=== PATIENT | female | born 1960 | race Caucasian/White ===

== ENCOUNTER 2016-11-11 10:32 | Emergency (ER) | payer OTHER ==
[2016-11-11] MEDS ORDERED: ASPIRIN 81 MG CHEW PO STA (11:01)
[2016-11-11] MEDS ORDERED: KETOROLAC 30 MG/ML 1 ML VIAL IVP STA (11:01)
[2016-11-11] MEDS ORDERED: SODIUM CHLORIDE 0.9% 500 ML IV STA (11:02)
--- NOTE | 2016-11-11 11:07 | ED ---
Chest Pain HPI - General Chief Complaint: Chest Pain Stated Complaint: Chest pain Time Seen by Provider: 11/11/16 10:45 Source: patient, RN notes reviewed Mode of arrival: ambulatory Limitations: no limitations - History of Present Illness Initial Comments: This is a 55-year-old female with a history of smoking but no known history of heart disease she has of a history of hypertension but only sporadically takes her medications who states she had the onset 4 days ago of left-sided chest pain sharp and achy nature mild to moderate in severity. It increases with deep breathing and movement she also complains of dyspnea on exertion. A cough but no phlegm no fevers chills or sweats. She does say she had a recent pneumonia. MD Complaint: chest pain, other - Related Data Home Medications Medication Instructions Recorded Confirmed Amlodipine/Valsartan/Hcthiazid 0.5 tab PO DAILY 04/28/16 11/11/16 [Krddu-Afdiq-Zwst 10-320-25 mg] DULoxetine HCL [Cymbalta] 60 mg PO DAILY 04/28/16 11/11/16 Esomeprazole Magnesium [NexIUM] 20 mg PO TID 04/28/16 11/11/16 Folic Acid 1 mg PO DAILY 04/28/16 11/11/16 Hydrocodone/Acetaminophen [[place] 1 tab PO TID PRN 04/28/16 11/11/16 10-325] Previous Rx's Medication Instructions Recorded Hydrocodone/Acetaminophen [[place] 1 each PO Q6HR PRN #20 tab 11/11/16 5-325] Allergies Allergy/AdvReac Type Severity Reaction Status Date / Time Sulfa (Sulfonamide Allergy Unknown Anaphylaxis Verified 11/11/16 11:29 Antibiotics) Review of Systems ROS Statement: Those systems with pertinent positive or pertinent negative responses have been documented in the HPI. ROS Other: All systems not noted in ROS Statement are negative. EKG Findings - EKG Results: EKG: interpreted by JC, sinus rhythm (Sinus rhythm rate of 109 ND interval 1: 30 QRS duration 58 QT/QTC of 322/433 right atrial large with some artifact is present he elevation or depressions.) Past Medical History Past Medical History: GERD/Reflux History of Any Multi-Drug Resistant Organisms: ESBL Date of last positivie culture/infection: 05/30/15 E. coli ESBL MDRO Source:: Urine Past Surgical History: Hernia Repair, Joint Replacement Past Psychological History: Depression Smoking Status: Current every day smoker Past Alcohol Use History: Daily Past Drug Use History: None Reported General Exam - General Exam Comments Initial Comments: This is a well-developed well-nourished awake alert oriented 3 female Limitations: no limitations General appearance: alert, in no apparent distress Head exam: Present: atraumatic, normocephalic, normal inspection Eye exam: Present: normal appearance, PERRL, EOMI. Absent: scleral icterus, conjunctival injection, periorbital swelling ENT exam: Present: normal exam, mucous membranes moist Neck exam: Present: normal inspection. Absent: tenderness, meningismus, lymphadenopathy Respiratory exam: Present: normal lung sounds bilaterally, chest wall tenderness (Reproducible tenderness palpation over left costochondral margin and costal sternal margin no step-off or crepitation). Absent: respiratory distress, wheezes, rales, rhonchi, stridor Cardiovascular Exam: Present: normal rhythm, tachycardia, normal heart sounds. Absent: systolic murmur, diastolic murmur, rubs, gallop, clicks GI/Abdominal exam: Present: soft, normal bowel sounds. Absent: distended, tenderness, guarding, rebound, rigid Extremities exam: Present: normal inspection, full ROM, normal capillary refill. Absent: tenderness, pedal edema, joint swelling, calf tenderness Back exam: Present: normal inspection Neurological exam: Present: alert, oriented X3, CN II-XII intact Psychiatric exam: Present: normal affect, normal mood Skin exam: Present: warm, dry, intact, normal color. Absent: rash Course Vital Signs 11/11/16 11/11/16 11/11/16 10:35 10:43 10:50 Temperature 97.7 F Pulse Rate 119 H 113 H 107 H Respiratory 20 Rate Blood Pressure 191/97 217/119 200/110 O2 Sat by Pulse 97 Oximetry 11/11/16 11/11/16 11/11/16 11:20 11:35 11:50 Temperature Pulse Rate 104 H 99 97 Respiratory 18 18 18 Rate Blood Pressure 180/115 175/108 180/104 O2 Sat by Pulse 100 100 100 Oximetry 11/11/16 12:17 Temperature Pulse Rate 104 H Respiratory 18 Rate Blood Pressure 187/106 O2 Sat by Pulse 100 Oximetry Chest Pain MDM - MDM Review the imaging and reports no evidence of pulmonary and wasn't there is evidence of a lingular infiltrate however. Patient states she has been having a cough. The presentation at this time consistent with costochondritis and the above-mentioned pneumonic process. Patient already has a prescription for Zithromax as well as prednisone waiting for her at a pharmacy that her doctor prescribed. Discharged with follow-up. Disposition Clinical Impression: Costalchondritis, Chest wall syndrome Disposition: HOME SELF-CARE Condition: Good Instructions: Costochondritis (ED), Chest Pain (ED) Prescriptions: Hydrocodone/Acetaminophen [[place] 5-325] 1 each PO Q6HR PRN #20 tab PRN Reason: Pain
[2016-11-11 11:15] LABS: Basophils # (A) 0.1 k/uL (0-0.2); Basophils % (A) 1 %; CHCM 31.7; Eosinophils # (A) 0.5 k/uL (0-0.7); Eosinophils % (A) 5 %; HCT 38.7 % (34.0-46.0); HDW 2.49; HGB 11.8 gm/dL (11.4-16.0); Luc # (Auto) 0.31; Luc % (Auto) 4; Lymphocytes # (A) 1.3 k/uL (1.0-4.8); Lymphocytes % (A) 15 %; MCH 30.9 pg (25.0-35.0); MCHC 30.4 g/dL (31.0-37.0); MCV 101.4 fL (80.0-100.0); Macrocytosis Slight; Mean Platelet Volume 6.7; Monocytes # (A) 0.4 k/uL (0-1.0); Monocytes % (A) 5 %; Neutrophils # (A) 5.9 k/uL (1.3-7.7); Neutrophils % (A) 70 %; RBC 3.82 m/uL (3.80-5.40); RDW 13.9 % (11.5-15.5); WBC 8.5 k/uL (3.8-10.6); WBC (Perox) 8.93
[2016-11-11 11:30] LABS: ALT 30 U/L (9-52); AST 47 U/L (14-36); Alkaline Phosphatase 92 U/L (38-126); Anion Gap 11 mmol/L; Blood Urea Nitrogen 13 mg/dL (7-17); Calcium 9.5 mg/dL (8.4-10.2); Carbon Dioxide 27 mmol/L (22-30); Chloride 101 mmol/L (98-107); Glucose 103 mg/dL (74-99); Magnesium 1.8 mg/dL (1.6-2.3); Non-African American GFR(MDRD) 52 (>60 ml/min/1.73 sqM); Sodium 139 mmol/L (137-145); Total Bilirubin 0.6 mg/dL (0.2-1.3); Total Protein 7.8 g/dL (6.3-8.2)
[2016-11-11 11:33] LABS: Potassium 4.6 mmol/L (3.5-5.1)
[2016-11-11 11:49] LABS: Creatine Kinase 57 U/L (30-135)
[2016-11-11 12:02] LABS: Creatine Kinase MB 1.2 ng/mL (0.0-2.4); Troponin I <0.012 ng/mL (0.000-0.034)
[2016-11-11 12:18] VITALS: RESP 18
--- NOTE | 2016-11-11 12:24 | XR ---
EXAMINATION TYPE: XR chest 2V DATE OF EXAM: 11/11/2016 11:56 AM COMPARISON: 06/04/2016 HISTORY: 55-year-old female with chest pain, cough, difficulty in breathing TECHNIQUE: PA and lateral views FINDINGS: Heart is normal size. Aorta and pulmonary vasculature within normal limits. Mild hyperinflation and i nterstitial densities, possible underlying COPD. A 1.6 cm nodular density at the peripheral right mid lung may relate to callus from a healing fracture deformity of the right anterior third rib. No conso lidation or pleural effusion. IMPRESSION: COPD. A new nodular density at the peripheral right midlung could represent callus relating to healed fracture deformity of the right anterior third rib. Any underlying pulmonary nodule is also possible but considered less likely. Recommend 4-6 week follow-up to reassess.
[2016-11-11 12:29] LABS: INR 0.9 (<1.1); Partial Thromboplastin Time 22.9 sec (22.0-30.0); Prothrombin Time 9.6 sec (9.0-12.0)
[2016-11-11] MEDS ORDERED: RX INFO: IV CONTRAST WAS GIVEN 1 EACH MISC MISCELLANE PRN (13:01)
--- NOTE | 2016-11-11 13:48 | CT ---
EXAMINATION TYPE: CT angio chest DATE OF EXAM: 11/11/2016 1:33 PM COMPARISON: 06/04/2016 HISTORY: 55-year-old female with chest pain TECHNIQUE: Contiguous axial scanning of the chest performed with IV Contrast, patient injected with 5 6 mL of Visipaque 320. Coronal and sagittal MIP reconstructions performed. CT DLP: 131.4 mGycm Automated exposure control for dose reduction was used. FINDINGS: Heart is normal size with a small anterior basilar pericardial effusion. Aorta is normal caliber with conventional arch vessel branching anatomy. No thoracic lymphadenopathy. Satisfactory opacification of the pulmonary arterial system without evidence for pulmonary embolus. There is mild emphysematous change and a couple patchy subpleural and peribronchovascular areas of op acity such as in the anterior medial lingula and superior lingula. Posterior right basilar density tobin s a more nodular appearance measuring 6 mm. Otherwise, no consolidation or pleural effusion. Dependent atelectasis is present. There is a fat con taining right Bochdalek hernia. Postsurgical changes at the GE junction. Visualized upper abdomen shows no gross abnormal quality. Bones: Scattered old healed fracture deformities of the ribs. No osseous destructive process. IMPRESSION: 1. NO EVIDENCE FOR PULMONARY EMBOLUS. 2. MILD COPD. 3. SOME PATCHY INFILTRATES IN THE LINGULA. CORRELATE FOR ANY SYMPTOMS OF PNEUMONIA. INTERSTITIAL PNEU MONITIS SUCH SILICA SPRAY MIXER IS ALSO A POSSIBILITY. 4. A 6 MM POSTERIOR RIGHT BASILAR PULMONARY NODULE APPEARS NEW. RECOMMEND 6 MONTH FOLLOW-UP EXAM TO Fabio SHAW.
[2016-11-11 14:54] VITALS: BP 176/87; PULSE 96; TEMP 98.7
== END 2016-11-11 15:02 | disposition home or self-care (01) ==
LOC: EC 10:32
DX: M94.0 Chondrocostal junction syndrome [Tietze] (principal); R07.1 Chest pain on breathing; Z88.2 Allergy status to sulfonamides; R06.09 Other forms of dyspnea; Z79.899 Other long term (current) drug therapy; K21.9 Gastro-esophageal reflux disease without esophagitis; F32.9 Major depressive disorder, single episode, unspecified; R05 Cough; Z87.891 Personal history of nicotine dependence
CPT/HCPCS: 36415; 93005; 85379; 83880; 80053; 82550; 82553; 83735; 84484; 85025; 85610; 85730; 71020; 71275; 99285; 96374; 96361; Q9967; J1885

== ENCOUNTER → 2017-03-27 | Outpatient (CLI) | payer OTHER ==
--- NOTE | 2017-03-28 11:11 | MR ---
MRI brain with and without contrast HISTORY: Dizziness, stroke Multiplanar multisequence and postcontrast images obtained through the brain following 10 cc MultiHan ce IV Correlation to prior MRI brain with and without contrast 12/07/2015 There is no restricted diffusion. There is no hemorrhage or hydrocephalus. Extensive scattered and co nfluent areas of white matter hyperintensity are present on inversion recovery T2-weighted sequences as on previous exam. The orbits show symmetric appearance. Cerebellopontine angles, callosum, pituita ry, cervical medullary junction are full. No abnormal enhancement following contrast administration. IMPRESSION: Stable white matter demyelination.
== END | disposition home or self-care (01) ==
LOC: RADMRIMAIN 15:55
PROVIDERS: ATTEND Psychiatry & Neurology Neurology
DX: G37.9 Demyelinating disease of central nervous system, unspecified (principal)
CPT/HCPCS: 82565; 84520; 70553; A9577

== ENCOUNTER → 2018-02-01 | Outpatient (CLI) | payer OTHER ==
--- NOTE | 2018-02-01 19:26 | US ---
EXAMINATION TYPE: US abdomen complete DATE OF EXAM: 02/01/2018 COMPARISON: NONE CLINICAL HISTORY: RUQ Abdominal Pain R10.11. EXAM MEASUREMENTS: Liver Length: 16.2 cm Gallbladder Wall: 0.1 cm CBD: 0.5 cm Spleen: 7.3 cm Right Kidney: 8.5 x 3.6 x 4.8 cm Left Kidney: 9.1 x 4.4 x 4.2 cm Pancreas: Obscured by bowel gas Liver: wnl Gallbladder: No stones seen Evidence for sonographic Obrien's sign: no CBD: wnl Spleen: wnl Right Kidney: No hydronephrosis or masses seen Left Kidney: No hydronephrosis or masses seen Upper IVC: wnl Abd Aorta: wnl The liver is homogenous. The intrahepatic portion of the IVC and proximal abdominal aorta are within normal limits. There is no evidence of cholelithiasis. Common bile duct is unremarkable. The visu alized portions of the pancreas are homogenous. The spleen is unremarkable. Kidneys are symmetric a nd free of hydronephrosis. No renal lesions are seen. IMPRESSION: NO ACUTE PROCESS OR FOCAL FINDINGS.
== END | disposition home or self-care (01) ==
LOC: RADUSMAIN 17:04
PROVIDERS: ATTEND Family Medicine
DX: R10.11 Right upper quadrant pain (principal)
CPT/HCPCS: 76700

== ENCOUNTER → 2018-02-11 | Outpatient (CLI) | payer OTHER ==
--- NOTE | 2018-02-11 10:12 | NM ---
EXAMINATION TYPE: NM hepatobiliary w EF DATE OF EXAM: 02/11/2018 COMPARISON: Previous exam 04/30/2015 HISTORY: Right upper quadrant pain TECHNIQUE: After the intravenous administration of 5.02 mCi Tc 99m Mebrofenin hepatobiliary scintigra phy is performed. Immediate images post injection. FINDINGS: There is satisfactory initial accumulation of tracer by the liver. The gallbladder is visualized wit hin 12 minutes. The small bowel activity is noted within 8 minutes. At one hour 8 ounces of oral en sure plus is given to mimic CCK and gallbladder ejection fraction is calculated at 65 %, in the frieda l range. Therefore there is no scintigraphic evidence of cystic or common bile duct obstruction to s uggest acute cholecystitis or gallbladder dyskinesia. IMPRESSION: Exam is within normal limits.
== END | disposition home or self-care (01) ==
LOC: RADNMMAIN 06:59
PROVIDERS: ATTEND Family Medicine
DX: R10.11 Right upper quadrant pain (principal)
CPT/HCPCS: 78226; A9537

== ENCOUNTER → 2019-01-12 | Outpatient (CLI) | payer OTHER ==
--- NOTE | 2019-01-12 14:11 | CT ---
EXAMINATION TYPE: CT brain wo con DATE OF EXAM: 01/12/2019 COMPARISON: Headaches HISTORY: Headaches CT DLP: 1224.32 mGycm Automated exposure control for dose reduction was used. FINDINGS: Ventricular system is midline. There is mild generalized degenerative change of the lobe greater comp onent. No evidence of mass effect or midline shift. There is nonspecific white matter changes. Calvar ium is intact. Craniocervical junction is maintained. IMPRESSION: NONSPECIFIC WHITE MATTER CHANGES. MAY BEEN THE BASIS OF REMOTE MICROVASCULAR ISCHEMIA. MRI SUGGESTED
--- NOTE | 2019-01-12 14:14 | CT ---
EXAMINATION TYPE: CT ChestAbdPelvis wo con DATE OF EXAM: 01/12/2019 COMPARISON: CT chest dated 11/11/2016 HISTORY: COPD, Pulmonary nodule CT DLP: 492.58 mGycm. Automated Exposure Control for Dose Reduction was Utilized. TECHNIQUE: CT scan of the thorax, abdomen and pelvis is performed without IV contrast. FINDINGS: LUNGS: There is a right apical pulmonary nodule contiguous with pleural parenchymal scarring on serie s 12 image 13 measuring 3 mm representing nodular portion of biapical pleural parenchymal scarring. S ubtle subsolid 3 mm pulmonary nodule is seen within the anterior right upper lobe on image 27. This c ould be a pseudonodule of atelectasis. Subsolid pulmonary nodule measuring 3 mm is also seen medially within the right lower lobe on image 47. The previously seen 6 mm pulmonary nodule at the right lung base has resolved in the interim and could've been inflammatory or also related to pseudonodule. No new suspicious pulmonary masses are seen. Minimal atelectasis is present in the lung bases on coronal image 66 and 62. Bochdalek hernia is unchanged. Mild underlying COPD is again noted. MEDIASTINUM: There are no greater than 1 cm hilar or mediastinal lymph nodes. No pericardial effusi on is seen. LIVER/GB: The liver is elongated extending into the left upper quadrant. No cholelithiasis. No focal hepatic mass is seen given the limitation of lack of intravenous contrast PANCREAS: No significant abnormality is seen. SPLEEN: There is a small splenule adjacent to the [place] spleen. ADRENALS: No significant abnormality is seen. KIDNEYS: No hydronephrosis or nephrolithiasis. BOWEL: Surgical clips are seen at the gastroesophageal junction. There is evidence of prior Ignacio fu ndoplication. No recurrent hernia is seen. No dilated large or small bowel. LYMPH NODES: No greater than 1cm abdominal or pelvic lymph nodes are appreciated. OSSEOUS STRUCTURES: There are bilateral femoral arthroplasties creates spray artifact and partially o bscure visualization of the pelvis limiting evaluation. No new suspicious osseous lesion. Healed bila teral rib fracture deformities are again noted. IMPRESSION: 1. Complete resolution of the previously seen 6 mm right lower lobe pulmonary nodule that may have be en inflammatory or infectious given the surrounding airspace disease. 2. Few scattered 3 mm groundglass pulmonary nodules may be considered nodules of atelectasis. Given t he very small size criteria recommends follow-up CT in 12 months to ensure stability.
== END ==
LOC: RADCTMAIN 11:23
PROVIDERS: ATTEND Family Medicine
DX: R91.1 Solitary pulmonary nodule (principal); J44.9 Chronic obstructive pulmonary disease, unspecified; R90.89 Other abnormal findings on diagnostic imaging of central nervous system
CPT/HCPCS: 70450; 71250; 74176

== ENCOUNTER 2019-09-06 07:31 | Day surgery (SDC) | payer OTHER ==
[2019-09-05 10:15] VITALS: BMI 16.2
[~2019-09-06 07:31] MED LIST: LACTATED RINGERS 1,000 ML IV SCH; TOBRA-DEXAMET 0.3-0.1% OPHTH OINT 3.5 GM TUBE OPHTHALMIC ONE
[2019-09-06 07:53] VITALS: RESP 18; TEMP 97.8
[2019-09-06] MEDS ORDERED: LACTATED RINGERS 1,000 ML IV ONE (07:53)
[2019-09-06] MEDS: CYCLOPENTOLATE 1% OPHTH SOLN 2 ML BTL OP ONE ×3 (07:55→08:14)
[2019-09-06] MEDS ORDERED: LIDOCAINE 1% 20 ML VIAL (10MG/ML) FOR IV START INTRADERMA ONE (07:56)
[2019-09-06] MEDS: PHENYLEPHRINE 10% OPHTH DROPS 5 ML BTL OP ONE ×3 (07:58→08:17)
[2019-09-06] MEDS: KETOROLAC 0.5% OPHTH DROPS 5 ML BTL OP ONE ×3 (08:01→08:20)
[2019-09-06 08:05] LABS: Glucose,Whole Blood 56 mg/dL (75-99)
[2019-09-06] MEDS ORDERED: DEXTROSE 50% SYRINGE 50 ML IVP ONE (08:21)
--- NOTE | 2019-09-06 08:39 | P.OP ---
Date of Procedure: 09/06/19 Procedure(s) Performed: PREOPERATIVE DIAGNOSIS: Cataract, right eye. POSTOPERATIVE DIAGNOSIS: Cataract, right eye. OPERATION: Phacoemulsification of cataract, intraocular lens placement, right eye. DESCRIPTION OF PROCEDURE: The patient was taken to the operating room. Intravenous Propofol was given so as to bring about sedation. The following mixture was given for local anesthesia: 5 mL of 2% lidocaine, 5 mL of 0.75% Marcaine, and 1 mL of Wydase. Approximately 4 mL was injected in the retrobu lbar space of the surgical eye. Additional 1 mL was then directed to the temporal area of the surgical eye. This was performed to allow adequate neurological block of the facial muscles. The patient was revived. The patient was prepped and draped in the usual sterile manner for the operative eye. A lid speculum was put into position. The conjunctiva was resected back from the limbus in the 12 o'clock position. Bleeding was controlled with electrocautery. A #69 blade was then used and a half-thickness scleral incision approximately 1-mm posterior to the limbus was made on bare sclera. This was shelved in the clear cornea using a crescent knife. Next a 15-degree blade was used to make a stab incision at the 3 o'clock position at the corneolimbal interface. A keratome blade was then used and the superior wound was extended into the anterior chamber. Viscoelastic was injected into the anterior chamber to maintain its form. A cystotome was used and a continuous anterior capsu lotomy was made. Hydrodissection of the lens cortex using a blunt cannula and BSS was performed. A phaco probe was then introduced and a groove extending from 12 to 6 o'clock in the lens was created. A Seamus wand was used through the stab incision and used to perform a divide and conquer dismantling of the cataract. An irrigation aspiration probe was utilized and any residual cortex was removed from the eye. Again, viscoelastic was injected into the anterior chamber. An Mikahil posterior chamber lens implant was placed in a delivery cartridge and injected into the anterior chamber. A Sinskey hook was utilized to spin the lens into position within the capsular bag. The irrigation and aspiration probe was again introduced and any residual viscoelastic was removed from the eye. BSS was injected via blunt canula into the limbal stab incision and the anterior chamber was re-inflated. The conjunctiva was reapproximated using electrocautery. One drop of 0.25% Timoptic was placed over the corneal along with an antibiotic ophthalmic ointment. Two sterile patches and a Velazquez eye shield were taped into position. The patient was transported to the recovery room in stable condition. Pathology: none sent Condition: stable Disposition: same day
[2019-09-06] MEDS ORDERED: PROPOFOL 10 MG/ML 20 ML VIAL IV ONE (08:41)
[2019-09-06 08:47] LABS: Glucose,Whole Blood 116 mg/dL (75-99)
[2019-09-06] MEDS ORDERED: HYALURONATE SODIUM INTRAOCULAR 1 EACH SYRINGE (10MG/ML) INTRAOCULA ONE (09:02)
[2019-09-06] MEDS ORDERED: BALANCED SALT IRRIG SOLN COMB2 15 ML IRRIG.SOLN IRRIGATION ONE (09:02)
[2019-09-06] MEDS ORDERED: EPINEPHrine (PF) 0.5 ML in BALANCED SALT IRRIG SOLN COMB2 500 ML IRRIGATION ONE (09:03)
[2019-09-06 09:34] VITALS: BP 137/85; PULSE 95
[2019-09-06] MEDS ORDERED: TIMOLOL 0.5% OPHTH DROPS 5 ML BTL OP ONE (23:00)
[2019-09-06] MEDS ORDERED: GENTAMICIN/PREDNISOL AC OPHTH OINT 3.5GM OPHTHALMIC ONE (23:00)
[2019-09-06] MEDS ORDERED: BUPIVACAINE (PF) 0.75% 5 ML, HYALURONIDASE, HUMAN RECOMB 150 UNIT, LIDOCAINE 2% (PF) 10... MISCELLANE ONE ×3 (23:00)
== END 2019-09-06 10:00 | disposition home or self-care (01) ==
LOC: OR 07:31
PROVIDERS: ATTEND Ophthalmology
DX: H25.13 Age-related nuclear cataract, bilateral (principal); I10 Essential (primary) hypertension; K21.9 Gastro-esophageal reflux disease without esophagitis; F17.200 Nicotine dependence, unspecified, uncomplicated; Z88.2 Allergy status to sulfonamides; Z79.899 Other long term (current) drug therapy; Z79.891 Long term (current) use of opiate analgesic; Z96.642 Presence of left artificial hip joint; Z98.890 Other specified postprocedural states; Z83.518 Family history of other specified eye disorder
CPT/HCPCS: 66984; V2632; J3470; J2001; J0171; J2704

== ENCOUNTER 2019-12-06 08:09 | Day surgery (SDC) | payer OTHER ==
[2019-12-02 15:16] VITALS: BMI 16.9
[~2019-12-06 08:09] MED LIST changes: -TOBRA-DEXAMET 0.3-0.1% OPHTH OINT 3.5 GM TUBE OPHTHALMIC ONE
[2019-12-06] MEDS: PHENYLEPHRINE 10% OPHTH DROPS 5 ML BTL OP ONE ×3 (08:50→09:08)
[2019-12-06] MEDS: CYCLOPENTOLATE 1% OPHTH SOLN 2 ML BTL OP ONE ×3 (08:53→09:11)
[2019-12-06] MEDS: KETOROLAC 0.5% OPHTH DROPS 5 ML BTL OP ONE ×3 (08:56→09:14)
[2019-12-06 09:02] VITALS: TEMP 97.7
[2019-12-06] MEDS ORDERED: PROPOFOL 10 MG/ML 20 ML VIAL IV ONE (09:36)
[2019-12-06] MEDS ORDERED: fentaNYL (PF) 50 MCG/ML 2 ML AMP ONE (09:36)
[2019-12-06] MEDS ORDERED: MIDAZOLAM 2 MG/2 ML VIAL ONE (09:36)
[2019-12-06] MEDS ORDERED: BALANCED SALT IRRIG SOLN COMB2 15 ML IRRIG.SOLN INTRAOCULA ONE (09:41)
[2019-12-06] MEDS ORDERED: HYALURONATE SODIUM INTRAOCULAR 1 EACH SYRINGE (10MG/ML) INTRAOCULA ONE ×2 (09:41→09:52)
[2019-12-06] MEDS: BUPIVACAINE (PF) 0.75% 5 ML, HYALURONIDASE, HUMAN RECOMB 150 UNIT, LIDOCAINE 2% (PF) 10... MISCELLANE ONE ×9 (09:42→09:52)
[2019-12-06] MEDS: TOBRA-DEXAMET 0.3-0.1% OPHTH OINT 3.5 GM TUBE OPHTHALMIC ONE ×2 (09:42→09:56)
[2019-12-06] MEDS: TIMOLOL 0.5% OPHTH DROPS 5 ML BTL OP ONE ×2 (09:42→09:55)
[2019-12-06] MEDS ORDERED: EPINEPHrine (PF) 0.5 ML in BALANCED SALT IRRIG SOLN COMB2 500 ML IRRIGATION ONE ×4 (09:43)
[2019-12-06 10:10] VITALS: RESP 16
[2019-12-06 10:18] VITALS: BP 150/86; PULSE 86
--- NOTE | 2019-12-06 10:39 | P.OP ---
Date of Procedure: 12/06/19 Procedure(s) Performed: PREOPERATIVE DIAGNOSIS: Cataract, left eye. POSTOPERATIVE DIAGNOSIS: Cataract, left eye. OPERATION: Phacoemulsification of cataract, intraocular lens placement, left eye. DESCRIPTION OF PROCEDURE: The patient was taken to the operating room. Intravenous Propofol was given so as to bring about sedation. The following mixture was given for local anesthesia: 5 mL of 2% lidocaine, 5 mL of 0.75% Marcaine, and 1 mL of Wydase. Approximately 4 mL was injected in the retrobulbar space of the surgical eye. Additional 1 mL was then directed to the temporal area of the surgical eye. This was performed to allow adequate neurological block of the facial muscles. The patient was revived. The patient was prepped and draped in the usual sterile manner for the operative eye. A lid speculum was put into position. The conjunctiva was resected back from the limbus in the 12 o'clock position. Bleeding was controlled with electrocautery. A #69 blade was then used and a half-thickness scleral incision approximately 1-mm posterior to the limbus was made on bare sclera. This was shelved in the clear cornea using a crescent knife. Next a 15-degree blade was used to make a stab incision at the 3 o'clock position at the corneolimbal interface. A keratome blade was then used and the superior wound was extended into the anterior chamber. Viscoelastic was injected into the anterior chamber to maintain its form. A cystotome was used and a continuous anterior capsulot kem was made. Hydrodissection of the lens cortex using a blunt cannula and BSS was performed. A phaco probe was then introduced and a groove extending from 12 to 6 o'clock in the lens was created. A Seamus wand was used through the stab incision and used to perform a divide and conquer dismantling of the cataract. An irrigation aspiration probe was utilized and any residual cortex was removed from the eye. Again, viscoelastic was injected into the anterior chamber. An Mikhail posterior chamber lens implant was placed in a delivery cartridge and injected into the anterior chamber. A Sinskey hook was utilized to spin the lens into position within the capsular bag. The irrigation and aspiration probe was again introduced and any residual viscoelastic was removed from the eye. BSS was injected via blunt canula into the limbal stab incision and the anterior chamber was re-inflated. The conjunctiva was reapproximated using electrocautery. One drop of 0.25% Timoptic was placed over the corneal along with an antibiotic ophthalmic ointment. Two sterile patches and a Velazquez eye shield were taped into position. The patient was transported to the recovery room in stable condition. Pathology: none sent Condition: stable Disposition: same day
== END 2019-12-06 10:36 | disposition home or self-care (01) ==
LOC: OR 08:09
PROVIDERS: ATTEND Ophthalmology
DX: H25.12 Age-related nuclear cataract, left eye (principal); I10 Essential (primary) hypertension; J44.9 Chronic obstructive pulmonary disease, unspecified; M19.90 Unspecified osteoarthritis, unspecified site; K21.9 Gastro-esophageal reflux disease without esophagitis; F41.9 Anxiety disorder, unspecified; F32.9 Major depressive disorder, single episode, unspecified; F17.210 Nicotine dependence, cigarettes, uncomplicated; Z79.899 Other long term (current) drug therapy; Z88.2 Allergy status to sulfonamides; Z98.41 Cataract extraction status, right eye; Z96.649 Presence of unspecified artificial hip joint
CPT/HCPCS: 66984; V2632; J2250; J3470; J2001; J0171; J3010; J2704

== ENCOUNTER → 2020-09-06 | Outpatient (CLI) | payer BC ==
[2020-09-06 08:39] LABS: Appearance,Urine Cloudy (Clear); Bacteria,Urine Rare /hpf; Bilirubin,Urine Negative (Negative); Blood,Urine Negative (Negative); Color,Urine Yellow; Glucose,Urine (UA) Negative (Negative); Ketones,Urine Negative (Negative); Leukocyte Esterase,Urine Trace (Negative); Mucus,Urine Rare /hpf; Nitrite,Urine Negative (Negative); PH, Urine 6.5 (5.0-8.0); Protein,Urine Trace (Negative); RBC,Urine <1 /hpf (0-5); Specific Gravity,Urine 1.019 (1.001-1.035); Squamous Epithelial Cell,Urine 5 /hpf (0-4); Urobilinogen,Urine <2.0 mg/dL (<2.0); WBC,Urine 2 /hpf (0-5)
[2020-09-06 08:40] LABS: HCT 37.9 % (34.0-46.0); Hypochromasia Slight; MCH 32.9 pg (25.0-35.0); MCHC 31.6 g/dL (31.0-37.0); MCV 104.1 fL (80.0-100.0); Macrocytosis Moderate; Mean Platelet Volume 7.6; Platelet Count 441 k/uL (150-450); RBC 3.63 m/uL (3.80-5.40); RDW 14.5 % (11.5-15.5); WBC 6.3 k/uL (3.8-10.6)
[2020-09-06 08:50] LABS: Albumin 3.8 g/dL (3.5-5.0); Calcium 9.1 mg/dL (8.4-10.2); INR 0.9 (<1.2); Partial Thromboplastin Time 22.5 sec (22.0-30.0); Potassium 4.1 mmol/L (3.5-5.1); Prothrombin Time 9.4 sec (9.0-12.0); Total Bilirubin 0.4 mg/dL (0.2-1.3); Total Protein 6.6 g/dL (6.3-8.2)
== END | disposition home or self-care (01) ==
LOC: LABPAT 07:22
PROVIDERS: ATTEND Orthopaedic Surgery
DX: Z01.812 Encounter for preprocedural laboratory examination (principal); Z01.818 Encounter for other preprocedural examination
CPT/HCPCS: 36415; 80053; 81001; 85027; 85610; 85730; 87070; 93005

== ENCOUNTER 2020-09-18 07:35 | Day surgery (SDC) | payer BC, OTHER ==
[2020-09-11 12:15] VITALS: BMI 18.1
[~2020-09-18 07:35] MED LIST changes: +ACETAMINOPHEN TAB 500 MG TAB PO PRN; +DEXAMETHASONE SOD PHOSPHATE 4 MG/ML 1 ML VIAL IV ONE; +GABAPENTIN 300 MG CAP PO PRN; +HYDROcodone/APAP 7.5-325MG 1 EACH TAB PO PRN; +HYDROmorphone 0.2 MG/1 ML SYRINGE IVP PRN; +HYDROmorphone 0.5 MG/0.5 ML SYRINGE IVP PRN; +HYDROmorphone 1 MG/ML 1 ML SYRINGE IVP PRN; -LACTATED RINGERS 1,000 ML IV SCH; +LIDOCAINE 1% (10MG/ML) FOR IV START INTRADERMA PRN; +MAGNESIUM HYDROXIDE 2,400 MG/10 ML CUP PO PRN; +MELOXICAM 7.5 MG TAB PO PRN; +MIDAZOLAM 2 MG/2 ML VIAL IV PRN; +NALOXONE 0.4 MG/ML 1 ML VIAL IV PRN; +ONDANSETRON 4 MG/2 ML VIAL IVP ONE; +ONDANSETRON 4 MG/2 ML VIAL IVP PRN; +ROPIVACAINE 246.25 MG, EPINEPHrine 0.5 MG, KETOROLAC 30 MG, cloNIDine HCL/PF 80 MCG, WA... MISCELLANE PRN; +TRANEXAMIC ACID 1,000 MG in SODIUM CHLORIDE 0.9% 100 ML IVPB PRN; +diazePAM 5 MG TAB PO PRN; +hydrOXYzine pamoate 25 MG CAP PO PRN
[2020-09-18] MEDS: LACTATED RINGERS 1,000 ML IV SCH (08:07)
[2020-09-18] MEDS ORDERED: HEPARIN SODIUM,PORCINE 10,000 UNIT/ML 1 ML VIAL ONE (09:03)
[2020-09-18] MEDS ORDERED: PROPOFOL 10 MG/ML 20 ML VIAL IV ONE (09:03)
[2020-09-18] MEDS ORDERED: SODIUM CHLORIDE 0.9% IRRIG 1,000 ML BTL IRRIGATION ONE (09:03)
[2020-09-18] MEDS ORDERED: SODIUM CHLORIDE 0.9% 100 ML BAG ONE (09:03)
[2020-09-18] MEDS ORDERED: TRANEXAMIC ACID 1,000 MG/10 ML VIAL ONE (09:03)
[2020-09-18] MEDS ORDERED: fentaNYL (PF) 50 MCG/ML 2 ML AMP ONE (09:03)
[2020-09-18] MEDS ORDERED: MIDAZOLAM 2 MG/2 ML VIAL ONE (09:03)
[2020-09-18] MEDS ORDERED: ceFAZolin 3,000 MG in SODIUM CHLORIDE 0.9% IRRIGATIO 3,000 ML IRRIGATION ONE (09:08)
[2020-09-18] MEDS ORDERED: LACTATED RINGERS 1,000 ML IV ONE (10:29)
--- NOTE | 2020-09-18 10:52 | P.OP ---
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 She has continued to have increased pain in her hip and her x-rays demonstrate eccentric polyethylene wear. After discussing the surgical nonsurgical treatment options with her at length, she wishes to proceed with a revision of a right total hip arthroplasty with polyethylene and head exchange. Informed consent was obtained. Operative Findings: The operative findings are consistent with significant polyethylene wear of the right total hip arthroplasty. There is reactive synovitis but the femoral and acetabular components were found to be well fixed. Description of Procedure: Patient was seen and evaluated in the preoperative area, consent was reviewed, and the surgical site was marked with a skin marker. Patient was then brought to the operating room and given prophylactic antibiotics intravenously. 1 g of Tranexamic acid was also given. A spinal anesthetic was administered by the anesthesia department. The patient was then placed on the operative table and placed in the lateral decubitus position with the bony prominences well-padded. The hip area was then prepped and draped in usual sterile fashion. A universal timeout was then performed, which confirmed the patient's name, surgical site, ALLERGIES, and procedure being performed. Next the incision site was located in the lateral aspect of the hip, centered at the tip of the greater trochanter.. The skin and subcutaneous tissues were sharply incised. A portion of his prior incision was utilized, with the scar being excised. Incision was carefully dissected down to the fascia. This fascia was then incised in line with the incision. Next, a Charnley retractor was then placed in the abductors were identified. The anterior one third of the abductors was released off the trochanter and one large sleeve. The anterior hip capsule was then exposed. The capsule was then opened. There was a small amount of clear fluid which was cultured 2. The proximal femur was then visualized. The hip was then gently dislocated. The femoral head was then removed from the trunnion of the femoral component. The femoral stem was then inspected, and found to be well fixed. Attention was then turned to the acetabulum. The acetabulum was exposed, and the scar tissue was excised sharply with a knife. After the acetabulum was exposed, the polyethylene component was found to have significant eccentric wear. This was then removed with an osteotome. The acetabular component was then inspected and found to be well fixed. There were 4 screws in the acetabulum which were removed. After adequate debridement of scar tissue, trial liner was then placed. Trial femoral head was then placed and hip was reduced. The leg lengths were checked and found to be equal. Hip was then taken through full range of motion, was stable throughout. Next, the hip was gently di slocated, and the trials were removed. Acetabulum was then reexposed. The appropriate acetabular liner was then opened, and using a saw the backside was roughened in order to adhere to the cement. Met was mixed and the acetabular liner was then cemented in place. The trunnion was then cleaned and dried and the femoral head was impacted on the trunnion. Hip was then reduced and any excess cement was removed. The hip was not moved until the cement had hardened. After the cemented hardened, the hip was then taken through range of motion and found to be stable throughout. Leg lengths were also checked, and found to be equal. The hip was then copiously irrigated with antibiotic solution with pulsatile lavage. The hip was then irrigated with Irrisept solution. The soft tissues were then injected with ropivacaine solution. A second dose of 1 g of Tranexamic acid was given. The abductors were then repaired with #5 Ethibond suture with drill holes to the bone. The fascia was closed with #2 strata fix suture. The subcutaneous tissue was closed with 3-0 Vicryl. The subcuticular tissue was closed with 30 strata fix suture. The skin was then closed with Dermabond tape. The patient was then transferred to the recovery room in stable condition. The Asst. ROCKY Orellana was required due to the complexity of surgery, and the need for skilled compliance assistant for positioning, draping, exposure, retraction, and closure of the wound.and closure of the wound.
[2020-09-18] MEDS: HYDROmorphone 0.5 MG/0.5 ML SYRINGE IVP PRN ×2 (11:24→11:29)
--- NOTE | 2020-09-18 11:53 | XR ---
Limited right hip HISTORY: Status post right hip arthroplasty Single frontal view of the right hip Patient is status post right hip arthroplasty. There is anatomic alignment. There is low bone mineral ization. Lucency is present in the soft tissues. Small ossific densities are present about the hip wh ich are well-corticated and likely remote. IMPRESSION: Orthopedic follow-up.
[2020-09-18] MEDS: SODIUM CHLORIDE 0.9% 1,000 ML IV SCH (17:50)
[2020-09-18] MEDS ORDERED: LORazepam 1 MG TAB PO PRN (18:47)
[2020-09-18] MEDS ORDERED: ONDANSETRON 4 MG TAB PO PRN (18:47)
[2020-09-18] MEDS ORDERED: SENNOSIDES-DOCUSATE SODIUM 1 EACH TAB PO SCH (21:00)
[2020-09-18] MEDS: SYMBICORT 80-4.5 MCG INHALER INHALATION SCH (21:03)
[2020-09-18] MEDS: HYDROcodone/APAP 10-325MG 1 EACH TAB PO PRN (21:12)
[2020-09-18] MEDS: ASPIRIN 325 MG TAB PO SCH (21:13)
[2020-09-18] MEDS: NICOTINE 14MG/24HR PATCH TRANSDERM SCH (23:24)
--- NOTE | 2020-09-18 23:40 | P.CONS ---
History of Present Illness - Reason for Consult Consult date: 09/18/20 Medical management Requesting physician: Maicol King - Chief Complaint Right total hip arthroplasty, COPD, hypertension, GERD and smoking. - History of Present Illness 59-year-old female one of Dr. Garcia patient with past medical history of COPD, hypertension, GERD and chronic smoking who developed to have worsening pain and arthritis of the right hip with failure to conservative management. Patient was seen orthopedic and scheduled surgery no major complaint or any absolute contraindication for surgery. Patient ended up going for surgery today with no major complication was admitted to the orthopedic floor, her pain is well controlled patient is ambulating with minimum help. Review of Systems CONSTITUTIONAL: Well-developed no acute respiratory distress. EYES: No icterus sclerae, no conjunctivitis. EARS, NOSE, MOUTH, THROAT, and FACE: No sore throat, lymphadenopathy, carotid bruits or deformity. RESPIRATORY: Mild shortness of breath and COPD. CARDIOVASCULAR: No CP, Palpitation, PND, Orthopnea, or angina. GASTROINTESTINAL: No Abd pain, Nausea or vomiting, no Diarrhea or constipation, No GI Bleed, no distention or masses. GENITOURINARY: Negative for Hematuria or UTI, no kidney stones. INTEGUMENT/BREAST: Negative for any muscular injury with mild osteoarthritis.. HEMATOLOGIC/LYMPHATIC: Negative for bleed or purpura. MUSCULOSKELTAL: Negative for Myalgia or arthralgia. Mild arthritis around the right hip area with slight limitation. NEURLOGICAL: No LOC, Sz or syncope, blurred vision dizziness or abnormality.. BEHAVIORAL/PSYCH: Negative. ENDOCRINE: Negative. Past Medical History Past Medical History: COPD, GERD/Reflux, Hypertension, Osteoarthritis (OA), Seizure Disorder Additional Past Medical History / Comment(s): Hx Epilepsy, no seizure in 30+ yrs. History of Any Multi-Drug Resistant Organisms: ESBL Year Discovered:: 05/30/15 E. coli ESBL MDRO Source:: Urine Past Surgical History: Hernia Repair, Joint Replacement Additional Past Surgical History / Comment(s): Bilateral cataract surgery, left hip replacement X2, right hip replacement, hiatal hernia repair. Past Anesthesia/Blood Transfusion Reactions: No Reported Reaction Additional Past Anesthesia/Blood Transfusion Reaction / Comm: Patient states "everytime I have an IV started I get I immediately get diarrhea after." Sister slow to wake up. Past Psychological History: Anxiety, Depression Smoking Status: Current every day smoker Past Alcohol Use History: Daily Additional Past Alcohol Use History / Comment(s): Started smoking at age 16, currently smokes 1 PPD. Normally has 2-4 alcoholic drinks daily, had one drink last on 09/10/20, states not having any more prior to surgery. Past Drug Use History: None Reported - Past Family History Mother Family Medical History: No Reported History Father Family Medical History: Cancer Medications and Allergies Home Medications Medication Instructions Recorded Confirmed Type DULoxetine HCL [Cymbalta] 60 mg PO QAM 04/28/16 09/11/20 History Hydrocodone/Acetaminophen [[place] 1 tab PO TID PRN 04/28/16 09/11/20 History 10-325] Dexlansoprazole [Dexilant] 60 mg PO QAM 09/05/19 09/11/20 History LORazepam [Ativan] 1 mg PO TID PRN 12/02/19 09/11/20 History Fluticasone/Umeclidin/Vilanter 1 inhalation INHALATION DAILY 09/11/20 09/18/20 History [Trelegy Ellipta 100-62.5-25] Losartan Potassium 100 mg PO QAM 09/11/20 09/11/20 History Ondansetron [Zofran] 4 mg PO Q8HR PRN 09/11/20 09/11/20 History guaiFENesin [Mucinex] 600 mg PO DAILY 09/11/20 09/11/20 History Allergies Allergy/AdvReac Type Severity Reaction Status Date / Time Sulfa (Sulfonamide Allergy Unknown Anaphylaxis Verified 09/18/20 07:48 Antibiotics) Physical Exam Vitals: Vital Signs Temp Pulse Pulse Resp BP Pulse Ox 09/18/20 18:39 98.4 F 108 H 16 137/86 99 09/18/20 14:00 97.0 F L 100 17 127/89 09/18/20 13:45 93 16 147/86 100 09/18/20 13:15 88 16 153/87 100 09/18/20 12:45 88 14 156/83 100 09/18/20 12:19 84 16 168/77 100 09/18/20 12:01 86 16 173/92 100 09/18/20 11:46 83 16 168/87 100 09/18/20 11:31 87 16 178/89 100 09/18/20 11:15 91 16 157/80 100 09/18/20 11:11 97.0 F L 83 16 156/84 99 09/18/20 07:57 97.7 F 101 H 17 171/98 97 Intake and Output 09/18/20 09/18/20 09/18/20 06:59 14:59 22:59 Intake Total 1151 Output Total 100 Balance 1051 Intake: IV 1151 Output: Estimated Blood Loss 100 Other: Weight 48.6 kg 48.6 kg General Appearance: Alert, cooperative, no distress, appears stated age. Neck HEENT: Supple, no lymphadenopathy, no thyroid enlargement, no carotid bruits. Lungs: Decreased breath some bilateral rhonchi no crackles positive might expect wheezes. Chest Wall: Decrease expansion with deep inspiration no tenderness and no deformity was found on exam, no costochondral pain or discomfort. Heart: Regular rate and rhythm, S1, S2 normal, no murmur, rub or gallop. Back: Symmetric, no curvature, ROM normal, no CVA tenderness. Abdomen: Soft, non-tender, bowel sounds active all four quadrants, no masses, no organomegaly. Extremities: Extremities normal, atraumatic, no cyanosis or edema. Incision on the right hip looks fine with no hematoma bleeding. Pulses: 2+ and symmetric. Skin: Skin color, texture, tugor normal, no rashes or lesions. Neurologic: Alert oriented x3 cranial nerves II through XII intact, no motor deficit, no abnormal balance or gait. Results Labs: Microbiology - Last 24 Hours (Table) 09/18/20 09:39 Anaerobic Culture - Preliminary Hip - Right 09/18/20 09:39 Anaerobic Culture - Preliminary Hip - Right 09/18/20 09:39 Wound Culture - Preliminary Hip - Right 09/18/20 09:39 Wound Culture - Preliminary Hip - Right Assessment and Plan Assessment: 1 post right total hip arthroplasty: Doing well so far after surgery, pain is well controlled, patient hemodynamic status is good. Patient apparently smoked on daily basis also drink a few drinks a week precaution for any withdrawal symptoms from alcohol and patient be on nicotine patch as well. 2 COPD: Has been on Trelegy Ellipta still using Mucinex. 3 Hypertension: Resume losartan at 200 mg daily. 4 GERD/L hernia: Patient has been on Dexilant 60 mg a day. 5 chronic depression: Has been on Cymbalta 60 mg daily. 6 chronic pain management: We will patient will be on hydrocodone 10/325 mg every 6 hours as needed. 7 DVT prophylaxis: Patient be on aspirin when discharged from the hospital for total of 30 days. CODE STATUS: Full code. Dr. King thank you much for the consult if I can be any further help to please let me know.
[2020-09-19] MEDS: HYDROcodone/APAP 10-325MG 1 EACH TAB PO PRN ×2 (02:54→09:23)
[2020-09-19] MEDS: SODIUM CHLORIDE 0.9% 1,000 ML IV SCH (04:24)
[2020-09-19 06:09] LABS: Basophils % (A) 0 %; Eosinophils % (A) 1 %; HCT 30.6 % (34.0-46.0); Hypochromasia Slight; Lymphocytes # (A) 1.3 k/uL (1.0-4.8); Lymphocytes % (A) 14 %; MCH 32.9 pg (25.0-35.0); MCHC 32.5 g/dL (31.0-37.0); MCV 101.3 fL (80.0-100.0); Macrocytosis Slight; Mean Platelet Volume 7.3; Monocytes # (A) 0.6 k/uL (0-1.0); Monocytes % (A) 6 %; Neutrophils # (A) 6.9 k/uL (1.3-7.7); Neutrophils % (A) 77 %; Platelet Count 266 k/uL (150-450); RBC 3.02 m/uL (3.80-5.40); RDW 14.4 % (11.5-15.5)
[2020-09-19] MEDS: SYMBICORT 80-4.5 MCG INHALER INHALATION SCH (07:09)
[2020-09-19] MEDS ORDERED: PANTOPRAZOLE 40 MG TABLET PO SCH (07:30)
[2020-09-19 07:57] VITALS: BP 166/102; PULSE 113; RESP 17; TEMP 99.1
[2020-09-19] MEDS: ASPIRIN 325 MG TAB PO SCH (07:57)
[2020-09-19] MEDS: NICOTINE 14MG/24HR PATCH TRANSDERM SCH (07:58)
[2020-09-19] MEDS ORDERED: IPRATROPIUM 0.5 MG/2.5 ML NEBU INHALATION SCH (08:00)
--- NOTE | 2020-09-19 08:22 | P.DS ---
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 The patient presented for evaluation as an outpatient. After discussion and consideration patient elects to proceed with revision right total hip arthroplasty. The patient is seen preoperatively by Dr. King and medically cleared for surgery by their primary care physician. Patient is admitted to [facility] on 09/18/2020 for revision right total hip arthroplasty. The procedure is performed without complication or sequelae. The patient is doing well postoperatively. Labs and vital signs are stable on day of discharge. On day of discharge patient's hip incision is healing well. There is minimal erythema. There is no drainage noted at this time. There is minimal soft tissue swelling to the hip and thigh. Patient has full foot and ankle motion without difficulty or pain. Calf is soft and nontender to palpation. Neurovascular status to the right lower extremity is intact. Patient is discharged home in good condition. Opioid start talking form is reviewed and signed. Please see med rec for accurate list of home medications. Plan - Discharge Summary Discharge Rx Participant: Yes New Discharge Prescriptions: New Aspirin 325 mg PO BID #60 tab HYDROcodone/APAP 10-325MG [[place] 10-325] 1 tab PO Q6H PRN #28 tab PRN Reason: Pain Sennosides [Senokot] 2 tab PO DAILY PRN #60 tablet PRN Reason: Constipation No Action DULoxetine HCL [Cymbalta] 60 mg PO QAM Hydrocodone/Acetaminophen [[place] 10-325] 1 tab PO TID PRN PRN Reason: Pain Dexlansoprazole [Dexilant] 60 mg PO QAM LORazepam [Ativan] 1 mg PO TID PRN PRN Reason: Anxiety Losartan Potassium 100 mg PO QAM Ondansetron [Zofran] 4 mg PO Q8HR PRN PRN Reason: Nausea guaiFENesin [Mucinex] 600 mg PO DAILY Fluticasone/Umeclidin/Vilanter [Trelegy Ellipta 100-62.5-25] 1 inhalation INHALATION DAILY Discharge Medication List DULoxetine HCL [Cymbalta] 60 mg PO QAM 04/28/16 [History] Hydrocodone/Acetaminophen [[place] 10-325] 1 tab PO TID PRN 04/28/16 [History] Dexlansoprazole [Dexilant] 60 mg PO QAM 09/05/19 [History] LORazepam [Ativan] 1 mg PO TID PRN 12/02/19 [History] Fluticasone/Umeclidin/Vilanter [Trelegy Ellipta 100-62.5-25] 1 inhalation INHALATION DAILY 09/11/20 [History] Losartan Potassium 100 mg PO QAM 09/11/20 [History] Ondansetron [Zofran] 4 mg PO Q8HR PRN 09/11/20 [History] guaiFENesin [Mucinex] 600 mg PO DAILY 09/11/20 [History] Aspirin 325 mg PO BID #60 tab 09/19/20 [Rx] HYDROcodone/APAP 10-325MG [[place] 10-325] 1 tab PO Q6H PRN #28 tab 09/19/20 [Rx] Sennosides [Senokot] 2 tab PO DAILY PRN #60 tablet 09/19/20 [Rx] Follow up Appointment(s)/Referral(s): Maicol King DO [Doctor of Osteopathic Medicine] - 2 Weeks Activity/Diet/Wound Care/Special Instructions: Weightbearing as tolerated with walker. Leave dressing intact. Dressing may be removed by home care nurse or by patient in 10 days. May shower with dressing on. Continue hip dislocation precautions. Continue use of abductor pillow for 6 weeks while sleeping. Please take aspirin 325mg twice daily for 30 days to prevent blood clots. Recommend use of compression stockings daily until follow up to help prevent swelling and blood clots. May remove at night before sleeping. Please follow-up with [facility] in 2 weeks and call with any questions or concerns, . Discharge Disposition: HOME WITH HOME HEALTH SERVICES
[2020-09-19] MEDS ORDERED: guaiFENesin 600 MG TABLET.ER PO SCH (09:00)
[2020-09-19] MEDS ORDERED: NICOTINE 14MG/24HR PATCH TRANSDERM SCH (09:00)
[2020-09-19] MEDS ORDERED: DULoxetine HCL 60 MG CAPSULE.DR PO SCH (09:00)
[2020-09-19] MEDS ORDERED: LOSARTAN 50 MG TAB PO SCH (09:00)
[2020-09-19] MEDS ORDERED: MELOXICAM 7.5 MG TAB PO SCH (09:00)
[2020-09-19] MEDS: LACTATED RINGERS 1,000 ML IV SCH (10:36)
--- NOTE | 2020-09-19 13:35 | P.PN ---
Subjective Progress Note Date: 09/19/20 HISTORY OF PRESENT ILLNESS 59-year-old female one of Dr. Garcia patient with past medical history of COPD, hypertension, GERD and chronic smoking who developed to have worsening pain and arthritis of the right hip with failure to conservative management. Patient was seen orthopedic and scheduled surgery no major complaint or any absolute contraindication for surgery. Patient ended up going for surgery today with no major complication was admitted to the orthopedic floor, her pain is well controlled patient is ambulating with minimum help. 09/19: Patient has had no postop complications. Pain is currently controlled. She has been afebrile, heart rate 113, blood pressure 166/102, pulse ox 99% on room air. repeat hemoglobin 10. She is using incentive spirometry and states by medicine for discharge home. REVIEW OF SYSTEMS CONSTITUTIONAL: Well-developed no acute respiratory distress. EYES: No icterus sclerae, no conjunctivitis. EARS, NOSE, MOUTH, THROAT, and FACE: No sore throat, lymphadenopathy, carotid bruits or deformity. RESPIRATORY: Mild shortness of breath and COPD. CARDIOVASCULAR: No CP, Palpitation, PND, Orthopnea, or angina. GASTROINTESTINAL: No Abd pain, Nausea or vomiting, no Diarrhea or constipation, No GI Bleed, no distention or masses. GENITOURINARY: Negative for Hematuria or UTI, no kidney stones. INTEGUMENT/BREAST: Negative for any muscular injury with mild osteoarthritis.. HEMATOLOGIC/LYMPHATIC: Negative for bleed or purpura. MUSCULOSKELTAL: Negative for Myalgia or arthralgia. Mild arthritis around the right hip area with slight limitation. NEURLOGICAL: No LOC, Sz or syncope, blurred vision dizziness or abnormality.. BEHAVIORAL/PSYCH: Negative. ENDOCRINE: Negative. PHYSICAL EXAMINATION General Appearance: Alert, cooperative, no distress, appears stated age patient resting in chair and appears comfortable. Neck HEENT: Supple, no lymphadenopathy, no thyroid enlargement, no carotid bruits. Lungs: Decreased breath some bilateral rhonchi no crackles positive might expect wheezes. Chest Wall: Decrease expansion with deep inspiration no tenderness and no deformity was found on exam, no costochondral pain or discomfort. Heart: Regular rate and rhythm, S1, S2 normal, no murmur, rub or gallop. Back: Symmetric, no curvature, ROM normal, no CVA tenderness. Abdomen: Soft, non-tender, bowel sounds active all four quadrants, no masses, no organomegaly. Extremities: Extremities normal, atraumatic, no cyanosis or edema. Incision on the right hip looks fine with no hematoma bleeding. Pulses: 2+ and symmetric. Skin: Skin color, texture, tugor normal, no rashes or lesions. Neurologic: Alert oriented x3 cranial nerves II through XII intact, no motor deficit, no abnormal balance or gait. ASSESSMENT AND PLAN 1 post right total hip arthroplasty: Doing well so far after surgery, pain is well controlled, patient hemodynamic status is good. Patient apparently smoked on daily basis also drink a few drinks a week precaution for any withdrawal symptoms from alcohol and patient be on nicotine patch as well. 2 COPD: Has been on Trelegy Ellipta still using Mucinex. 3 Hypertension: Resume losartan at 200 mg daily. 4 GERD/L hernia: Patient has been on Dexilant 60 mg a day. 5 chronic depression: Has been on Cymbalta 60 mg daily. 6 chronic pain management: We will patient will be on hydrocodone 10/325 mg every 6 hours as needed. 7 DVT prophylaxis: Patient be on aspirin when discharged from the hospital for total of 30 days. 8. Tobacco use and dependence. Alcohol use CODE STATUS: Full code. DISCHARGE PLAN home Impression and plan of care have been directed as dictated by the signing physician. Cindy Smith nurse practitioner acting as scribe for signing physician. Objective - Vital Signs Vital signs: Vital Signs Temp 99.1 F 09/19/20 07:56 Pulse 113 H 09/19/20 07:56 Resp 17 09/19/20 07:56 BP 166/102 09/19/20 07:56 Pulse Ox 99 09/19/20 07:56 Intake & Output 09/18/20 09/19/20 09/19/20 18:59 06:59 18:59 Intake Total 1151 Output Total 100 Balance 1051 Weight 48.6 kg Intake: IV 1151 Output: Estimated Blood Loss 100 Other: Voiding Method Toilet - Labs CBC & Chem 7: 09/19/20 05:22 Labs: Abnormal Lab Results - Last 24 Hours (Table) 09/19/20 Range/Units 05:22 RBC 3.02 L (3.80-5.40) m/uL Hgb 10.0 L D (11.4-16.0) gm/dL Hct 30.6 L (34.0-46.0) % MCV 101.3 H (80.0-100.0) fL Microbiology - Last 24 Hours (Table) 09/18/20 09:39 Gram Stain - Preliminary Hip - Right Wound Culture - Preliminary 09/18/20 09:39 Gram Stain - Preliminary Hip - Right Wound Culture - Preliminary 09/18/20 09:39 Anaerobic Culture - Preliminary Hip - Right 09/18/20 09:39 Anaerobic Culture - Preliminary Hip - Right
== END 2020-09-19 12:36 | disposition home health service (06) ==
LOC: OR 07:35 → 4SSUR 13:48 → OR 09-19 12:36
PROVIDERS: ATTEND Orthopaedic Surgery
DX: T84.060A Wear of articular bearing surface of internal prosthetic right hip joint, initial encounter (principal); M65.851 Other synovitis and tenosynovitis, right thigh; M17.12 Unilateral primary osteoarthritis, left knee; S52.591D Other fractures of lower end of right radius, subsequent encounter for closed fracture with routine healing; S52.601D Unspecified fracture of lower end of right ulna, subsequent encounter for closed fracture with routine healing; G40.909 Epilepsy, unspecified, not intractable, without status epilepticus; F17.210 Nicotine dependence, cigarettes, uncomplicated; I10 Essential (primary) hypertension; F41.9 Anxiety disorder, unspecified; F32.9 Major depressive disorder, single episode, unspecified; J44.9 Chronic obstructive pulmonary disease, unspecified; M19.90 Unspecified osteoarthritis, unspecified site; K21.9 Gastro-esophageal reflux disease without esophagitis; Z96.643 Presence of artificial hip joint, bilateral; Z98.41 Cataract extraction status, right eye; Z98.42 Cataract extraction status, left eye; Z98.890 Other specified postprocedural states; Z88.2 Allergy status to sulfonamides; Z79.899 Other long term (current) drug therapy; Z82.49 Family history of ischemic heart disease and other diseases of the circulatory system; Z80.9 Family history of malignant neoplasm, unspecified
CPT/HCPCS: 27134; 94640 ×2; 97110; 97161; 97165; 86891; 85025; 87070; 87205; 87075; 73501; C1713; C1776; S4990; J2250; J0171; J1644; J1100; J0690 ×3; J2405; J3010; J1885; J2795; J2704; J0735; J1170; 86850; 86870; 86880; 86900; 86901

== ENCOUNTER 2020-10-25 21:21 | Inpatient (IN) | payer BC ==
[2020-10-25] MEDS ORDERED: IPRATROPIUM 0.5 MG/2.5 ML NEBU INHALATION STA (21:41)
[2020-10-25] MEDS ORDERED: methylPREDNISolone SOD SUCCI 125 MG/2 ML VIAL IV STA (21:41)
[2020-10-25] MEDS ORDERED: SODIUM CHLORIDE 0.9% 500 ML 500 ML IV STA (21:41)
[2020-10-25] MEDS ORDERED: ALBUTEROL NEB (CONC) 2.5 MG/0.5 ML INHALATION STA (21:42)
[2020-10-25] MEDS ORDERED: ALBUTEROL NEBULIZED 2.5 MG/3 ML INHALATION STA (21:42)
[2020-10-25 22:14] LABS: Basophils # (A) 0.2 k/uL (0-0.2); Basophils % (A) 1 %; Eosinophils # (A) 4.5 k/uL (0-0.7); Eosinophils % (A) 34 %; HCT 38.7 % (34.0-46.0); HGB 12.5 gm/dL (11.4-16.0); Hypochromasia Moderate; Lymphocytes % (A) 23 %; MCH 31.4 pg (25.0-35.0); MCHC 32.2 g/dL (31.0-37.0); MCV 97.6 fL (80.0-100.0); Mean Platelet Volume 6.7; Monocytes # (A) 0.4 k/uL (0-1.0); Monocytes % (A) 3 %; Neutrophils % (A) 38 %; RBC 3.97 m/uL (3.80-5.40); RDW 15.3 % (11.5-15.5); WBC 13.1 k/uL (3.8-10.6)
--- NOTE | 2020-10-25 22:20 | ED ---
SOB HPI - General Chief Complaint: Shortness of Breath Stated Complaint: CLARIBEL Time Seen by Provider: 10/25/20 21:31 Source: patient, EMS Mode of arrival: EMS Limitations: no limitations - History of Present Illness Initial Comments: 59 year-old female patient presents to the emergency department for evaluation of shortness of breath. Patient states she's been having trouble for the last couple of weeks. States she did complete a Z-Donnell and prednisone course. States that she is not feeling any better. States that she has had persistent cough with mild sputum production. States she feels very short of breath. Denies doing breathing treatments at home. States she is a daily smoker. She was tested for occult blood today has not gotten results yet. Denies any chest pain. Denies nausea or vomiting. Denies any leg swelling or calf pain. She does admit to drinking alcohol today. Patient denies any recent rash, fever, chills, abdominal pain, diarrhea, constipation, back pain, numbness, tingling, dizziness, weakness, hematuria, dysuria, urinary urgency, urinary frequency, headache, visual changes, or any other complaints. - Related Data Home Medications Medication Instructions Recorded Confirmed DULoxetine HCL [Cymbalta] 60 mg PO QAM 04/28/16 10/25/20 Hydrocodone/Acetaminophen [[place] 1 tab PO BID 04/28/16 10/25/20 10-325] LORazepam [Ativan] 1 mg PO BID PRN 12/02/19 10/25/20 Losartan Potassium 100 mg PO QAM 09/11/20 10/25/20 Allergies Allergy/AdvReac Type Severity Reaction Status Date / Time Sulfa (Sulfonamide Allergy Unknown Anaphylaxis Verified 10/25/20 22:07 Antibiotics) Review of Systems ROS Statement: Those systems with pertinent positive or pertinent negative responses have been documented in the HPI. ROS Other: All systems not noted in ROS Statement are negative. Past Medical History Past Medical History: COPD, GERD/Reflux, Hypertension, Osteoarthritis (OA), Seizure Disorder Additional Past Medical History / Comment(s): Hx Epilepsy, no seizure in 30+ yrs. History of Any Multi-Drug Resistant Organisms: ESBL Date of last positivie culture/infection: 05/30/15 E. coli ESBL MDRO Source:: Urine Past Surgical History: Hernia Repair, Joint Replacement Additional Past Surgical History / Comment(s): Bilateral cataract surgery, left hip replacement X2, right hip replacement, hiatal hernia repair. Past Anesthesia/Blood Transfusion Reactions: No Reported Reaction Additional Past Anesthesia/Blood Transfusion Reaction / Comment(s): Patient states "everytime I have an IV started I get I immediately get diarrhea after." Sister slow to wake up. Past Psychological History: Anxiety, Depression Smoking Status: Current every day smoker Past Alcohol Use History: Daily Past Drug Use History: None Reported - Past Family History Mother Family Medical History: No Reported History Father Family Medical History: Cancer General Exam Limitations: no limitations General appearance: alert, in no apparent distress, other (Vital signs upon presentation are temperature 99.1F, pulse 127, respirations 22, blood pressure 155/115, pulse ox 98% on room air.) Respiratory exam: Present: decreased breath sounds (Bilaterally), other (Persistent cough noted throughout exam). Absent: respiratory distress, wheezes, rales, rhonchi, stridor Cardiovascular Exam: Present: regular rate, normal rhythm, normal heart sounds. Absent: systolic murmur, diastolic murmur, rubs, gallop, clicks GI/Abdominal exam: Present: soft, normal bowel sounds. Absent: distended, tenderness, guarding, rebound, rigid Neurological exam: Present: alert, oriented X3, CN II-XII intact Psychiatric exam: Present: normal affect, normal mood Skin exam: Present: warm, dry, intact, normal color. Absent: rash Course Vital Signs 10/25/20 10/25/20 10/25/20 21:25 21:42 22:07 Temperature 99.1 F Pulse Rate 127 H 122 H Respiratory 22 34 H Rate Blood Pressure 155/115 O2 Sat by Pulse 98 Oximetry 10/25/20 10/25/20 22:21 22:30 Temperature Pulse Rate 136 H 129 H Respiratory 18 Rate Blood Pressure 167/102 O2 Sat by Pulse 100 Oximetry Medical Decision Making - Medical Decision Making 59-year-old female patient presents to the emergency department today for evaluation of increased shortness of breath and cough. Physical examination did reveal diminished lung sounds bilaterally. Patient was tachycardic. Oxygen saturation normal however she did seem to be short of breath. She does have COPD. She did complete outpatient steroids and Z-Donnell. She was given DuoNeb breathing treatment with additional 2.5 mg of albuterol. She is given IV site Medrol. Chest x-ray was negative. She'll be admitted for failed outpatient COPD exacerbation. We'll continue IV steroids and DuoNeb's. We will start [facility] protocol for possible alcohol withdrawal and given a banana bag. She is agreeable with this plan. - Lab Data Result diagrams: 10/25/20 21:56 10/25/20 21:56 Lab Results 10/25/20 10/25/20 10/25/20 Range/Units 21:56 21:56 21:56 WBC 13.1 H (3.8-10.6) k/uL RBC 3.97 (3.80-5.40) m/uL Hgb 12.5 (11.4-16.0) gm/dL Hct 38.7 (34.0-46.0) % MCV 97.6 (80.0-100.0) fL MCH 31.4 (25.0-35.0) pg MCHC 32.2 (31.0-37.0) g/dL RDW 15.3 (11.5-15.5) % Plt Count 542 H D (150-450) k/uL MPV 6.7 Hypochromasia Moderate PT 9.4 (9.0-12.0) sec INR 0.9 (<1.2) APTT 22.3 (22.0-30.0) sec D-Dimer 1.81 H (<0.60) mg/L FEU Sodium 142 (137-145) mmol/L Potassium 4.3 (3.5-5.1) mmol/L Chloride 108 H (98-107) mmol/L Carbon Dioxide 20 L (22-30) mmol/L Anion Gap 14 mmol/L BUN 14 (7-17) mg/dL Creatinine 1.04 (0.52-1.04) mg/dL Est GFR (CKD-EPI)AfAm 68 (>60 ml/min/1.73 sqM) Est GFR (CKD-EPI)NonAf 59 (>60 ml/min/1.73 sqM) Glucose 79 (74-99) mg/dL Plasma Lactic Acid Joey (0.7-2.0) mmol/L Calcium 9.2 (8.4-10.2) mg/dL Magnesium 2.3 (1.6-2.3) mg/dL Total Bilirubin 0.3 (0.2-1.3) mg/dL AST 46 H (14-36) U/L ALT 18 (4-34) U/L Alkaline Phosphatase 97 (38-126) U/L Troponin I (0.000-0.034) ng/mL Total Protein 7.9 (6.3-8.2) g/dL Albumin 4.6 (3.5-5.0) g/dL Serum Alcohol 326 H* mg/dL Coronavirus (PCR) (Not Detectd) 10/25/20 10/25/20 10/25/20 Range/Units 21:56 21:56 22:11 WBC (3.8-10.6) k/uL RBC (3.80-5.40) m/uL Hgb (11.4-16.0) gm/dL Hct (34.0-46.0) % MCV (80.0-100.0) fL MCH (25.0-35.0) pg MCHC (31.0-37.0) g/dL RDW (11.5-15.5) % Plt Count (150-450) k/uL MPV Hypochromasia PT (9.0-12.0) sec INR (<1.2) APTT (22.0-30.0) sec D-Dimer (<0.60) mg/L FEU Sodium (137-145) mmol/L Potassium (3.5-5.1) mmol/L Chloride (98-107) mmol/L Carbon Dioxide (22-30) mmol/L Anion Gap mmol/L BUN (7-17) mg/dL Creatinine (0.52-1.04) mg/dL Est GFR (CKD-EPI)AfAm (>60 ml/min/1.73 sqM) Est GFR (CKD-EPI)NonAf (>60 ml/min/1.73 sqM) Glucose (74-99) mg/dL Plasma Lactic Acid Joey 3.3 H* (0.7-2.0) mmol/L Calcium (8.4-10.2) mg/dL Magnesium (1.6-2.3) mg/dL Total Bilirubin (0.2-1.3) mg/dL AST (14-36) U/L ALT (4-34) U/L Alkaline Phosphatase (38-126) U/L Troponin I <0.012 (0.000-0.034) ng/mL Total Protein (6.3-8.2) g/dL Albumin (3.5-5.0) g/dL Serum Alcohol mg/dL Coronavirus (PCR) Not Detected (Not Detectd) - Radiology Data Radiology results: report reviewed, image reviewed X-ray of the chest is obtained. Report was reviewed in its entirety. Impression by Dr. Jerry Oconnell shows no acute process. CT chest angiography for pulmonary embolus him was obtained. Report was reviewed in its entirety. Impression by Dr. Bush shows no evidence of pulmonary embolism. Is probably some COPD. No adverse change compared to old exam. There is clearing of the interstitial pulmonary infiltrates compared to old exam. Disposition Clinical Impression: COPD exacerbation Disposition: ADMITTED IP TO THIS HOSP Condition: Serious Referrals: Hilario Garcia DO [Primary Care Provider] - 1-2 days Decision to Admit Reason: Admit from EC Decision Date: 10/25/20 Decision Time: 23:52
--- NOTE | 2020-10-25 22:21 | XR ---
EXAMINATION: XR chest 1V portable DATE AND TIME: 10/25/2020 9:51 PM CLINICAL INDICATION: PHH; shortness of breath TECHNIQUE: Departmental protocol COMPARISON: 11/11/2016 FINDINGS: The present examination is rotated RPO, compared with the prior study. The lungs are clear. The pleural spaces are negative. The cardiac silhouette is not enlarged. The remainder of the mediastinal silhouette is unremarkable. The skeletal structures and soft tissues are negative for acute findings. IMPRESSION: NO ACUTE PROCESS.
[2020-10-25 22:25] LABS: Platelet Count 542 k/uL (150-450)
[2020-10-25 22:26] LABS: Albumin 4.6 g/dL (3.5-5.0); Calcium 9.2 mg/dL (8.4-10.2); Magnesium 2.3 mg/dL (1.6-2.3); Potassium 4.3 mmol/L (3.5-5.1); Total Bilirubin 0.3 mg/dL (0.2-1.3); Total Protein 7.9 g/dL (6.3-8.2)
[2020-10-25 22:40] LABS: INR 0.9 (<1.2); Partial Thromboplastin Time 22.3 sec (22.0-30.0); Prothrombin Time 9.4 sec (9.0-12.0)
[2020-10-25 22:44] LABS: D-Dimer 1.81 mg/L FEU (<0.60)
--- NOTE | 2020-10-25 23:39 | CT ---
EXAMINATION TYPE: CT chest angio for PE DATE OF EXAM: 10/25/2020 COMPARISON: 11/11/2016 HISTORY: pe CT DLP: 187.2 mGycm Automated exposure control for dose reduction was used. CONTRAST: Performed with IV Contrast, patient injected with 45 mL of Isovue 370. There are 3-D post processed images. There is pulmonary hyperinflation with flattening of the diaphragm. There is minimal reticular inters titial density right lung base. There is no pleural effusion. There is no evidence of a pulmonary mas s. There is no mediastinal adenopathy. Thoracic aorta is intact. There is no aneurysm or dissection. Hea rt size is normal. There is no pericardial effusion. There is normal contrast opacification of the pulmonary arteries. The bony thorax is intact. Sternum is intact. IMPRESSION: No evidence of pulmonary embolism. There is probably some COPD. No adverse change compared to old exa m. There is clearing of the interstitial pulmonary infiltrates compared to old exam.
[2020-10-25] MEDS ORDERED: NALOXONE 0.4 MG/ML 1 ML VIAL IV PRN (23:52)
[2020-10-25] MEDS ORDERED: IPRATROPIUM-ALBUTEROL 3 ML NEB INHALATION PRN (23:54)
[2020-10-25] MEDS ORDERED: SODIUM CHLORIDE 0.9% 1,000 ML IV ONE (23:55)
[2020-10-25] MEDS ORDERED: LORazepam 2 MG/ML INJ IV PRN ×2 (23:56)
[2020-10-25] MEDS ORDERED: THIAMINE 100 MG/ML 2 ML VIAL IM STA (23:56)
[2020-10-26 00:01] LABS: Anisocytosis (M) Present; Target Cells Present
[2020-10-26 00:03] LABS: Polychromasia Present
[2020-10-26] MEDS: THIAMINE 100 MG TAB PO SCH ×3 (00:28→17:08)
[2020-10-26] MEDS ORDERED: SODIUM CHLORIDE 0.9% 1,000 ML with MVI, ADULT NO.4 WITH VIT K 10 ML, THIAMINE 100 MG, F... IV ONE ×4 (00:30)
[2020-10-26] MEDS: methylPREDNISolone SOD SUCCI 125 MG/2 ML VIAL IV SCH ×4 (00:39→17:08)
[2020-10-26] MEDS: HYDROcodone/APAP 10-325MG 1 EACH TAB PO PRN ×2 (01:42→12:26)
[2020-10-26] MEDS: LORazepam 2 MG/ML INJ IV PRN ×3 (04:11→17:08)
[2020-10-26] MEDS: IPRATROPIUM-ALBUTEROL 3 ML NEB INHALATION SCH ×4 (07:26→20:30)
[2020-10-26] MEDS: guaiFENesin-DM 600/30MG 1 EACH TAB.ER.12H PO SCH ×2 (08:14→20:35)
[2020-10-26] MEDS: LOSARTAN 50 MG TAB PO SCH (08:14)
[2020-10-26] MEDS: DULoxetine HCL 60 MG CAPSULE.DR PO SCH (08:14)
[2020-10-26] MEDS ORDERED: LOPERAMIDE 2 MG CAP PO STA (08:23)
[2020-10-26] MEDS ORDERED: LOPERAMIDE 2 MG CAP PO PRN (08:23)
[2020-10-26] MEDS ORDERED: HYDROcodone/APAP 10-325MG 1 EACH TAB PO SCH (09:00)
[2020-10-26 11:50] LABS: Glucose,Whole Blood 164 mg/dL (75-99)
[2020-10-26] MEDS: INSULIN ASPART (NovoLOG) 100 UNIT/ML VIAL SQ SCH ×3 (12:26→20:35)
[2020-10-26] MEDS ORDERED: amLODIPine 5 MG TAB PO STA (12:36)
[2020-10-26 12:48] VITALS: BMI 18.1
--- NOTE | 2020-10-26 14:33 | P.HPIM ---
History of Present Illness H&P Date: 10/26/20 Chief Complaint: mic HISTORY OF PRESENT ILLNESS This is a 59-year-old female patient of Dr. Garcia with past medical history of COPD, gastric soft reflux disease, hypertension, osteoporosis, tobacco use and dependence, alcohol abuse. Patient complains of difficulty breathing for the past 3 weeks. She had contacted her PCP office and was placed on a Z-Donnell and prednisone. She came in the hospital because her symptoms had worsened. She complains of cough and difficulty breathing, sputum production of yellow. She denies any hemoptysis.. She denies having any nausea vomiting. She states she has diarrhea today. She denies any known exposure to coronavirus. Patient presented to [facility] emergency center for evaluation. Patient was afebrile, heart rate 114, blood pressure 165/89, pulse ox 90% on room air. WBC 13.1, hemoglobin 12.5. Platelet count 542. D-dimer 1.81. CO2 20, creatinine 1.04. Lactic acid initially 3.3 and most recent 1.7. Serum alcohol level 326. Coban 19 not detected. Chest x-ray reveals no acute process. CTA of the chest reveals no pulmonary embolism. Probably COPD. No adverse change compared to old exam. Patient was admitted to the [facility] floor and pulmonary consult added. REVIEW OF SYSTEMS Constitutional: No fever, no chills, no night sweats. No weight change. No weakness, fatigue or lethargy. No daytime sleepiness. EENT: No headache. No blurred vision or double vision, no loss of vision. No loss of Hearing, no ringing in the ears, no dizziness. No nasal drainage or congestion. No epistaxis. No sore throat. Lungs: Reports shortness of breath, reports cough, reports sputum production. No wheezing. No hemoptysis. Cardiovascular: No chest pain, no lower extremity edema. No palpitations. No paroxysmal nocturnal dyspnea. No orthopnea. No lightheadedness or dizziness. No syncopal episodes. Abdominal: No abdominal pain. No nausea, vomiting. No diarrhea. No constipa tion. No bloody or tarry stools. No loss of appetite. Genitourinary: No dysuria, increased frequency, urgency. No urinary retention. Musculoskeletal: No myalgias. No muscle weakness, no gait dysfunction, no frequent falls. No back pain. No neck pain. Integumentary: No wounds, no lesions. No rash or pruritus. No unusual bruising. No change in hair or nails. Neurologic: No aphasia. No facial droop. No change in mentation. No head injury. No headache. No paralysis. No paresthesia. Psychiatric: No depression. No anxiety. No mood swings. Endocrine: No abnormal blood sugars. No weight change. SOCIAL HISTORY Patient is a smoker of a half pack per day since she was 14 or 15 years of age. Patient drinks 4-5 times per week for the past 15 years. Yesterday she had 4-5 shots. She states she does not drink every day. 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 She is trying to get disability. FAMILY HISTORY Father at age 58 from lung cancer. Mother is alive at age 53 with no major medical problems. Patient has 2 sisters with no major medical problems. No brothers. No children. PHYSICAL EXAMINATION Gen: This is a 59-year-old female. She is ambulating in her room and appears to be comfortable. No acute distress noted. No respiratory distress noted. HEENT: Head is atraumatic, normocephalic. Pupils equal, round. Sclerae is anicteric. NECK: Supple. No JVD. No lymphadenopathy. No thyromegaly. LUNGS: Clear to auscultation. No wheezes or rhonchi. No intercostal retractions. HEART: Regular rate and rhythm. No murmur. ABDOMEN: Soft. Bowel sounds are present. No masses. No tenderness. EXTREMITIES: No pedal edema. No calf tenderness. NEUROLOGICAL: Patient is awake, alert and oriented x3. Cranial nerves 2 through 12 are grossly intact. ASSESSMENT AND PLAN 1. COPD exacerbation. Patient is on Solu-Medrol 60 mg IV every 6 hours, DuoNeb treatments 4 times daily and as needed, Mucinex twice daily. 2. Hypertension. Continue losartan 100 mg daily. Amlodipine 5 mg daily added. 3. Alcohol intoxication. Continue CIWA protocol. 4. Recurrent depression. Continue Cymbalta 60 mg daily. 5. GI prophylaxis. Protonix. 6. DVT prophylaxis. Early ambulation. MATT vale. Patient will be admitted to the hospital for a minimum of 2 night stay. DISCHARGE PLAN Home. Impression and plan of care have been directed as dictated by the signing physician. Cindy Smith nurse practitioner acting as scribe for signing physician. Past Medical History Past Medical History: COPD, GERD/Reflux, Hypertension, Osteoarthritis (OA), Seizure Disorder Additional Past Medical History / Comment(s): Hx Epilepsy, no seizure in 30+ yrs. History of Any Multi-Drug Resistant Organisms: ESBL Date of last positivie culture/infection: 05/30/15 E. coli ESBL MDRO Source:: Urine Past Surgical History: Hernia Repair, Joint Replacement Additional Past Surgical History / Comment(s): Bilateral cataract surgery, left hip replacement X2, right hip replacement x2, hiatal hernia repair. Past Anesthesia/Blood Transfusion Reactions: No Reported Reaction Additional Past Anesthesia/Blood Transfusion Reaction / Comment(s): Patient states "everytime I have an IV started I get I immediately get diarrhea after." Sister slow to wake up. Past Psychological History: Anxiety, Depression Smoking Status: Current some day smoker Past Alcohol Use History: Daily Additional Past Alcohol Use History / Comment(s): Started smoking at age 16, currently smokes 1 PPD. Normally has 2-4 alcoholic drinks daily, had one drink last on 09/10/20, states not having any more prior to surgery. Past Drug Use History: None Reported - Past Family History Mother Family Medical History: No Reported History Father Family Medical History: Cancer Additional Family Medical History / Comment(s): lung CA Medications and Allergies Home Medications Medication Instructions Recorded Confirmed Type DULoxetine HCL [Cymbalta] 60 mg PO QAM 04/28/16 10/25/20 History Hydrocodone/Acetaminophen [[place] 1 tab PO BID 04/28/16 10/25/20 History 10-325] LORazepam [Ativan] 1 mg PO BID PRN 12/02/19 10/25/20 History Losartan Potassium 100 mg PO QAM 09/11/20 10/25/20 History Dexlansoprazole [Dexilant] 60 mg PO DAILY 10/26/20 10/26/20 History Allergies Allergy/AdvReac Type Severity Reaction Status Date / Time Sulfa (Sulfonamide Allergy Unknown Anaphylaxis Verified 10/25/20 22:07 Antibiotics) Physical Exam Vitals: Vital Signs Temp Pulse Pulse Resp BP BP Pulse Ox 10/26/20 07:29 106 H 10/26/20 04:18 98.3 F 106 H 18 161/88 96 10/26/20 01:40 98.0 F 114 H 18 165/89 98 10/26/20 01:30 18 10/26/20 00:24 123 H 20 127/63 98 10/25/20 22:30 129 H 18 167/102 100 10/25/20 22:21 136 H 10/25/20 22:07 122 H 10/25/20 21:42 34 H 10/25/20 21:25 99.1 F 127 H 22 155/115 98 Intake and Output 10/25/20 10/26/20 10/26/20 22:59 06:59 14:59 Intake Total 2200 Balance 2200 Intake: Intake, IV Titration 1600 Amount Sodium Chloride 0.9% 1, 600 000 ml @ 100 mls/hr IV . Q10H7M ONE with Mvi, Adult No.4 with Vit K 10 ml with Thiamine 100 mg with Folic Acid 1 mg Rx#: [id number] Sodium Chloride 0.9% 1, 1000 000 ml @ 999 mls/hr IV . Q1H1M ONE Rx#:[id number] Oral 600 Other: Voiding Method Toilet # Voids 3 Weight 48.081 kg 48.081 kg Results CBC & Chem 7: 10/25/20 21:56 10/25/20 21:56 Labs: Abnormal Lab Results - Last 24 Hours (Table) 10/25/20 10/25/20 10/25/20 Range/Units 21:56 21:56 21:56 WBC 13.1 H (3.8-10.6) k/uL Plt Count 542 H D (150-450) k/uL Eosinophils # 4.5 H (0-0.7) k/uL D-Dimer 1.81 H (<0.60) mg/L FEU Chloride 108 H (98-107) mmol/L Carbon Dioxide 20 L (22-30) mmol/L Plasma Lactic Acid Joey (0.7-2.0) mmol/L AST 46 H (14-36) U/L Serum Alcohol 326 H* mg/dL 10/25/20 10/26/20 10/26/20 Range/Units 21:56 01:16 05:28 WBC (3.8-10.6) k/uL Plt Count (150-450) k/uL Eosinophils # (0-0.7) k/uL D-Dimer (<0.60) mg/L FEU Chloride (98-107) mmol/L Carbon Dioxide (22-30) mmol/L Plasma Lactic Acid Joey 3.3 H* 4.9 H* 2.8 H* (0.7-2.0) mmol/L AST (14-36) U/L Serum Alcohol mg/dL Thrombosis Risk Factor Assmnt - Choose All That Apply Any of the Below Risk Factors Present?: Yes Each Factor Represents 1 point: Abnormal pulmonary function (COPD), Age 41-60 years Other Risk Factors: No Other congenital or acquired thrombophilia - If yes, enter type in comment: No Thrombosis Risk Factor Assessment Total Risk Factor Score: 2 Thrombosis Risk Factor Assessment Level: Low Risk
--- NOTE | 2020-10-26 15:19 | P.CNPUL ---
History of Present Illness Consult date: 10/26/20 Requesting physician: Orly Renteria Reason for consult: dyspnea, COPD Chief complaint: Shortness of breath History of present illness: This is a pleasant 59-year-old female patient who follows with Dr. Garcia as her primary care provider. She has a history of gastroesophageal reflux diseas e, Lamb's esophagus, hypertension, osteoarthritis with previous hip replacement most recently in September 2020, epilepsy but no seizures and 30 years, anxiety/depression, chronic and ongoing tobacco dependence, daily alcohol use. She does have COPD per her PCP and only uses occasional samples of inhalers. Recently she developed increasing shortness of breath, yellow productive sputum, dyspnea on exertion. She was ordered a Z-Donnell and Medrol Dosepak in the outpatient setting without much improvement. She came in the room yesterday with worsening shortness of breath. Chest x-ray reveals no acute process. CT angiogram revealed no evidence of pulmonary embolism. Suspected COPD. No acute pulmonary process. White count 13.1. Hemoglobin 12.5. D-dimer 1.81. Sodium 142. Potassium 4.3. Creatinine 1.04. Glucose 164. Initial lactic acid 3.3 currently 1.7. Serum alcohol 326. Chronavirus by PCR not detected. She is seen today in consultation on the regular medical floor. She is currently sitting up in bed. Awake and alert in no acute distress. Somewhat anxious. Somewhat tremulous. States her breathing is easier today compared to yesterday. Maintaining O2 saturation in the mid 90s on room air. She's afebrile. Slightly tachycardic. Hypertensive. She has been initiated on DuoNeb inhalations, IV Solu-Medrol. She will and placed in the [facility] protocol. Review of Systems REVIEW OF SYSTEMS: CONSTITUTIONAL: Denies any recent significant weight loss or weight gain. EYES: Denies change in vision. EARS, NOSE, MOUTH, THROAT: Denies headaches, denies sore throat. CARDIOVASCULAR: Denies chest pain, palpitations or syncopal episodes. RESPIRATORY: Positive for shortness of breath, cough, congestion no hemoptysis. GASTROINTESTINAL: Denies change in appetite, denies abdominal pain GENITOURINARY: Denies hematuria, denies infections. MUSKULOSKELETAL: Denies pain, denies swelling. INTEGUMENTARY: Denies rash, denies eczema. NEUROLOGICAL: Denies recent memory loss, no recent seizure activity. PSYCHIATRIC: Denies anxiety, denies depression. HEMATOLOGIC/LYMPHATIC: Denies anemia, denies enlarged lymph nodes. Past Medical History Past Medical History: COPD, GERD/Reflux, Hypertension, Osteoarthritis (OA), Seizure Disorder Additional Past Medical History / Comment(s): Hx Epilepsy, no seizure in 30+ yrs. History of Any Multi-Drug Resistant Organisms: ESBL Date of last positivie culture/infection: 05/30/15 E. coli ESBL MDRO Source:: Urine Past Surgical History: Hernia Repair, Joint Replacement Additional Past Surgical History / Comment(s): Bilateral cataract surgery, left hip replacement X2, right hip replacement x2, hiatal hernia repair. Past Anesthesia/Blood Transfusion Reactions: No Reported Reaction Additional Past Anesthesia/Blood Transfusion Reaction / Comment(s): Patient states "everytime I have an IV started I get I immediately get diarrhea after." Sister slow to wake up. Past Psychological History: Anxiety, Depression Smoking Status: Current some day smoker Past Alcohol Use History: Daily Additional Past Alcohol Use History / Comment(s): Started smoking at age 16, currently smokes 1 PPD. Normally has 2-4 alcoholic drinks daily, had one drink last on 09/10/20, states not having any more prior to surgery. Past Drug Use History: None Reported - Past Family History Mother Family Medical History: No Reported History Father Family Medical History: Cancer Additional Family Medical History / Comment(s): lung CA Medications and Allergies Home Medications Medication Instructions Recorded Confirmed Type DULoxetine HCL [Cymbalta] 60 mg PO QAM 04/28/16 10/25/20 History Hydrocodone/Acetaminophen [[place] 1 tab PO BID 04/28/16 10/25/20 History 10-325] LORazepam [Ativan] 1 mg PO BID PRN 12/02/19 10/25/20 History Losartan Potassium 100 mg PO QAM 09/11/20 10/25/20 History Dexlansoprazole [Dexilant] 60 mg PO DAILY 10/26/20 10/26/20 History Allergies Allergy/AdvReac Type Severity Reaction Status Date / Time Sulfa (Sulfonamide Allergy Unknown Anaphylaxis Verified 10/25/20 22:07 Antibiotics) Physical Exam Vitals: Vital Signs Temp Pulse Pulse Resp BP BP Pulse Ox 10/26/20 12:33 170/99 10/26/20 11:14 108 H 10/26/20 11:02 104 H 10/26/20 11:00 98.0 F 100 18 176/97 97 10/26/20 07:40 108 H 10/26/20 07:29 106 H 10/26/20 04:18 98.3 F 106 H 18 161/88 96 10/26/20 01:40 98.0 F 114 H 18 165/89 98 10/26/20 01:30 18 10/26/20 00:24 123 H 20 127/63 98 10/25/20 22:30 129 H 18 167/102 100 10/25/20 22:21 136 H 10/25/20 22:07 122 H 10/25/20 21:42 34 H 10/25/20 21:25 99.1 F 127 H 22 155/115 98 Intake and Output 10/26/20 10/26/20 10/26/20 06:59 14:59 22:59 Intake Total 2200 Balance 2200 Intake: Intake, IV Titration 1600 Amount Sodium Chloride 0.9% 1, 600 000 ml @ 100 mls/hr IV . Q10H7M ONE with Mvi, Adult No.4 with Vit K 10 ml with Thiamine 100 mg with Folic Acid 1 mg Rx#: [id number] Sodium Chloride 0.9% 1, 1000 000 ml @ 999 mls/hr IV . Q1H1M ONE Rx#:[id number] Oral 600 Other: Voiding Method Toilet # Voids 3 Weight 48.081 kg 48.081 kg GENERAL EXAM: Alert, 59-year-old female patient, appears older than stated age, on room air,, comfortable in no apparent distress. HEAD: Normocephalic. EYES: Normal reaction of pupils, equal size. NOSE: Clear with pink turbinates. THROAT: No erythema or exudates. NECK: No masses, no JVD. CHEST: No chest wall deformity. LUNGS: Equal air entry with end expiratory wheeze, diminished. CVS: S1 and S2 normal with no audible murmur, regular rhythm. ABDOMEN: No hepatosplenomegaly, normal bowel sounds, no guarding or rigidity. SPINE: No scoliosis or deformity SKIN: No rashes CENTRAL NERVOUS SYSTEM: No focal deficits, tone is normal in all 4 extremities. EXTREMITIES: There is no peripheral edema. No clubbing, no cyanosis. Peripheral pulses are intact. Results - Laboratory Findings CBC and BMP: 10/25/20 21:56 10/25/20 21:56 PT/INR, D-dimer PT 9.4 sec (9.0-12.0) 10/25/20 21:56 INR 0.9 (<1.2) 10/25/20 21:56 D-Dimer 1.81 mg/L FEU (<0.60) H 10/25/20 21:56 Abnormal lab findings: Abnormal Labs 10/25/20 10/25/20 10/25/20 21:56 21:56 21:56 WBC 13.1 H Plt Count 542 H D Eosinophils # 4.5 H D-Dimer 1.81 H Chloride 108 H Carbon Dioxide 20 L POC Glucose (mg/dL) Plasma Lactic Acid Joey AST 46 H Serum Alcohol 326 H* 10/25/20 10/26/20 10/26/20 21:56 01:16 05:28 WBC Plt Count Eosinophils # D-Dimer Chloride Carbon Dioxide POC Glucose (mg/dL) Plasma Lactic Acid Joey 3.3 H* 4.9 H* 2.8 H* AST Serum Alcohol 10/26/20 11:48 WBC Plt Count Eosinophils # D-Dimer Chloride Carbon Dioxide POC Glucose (mg/dL) 164 H Plasma Lactic Acid Joey AST Serum Alcohol - Diagnostic Findings Chest x-ray: image reviewed CT scan - chest: image reviewed Assessment and Plan Assessment: 1 Acute exacerbation of chronic obstructive pulmonary disease 2 Acute alcohol intoxication with presenting serum alcohol 326 3 Chronic and ongoing tobacco dependence 4 Osteoarthritis with multiple orthopedic surgeries including recent right total hip arthroplasty 09/18/2020 5 History of Lamb's esophagus 6 Gastroesophageal reflux disease 7 Anxiety/depression 8 Remote history of seizure disorder 9 History of ESBL in the urine Plan: The patient was seen and evaluated by Dr. Harper Chest x-ray, CAT scans and labs reviewed Continue DuoNeb inhalations Add Pulmicort and Perforomist inhalations Continue IV Solu-Medrol Add NicoDerm patch Educated regarding the importance of complete smoking cessation Educated regarding the importance of alcohol cessation CIWA protocol is in place Possible discharge in the a.m. We will continue to follow and make further recommendations based on her clinical status I, the cosigning physician, performed a history & physical examination of the patient. Lungs sounds with end expiratory wheeze, diminished. Maintaining good O2 saturations in the 90s on room air. I discussed the assessment and plan of care with my nurse practitioner, Benita Watson. I attest to the above consultation as dictated by her.
[2020-10-26] MEDS: NICOTINE 14MG/24HR PATCH TRANSDERM SCH (17:05)
[2020-10-26 17:13] LABS: Glucose,Whole Blood 222 mg/dL (75-99)
[2020-10-26] MEDS: FORMOTEROL FUMARATE 20 MCG/2 ML NEBU INHALATION SCH (20:30)
[2020-10-26] MEDS: BUDESONIDE 1 MG/2 ML NEBU INHALATION SCH (20:30)
[2020-10-26 20:35] LABS: Glucose,Whole Blood 94 mg/dL (75-99)
[2020-10-27] MEDS: methylPREDNISolone SOD SUCCI 125 MG/2 ML VIAL IV SCH ×2 (00:13→05:18)
[2020-10-27] MEDS: HYDROcodone/APAP 10-325MG 1 EACH TAB PO PRN (00:14)
[2020-10-27] MEDS: LORazepam 2 MG/ML INJ IV PRN (03:11)
[2020-10-27 05:25] VITALS: BP 146/87; RESP 18; TEMP 98.2
[2020-10-27 07:29] LABS: Glucose,Whole Blood 161 mg/dL (75-99)
[2020-10-27] MEDS ORDERED: PANTOPRAZOLE 40 MG TABLET PO SCH (07:30)
[2020-10-27] MEDS: DULoxetine HCL 60 MG CAPSULE.DR PO SCH (08:19)
[2020-10-27] MEDS: LOSARTAN 50 MG TAB PO SCH (08:19)
[2020-10-27] MEDS: THIAMINE 100 MG TAB PO SCH (08:19)
[2020-10-27] MEDS: guaiFENesin-DM 600/30MG 1 EACH TAB.ER.12H PO SCH (08:19)
[2020-10-27] MEDS: NICOTINE 14MG/24HR PATCH TRANSDERM SCH (08:20)
[2020-10-27] MEDS: INSULIN ASPART (NovoLOG) 100 UNIT/ML VIAL SQ SCH (08:20)
[2020-10-27] MEDS: BUDESONIDE 1 MG/2 ML NEBU INHALATION SCH (08:42)
[2020-10-27] MEDS: IPRATROPIUM-ALBUTEROL 3 ML NEB INHALATION SCH (08:43)
[2020-10-27] MEDS: FORMOTEROL FUMARATE 20 MCG/2 ML NEBU INHALATION SCH (08:45)
--- NOTE | 2020-10-27 09:00 | P.DS ---
Providers Date of admission: 10/26/20 09:21 Expected date of discharge: 10/27/20 Attending physician: Orly Renteria MD Consults: 10/26/20 12:39 Consult Physician Routine Consulting Provider: Kallie Harper Consult Reason/Comments: dyspnea, COPD Do you want consulting provider notified?: Yes [facility]: HISTORY OF PRESENT ILLNESS This is a 59-year-old female patient of Dr. Garcia with past medical history of COPD, gastric soft reflux disease, hypertension, osteoporosis, tobacco use and dependence, alcohol abuse. Patient complains of difficulty breathing for the past 3 weeks. She had contacted her PCP office and was placed on a Z-Donnell and prednisone. She came in the hospital because her symptoms had worsened. She complains of cough and difficulty breathing, sputum production of yellow. She denies any hemoptysis.. She denies having any nausea vomiting. She states she has diarrhea today. She denies any known exposure to coronavirus. Patient presented to [facility] emergency center for evaluation. Patient was afebrile, heart rate 114, blood pressure 165/89, pulse ox 90% on room air. WBC 13.1, hemoglobin 12.5. Platelet count 542. D-dimer 1.81. CO2 20, creatinine 1.04. Lactic acid initially 3.3 and most recent 1.7. Serum alcohol level 326. Coban 19 not detected. Chest x-ray reveals no acute process. CTA of the chest reveals no pulmonary embolism. Probably COPD. No adverse change compared to old exam. Patient was admitted to the [facility] floor and pulmonary consult added. 10/27: patient has been seen by Dr. Harper. Patient states that her breathing is back to baseline and requesting to go home. She has been afebrile, HR 100, BP 146/87, PO 98% on Room air. Blood sugars running 94-161. Patient will be discharge home today in stable condition. ASSESSMENT AND PLAN 1. COPD exacerbation. 2. Hypertension. 3. Alcohol intoxication. 4. Recurrent depression. DISCHARGE PLAN Home. Impression and plan of care have been directed as dictated by the signing physician. Cindy Smith nurse practitioner acting as scribe for signing physician. Patient Condition at Discharge: Good Plan - Discharge Summary Discharge Rx Participant: No New Discharge Prescriptions: New Ipratropium-Albuterol Nebulize [Duoneb 0.5 mg-3 mg/3 ml Soln] 3 ml INHALATION RT-QID #120 dose Nicotine 14Mg/24Hr Patch [Habitrol] 1 patch TRANSDERM DAILY #30 patch guaiFENesin-DM 600/30MG [Mucinex Dm] 1 each PO Q12HR tab.er.12h Budesonide [Pulmicort] 1 mg INHALATION RT-BID #60 dose Doxycycline [Vibramycin] 100 mg PO BID 7 Days #14 capsule Thiamine [Vitamin B-1] 100 mg PO BID-W/MEALS tab predniSONE [Deltasone] 20 mg PO DAILY #15 tab Continue DULoxetine HCL [Cymbalta] 60 mg PO QAM Hydrocodone/Acetaminophen [[place] 10-325] 1 tab PO BID LORazepam [Ativan] 1 mg PO BID PRN PRN Reason: Anxiety Losartan Potassium 100 mg PO QAM Dexlansoprazole [Dexilant] 60 mg PO DAILY Discharge Medication List DULoxetine HCL [Cymbalta] 60 mg PO QAM 04/28/16 [History] Hydrocodone/Acetaminophen [[place] 10-325] 1 tab PO BID 04/28/16 [History] LORazepam [Ativan] 1 mg PO BID PRN 12/02/19 [History] Losartan Potassium 100 mg PO QAM 09/11/20 [History] Dexlansoprazole [Dexilant] 60 mg PO DAILY 10/26/20 [History] Budesonide [Pulmicort] 1 mg INHALATION RT-BID #60 dose 10/27/20 [Rx] Doxycycline [Vibramycin] 100 mg PO BID 7 Days #14 capsule 10/27/20 [Rx] Ipratropium-Albuterol Nebulize [Duoneb 0.5 mg-3 mg/3 ml Soln] 3 ml INHALATION RT-QID #120 dose 10/27/20 [Rx] Nicotine 14Mg/24Hr Patch [Habitrol] 1 patch TRANSDERM DAILY #30 patch 10/27/20 [Rx] Thiamine [Vitamin B-1] 100 mg PO BID-W/MEALS tab 10/27/20 [Rx] guaiFENesin-DM 600/30MG [Mucinex Dm] 1 each PO Q12HR tab.er.12h 10/27/20 [Rx] predniSONE [Deltasone] 20 mg PO DAILY #15 tab 10/27/20 [Rx] Follow up Appointment(s)/Referral(s): Kallie Harper MD [STAFF PHYSICIAN] - 1 Week Hilario Garcia DO [Primary Care Provider] - 1 Week Patient Instructions/Handouts: Doxycycline (By mouth), Budesonide (By breathing), Ipratropium/Albuterol (By breathing), COPD (Chronic Obstructive Pulmonary Disease) (DC), How to Use a Nebulizer (DC) Discharge Disposition: HOME SELF-CARE
--- NOTE | 2020-10-27 12:24 | P.PN ---
Subjective Progress Note Date: 10/27/20 Principal diagnosis: Acute exacerbation of COPD This is a pleasant 59-year-old female patient who follows with Dr. Garcia as her primary care provider. She has a history of gastroesophageal reflux disease, Lamb's esophagus, hypertension, osteoarthritis with previous hip r eplacement most recently in September 2020, epilepsy but no seizures and 30 years, anxiety/depression, chronic and ongoing tobacco dependence, daily alcohol use. She does have COPD per her PCP and only uses occasional samples of inhalers. Recently she developed increasing shortness of breath, yellow productive sputum, dyspnea on exertion. She was ordered a Z-Donnell and Medrol Dosepak in the outpatient setting without much improvement. She came in the room yesterday with worsening shortness of breath. Chest x-ray reveals no acute process. CT angiogram revealed no evidence of pulmonary embolism. Suspected COPD. No acute pulmonary process. White count 13.1. Hemoglobin 12.5. D-dimer 1.81. Sodium 142. Potassium 4.3. Creatinine 1.04. Glucose 164. Initial lactic acid 3.3 currently 1.7. Serum alcohol 326. Chronavirus by PCR not detected. She is seen today in consultation on the regular medical floor. She is currently sitting up in bed. Awake and alert in no acute distress. Somewhat anxious. Somewhat tremulous. States her breathing is easier today compared to yesterday. Maintaining O2 saturation in the mid 90s on room air. She's afebrile. Slightly tachycardic. Hypertensive. She has been initiated on DuoNeb inhalations, IV Solu-Medrol. She will and placed in the CIWA protocol. Patient was reevaluated today on 10/27/2020, patient seems to be doing quite well, relatively asymptomatic, no cough no wheezing no shortness of breath, he shouldn't is about ready to be discharged home. My recommendation that the patient needs to be home on prednisone burst and taper over 2 weeks, Symbicort, DuoNeb updrafts 4 times a day and when necessary, and advised to follow-up with us on outpatient basis. Objective - Vital Signs Vital signs: Vital Signs Temp 98.2 F 10/27/20 05:00 Pulse 100 10/27/20 08:44 Resp 18 10/27/20 05:00 BP 146/87 10/27/20 05:00 Pulse Ox 98 10/27/20 05:00 Intake & Output 10/26/20 10/27/20 10/27/20 18:59 06:59 18:59 Intake Total 600 1000 Balance 600 1000 Weight 48.081 kg Intake: Intake, IV Titration 600 Amount Sodium Chloride 0.9% 1, 600 000 ml @ 100 mls/hr IV . Q10H7M ONE with Mvi, Adult No.4 with Vit K 10 ml with Thiamine 100 mg with Folic Acid 1 mg Rx#: [id number] Oral 1000 Other: Voiding Method Toilet # Voids 3 - Exam Physical Exam: Revealed a 59-year-old female in no distress. Head: Atraumatic normocephalic. HEENT:[Neck is supple.] [No neck masses.] [No thyromegaly.] [No JVD.] Chest: [Clear throughout, no crackles, no rhonchi, no wheezes.] Cardiac Exam: [Normal S1 and S2, no S3 gallop, no murmur.] Abdomen: [Soft, nontender, no megaly, no rebound, no guarding, normal bowel sounds.] Extremities: [No clubbing, no edema, no cyanosis.] Neurological Exam: [No focal neurologic deficit. Psychiatric: Normal mood affect and normal mental status examination. Skin: No rashes] - Labs CBC & Chem 7: 10/25/20 21:56 10/25/20 21:56 Labs: Abnormal Lab Results - Last 24 Hours (Table) 10/26/20 10/27/20 Range/Units 17:11 07:29 POC Glucose (mg/dL) 222 H 161 H (75-99) mg/dL Assessment and Plan Assessment: Impression: Acute exacerbation of COPD, significantly improved. Acute alcohol intoxication. History of Lamb esophagus. Generalized anxiety disorder. Remote history of seizure disorder. Recommendation: Agree with discharge planning today. Follow-up on outpatient basis. Recommend prednisone burst and taper, Symbicort, DuoNeb, and outpatient follow- up. Time with Patient: Less than 30
[2020-10-27 12:42] VITALS: PULSE 104
== END 2020-10-27 11:45 | disposition home or self-care (01) | DRG 191 ==
LOC: EC 21:21 → 6NMEDSUR 10-26 00:40 → OBSVTOIN 10-26 09:21
PROVIDERS: ADMIT Internal Medicine; ATTEND Internal Medicine
DX: J44.1 Chronic obstructive pulmonary disease with (acute) exacerbation (principal); F33.9 Major depressive disorder, recurrent, unspecified; F41.1 Generalized anxiety disorder; F10.129 Alcohol abuse with intoxication, unspecified; Y90.8 Blood alcohol level of 240 mg/100 ml or more; F17.210 Nicotine dependence, cigarettes, uncomplicated; G40.909 Epilepsy, unspecified, not intractable, without status epilepticus; I10 Essential (primary) hypertension; K21.9 Gastro-esophageal reflux disease without esophagitis; K22.70 Barrett's esophagus without dysplasia; M19.90 Unspecified osteoarthritis, unspecified site; M81.0 Age-related osteoporosis without current pathological fracture; Z79.899 Other long term (current) drug therapy; Z80.1 Family history of malignant neoplasm of trachea, bronchus and lung; Z86.19 Personal history of other infectious and parasitic diseases; Z96.643 Presence of artificial hip joint, bilateral; Z98.42 Cataract extraction status, left eye; Z98.41 Cataract extraction status, right eye; Z20.822 Contact with and (suspected) exposure to COVID-19; Z88.2 Allergy status to sulfonamides
CPT/HCPCS: 36415; 71045; 71275; 80053; 80320; 83605; 83735; 84484; 85025; 85379; 85610; 85730; 87635; 93005; 94640; 96361; 96372; 96374; 99285

== ENCOUNTER 2021-03-25 11:09 | Emergency (ER) | payer BC, OTHER ==
[2021-03-25] MEDS ORDERED: SODIUM CHLORIDE 0.9% 1,000 ML IV STA (11:11)
[2021-03-25] MEDS ORDERED: PROPOFOL 10 MG/ML 20 ML VIAL IV ONE ×2 (11:11→12:42)
--- NOTE | 2021-03-25 11:13 | ED ---
General Adult HPI - General Stated complaint: dislocated hip Time Seen by Provider: 03/25/21 11:10 - History of Present Illness Initial comments: Dictation was produced using [email or web address] dictation software. please excuse any grammatical, word or spelling errors. Chief Complaint: 60-year-old female presents to the emergency department for right hip dislocation. History of Present Illness: 60-year-old female she is brought in by EMS for r ight hip dislocation. Patient had hip surgery performed by Dr. King in September of last year. Today she rolled over and her hip popped out. She complains of some mild paresthesias to the distal right foot The ROS documented in this emergency department record has been reviewed and confirmed by me. Those systems with pertinent positive or negative responses have been documented in the HPI. All other systems are other negative and/or noncontributory. PHYSICAL EXAM: General Impression: Alert and oriented x3, not in acute distress HEENT: Normocephalic atraumatic, extra-ocular movements intact, pupils equal and reactive to light bilaterally, mucous membranes moist. Cardiovascular: Heart regular rate and rhythm Chest: Able to complete full sentences, no retractions, no tachypnea Abdomen: abdomen soft, non-tender, non-distended, no organomegaly Musculoskeletal: Pulses present and equal in all extremities, no peripheral edema Shortened and internally rotated right lower extremity Motor: no focal deficits noted Neurological: CN II-XII grossly intact, no focal motor or sensory deficits noted Skin: Intact with no visualized rashes Psych: Normal affect and mood ED course: 59-year-old female presents with right prosthetic hip dislocation. X-ray of the hip shows posterior prosthetic hip dislocation. It was reduced using procedural sedation. Please see procedure note. Post reduction x-ray of the hip shows successful reduction. Patient reevaluated at bedside reports significant improvement. Patient is well-appearing and will be discharge. Advised follow-up with orthopedic surgeon. - Related Data Home Medications Medication Instructions Recorded Confirmed DULoxetine HCL [Cymbalta] 60 mg PO QAM 04/28/16 03/25/21 Hydrocodone/Acetaminophen [[place] 1 tab PO BID 04/28/16 03/25/21 10-325] LORazepam [Ativan] 1 mg PO BID PRN 12/02/19 03/25/21 Losartan Potassium 100 mg PO QAM 09/11/20 03/25/21 Dexlansoprazole [Dexilant] 60 mg PO DAILY 10/26/20 03/25/21 Albuterol Sulfate [Albuterol 1 - 2 puff PO RT-Q4H PRN 03/25/21 03/25/21 Sulfate Hfa] Fluticasone/Umeclidin/Vilanter 1 puff INHALATION RT-DAILY 03/25/21 03/25/21 [Trelegy Ellipta 100-62.5-25] Mometasone/Formoterol [Dulera 200 2 puff INHALATION RT-BID 03/25/21 03/25/21 Mcg-5 Mcg Inhaler] Allergies Allergy/AdvReac Type Severity Reaction Status Date / Time Sulfa (Sulfonamide Allergy Unknown Anaphylaxis Verified 03/25/21 11:44 Antibiotics) Review of Systems ROS Statement: Those systems with pertinent positive or pertinent negative responses have been documented in the HPI. ROS Other: All systems not noted in ROS Statement are negative. Past Medical History Past Medical History: COPD, GERD/Reflux, Hypertension, Osteoarthritis (OA), Seizure Disorder Additional Past Medical History / Comment(s): Hx Epilepsy, no seizure in 30+ yrs. History of Any Multi-Drug Resistant Organisms: ESBL Date of last positivie culture/infection: 05/30/15 E. coli ESBL MDRO Source:: Urine Past Surgical History: Hernia Repair, Joint Replacement Additional Past Surgical History / Comment(s): Bilateral cataract surgery, left hip replacement X2, right hip replacement x2, hiatal hernia repair. Past Anesthesia/Blood Transfusion Reactions: No Reported Reaction Additional Past Anesthesia/Blood Transfusion Reaction / Comment(s): Patient states "everytime I have an IV started I get I immediately get diarrhea after." Sister slow to wake up. Past Psychological History: Anxiety, Depression Smoking Status: Current some day smoker Past Alcohol Use History: Daily Additional Past Alcohol Use History / Comment(s): Started smoking at age 16, currently smokes 1 PPD. Normally has 2-4 alcoholic drinks daily, had one drink last on 09/10/20, states not having any more prior to surgery. Past Drug Use History: None Reported - Past Family History Mother Family Medical History: No Reported History Father Family Medical History: Cancer Additional Family Medical History / Comment(s): lung CA Course Vital Signs 03/25/21 03/25/21 03/25/21 11:16 12:30 12:31 Temperature 98.5 F Pulse Rate 100 99 111 H Respiratory 16 18 15 Rate Blood Pressure 150/104 157/88 168/154 O2 Sat by Pulse 100 99 99 Oximetry 03/25/21 03/25/21 03/25/21 12:35 12:40 12:45 Temperature Pulse Rate 107 H 91 90 Respiratory 16 18 16 Rate Blood Pressure 163/95 138/97 145/83 O2 Sat by Pulse 100 100 100 Oximetry 03/25/21 13:00 Temperature Pulse Rate 86 Respiratory 16 Rate Blood Pressure 146/88 O2 Sat by Pulse 98 Oximetry Procedures - Orthopedic Joint Reduction Joint #1 Consent Obtained: verbal consent, written consent Side: right Joint Reduction Location: hip Analgesia: procedural sedation Shoulder Technique Used (if applicable): traction/counter-traction Patient Tolerated Procedure: well - Procedural Sedation Procedural Sedation Start Time: 12:30 Procedural Sedation Stop Time: 12:40 Indications: fracture/dislocation reduction ASA Class: II Mallampati Airway Score: 2 Preparation: camera assembler applied, pulse oximeter, capnometry used, supplemental O2 applied IV Propofol Dose (mgs): 180 Complications: none Patient Tolerated Procedure: well Disposition Clinical Impression: Hip dislocation, right Disposition: HOME SELF-CARE Condition: Good Instructions (If sedation given, give patient instructions): Hip Dislocation (ED) Is patient prescribed a controlled substance at d/c from ED?: No Referrals: Maicol King DO [Doctor of Osteopathic Medicine] - 1-2 days
[2021-03-25 11:21] VITALS: TEMP 98.5
--- NOTE | 2021-03-25 11:37 | XR ---
EXAMINATION TYPE: XR Hip Complete RT DATE OF EXAM: 03/25/2021 CLINICAL HISTORY: Pain and deformity. Dislocation. TECHNIQUE: AP and frogleg views of the right hip are attempted. COMPARISON: Right hip x-ray September 18, 2020. FINDINGS: There is prosthetic dislocation on images obtained. Overlying clothing or blanket material along with tunica-biloxi osseous structures being demineralized and difficulty positioning patient are all noted to lower radiographic sensitivity. No acute fracture is clearly evident on images saved. IMPRESSION: As above.
[2021-03-25 12:50] VITALS: RESP 16
--- NOTE | 2021-03-25 13:02 | XR ---
EXAMINATION TYPE: XR Hip Limited RT DATE OF EXAM: 03/25/2021 COMPARISON: 03/25/2021 HISTORY: Pain TECHNIQUE: One view submitted. FINDINGS: There is postsurgical change in near anatomic alignment. There is soft tissue ossification. Diffuse osteopenia. IMPRESSION: 1. Postoperative change. Appears in near-anatomic alignment.
[2021-03-25 13:46] VITALS: BP 148/86; PULSE 89
== END 2021-03-25 13:50 | disposition home or self-care (01) ==
LOC: EC 11:09
DX: T84.020A Dislocation of internal right hip prosthesis, initial encounter (principal); I10 Essential (primary) hypertension; K21.9 Gastro-esophageal reflux disease without esophagitis; J44.9 Chronic obstructive pulmonary disease, unspecified; M19.90 Unspecified osteoarthritis, unspecified site; G40.909 Epilepsy, unspecified, not intractable, without status epilepticus; F17.200 Nicotine dependence, unspecified, uncomplicated; Z79.891 Long term (current) use of opiate analgesic; Z79.51 Long term (current) use of inhaled steroids; Z79.899 Other long term (current) drug therapy; Z88.2 Allergy status to sulfonamides
CPT/HCPCS: 99284 ×2; 99152 ×2; 27265; 96360; 73501; 73502; J2704

== ENCOUNTER 2021-08-27 12:22 | Inpatient (IN) | payer BC ==
--- NOTE | 2021-08-27 13:04 | ED ---
General Adult HPI - General Chief complaint: Fall Stated complaint: Fall Time Seen by Provider: 08/27/21 12:42 Source: patient, EMS Mode of arrival: EMS Limitations: no limitations - History of Present Illness Initial comments: Dictation was produced using [employer] dictation software. please excuse any grammatical, word or spelling errors. Chief Complaint: 60-year-old feel presents after fall History of Present Illness: Patient is a 60-year-old female she presents today after fall. Patient states that she isn't suffering frequent falls recently. She does not take any anticoagulation medications. Patient states she tripped over her own walker. She states that she fell obliquely landing on her right side. She states that she has lower back pain, tailbone pain and bilateral hip pain. Patient was brought in by EMS. The ROS documented in this emergency department record has been reviewed and confirmed by me. Those systems with pertinent positive or negative responses have been documented in the HPI. All other systems are other negative and/or noncontributory. PHYSICAL EXAM: General Impression: Alert and oriented x3, not in acute distress HEENT: Normocephalic atraumatic, extra-ocular movements intact, pupils equal and reactive to light bilaterally, mucous membranes moist. Cardiovascular: Heart regular rate and rhythm Chest: Able to complete full sentences, no retractions, no tachypnea Abdomen: abdomen soft, non-tender, non-distended, no organomegaly Musculoskeletal: Pulses present and equal in all extremities, no peripheral edema, tenderness to palpation over the sacrum, there is palpation to the bilateral thighs. Motor: no focal deficits noted Neurological: CN II-XII grossly intact, no focal motor or sensory deficits noted Skin: Intact with no visualized rashes Psych: Normal affect and mood ED course: 60-year-old female presents to the emergency department after fall. She fell earlier today. She tripped over her walker. vital signs upon arrival are within acceptable limits EKG interpretation: Ventricular rate 99, sinus rhythm,. Interval 134, QRS 70, QTc 449. No [place] prolongation, no QTC prolongation, no ST or T-wave changes noted. EKG compared to 10/25/2020 showing no changes. Overall, this EKG is unremarkable Laboratory evaluation obtained. CBC normal. Metabolic panel shows an 123. Mild acidosis likely secondary to dehydration. Grade 1.3. Lumbar spine is unremarkable. Pelvis CT shows right sacral fracture and bilaterally. Pubic rami fracture. Case discussed with [facility] mid-level provider for orthopedic surgery who agrees to inpatient admission. Medicine contacted and will be on consult for hyponatremia. - Related Data Home Medications Medication Instructions Recorded Confirmed DULoxetine HCL [Cymbalta] 60 mg PO QAM 04/28/16 03/25/21 Hydrocodone/Acetaminophen [[place] 1 tab PO BID 04/28/16 03/25/21 10-325] LORazepam [Ativan] 1 mg PO BID PRN 12/02/19 03/25/21 Losartan Potassium 100 mg PO QAM 09/11/20 03/25/21 Albuterol Sulfate [Albuterol 1 - 2 puff PO RT-Q4H PRN 03/25/21 03/25/21 Sulfate Hfa] Cetirizine HCl [Zyrtec] 10 mg PO DAILY 08/27/21 08/27/21 Ergocalciferol [Vitamin D2 (1250 1,250 mcg PO Q7D 08/27/21 08/27/21 Mcg = 59918 Iu)] Esomeprazole Magnesium [NexIUM 20 mg PO DAILY 08/27/21 08/27/21 24Hr] Ondansetron HCl [Zofran] 4 mg PO Q8H PRN 08/27/21 08/27/21 Allergies Allergy/AdvReac Type Severity Reaction Status Date / Time Sulfa (Sulfonamide Allergy Unknown Anaphylaxis Verified 08/27/21 14:51 Antibiotics) Review of Systems ROS Statement: Those systems with pertinent positive or pertinent negative responses have been documented in the HPI. ROS Other: All systems not noted in ROS Statement are negative. Past Medical History Past Medical History: COPD, GERD/Reflux, Hypertension, Osteoarthritis (OA), Seizure Disorder Additional Past Medical History / Comment(s): Hx Epilepsy, no seizure in 30+ yrs. History of Any Multi-Drug Resistant Organisms: ESBL Date of last positivie culture/infection: 05/30/15 E. coli ESBL MDRO Source:: Urine Past Surgical History: Hernia Repair, Joint Replacement Additional Past Surgical History / Comment(s): Bilateral cataract surgery, left hip replacement X2, right hip replacement x2, hiatal hernia repair. Past Anesthesia/Blood Transfusion Reactions: No Reported Reaction Additional Past Anesthesia/Blood Transfusion Reaction / Comment(s): Patient states "everytime I have an IV started I get I immediately get diarrhea after." Sister slow to wake up. Past Psychological History: Anxiety, Depression Smoking Status: Current some day smoker Past Alcohol Use History: Daily Past Drug Use History: None Reported - Past Family History Mother Family Medical History: No Reported History Father Family Medical History: Cancer Additional Family Medical History / Comment(s): lung CA General Exam Limitations: no limitations Course Vital Signs 08/27/21 08/27/21 12:34 13:38 Temperature 98.1 F Pulse Rate 99 105 H Respiratory 18 18 Rate Blood Pressure 92/72 110/65 O2 Sat by Pulse 99 98 Oximetry Medical Decision Making - Lab Data Result diagrams: 08/27/21 13:12 08/27/21 13:12 Lab Results 08/27/21 08/27/21 Range/Units 13:12 13:12 WBC 7.4 (3.8-10.6) k/uL RBC 3.18 L (3.80-5.40) m/uL Hgb 10.0 L (11.4-16.0) gm/dL Hct 30.7 L (34.0-46.0) % MCV 96.6 (80.0-100.0) fL MCH 31.5 (25.0-35.0) pg MCHC 32.6 (31.0-37.0) g/dL RDW 16.2 H (11.5-15.5) % Plt Count 249 (150-450) k/uL MPV 7.6 Neutrophils % 81 % Lymphocytes % 12 % Monocytes % 4 % Eosinophils % 1 % Basophils % 0 % Neutrophils # 6.0 (1.3-7.7) k/uL Lymphocytes # 0.9 L (1.0-4.8) k/uL Monocytes # 0.3 (0-1.0) k/uL Eosinophils # 0.1 (0-0.7) k/uL Basophils # 0.0 (0-0.2) k/uL Anisocytosis Slight Sodium 123 L (137-145) mmol/L Potassium 4.2 (3.5-5.1) mmol/L Chloride 91 L (98-107) mmol/L Carbon Dioxide 19 L (22-30) mmol/L Anion Gap 13 mmol/L BUN 9 (7-17) mg/dL Creatinine 1.38 H (0.52-1.04) mg/dL Est GFR (CKD-EPI)AfAm 48 (>60 ml/min/1.73 sqM) Est GFR (CKD-EPI)NonAf 42 (>60 ml/min/1.73 sqM) Glucose 90 (74-99) mg/dL Calcium 8.8 (8.4-10.2) mg/dL Creatine Kinase 296 H (30-135) U/L Disposition Clinical Impression: Hyponatremia, Pelvic fracture, Sacral fracture Disposition: ADMITTED IP TO THIS HOSP Condition: Fair Referrals: Hilario Garcia DO [Primary Care Provider] - 1-2 days
[2021-08-27 13:35] LABS: Anisocytosis Slight; Basophils % (A) 0 %; Eosinophils # (A) 0.1 k/uL (0-0.7); Eosinophils % (A) 1 %; HCT 30.7 % (34.0-46.0); Lymphocytes # (A) 0.9 k/uL (1.0-4.8); Lymphocytes % (A) 12 %; MCH 31.5 pg (25.0-35.0); MCHC 32.6 g/dL (31.0-37.0); MCV 96.6 fL (80.0-100.0); Mean Platelet Volume 7.6; Monocytes # (A) 0.3 k/uL (0-1.0); Monocytes % (A) 4 %; Neutrophils % (A) 81 %; Platelet Count 249 k/uL (150-450); RBC 3.18 m/uL (3.80-5.40); RDW 16.2 % (11.5-15.5); WBC 7.4 k/uL (3.8-10.6)
[2021-08-27 13:44] LABS: Calcium 8.8 mg/dL (8.4-10.2); Potassium 4.2 mmol/L (3.5-5.1)
[2021-08-27] MEDS ORDERED: SODIUM CHLORIDE 0.9% 1,000 ML IV STA (14:08)
--- NOTE | 2021-08-27 14:10 | CT ---
EXAMINATION TYPE: CT lumbar spine wo con, CT pelvis wo con DATE OF EXAM: 08/27/2021 COMPARISON: None HISTORY: 60-year-old female with pain after Fall TECHNIQUE: Contiguous axial scanning of the lumbar spine without IV contrast. Additional scanning of the pelvis. Coronal and sagittal reconstructions performed. CT DLP: 414.9 (accession [id number]), 281.3 (accession [id number]) mGycm Automated exposure control for dose reduction was used. FINDINGS: LUMBAR SPINE: 8 mm cortical hypodensity lateral left kidney probable cyst. Vertebral body heights are preserved and alignment is maintained. Hypertrophic facet arthropathy mindy cially mid to lower thoracic spine. No evident canal compromise by CT. Mild posterior disc bulge at L2-L3. Disc bulge eccentric towards the right at L3-L4 minimally narrowing the inferior foramen. No high-gra de foraminal compromise seen. Left L3 transverse process fracture. PELVIS: There is a vertical fracture of the right sacrum with mild presacral soft tissue hematoma. Suspect so me slight dorsal epidural hematoma to the L5-S1 level, refer to axial image 13. Osteopenia. Cortical step-offs involving the bilateral inferior pubic rami. Additional fracture left pubic body. Bilateral total hip arthroplasties are present. IMPRESSION: LUMBAR SPINE: 1. LEFT L3 TRANSVERSE PROCESS FRACTURE APPEARS CORTICATED, SUSPECTED CHRONIC AND OLD. 2. NO VERTEBRAL COMPRESSION COLLAPSE OR MALALIGNMENT. MILD DEGENERATIVE DISC DISEASE PARTICULARLY L2- L3 AND L3-L4. 3. NO LARGE FOCAL DISC HERNIATION OR SIGNIFICANT SPINAL CANAL OR FORAMINAL STENOSIS. PELVIS: 4. A LARGE VERTICAL ZONE 1 RIGHT-SIDED SACRAL ALAR FRACTURE WITH SOME ASSOCIATED PRESACRAL HEMATOMA. THERE IS MINIMAL DORSAL EPIDURAL THICKENING/HEMATOMA AT THE L5-S1 LEVEL WITHOUT CANAL COMPROMISE. 5. NONDISPLACED FRACTURES OF THE BILATERAL INFERIOR PUBIC RAMI AND LEFT PUBIC BODY. 6. THE BILATERAL TOTAL HIP ARTHROPLASTIES APPEAR INTACT.
[2021-08-27] MEDS ORDERED: NALOXONE 0.4 MG/ML 1 ML VIAL IV PRN (14:53)
[2021-08-27] MEDS: oxyCODONE-APAP 5-325MG 1 EACH TAB PO PRN ×3 (15:48→23:55)
[2021-08-27] MEDS: SODIUM CHLORIDE 0.9% 1,000 ML IV SCH ×2 (15:49→19:52)
--- NOTE | 2021-08-27 16:53 | XR ---
EXAMINATION TYPE: XR Hip Bilateral and AP pelvis DATE OF EXAM: 08/27/2021 COMPARISON: 03/25/2021 HISTORY: Pain. Fall. TECHNIQUE: 5 views FINDINGS: There is nondisplaced fracture through the left superior pubic ramus. This possible hairline fracture also through the right superior pubic ramus. There is bilateral hip prosthesis. Components appear in anatomic position. IMPRESSION: Left superior pubic ramus fracture. Possible right pubic ramus fracture.
[2021-08-27] MEDS ORDERED: LORazepam 2 MG/ML INJ IV PRN ×3 (17:22)
[2021-08-28] MEDS: oxyCODONE-APAP 5-325MG 1 EACH TAB PO PRN ×4 (05:22→19:12)
[2021-08-28] MEDS ORDERED: ALBUTEROL NEBULIZED 2.5 MG/3 ML INHALATION PRN (06:57)
[2021-08-28] MEDS ORDERED: PANTOPRAZOLE 40 MG/10 ML VIAL IV SCH (09:00)
[2021-08-28] MEDS: HYDROcodone/APAP 10-325MG 1 EACH TAB PO SCH ×2 (09:43→20:42)
[2021-08-28] MEDS: LOSARTAN 50 MG TAB PO SCH (09:43)
[2021-08-28] MEDS: PANTOPRAZOLE 40 MG TABLET PO SCH (09:43)
[2021-08-28] MEDS: LORATADINE 10 MG TAB PO SCH (09:43)
[2021-08-28] MEDS: DULoxetine HCL 60 MG CAPSULE.DR PO SCH (09:43)
[2021-08-28 10:29] LABS: ALT 22 U/L (4-34); AST 34 U/L (14-36); African American GFR (CKD) 57 (>60 ml/min/1.73 sqM); Albumin/Globulin Ratio 1.2; Alkaline Phosphatase 69 U/L (38-126); Anion Gap 4 mmol/L; Blood Urea Nitrogen 13 mg/dL (7-17); Calcium 8.2 mg/dL (8.4-10.2); Carbon Dioxide 22 mmol/L (22-30); Chloride 96 mmol/L (98-107); Globulin 2.6 g/dL; Glucose 140 mg/dL (74-99); Non-African American GFR(CKD) 49 (>60 ml/min/1.73 sqM); Potassium 3.8 mmol/L (3.5-5.1); Sodium 122 mmol/L (137-145); Total Bilirubin 0.4 mg/dL (0.2-1.3); Total Protein 5.6 g/dL (6.3-8.2); Uric Acid 5.6 mg/dL (3.7-7.4)
[2021-08-28 10:55] LABS: Anisocytosis Slight; Basophils % (A) 1 %; Eosinophils # (A) 0.1 k/uL (0-0.7); Eosinophils % (A) 2 %; HCT 29.6 % (34.0-46.0); HGB 9.6 gm/dL (11.4-16.0); Lymphocytes % (A) 23 %; MCH 31.3 pg (25.0-35.0); MCHC 32.4 g/dL (31.0-37.0); MCV 96.5 fL (80.0-100.0); Mean Platelet Volume 8.2; Monocytes # (A) 0.3 k/uL (0-1.0); Monocytes % (A) 6 %; Neutrophils # (A) 2.8 k/uL (1.3-7.7); Neutrophils % (A) 67 %; Platelet Count 213 k/uL (150-450); RBC 3.07 m/uL (3.80-5.40); RDW 16.4 % (11.5-15.5); WBC 4.2 k/uL (3.8-10.6)
--- NOTE | 2021-08-28 11:37 | P.HPOR ---
History of Present Illness H&P Date: 08/28/21 Chief Complaint: Pelvic fractures, sacral fracture This is a 60-year-old female who has had multiple falls recently. She states that she had a major fall recently, injuring her low back and pelvis. She is admitted to our service for further evaluation and care. She complains of pain about her low back. She states that she is unable to move her legs secondary to pain. She denies a numbness or tingling down the legs. She denies head or neck pain. She also complains of some swelling about the left hand. Past Medical History Past Medical History: COPD, GERD/Reflux, Hypertension, Osteoarthritis (OA), Seizure Disorder Additional Past Medical History / Comment(s): Hx Epilepsy, no seizure in 30+ yrs. History of Any Multi-Drug Resistant Organisms: ESBL Date of last positivie culture/infection: 05/30/15 E. coli ESBL MDRO Source:: Urine Past Surgical History: Hernia Repair, Joint Replacement Additional Past Surgical History / Comment(s): Bilateral cataract surgery, left hip replacement X2, right hip replacement x2, hiatal hernia repair. Past Anesthesia/Blood Transfusion Reactions: No Reported Reaction Additional Past Anesthesia/Blood Transfusion Reaction / Comment(s): Patient states "everytime I have an IV started I get I immediately get diarrhea after." Sister slow to wake up. Past Psychological History: Anxiety, Depression Smoking Status: Current every day smoker Past Alcohol Use History: Daily Additional Past Alcohol Use History / Comment(s): Started smoking at age 16, currently smokes 1 PPD. Normally has 2-4 alcoholic drinks daily, had one drink last on 09/10/20, states not having any more prior to surgery. Past Drug Use History: None Reported - Past Family History Mother Family Medical History: No Reported History Father Family Medical History: Cancer Additional Family Medical History / Comment(s): lung CA Medications and Allergies Home Medications Medication Instructions Recorded Confirmed Type DULoxetine HCL [Cymbalta] 60 mg PO QAM 04/28/16 08/27/21 History Hydrocodone/Acetaminophen [[place] 1 tab PO BID 04/28/16 08/27/21 History 10-325] LORazepam [Ativan] 1 mg PO BID PRN 12/02/19 08/27/21 History Losartan Potassium 100 mg PO QAM 09/11/20 08/27/21 History Albuterol Sulfate [Albuterol 1 - 2 puff PO RT-Q4H PRN 03/25/21 08/27/21 History Sulfate Hfa] Cetirizine HCl [Zyrtec] 10 mg PO DAILY 08/27/21 08/27/21 History Ergocalciferol [Vitamin D2 (1250 1,250 mcg PO Q7D 08/27/21 08/27/21 History Mcg = 50140 Iu)] Esomeprazole Magnesium [NexIUM 20 mg PO DAILY 08/27/21 08/27/21 History 24Hr] Ondansetron HCl [Zofran] 4 mg PO Q8H PRN 08/27/21 08/27/21 History Allergies Allergy/AdvReac Type Severity Reaction Status Date / Time Sulfa (Sulfonamide Allergy Unknown Anaphylaxis Verified 08/27/21 14:51 Antibiotics) Physical Examination This is a pleasant 60-year-old female in no acute distress. She is alert and o riented 3. Exam of the head neck reveal no obvious deformity. She has full cervical spine motion without difficulty or pain. No pain to palpation about cervical spine or paraspinal musculature. Exam the upper extremities reveals no obvious deformity. There is some mild swelling and ecchymosis about the hand she has full finger motion without difficulty or pain. There is minimal pain with palpation about the metacarpals or fingers. No wrist pain noted. Full range of motion of the wrist. Neurovascular status to the upper extremities is intact. Exam of the thoracic and lumbar spine reveal no obvious deformity. There is point tenderness with palpation about the low lumbar and sacral spine. There is pain with compression of the pelvis. Exam of the lower extremities reveals no obvious deformity. There is no shortening or external rotation. She has difficulty lifting his leg off the bed independently secondary to low back pain. She has full foot and ankle motion without difficulty or pain. Neurovascular status to the lower extremities is intact. Results X-ray and CT of the pelvis reveals a right-sided sacral awl a transverse fracture with minimal displacement. There are bilateral inferior pubic rami fractures and a left superior pubic rami fracture. Bilateral total hip components in satisfactory position and alignment. No obvious periprosthetic fracture noted. There is a transverse process fracture of L3 on the left which is possibly old. CT also noted a small hematoma in the region of the L5-S1, most likely consistent with the sacral fracture. No obvious compression of the spinal canal. - Labs Labs: Abnormal Lab Results - Last 24 Hours (Table) 08/27/21 08/27/21 08/28/21 Range/Units 13:12 13:12 09:28 RBC 3.18 L (3.80-5.40) m/uL Hgb 10.0 L (11.4-16.0) gm/dL Hct 30.7 L (34.0-46.0) % RDW 16.2 H (11.5-15.5) % Lymphocytes # 0.9 L (1.0-4.8) k/uL Sodium 123 L 122 L (137-145) mmol/L Chloride 91 L 96 L (98-107) mmol/L Carbon Dioxide 19 L (22-30) mmol/L Creatinine 1.38 H 1.20 H (0.52-1.04) mg/dL Glucose 140 H (74-99) mg/dL Osmolality 268 L (280-301) mosm/kg Calcium 8.2 L (8.4-10.2) mg/dL Creatine Kinase 296 H (30-135) U/L Total Protein 5.6 L (6.3-8.2) g/dL Albumin 3.0 L (3.5-5.0) g/dL 08/28/21 Range/Units 09:28 RBC 3.07 L (3.80-5.40) m/uL Hgb 9.6 L (11.4-16.0) gm/dL Hct 29.6 L (34.0-46.0) % RDW 16.4 H (11.5-15.5) % Lymphocytes # (1.0-4.8) k/uL Sodium (137-145) mmol/L Chloride (98-107) mmol/L Carbon Dioxide (22-30) mmol/L Creatinine (0.52-1.04) mg/dL Glucose (74-99) mg/dL Osmolality (280-301) mosm/kg Calcium (8.4-10.2) mg/dL Creatine Kinase (30-135) U/L Total Protein (6.3-8.2) g/dL Albumin (3.5-5.0) g/dL H & H 08/27/21 08/28/21 Range/Units 13:12 09:28 Hgb 10.0 L 9.6 L (11.4-16.0) gm/dL Hct 30.7 L 29.6 L (34.0-46.0) % Result Diagrams: 08/28/21 09:28 08/28/21 09:28 Assessment and Plan (1) History of bilateral hip replacements Current Visit: Yes Status: Acute Code(s): Z96.643 - PRESENCE OF ARTIFICIAL HIP JOINT, BILATERAL SNOMED Code(s): 787856415 (2) Contusion of left hand Current Visit: Yes Status: Acute Code(s): S60.222A - CONTUSION OF LEFT HAND, INITIAL ENCOUNTER SNOMED Code(s): 1199286 (3) Pelvic fracture Current Visit: Yes Status: Acute Code(s): S32.9XXA - FRACTURE OF UNSP PARTS OF LUMBOSACRAL SPINE AND PELVIS, INIT SNOMED Code(s): 04495085 (4) Sacral fracture Current Visit: Yes Status: Acute Code(s): S32.10XA - UNSP FRACTURE OF SACRUM, INIT ENCNTR FOR CLOSED FRACTURE SNOMED Code(s): 674133675 Plan: The clinical and x-ray findings are discussed with the patient. It is recommended she be nonweightbearing on the right. She may bear weight to the left as tolerated with use of a walker. She may only be able to tolerate bed to chair transfers for now. It is recommended she be evaluated for inpatient rehab.
--- NOTE | 2021-08-28 12:35 | P.CONS ---
History of Present Illness - Reason for Consult Consult date: 08/28/21 - Chief Complaint Hyponatremia, increased gait instability multiple fractures involving pelvi - History of Present Illness HISTORY OF PRESENT ILLNESS This is a 59-year-old female patient of Dr. Garcia with past medical history of COPD, gastric soft reflux disease, hypertension, oste oporosis, tobacco use and dependence, alcohol abuse. Patient comes in after she had a mechanical fall when her walker stepped over her Toys which led to her fall. Patient drinks heavily every day, drinks mainly beers on the weekdays and mixed drinks over the weekend. Patient states she has recently had a left femur and fracture following by ankle fracture and left for post fractured in . Patient has been using walker and occasionally has some dizziness and lightheadedness. She denies any nausea, vomiting, passing out spell. She denies any abdominal pain change in bowel habits, chest pain or shortness of breath. In the ER patient noted to have a temp of 98.1 pulse 99 respiratory rate 18 blood pressure 92/72. Labs were reviewed patient has a WBC of 7.4 hemoglobin 10 related to 49 sodium of 123 chloride 91 bicarb 19 BUN 9 creatinine 1.38. ECG was obtained that suggested ventricle rate of 99 sinus rhythm no QTC prolongation no ST or T-wave changes. Hip and pelvic fractures suggestive of left superior pubic ramus fracture with possible right pubic ramus fracture Lumbar spine suggestive of left L3 transverse process fracture fractures appear corticated suspect chronic and old no vertebral compression collapse and malalignment. Mild degenerative disc disease particularly at L2-L3 and L3-L4 was noted no disc herniation or significant spinal canal or foraminal stenosis noted Pelvic CAT scan suggested large-bore tube goals old right-sided sacral alae or fracture with some associated presacral hematoma with minimal dorsal epidural thickening hematoma at L5-S1 level without canal compromise. Nondisplaced fractures of the bilateral inferior pubic rami and left pubic body noted. Bilateral total hip arthroplasties appeared intact Patient is unable to move her lower extremity due to extreme pain but denies any numbness and tingling in the legs. Denies any head or neck pain. She was placed on Bro catheter due to difficulty with mobility and pain. Patient was admitted on the trauma team. The medical team was consulted for hyponatremia. IV fluids were continued overnight. We'll discontinue the IV fluids. Urine sodium, urine osmolality, serum muscularity ordered. Uric acid ordered REVIEW OF SYSTEMS Constitutional: No fever, no chills, no night sweats. No weight change. No weakness, fatigue or lethargy. No daytime sleepiness. EENT: No headache. No blurred vision or double vision, no loss of vision. No loss of Hearing, no ringing in the ears, no dizziness. No nasal drainage or congestion. No epistaxis. No sore throat. Lungs: Reports shortness of breath, reports cough, reports sputum production. No wheezing. No hemoptysis. Cardiovascular: No chest pain, no lower extremity edema. No palpitations. No paroxysmal nocturnal dyspnea. No orthopnea. No lightheadedness or dizziness. No syncopal episodes. Abdominal: No abdominal pain. No nausea, vomiting. No diarrhea. No constipation. No bloody or tarry stools. No loss of appetite. Genitourinary: No dysuria, increased frequency, urgency. No urinary retention. Musculoskeletal: Positive for myalgias. Positive for frequent falls gait dysfunction, back pain and hip pain No neck pain. Integumentary: No wounds, no lesions. No rash or pruritus. No unusual bruising. No change in hair or nails. Neurologic: No aphasia. No facial droop. No change in mentation. No head injury. No headache. No paralysis. No paresthesia. Psychiatric: No depression. No anxiety. No mood swings. Endocrine: No abnormal blood sugars. No weight change. SOCIAL HISTORY Patient is a smoker of a half pack per day since she was 14 or 15 years of age. Patient drinks 4-5 times per week for the past 15 years. Yesterday she had 4-5 shots. She states she does not drink every day. 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 She is trying to get disability. FAMILY HISTORY Father at age 58 from lung cancer. Mother is alive at age 53 with no major medical problems. Patient has 2 sisters with no major medical problems. No brothers. No children. PHYSICAL EXAMINATION Gen: This is a 59-year-old female. She is ambulating in her room and appears to be comfortable. Complains of pain involving her hip. No respiratory distress noted. HEENT: Head is atraumatic, normocephalic. Pupils equal, round. Sclerae is anicteric. NECK: Supple. No JVD. No lymphadenopathy. No thyromegaly. LUNGS: Clear to auscultation. No wheezes or rhonchi. No intercostal retractions. HEART: Regular rate and rhythm. No murmur. ABDOMEN: Soft. Bowel sounds are present. No masses. No tenderness. EXTREMITIES: No pedal edema. No calf tenderness. Unable to lift her legs due to extreme pain. Peripheral pulses palpable neurovascular intact. Mild ecchymosis noted in the left hand no obvious deformity noted minimal pain with palpation about the metacarpals fingers noted. No obvious deformity of the back noted NEUROLOGICAL: Patient is awake, alert and oriented x3. Cranial nerves 2 through 12 are grossly intact. ASSESSMENT AND PLAN 1. Hyponatremia likely secondary to alcohol intake. Rule out SIADH. Urine sodium, serum and urine osmolality ordered. Uric acid ordered. IV fluids discontinued. Nephrology consulted. On Cymbalta for depression 2. Acute kidney injury secondary to ATN with Chronic kidney disease stage III A. Continue to monitor creatinine. Avoid nephrotoxic agents. 3. Anemia. No obvious bleeding source. Iron profile ordered to rule out iron deficiency anemia versus chronic anemia. 4 . pelvic fracture bilateral inferior pubic rami fracture and left superior pubic rami fracture with large vertical zone 1 and right-sided sacral alae or fracture with presacral hematoma with hammertoe at L5-S1 level. Orthopedic recommends nonweightbearing on the right with weightbearing as tolerated on the left. Inpatient rehab 5 sacral fracture. Plan as stated in #4, PT OT consulted 6 lumbar fracture appears chronic. No acute intervention needed 7. COPD no exacerbation continue DuoNeb as needed for shortness of breath 8. Hypertension. Continue losartan 100 mg daily. Amlodipine 5 mg daily added. 9. Alcohol intoxication. Continue CIWA protocol. No alcohol withdrawal noted 10. Recurrent depression. Continue Cymbalta 60 mg daily. 11. GI prophylaxis. Protonix. 12. DVT prophylaxis. Early ambulation. MATT vale. Thank you for the consult. I'll be happy to assist in patient's medical beat while patient is in the hospital Past Medical History Past Medical History: COPD, GERD/Reflux, Hypertension, Osteoarthritis (OA), Sei zure Disorder Additional Past Medical History / Comment(s): Hx Epilepsy, no seizure in 30+ yrs. History of Any Multi-Drug Resistant Organisms: ESBL Year Discovered:: 05/30/15 E. coli ESBL MDRO Source:: Urine Past Surgical History: Hernia Repair, Joint Replacement Additional Past Surgical History / Comment(s): Bilateral cataract surgery, left hip replacement X2, right hip replacement x2, hiatal hernia repair. Past Anesthesia/Blood Transfusion Reactions: No Reported Reaction Additional Past Anesthesia/Blood Transfusion Reaction / Comm: Patient states "everytime I have an IV started I get I immediately get diarrhea after." Sister slow to wake up. Past Psychological History: Anxiety, Depression Smoking Status: Current every day smoker Past Alcohol Use History: Daily Additional Past Alcohol Use History / Comment(s): Started smoking at age 16, currently smokes 1 PPD. Normally has 2-4 alcoholic drinks daily, had one drink last on 09/10/20, states not having any more prior to surgery. Past Drug Use History: None Reported - Past Family History Mother Family Medical History: No Reported History Father Family Medical History: Cancer Additional Family Medical History / Comment(s): lung CA Medications and Allergies Home Medications Medication Instructions Recorded Confirmed Type DULoxetine HCL [Cymbalta] 60 mg PO QAM 04/28/16 08/27/21 History Hydrocodone/Acetaminophen [[place] 1 tab PO BID 04/28/16 08/27/21 History 10-325] LORazepam [Ativan] 1 mg PO BID PRN 12/02/19 08/27/21 History Losartan Potassium 100 mg PO QAM 09/11/20 08/27/21 History Albuterol Sulfate [Albuterol 1 - 2 puff PO RT-Q4H PRN 03/25/21 08/27/21 History Sulfate Hfa] Cetirizine HCl [Zyrtec] 10 mg PO DAILY 08/27/21 08/27/21 History Ergocalciferol [Vitamin D2 (1250 1,250 mcg PO Q7D 08/27/21 08/27/21 History Mcg = 59019 Iu)] Esomeprazole Magnesium [NexIUM 20 mg PO DAILY 08/27/21 08/27/21 History 24Hr] Ondansetron HCl [Zofran] 4 mg PO Q8H PRN 08/27/21 08/27/21 History Allergies Allergy/AdvReac Type Severity Reaction Status Date / Time Sulfa (Sulfonamide Allergy Unknown Anaphylaxis Verified 08/27/21 14:51 Antibiotics) Physical Exam Vitals: Vital Signs Temp Pulse Pulse Resp BP BP Pulse Ox 08/28/21 07:54 98.5 F 113 H 18 130/78 97 08/28/21 07:30 18 08/28/21 02:00 98.3 F 104 H 16 123/78 99 08/28/21 00:10 98.8 F 111 H 18 122/99 98 08/27/21 19:47 18 08/27/21 19:15 100 18 98 08/27/21 17:00 105 H 18 107/87 98 08/27/21 16:00 105 H 18 108/82 98 08/27/21 15:00 111 H 18 125/80 98 08/27/21 14:00 108 H 18 102/80 95 08/27/21 13:38 105 H 18 110/65 98 08/27/21 12:34 98.1 F 99 18 92/72 99 Intake and Output 08/27/21 08/28/21 08/28/21 22:59 06:59 14:59 Output Total 150 950 Balance -150 -950 Output: Urine 150 950 Uretheral (Bro) 150 Other: Voiding Method Indwelling Catheter Weight 51.256 kg Results CBC & Chem 7: 08/28/21 09:28 08/28/21 09:28 Labs: Abnormal Lab Results - Last 24 Hours (Table) 08/27/21 08/27/21 08/28/21 Range/Units 13:12 13:12 09:28 RBC 3.18 L (3.80-5.40) m/uL Hgb 10.0 L (11.4-16.0) gm/dL Hct 30.7 L (34.0-46.0) % RDW 16.2 H (11.5-15.5) % Lymphocytes # 0.9 L (1.0-4.8) k/uL Sodium 123 L 122 L (137-145) mmol/L Chloride 91 L 96 L (98-107) mmol/L Carbon Dioxide 19 L (22-30) mmol/L Creatinine 1.38 H 1.20 H (0.52-1.04) mg/dL Glucose 140 H (74-99) mg/dL Osmolality 268 L (280-301) mosm/kg Calcium 8.2 L (8.4-10.2) mg/dL Creatine Kinase 296 H (30-135) U/L Total Protein 5.6 L (6.3-8.2) g/dL Albumin 3.0 L (3.5-5.0) g/dL 08/28/21 Range/Units 09:28 RBC 3.07 L (3.80-5.40) m/uL Hgb 9.6 L (11.4-16.0) gm/dL Hct 29.6 L (34.0-46.0) % RDW 16.4 H (11.5-15.5) % Lymphocytes # (1.0-4.8) k/uL Sodium (137-145) mmol/L Chloride (98-107) mmol/L Carbon Dioxide (22-30) mmol/L Creatinine (0.52-1.04) mg/dL Glucose (74-99) mg/dL Osmolality (280-301) mosm/kg Calcium (8.4-10.2) mg/dL Creatine Kinase (30-135) U/L Total Protein (6.3-8.2) g/dL Albumin (3.5-5.0) g/dL
[2021-08-28] MEDS: NICOTINE 21MG/24HR PATCH TRANSDERM SCH (15:08)
[2021-08-28 20:24] LABS: % Iron Saturation 6.72 (12.00-45.00)
[2021-08-29] MEDS: oxyCODONE-APAP 5-325MG 1 EACH TAB PO PRN ×5 (00:29→18:24)
[2021-08-29] MEDS: NICOTINE 21MG/24HR PATCH TRANSDERM SCH (08:27)
[2021-08-29] MEDS: HYDROcodone/APAP 10-325MG 1 EACH TAB PO SCH ×2 (08:28→21:47)
[2021-08-29] MEDS: DULoxetine HCL 60 MG CAPSULE.DR PO SCH (08:28)
[2021-08-29] MEDS: LORATADINE 10 MG TAB PO SCH (08:28)
[2021-08-29] MEDS: PANTOPRAZOLE 40 MG TABLET PO SCH (08:28)
[2021-08-29] MEDS: LOSARTAN 50 MG TAB PO SCH (08:29)
[2021-08-29] MEDS ORDERED: LORazepam 1 MG TAB PO PRN (09:43)
--- NOTE | 2021-08-29 09:43 | P.NPCON ---
History of Present Illness - Reason for Consult acute renal failure - History of Present Illness Reason for consultation: Hyponatremia History of present illness: Patient is a 60-year-old female seen in renal consultation for hyponatremia. Patient's sodium level on admission was 123 and was 122 yesterday. Morning labs from today are pending. Patient presented to the hospital due to fall. Patient denies any syncopal episodes. Patient states she tripped while walking with her walker and fell. She is noted to have a pubic ramus and sacral fractures. Orthopedic surgery following. No surgeries are planned at this time. Patient denies any history of malignancy. Denies use of nonsteroidals. Denies history of kidney disease. She does have history of high blood pressure and is maintained on losartan. Denies use of diuretics. No vomiting or diarrhea. She does admit to drinking quite a bit of water. Oral intake is fair. No chest pain or shortness of breath. Vital signs are stable. General: The patient appeared well nourished and normally developed. HEENT: Head exam is unremarkable. Neck is without jugular venous distension. LUNGS: Breath sounds decreased. HEART: Rate and Rhythm are regular. ABDOMEN:, No distention. EXTREMITITES: No edema. Past Medical History Past Medical History: COPD, GERD/Reflux, Hypertension, Osteoarthritis (OA), S eizure Disorder Additional Past Medical History / Comment(s): Hx Epilepsy, no seizure in 30+ yrs. History of Any Multi-Drug Resistant Organisms: ESBL Date of last positivie culture/infection: 05/30/15 E. coli ESBL MDRO Source:: Urine Past Surgical History: Hernia Repair, Joint Replacement Additional Past Surgical History / Comment(s): Bilateral cataract surgery, left hip replacement X2, right hip replacement x2, hiatal hernia repair. Past Anesthesia/Blood Transfusion Reactions: No Reported Reaction Additional Past Anesthesia/Blood Transfusion Reaction / Comment(s): Patient states "everytime I have an IV started I get I immediately get diarrhea after." Sister slow to wake up. Past Psychological History: Anxiety, Depression Smoking Status: Current every day smoker Past Alcohol Use History: Daily Additional Past Alcohol Use History / Comment(s): Started smoking at age 16, currently smokes 1 PPD. Normally has 2-4 alcoholic drinks daily, had one drink last on 09/10/20, states not having any more prior to surgery. Past Drug Use History: None Reported - Past Family History Mother Family Medical History: No Reported History Father Family Medical History: Cancer Additional Family Medical History / Comment(s): lung CA Medications and Allergies Home Medications Medication Instructions Recorded Confirmed Type DULoxetine HCL [Cymbalta] 60 mg PO QAM 04/28/16 08/27/21 History Hydrocodone/Acetaminophen [[place] 1 tab PO BID 04/28/16 08/27/21 History 10-325] LORazepam [Ativan] 1 mg PO BID PRN 12/02/19 08/27/21 History Losartan Potassium 100 mg PO QAM 09/11/20 08/27/21 History Albuterol Sulfate [Albuterol 1 - 2 puff PO RT-Q4H PRN 03/25/21 08/27/21 History Sulfate Hfa] Cetirizine HCl [Zyrtec] 10 mg PO DAILY 08/27/21 08/27/21 History Ergocalciferol [Vitamin D2 (1250 1,250 mcg PO Q7D 08/27/21 08/27/21 History Mcg = 31614 Iu)] Esomeprazole Magnesium [NexIUM 20 mg PO DAILY 08/27/21 08/27/21 History 24Hr] Ondansetron HCl [Zofran] 4 mg PO Q8H PRN 08/27/21 08/27/21 History Allergies Allergy/AdvReac Type Severity Reaction Status Date / Time Sulfa (Sulfonamide Allergy Unknown Anaphylaxis Verified 08/27/21 14:51 Antibiotics) Physical Exam Vitals: Vital Signs Temp Pulse Resp BP Pulse Ox 08/29/21 08:00 98.2 F 116 H 18 107/70 98 08/29/21 07:30 16 08/29/21 02:00 97.9 F 108 H 101/69 100 08/28/21 20:00 98.4 F 111 H 16 113/76 98 08/28/21 14:17 97.6 F 104 H 17 119/79 98 Intake and Output 08/28/21 08/29/21 08/29/21 22:59 06:59 14:59 Other: Voiding Method Indwelling Catheter Indwelling Catheter # Voids 2 Results - Lab Results Most recent lab results Calcium 8.2 mg/dL (8.4-10.2) L 08/28/21 09:28 08/28/21 09:28 08/28/21 09:28 Assessment and Plan Plan: Assessment: 1. Hyponatremia secondary to poor solute intake and excessive fluid intake. Urine sodium less than 20 and urine osmolality 131. Sodium level 121 as of yesterday morning. 2. Acute kidney injury mostly prerenal. Creatinine was 1.38 on admission and down to 1.2 yesterday. 3. Benign hypertension. Blood pressure on the lower side. 4. Status post fall with bilateral pubic rami and sacral fracture. Orthopedic surgery following. Plan: 1200 mL fluid restriction. Encourage oral intake. Hold losartan. Avoid hypotension as high risk for falling. Follow-up morning labs. Check TSH. Thank you for the consultation. I will continue to follow patient with you during her hospital stay.
--- NOTE | 2021-08-29 10:39 | P.PN ---
Subjective Progress Note Date: 08/29/21 This is a 60-year-old female who is admitted for pelvic fractures and a right sacral alar fracture after a fall. Patient is seen and evaluated at bedside today. Patient states that she has not been able to walk yet, but her pain is well controlled. Patient denies any new complaints today. Objective - Vital Signs Vital signs: Vital Signs Temp 98.2 F 08/29/21 08:00 Pulse 116 H 08/29/21 08:00 Resp 18 08/29/21 08:00 BP 107/70 08/29/21 08:00 Pulse Ox 98 08/29/21 08:00 Intake & Output 08/28/21 08/29/21 08/29/21 18:59 06:59 18:59 Other: Voiding Method Indwelling Catheter Indwelling Catheter Indwelling Catheter # Voids 2 - Exam On exam patient is resting comfortably in a chair in no acute distress. Patient is alert and oriented 3. Patient has good motion of bilateral lower extremities. Calves are soft and nontender to palpation. Sensation intact bi laterally. Neurovascular status and circulatory status are intact. - Labs CBC & Chem 7: 08/28/21 09:28 08/28/21 09:28 Labs: Abnormal Lab Results - Last 24 Hours (Table) 08/28/21 08/28/21 08/28/21 Range/Units 09:28 09:28 09:28 RBC 3.07 L (3.80-5.40) m/uL Hgb 9.6 L (11.4-16.0) gm/dL Hct 29.6 L (34.0-46.0) % RDW 16.4 H (11.5-15.5) % Osmolality 268 L (280-301) mosm/kg Iron 21 L (50-170) ug/dL % Saturation 6.72 L (12.00-45.00) Ur Random Sodium (40-220) mmol/L 08/28/21 Range/Units 09:45 RBC (3.80-5.40) m/uL Hgb (11.4-16.0) gm/dL Hct (34.0-46.0) % RDW (11.5-15.5) % Osmolality (280-301) mosm/kg Iron (50-170) ug/dL % Saturation (12.00-45.00) Ur Random Sodium <20 L (40-220) mmol/L Assessment and Plan (1) History of bilateral hip replacements Current Visit: Yes Status: Acute Code(s): Z96.643 - PRESENCE OF ARTIFICIAL HIP JOINT, BILATERAL SNOMED Code(s): 675447081 (2) Pelvic fracture Current Visit: Yes Status: Acute Code(s): S32.9XXA - FRACTURE OF UNSP PARTS OF LUMBOSACRAL SPINE AND PELVIS, INIT SNOMED Code(s): 44430305 (3) Sacral fracture Current Visit: Yes Status: Acute Code(s): S32.10XA - UNSP FRACTURE OF SACRUM, INIT ENCNTR FOR CLOSED FRACTURE SNOMED Code(s): 643704896 Plan: 1. Patient is to be nonweightbearing to the right lower extremity and weightbearing as tolerated to the left lower extremity with a walker. 2. Continue pain control. 3. Appreciate input from medicine. 4. Patient is awaiting inpatient rehab placement.
--- NOTE | 2021-08-29 11:57 | P.PN ---
Subjective Progress Note Date: 08/29/21 [facility] is covering for [facility] (Dr. Renteria, Dr. Justin, and Dr. Cortes) on 08/29 and 08/30. We can be reached via perfect surrogate for any questions, concerns, or further needs. Patient is a 59 yo CM patient of Dr. Garcia with COPD, GERD, HTN, and osteoprosis who pesened to the hospital after a fall and was found to have a pelvic fracuture. Intialy evaluation also demonstarted hyponatremia, STEVO, and chroninc lumber fracutre. She has been admitted to [facility] and will need to maintain NWB and can only transfer. Nephrology is following for hyponatremia. Patient seen and examined at bedside. She states that her pain is fairly well- controlled with her current medication regimen. She denies ever having gone through alcohol withdrawal before. She states he has a few shots of beers every day. This is down from 1/5 of alcohol daily. She denies any chest discomfort, shortness breath, nausea, vomiting. She has not had a bowel movement. General: non toxic, no distress, appears at stated age, sitting in the chair Derm: warm, dry, no diaphoresis Head: atraumatic, normocephalic, symmetric Eyes: EOMI, no lid lag, anicteric sclera Mouth: no lip lesion, mucus membranes moist Cardiovascular: S1S2 reg, no murmur, positive posterior tibial pulse bilateral, Lungs: CTA bilateral, no rhonchi, no rales , no accessory muscle use Abdominal: soft, nontender to palpation, no guarding, no appreciable organomegaly Ext: no gross muscle atrophy, no edema, no contractures Neuro: CN II-XI grossly intact, no focal neuro deficits, no tremors Psych: Alert, oriented, appropriate affect Assessment/plan: Patient is a 60-year-old female here with inferior pubic rami fracture bilaterally and left superior pubic rami fracture, Sacral Ala fracture, and Chronic L3 TP fracture being managed by orthopedic surgery. Hyponatremia due to poor solute intake - nephrology following - 1200 cc fluid restriction - encourage oral intake - await TSH - follow sodium levels Acute kidney injury with chronic kidney disease stage IIIa - hold losartan - oral intake - Avoid additional nephrotoxic agents - follow Cr Alcohol Abuse with impending DTs - CIWA - Thiamine - Folic Acid Iron deficiency anemia - sat 6.2 with Fe 21 and Ferritin 145 - start oral iron, may benefit from IV iron due to low sat Hypertension, controlled - follow BP COPD without exacerbation - prn broncho dilators Depression - pita peña Thank you for allowing us to participate in the care of this pleasant patient. Do not hesitate to contact us with questions. Someone can be reached from the [facility] hospitalist group all hours of the day at [phone] or via perfect serve. Objective - Vital Signs Vital signs: Vital Signs Temp 98.2 F 08/29/21 08:00 Pulse 116 H 08/29/21 08:00 Resp 18 08/29/21 08:00 BP 107/70 08/29/21 08:00 Pulse Ox 98 08/29/21 08:00 Intake & Output 08/28/21 08/29/21 08/29/21 18:59 06:59 18:59 Other: Voiding Method Indwelling Catheter Indwelling Catheter Indwelling Catheter # Voids 2 - Labs CBC & Chem 7: 08/28/21 09:28 08/28/21 09:28 Labs: Abnormal Lab Results - Last 24 Hours (Table) 08/28/21 08/28/21 Range/Units 09:28 09:45 Iron 21 L (50-170) ug/dL % Saturation 6.72 L (12.00-45.00) Ur Random Sodium <20 L (40-220) mmol/L
[2021-08-29] MEDS: THIAMINE 100 MG TAB PO SCH (12:23)
[2021-08-29] MEDS: FOLIC ACID 1 MG TAB PO SCH (12:23)
[2021-08-29 13:21] LABS: African American GFR (CKD) 56.9 (60.0-200.0); Calcium 8.3 mg/dL (8.7-10.3); Carbon Dioxide 19.2 mmol/L (21.6-31.8); Chloride 94 mmol/L (96-109); Glucose 123 mg/dL (70-110); Magnesium 1.8 mg/dL (1.5-2.4); Non-African American GFR(CKD) 49.1 (60.0-200.0); Sodium 126 mmol/L (135-145)
[2021-08-30] MEDS: oxyCODONE-APAP 5-325MG 1 EACH TAB PO PRN ×3 (00:41→11:43)
[2021-08-30] MEDS: HYDROcodone/APAP 10-325MG 1 EACH TAB PO SCH ×2 (09:15→20:19)
[2021-08-30] MEDS: DULoxetine HCL 60 MG CAPSULE.DR PO SCH (09:15)
[2021-08-30] MEDS: NICOTINE 21MG/24HR PATCH TRANSDERM SCH (09:15)
[2021-08-30] MEDS: PANTOPRAZOLE 40 MG TABLET PO SCH (09:15)
[2021-08-30] MEDS: LORATADINE 10 MG TAB PO SCH (09:15)
[2021-08-30] MEDS: THIAMINE 100 MG TAB PO SCH (09:15)
[2021-08-30] MEDS: FOLIC ACID 1 MG TAB PO SCH (09:15)
--- NOTE | 2021-08-30 09:56 | P.PN ---
Subjective Patient is seen in follow-up for hyponatremia and acute kidney injury. Sodium level improving with fluid restriction. Renal function also stable as of yesterday. Oral intake fair. No vomiting or diarrhea. Vital signs are stable. General: The patient appeared well nourished and normally developed. HEENT: Head exam is unremarkable. LUNGS: Breath sounds decreased. HEART: Rate and Rhythm are regular. ABDOMEN: Soft, no distention. EXTREMITITES: No edema. Objective - Vital Signs Vital signs: Vital Signs Temp 97.5 F L 08/30/21 08:00 Pulse 113 H 08/30/21 08:00 Resp 18 08/30/21 08:00 BP 144/93 08/30/21 08:00 Pulse Ox 99 08/30/21 08:00 Intake & Output 08/29/21 08/30/21 08/30/21 18:59 06:59 18:59 Intake Total 480 Output Total 200 250 Balance -200 230 Intake: Oral 480 Output: Urine 200 250 Other: Voiding Method Indwelling Catheter Indwelling Catheter Incontinent External Catheter - Labs CBC & Chem 7: 08/28/21 09:28 08/29/21 06:01 Labs: Abnormal Lab Results - Last 24 Hours (Table) 08/29/21 Range/Units 06:01 Sodium 126 L (135-145) mmol/L Chloride 94 L (96-109) mmol/L Carbon Dioxide 19.2 L (21.6-31.8) mmol/L Anion Gap 12.80 H (4.00-12.00) mmol/L Est GFR (CKD-EPI)AfAm 56.9 L (60.0-200.0) Est GFR (CKD-EPI)NonAf 49.1 L (60.0-200.0) BUN/Creatinine Ratio 10.00 L (12.00-20.00) Ratio Glucose 123 H (70-110) mg/dL Calcium 8.3 L (8.7-10.3) mg/dL Assessment and Plan Plan: Assessment: 1. Hyponatremia secondary to poor solute intake and excessive fluid intake/beer intake. Urine sodium less than 20 and urine osmolality 131. Sodium level 126 as of yesterday. TSH normal. 2. Acute kidney injury mostly prerenal. Creatinine was 1.38 on admission and down to 1.2 yesterday. 3. Benign hypertension. Controlled. 4. Status post fall with bilateral pubic rami and sacral fracture. Orthopedic surgery following. 5. Alcohol abuse. Plan: 1200 mL fluid restriction. Encourage oral intake. Hold losartan. Avoid hypotension as high risk for falling. Follow-up morning labs.
--- NOTE | 2021-08-30 09:58 | P.PN ---
Subjective Progress Note Date: 08/30/21 Principal diagnosis: [facility] physicians is covering for [facility] (Dr. Renteria, Dr. Justin, and Dr. Cortes) on 08/29 and 08/30. We can be reached via perfect surrogate for any questions, concerns, or further needs. Patient is a 59 yo CM patient of Dr. Garcia with COPD, GERD, HTN, and osteoprosis who pesened to the hospital after a fall and was found to have a pelvic fracuture. Intialy evaluation also demonstarted hyponatremia, STEVO, and chroninc lumber fracutre. She has been admitted to [facility] and will need to maintain NWB and can only transfer. Nephrology is following for hyponatremia. She was placed on fluid restriction and her appeitie increased. Her sodium levels were improving. Patient seen and examined at bedside. Her pain is still suboptimally controlled with the medications are helping. She feels as though she is having some burning with urination so they discontinued her catheter. Denies any nausea or vomiting. Appetite is still low. Still no bowel movement. Significant other at bedside and all questions answered. General: non toxic, no distress, appears at stated age, laying in bed Derm: warm, dry Head: atraumatic, normocephalic, symmetric Eyes: EOMI, no lid lag, anicteric sclera Mouth: no lip lesion, mucus membranes moist Cardiovascular: S1S2 reg, no murmur, positive posterior tibial pulse bilateral, Lungs: Decreased breath sounds bilateral bilateral, no rhonchi, no rales , no accessory muscle use Abdominal: soft, nontender to palpation, no guarding, no appreciable organomegaly Ext: no gross muscle atrophy, no edema, no contractures Neuro: CN II-XI grossly intact, no focal neuro deficits slight resting tremor Psych: Alert, oriented, appropriate affect Assessment/plan: Patient is a 60-year-old female here with inferior pubic rami fracture bilaterally and left superior pubic rami fracture, Sacral Ala fracture, and Chronic L3 TP fracture being managed by orthopedic surgery. Hyponatremia due to poor solute intake - nephrology following - 1200 cc fluid restriction - encourage oral intake - TSH normal - follow sodium levels Acute kidney injury with chronic kidney disease stage IIIa - losartan resumed - oral intake - Avoid additional nephrotoxic agents - follow Cr Alcohol Abuse with impending DTs - CIWA - Thiamine - Folic Acid - librium with taper Fall - pt/ot - non weight baring Iron deficiency anemia - sat 6.2 with Fe 21 and Ferritin 145 - start oral iron, may benefit from IV iron due to low sat Hypertension, controlled - follow BP COPD without exacerbation - prn broncho dilators Depression - resume cymbalta D/W nephrology. Patient will be medically optimized for discharge to SNF if sodium is stable or improved on todays labs. Thank you for allowing us to participate in the care of this pleasant patient. Do not hesitate to contact us with questions. Someone can be reached from the [facility] hospitalist group all hours of the day at [phone] or via [employer]. Objective - Vital Signs Vital signs: Vital Signs Temp 97.5 F L 08/30/21 08:00 Pulse 113 H 08/30/21 08:00 Resp 18 08/30/21 08:00 BP 144/93 08/30/21 08:00 Pulse Ox 99 08/30/21 08:00 Intake & Output 08/29/21 08/30/21 08/30/21 18:59 06:59 18:59 Intake Total 480 Output Total 200 250 Balance -200 230 Intake: Oral 480 Output: Urine 200 250 Other: Voiding Method Indwelling Catheter Indwelling Catheter Incontinent External Catheter - Labs CBC & Chem 7: 08/28/21 09:28 08/29/21 06:01 Labs: Abnormal Lab Results - Last 24 Hours (Table) 08/29/21 Range/Units 06:01 Sodium 126 L (135-145) mmol/L Chloride 94 L (96-109) mmol/L Carbon Dioxide 19.2 L (21.6-31.8) mmol/L Anion Gap 12.80 H (4.00-12.00) mmol/L Est GFR (CKD-EPI)AfAm 56.9 L (60.0-200.0) Est GFR (CKD-EPI)NonAf 49.1 L (60.0-200.0) BUN/Creatinine Ratio 10.00 L (12.00-20.00) Ratio Glucose 123 H (70-110) mg/dL Calcium 8.3 L (8.7-10.3) mg/dL
[2021-08-30 10:38] LABS: HCT 27.6 % (37.2-46.3); HGB 8.9 g/dL (12.0-15.0); MCH 31.7 pg (27.0-32.0); MCHC 32.2 g/dL (32.0-37.0); MCV 98.2 fL (80.0-97.0); Mean Platelet Volume 10.9 fL (9.5-12.2); Platelet Count 217 X 10*3/uL (140-440); RBC 2.81 X 10*6/uL (4.10-5.20); RDW 15.9 % (11.5-14.5); WBC 8.88 X 10*3/uL (4.50-10.00)
[2021-08-30 11:26] LABS: African American GFR (CKD) 65.3 (60.0-200.0); Anion Gap 11.3 mmol/L (4.00-12.00); BUN/Creat Ratio 14.86 Ratio (12.00-20.00); Blood Urea Nitrogen 15.9 mg/dL (9.0-27.0); Calcium 8.6 mg/dL (8.7-10.3); Magnesium 1.8 mg/dL (1.5-2.4); Non-African American GFR(CKD) 56.4 (60.0-200.0); Potassium 4.6 mmol/L (3.5-5.5)
--- NOTE | 2021-08-30 12:29 | P.DS ---
Providers Date of admission: 08/27/21 14:53 Expected date of discharge: 08/30/21 Attending physician: Maicol King Consults: 08/27/21 14:23 Consult Physician Routine Consulting Provider: Orly Renteria Consult Reason/Comments: medicine consult Do you want consulting provider notified?: Already Contacted 08/28/21 10:49 Consult Physician Routine Consulting Provider: Edward Lopes Consult Reason/Comments: hyponatremia Do you want consulting provider notified?: Yes Primary care physician: Hilario Garcia - Discharge Diagnosis(es) (1) History of bilateral hip replacements Current Visit: Yes Status: Acute (2) Pelvic fracture Current Visit: Yes Status: Acute (3) Sacral fracture Current Visit: Yes Status: Acute Hospital Course: This is a 60-year-old female who sustained pelvic fractures and a sacral fracture after a fall. The patient was evaluated in the emergency room and admitted on 08/27/2021 for further management. Labs and vital signs are stable on day of discharge. Internal medicine has been monitoring the patient for hyponatremia. On day of discharge patient is able to actively move bilateral lower extremities. Patient has full foot and ankle motion without difficulty or pain. Neurovascular status to bilateral lower extremities are intact. Patient is discharged to rehab in good condition. Please see med rec for accurate list of home medications. Patient Condition at Discharge: Fair Plan - Discharge Summary New Discharge Prescriptions: New HYDROcodone/APAP 7.5-325MG [Union 7.5-325] 1 - 2 tab PO Q6H PRN #32 tab PRN Reason: Pain chlordiazePOXIDE HCl [Librium] 5 mg PO DIRECTED #13 cap Sennosides [Senokot] 2 tab PO DAILY PRN #60 tablet PRN Reason: Constipation Nicotine 21Mg/24Hr Patch [Habitrol] 1 patch TRANSDERM DAILY patch Continue DULoxetine HCL [Cymbalta] 60 mg PO QAM Albuterol Sulfate [Albuterol Sulfate Hfa] 1 - 2 puff PO RT-Q4H PRN PRN Reason: Shortness Of Breath LORazepam [Ativan] 1 mg PO BID PRN #12 tab PRN Reason: Anxiety Cetirizine HCl [Zyrtec] 10 mg PO DAILY Discontinued Losartan Potassium 100 mg PO QAM No Action Hydrocodone/Acetaminophen [Union 10-325] 1 tab PO BID Ondansetron HCl [Zofran] 4 mg PO Q8H PRN PRN Reason: Nausea And Vomiting Esomeprazole Magnesium [NexIUM 24Hr] 20 mg PO DAILY Ergocalciferol [Vitamin D2 (1250 Mcg = 65268 Iu)] 1,250 mcg PO Q7D Discharge Medication List DULoxetine HCL [Cymbalta] 60 mg PO QAM 04/28/16 [History] Hydrocodone/Acetaminophen [Union 10-325] 1 tab PO BID 04/28/16 [History] Albuterol Sulfate [Albuterol Sulfate Hfa] 1 - 2 puff PO RT-Q4H PRN 03/25/21 [History] Cetirizine HCl [Zyrtec] 10 mg PO DAILY 08/27/21 [History] Ergocalciferol [Vitamin D2 (1250 Mcg = 66862 Iu)] 1,250 mcg PO Q7D 08/27/21 [History] Esomeprazole Magnesium [NexIUM 24Hr] 20 mg PO DAILY 08/27/21 [History] Ondansetron HCl [Zofran] 4 mg PO Q8H PRN 08/27/21 [History] HYDROcodone/APAP 7.5-325MG [Union 7.5-325] 1 - 2 tab PO Q6H PRN #32 tab 08/30/21 [Rx] LORazepam [Ativan] 1 mg PO BID PRN #12 tab 08/30/21 [Rx] Nicotine 21Mg/24Hr Patch [Habitrol] 1 patch TRANSDERM DAILY patch 08/30/21 [Rx] Sennosides [Senokot] 2 tab PO DAILY PRN #60 tablet 08/30/21 [Rx] chlordiazePOXIDE HCl [Librium] 5 mg PO DIRECTED #13 cap 08/30/21 [Rx] Follow up Appointment(s)/Referral(s): Hilario Garcia DO [Primary Care Provider] - 1-2 days Maicol King DO [Doctor of Osteopathic Medicine] - 10 Days Activity/Diet/Wound Care/Special Instructions: Diet: regular with 1200 CC fluid restriction Special Instructions: Nonweightbearing to the right lower extremity and weightbearing as tolerated to the left lower extremity with a walker. Please follow up with [facility] with any questions or concerns, . BMP in 2 days DX: hyponatremia (sodium on DIscharge ____) Discharge Disposition: TRANSFER TO SNF/ECF
[2021-08-30] MEDS: chlordiazePOXIDE 5 MG CAPSULE PO SCH ×2 (16:54→22:16)
[2021-08-31] MEDS: oxyCODONE-APAP 5-325MG 1 EACH TAB PO PRN (03:15)
[2021-08-31 07:45] VITALS: BP 144/79; PULSE 107; RESP 16; TEMP 98.3
--- NOTE | 2021-08-31 09:00 | P.PN ---
Subjective Patient is seen in follow-up for hyponatremia and acute kidney injury. Sodium level improving with fluid restriction. Renal function also stable as of yesterday. Oral intake fair. No vomiting or diarrhea. No changes overnight. Vital signs are stable. General: The patient appeared well nourished and normally developed. HEENT: Head exam is unremarkable. LUNGS: Breath sounds decreased. HEART: Rate and Rhythm are regular. ABDOMEN: Soft, no distention. EXTREMITITES: No edema. Objective - Vital Signs Vital signs: Vital Signs Temp 98.3 F 08/31/21 07:35 Pulse 107 H 08/31/21 07:35 Resp 16 08/31/21 07:35 BP 144/79 08/31/21 07:35 Pulse Ox 100 08/31/21 07:35 Intake & Output 08/30/21 08/31/21 08/31/21 18:59 06:59 18:59 Output Total 400 1200 Balance -400 -1200 Output: Urine 400 1200 Other: Voiding Method Incontinent Incontinent External Catheter External Catheter - Labs CBC & Chem 7: 08/30/21 06:42 08/30/21 06:42 Labs: Abnormal Lab Results - Last 24 Hours (Table) 08/30/21 08/30/21 Range/Units 06:42 06:42 RBC 2.81 L (4.10-5.20) X 10*6/uL Hgb 8.9 L (12.0-15.0) g/dL Hct 27.6 L (37.2-46.3) % MCV 98.2 H (80.0-97.0) fL RDW 15.9 H (11.5-14.5) % Sodium 127 L (135-145) mmol/L Chloride 95 L (96-109) mmol/L Carbon Dioxide 21.0 L (21.6-31.8) mmol/L Est GFR (CKD-EPI)NonAf 56.4 L (60.0-200.0) Glucose 129 H (70-110) mg/dL Calcium 8.6 L (8.7-10.3) mg/dL Assessment and Plan Plan: Assessment: 1. Hyponatremia secondary to poor solute intake and excessive fluid intake/beer intake. Urine sodium less than 20 and urine osmolality 131. Sodium level 127 as of yesterday. TSH normal. 2. Acute kidney injury mostly prerenal. Creatinine was 1.38 on admission and down to 1.1 yesterday. 3. Benign hypertension. Controlled. 4. Status post fall with bilateral pubic rami and sacral fracture. Orthopedic surgery following. 5. Alcohol abuse. Plan: 1200 mL fluid restriction. Encourage oral intake. Avoid hypotension as high risk for falling. Repeat BMP and magnesium level 2-3 days postdischarge. Follow up outpatient in 1 week.
[2021-08-31] MEDS: HYDROcodone/APAP 10-325MG 1 EACH TAB PO SCH (09:12)
[2021-08-31] MEDS: chlordiazePOXIDE 5 MG CAPSULE PO SCH (09:13)
[2021-08-31] MEDS: LORATADINE 10 MG TAB PO SCH (09:13)
[2021-08-31] MEDS: NICOTINE 21MG/24HR PATCH TRANSDERM SCH (09:13)
[2021-08-31] MEDS: PANTOPRAZOLE 40 MG TABLET PO SCH (09:13)
[2021-08-31] MEDS: FOLIC ACID 1 MG TAB PO SCH (09:13)
[2021-08-31] MEDS: DULoxetine HCL 60 MG CAPSULE.DR PO SCH (09:13)
[2021-08-31] MEDS: THIAMINE 100 MG TAB PO SCH (09:13)
--- NOTE | 2021-08-31 09:58 | P.PN ---
Subjective Progress Note Date: 08/31/21 Principal diagnosis: Multiple pelvic/sacral fractures. This is a 60-year-old female who we're following regarding multiple pelvic and sacral fractures. She is awaiting rehab placement. Her discharge was held yesterday due to prior authorization issues. She has no new compared to concerns today. Vital signs are stable. Objective - Vital Signs Vital signs: Vital Signs Temp 98.3 F 08/31/21 07:35 Pulse 107 H 08/31/21 07:35 Resp 16 08/31/21 07:35 BP 144/79 08/31/21 07:35 Pulse Ox 100 08/31/21 07:35 Intake & Output 08/30/21 08/31/21 08/31/21 18:59 06:59 18:59 Output Total 400 1200 Balance -400 -1200 Output: Urine 400 1200 Other: Voiding Method Incontinent Incontinent External Catheter External Catheter External Catheter - Exam This is a pleasant 60-year-old female in no acute distress. She is alert and oriented 3. Exam is essentially unchanged. She continues to have pain to the low back and bilateral groin. She has difficulty raising each leg off the bed independently. She has full foot and ankle motion bilaterally. Neurovascular status to the lower extremities is intact. - Labs CBC & Chem 7: 08/30/21 06:42 08/30/21 06:42 Labs: Abnormal Lab Results - Last 24 Hours (Table) 08/30/21 08/30/21 Range/Units 06:42 06:42 RBC 2.81 L (4.10-5.20) X 10*6/uL Hgb 8.9 L (12.0-15.0) g/dL Hct 27.6 L (37.2-46.3) % MCV 98.2 H (80.0-97.0) fL RDW 15.9 H (11.5-14.5) % Sodium 127 L (135-145) mmol/L Chloride 95 L (96-109) mmol/L Carbon Dioxide 21.0 L (21.6-31.8) mmol/L Est GFR (CKD-EPI)NonAf 56.4 L (60.0-200.0) Glucose 129 H (70-110) mg/dL Calcium 8.6 L (8.7-10.3) mg/dL Assessment and Plan (1) History of bilateral hip replacements Current Visit: Yes Status: Acute Code(s): Z96.643 - PRESENCE OF ARTIFICIAL HIP JOINT, BILATERAL SNOMED Code(s): 852374461 (2) Contusion of left hand Current Visit: Yes Status: Acute Code(s): S60.222A - CONTUSION OF LEFT HAND, INITIAL ENCOUNTER SNOMED Code(s): 5315067 (3) Pelvic fracture Current Visit: Yes Status: Acute Code(s): S32.9XXA - FRACTURE OF UNSP PARTS OF LUMBOSACRAL SPINE AND PELVIS, INIT SNOMED Code(s): 09194654 (4) Sacral fracture Current Visit: Yes Status: Acute Code(s): S32.10XA - UNSP FRACTURE OF SACRUM, INIT ENCNTR FOR CLOSED FRACTURE SNOMED Code(s): 285357282 Plan: The clinical and x-ray findings are discussed with the patient. It is recommended she be nonweightbearing on the right. She may bear weight to the left as tolerated with use of a walker. She may only be able to tolerate bed to chair transfers for now. She may be transferred to inpatient rehab when bed available and her authorization completed.
--- NOTE | 2021-08-31 12:35 | P.PN ---
Subjective Progress Note Date: 08/31/21 HISTORY OF PRESENT ILLNESS This is a 59-year-old female patient of Dr. Garcia with past medical history of COPD, gastric soft reflux disease, hypertension, osteoporosis , tobacco use and dependence, alcohol abuse. Patient comes in after she had a mechanical fall when her walker stepped over her Toys which led to her fall. Patient drinks heavily every day, drinks mainly beers on the weekdays and mixed drinks over the weekend. Patient states she has recently had a left femur and fracture following by ankle fracture and left for post fractured in June. Patient has been using walker and occasionally has some dizziness and lightheadedness. She denies any nausea, vomiting, passing out spell. She denies any abdominal pain change in bowel habits, chest pain or shortness of breath. In the ER patient noted to have a temp of 98.1 pulse 99 respiratory rate 18 blood pressure 92/72. Labs were reviewed patient has a WBC of 7.4 hemoglobin 10 related to 49 sodium of 123 chloride 91 bicarb 19 BUN 9 creatinine 1.38. ECG was obtained that suggested ventricle rate of 99 sinus rhythm no QTC prolongation no ST or T-wave changes. Hip and pelvic fractures suggestive of left superior pubic ramus fracture with possible right pubic ramus fracture Lumbar spine suggestive of left L3 transverse process fracture fractures appear corticated suspect chronic and old no vertebral compression collapse and malalignment. Mild degenerative disc disease particularly at L2-L3 and L3-L4 was noted no disc herniation or significant spinal canal or foraminal stenosis noted Pelvic CAT scan suggested large-bore tube goals old right-sided sacral alae or fracture with some associated presacral hematoma with minimal dorsal epidural thickening hematoma at L5-S1 level without canal compromise. Nondisplaced fractures of the bilateral inferior pubic rami and left pubic body noted. Bilateral total hip arthroplasties appeared intact Patient is unable to move her lower extremity due to extreme pain but denies any numbness and tingling in the legs. Denies any head or neck pain. She was placed on Bro catheter due to difficulty with mobility and pain. Patient was admitted on the trauma team. The medical team was consulted for hyponatremia. IV fluids were continued overnight. We'll discontinue the IV fluids. Urine sodium, urine osmolality, serum muscularity ordered. Uric acid ordered 08/31: Patient is Elsa increase in her Librium. She is awaiting approval to go to a rehab center. States that her pain has been well managed at this time. Denies any burning with urination since the catheter has been DC'd. Denies any nausea or vomiting. Still does not have a bowel movement. REVIEW OF SYSTEMS Constitutional: No fever, no chills, no night sweats. No weight change. No weakness, fatigue or lethargy. No daytime sleepiness. EENT: No headache. No blurred vision or double vision, no loss of vision. No loss of Hearing, no ringing in the ears, no dizziness. No nasal drainage or congestion. No epistaxis. No sore throat. Lungs: Reports shortness of breath, reports cough, reports sputum production. No wheezing. No hemoptysis. Cardiovascular: No chest pain, no lower extremity edema. No palpitations. No paroxysmal nocturnal dyspnea. No orthopnea. No lightheadedness or dizziness. No syncopal episodes. Abdominal: No abdominal pain. No nausea, vomiting. No diarrhea. No constipation. No bloody or tarry stools. No loss of appetite. Genitourinary: No dysuria, increased frequency, urgency. No urinary retention. Musculoskeletal: Positive for myalgias. Positive for frequent falls gait dysfunction, back pain and hip pain No neck pain. Integumentary: No wounds, no lesions. No rash or pruritus. No unusual bruising. No change in hair or nails. Neurologic: No aphasia. No facial droop. No change in mentation. No head injury. No headache. No paralysis. No paresthesia. Psychiatric: No depression. No anxiety. No mood swings. Endocrine: No abnormal blood sugars. No weight change. PHYSICAL EXAMINATION Gen: This is a 59-year-old female. She is ambulating in her room and appears to be comfortable. Complains of pain involving her hip. No respiratory distress noted. HEENT: Head is atraumatic, normocephalic. Pupils equal, round. Sclerae is anicteric. NECK: Supple. No JVD. No lymphadenopathy. No thyromegaly. LUNGS: Clear to auscultation. No wheezes or rhonchi. No intercostal retractions. HEART: Regular rate and rhythm. No murmur. ABDOMEN: Soft. Bowel sounds are present. No masses. No tenderness. EXTREMITIES: No pedal edema. No calf tenderness. Unable to lift her legs due to extreme pain. Peripheral pulses palpable neurovascular intact. Mild e cchymosis noted in the left hand no obvious deformity noted minimal pain with palpation about the metacarpals fingers noted. No obvious deformity of the back noted NEUROLOGICAL: Patient is awake, alert and oriented x3. Cranial nerves 2 through 12 are grossly intact. ASSESSMENT AND PLAN 1. Hyponatremia likely secondary to alcohol intake. Rule out SIADH. Urine sodium, serum and urine osmolality ordered. Uric acid ordered. IV fluids discontinued. Nephrology consulted. On Cymbalta for depression 2. Acute kidney injury secondary to ATN with Chronic kidney disease stage III A. Continue to monitor creatinine. Avoid nephrotoxic agents. 3. Anemia. No obvious bleeding source. Iron profile ordered to rule out iron deficiency anemia versus chronic anemia. 4 . pelvic fracture bilateral inferior pubic rami fracture and left superior pubic rami fracture with large vertical zone 1 and right-sided sacral alae or fracture with presacral hematoma with hammertoe at L5-S1 level. Orthopedic recommends nonweightbearing on the right with weightbearing as tolerated on the left. Inpatient rehab 5 sacral fracture. Plan as stated in #4, PT OT consulted 6 lumbar fracture appears chronic. No acute intervention needed 7. COPD no exacerbation continue DuoNeb as needed for shortness of breath 8. Hypertension. Continue losartan 100 mg daily. Amlodipine 5 mg daily added. 9. Alcohol intoxication. Continue CIWA protocol. No alcohol withdrawal noted 10. Recurrent depression. Continue Cymbalta 60 mg daily. 11. GI prophylaxis. Protonix. 12. DVT prophylaxis. Early ambulation. MATT vale. Thank you for the consult. We'll be happy to assist in patient's medical care while patient is in the hospital. Impression and plan of care have been directed as dictated by the signing physician. Margie Anne nurse practitioner acting as scribe for signing physician. Objective - Vital Signs Vital signs: Vital Signs Temp 98.3 F 08/31/21 07:35 Pulse 107 H 08/31/21 07:35 Resp 16 08/31/21 07:35 BP 144/79 08/31/21 07:35 Pulse Ox 100 08/31/21 07:35 Intake & Output 08/30/21 08/31/21 08/31/21 18:59 06:59 18:59 Output Total 400 1200 Balance -400 -1200 Output: Urine 400 1200 Other: Voiding Method Incontinent Incontinent External Catheter External Catheter External Catheter - Labs CBC & Chem 7: 08/30/21 06:42 08/30/21 06:42
== END 2021-08-31 11:11 | DRG 551 ==
LOC: EC 12:22 → 4SSUR 14:53
PROVIDERS: ADMIT Orthopaedic Surgery; ATTEND Orthopaedic Surgery
DX: S32.119A Unspecified Zone I fracture of sacrum, initial encounter for closed fracture (principal); N17.0 Acute kidney failure with tubular necrosis; S32.039A Unspecified fracture of third lumbar vertebra, initial encounter for closed fracture; S32.592A Other specified fracture of left pubis, initial encounter for closed fracture; S32.591A Other specified fracture of right pubis, initial encounter for closed fracture; E87.2 Acidosis; E87.1 Hypo-osmolality and hyponatremia; F33.9 Major depressive disorder, recurrent, unspecified; D63.1 Anemia in chronic kidney disease; N18.31 Chronic kidney disease, stage 3a; J44.9 Chronic obstructive pulmonary disease, unspecified; F10.229 Alcohol dependence with intoxication, unspecified; Z20.822 Contact with and (suspected) exposure to COVID-19; S60.222A Contusion of left hand, initial encounter; I12.9 Hypertensive chronic kidney disease with stage 1 through stage 4 chronic kidney disease, or unspecified chronic kidney disease; D50.9 Iron deficiency anemia, unspecified; F41.9 Anxiety disorder, unspecified; E86.0 Dehydration; K21.9 Gastro-esophageal reflux disease without esophagitis; M51.36 Other intervertebral disc degeneration, lumbar region; S30.0XXA Contusion of lower back and pelvis, initial encounter; M19.90 Unspecified osteoarthritis, unspecified site; M81.0 Age-related osteoporosis without current pathological fracture; R32 Unspecified urinary incontinence; R26.89 Other abnormalities of gait and mobility; R29.6 Repeated falls; F17.210 Nicotine dependence, cigarettes, uncomplicated; Z79.899 Other long term (current) drug therapy; Z86.69 Personal history of other diseases of the nervous system and sense organs; Z86.19 Personal history of other infectious and parasitic diseases; Z87.19 Personal history of other diseases of the digestive system; Z98.42 Cataract extraction status, left eye; Z98.41 Cataract extraction status, right eye; Z96.643 Presence of artificial hip joint, bilateral; Z98.890 Other specified postprocedural states; Z88.2 Allergy status to sulfonamides; W01.0XXA Fall on same level from slipping, tripping and stumbling without subsequent striking against object, initial encounter; Y93.01 Activity, walking, marching and hiking; Z80.1 Family history of malignant neoplasm of trachea, bronchus and lung
CPT/HCPCS: 36415; 72131; 72192; 73521; 80048; 80053; 82550; 82728; 83540; 83550; 83735; 83930; 83935; 84300; 84443; 84550; 85025; 85027; 87635; 93005; 96360; 96361; 99285

== ENCOUNTER → 2021-11-06 | Outpatient (CLI) | payer BC ==
--- NOTE | 2021-11-06 12:28 | BD ---
EXAMINATION TYPE: Axial Bone Density DATE OF EXAM: 11/06/2021 COMPARISON: 10.05.2007 CLINICAL HISTORY: 60 YR OLD FEMALE....ICD-10 CODE: N95.1 MENOPAUSAL Height: 63 Weight: 114 FRAX RISK QUESTIONS: Alcohol (3 or more units per day): YES Glucocorticoids (More than 3mos): YES (Ex: prednisone, prednisolone, methylprednisolone, dexamethasone, and hydrocortisone). History of Fracture in Adulthood: YES Secondary Osteoporosis: YES 3. Menopause before 45: YES 4. 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 Bone mineral density as measured about the Lumbar spine is: ----- L1-L4(G/cm2): 0.769 T Score Values are as follows: ----- L1: -3.3 ----- L2: -3.0 ----- L3: -3.3 ----- L4: -4.1 ----- L1-L4: -3.4 Bone mineral density has: Decreased -29.2% since study of: 10.05.2007 UNABLE TO SCAN ANY OTHER BODY PART, MULTIPLE FXs AND BILAT HIP REPLACEMENTS IMPRESSION: Osteoporosis (T Score less than -2.5). There is increased fracture risk and therapy is usually indicated based on age. Re-Screen 1-2 years. NOTE: T-SCORE=SD OF THE YOUNG ADULT MEAN.
== END | disposition home or self-care (01) ==
LOC: RADBDWWP 10:41
PROVIDERS: ATTEND Family Medicine
DX: N95.1 Menopausal and female climacteric states (principal); M81.0 Age-related osteoporosis without current pathological fracture
CPT/HCPCS: 77080

== ENCOUNTER 2021-11-18 09:09 | Emergency (ER) | payer BC ==
[2021-11-18 09:18] VITALS: TEMP 98.1
--- NOTE | 2021-11-18 09:29 | ED ---
General Adult HPI - General Chief complaint: Extremity Injury, Lower Stated complaint: Hip Pain Time Seen by Provider: 11/18/21 09:12 Source: patient Mode of arrival: ambulatory Limitations: no limitations - History of Present Illness Initial comments: Dictation was produced using [employer] dictation software. please excuse any grammatical, word or spelling errors. Chief Complaint: 60-year-old male presents with concerns of right hip d islocation. History of Present Illness: 60-year-old female presents to the emergency department with past medical history of right hip prosthesis. Patient was in bed when she tried to roll over. She felt her right hip pop out of place. She is dislocated hip on multiple occasions in the past. Back in August she fell and fractured her sacrum. She was evaluated by orthopedic surgery. She's been stable since then. Patient denies any numbness to the paresthesias to the lower extremities. Neck in March of last year patient had a dislocated hip again. Patient had the surgery in September 2020. The ROS documented in this emergency department record has been reviewed and confirmed by me. Those systems with pertinent positive or negative responses have been documented in the HPI. All other systems are other negative and/or noncontributory. PHYSICAL EXAM: General Impression: Alert and oriented x3, not in acute distress HEENT: Normocephalic atraumatic, extra-ocular movements intact, pupils equal and reactive to light bilaterally, mucous membranes moist. Cardiovascular: Heart regular rate and rhythm Chest: Able to complete full sentences, no retractions, no tachypnea Right hip: Internally rotated and shortened right lower extremity Musculoskeletal: Pulses present and equal in all extremities, no peripheral edema Motor: no focal deficits noted Neurological: CN II-XII grossly intact, no focal motor or sensory deficits noted Skin: Intact with no visualized rashes Psych: Normal affect and mood ED course: 60-year-old female presents with clinical presentation concerning for right hip dislocation. Vital signs upon arrival are within acceptable limits. X-ray shows right hip dislocation. Laboratory evaluation within acceptable limits. Patient's hip was reduced with procedural sedation. Post reduction films shows a reduced hip. Patient reevaluated bedside 1120 and found to be stable medical condition. She states she is kind of sore in her thigh but feels much better. Patient will be discharged. - Related Data Home Medications Medication Instructions Recorded Confirmed DULoxetine HCL [Cymbalta] 60 mg PO DAILY 04/28/16 11/18/21 Hydrocodone/Acetaminophen [Desoto 1 tab PO BID 04/28/16 11/18/21 10-325] Albuterol Sulfate [Albuterol 1 - 2 puff INHALATION RT-Q4H PRN 03/25/21 11/18/21 Sulfate Hfa] Cetirizine HCl [Zyrtec] 10 mg PO DAILY 08/27/21 11/18/21 Ergocalciferol [Vitamin D2 (1250 1,250 mcg PO MO 08/27/21 11/18/21 Mcg = 52742 Iu)] Esomeprazole Magnesium [NexIUM 20 mg PO DAILY 08/27/21 11/18/21 24Hr] Ondansetron HCl [Zofran] 4 mg PO Q8H PRN 08/27/21 11/18/21 Losartan Potassium [Cozaar] 100 mg PO DAILY 11/18/21 11/18/21 Metoprolol Tartrate [Lopressor] 25 mg PO HS 11/18/21 11/18/21 Previous Rx's Medication Instructions Recorded LORazepam [Ativan] 1 mg PO BID PRN #12 tab 08/30/21 Allergies Allergy/AdvReac Type Severity Reaction Status Date / Time Sulfa (Sulfonamide Allergy Unknown Anaphylaxis Verified 11/18/21 10:17 Antibiotics) Review of Systems ROS Statement: Those systems with pertinent positive or pertinent negative responses have been documented in the HPI. ROS Other: All systems not noted in ROS Statement are negative. Past Medical History Past Medical History: COPD, GERD/Reflux, Hypertension, Osteoarthritis (OA), Seizure Disorder Additional Past Medical History / Comment(s): Hx Epilepsy, no seizure in 30+ yrs. History of Any Multi-Drug Resistant Organisms: ESBL Date of last positivie culture/infection: 05/30/15 E. coli ESBL MDRO Source:: Urine Past Surgical History: Hernia Repair, Joint Replacement Additional Past Surgical History / Comment(s): Bilateral cataract surgery, left hip replacement X2, right hip replacement x2, hiatal hernia repair. Past Anesthesia/Blood Transfusion Reactions: No Reported Reaction Additional Past Anesthesia/Blood Transfusion Reaction / Comment(s): Patient states "everytime I have an IV started I get I immediately get diarrhea after." Sister slow to wake up. Past Psychological History: Anxiety, Depression Smoking Status: Current every day smoker Past Alcohol Use History: Daily Past Drug Use History: None Reported - Past Family History Mother Family Medical History: No Reported History Father Family Medical History: Cancer Additional Family Medical History / Comment(s): lung CA General Exam Limitations: no limitations Course Vital Signs 11/18/21 11/18/21 11/18/21 09:15 10:21 10:26 Temperature 98.1 F Pulse Rate 100 109 H 105 H Respiratory 16 20 16 Rate Blood Pressure 166/105 161/83 169/107 O2 Sat by Pulse 100 98 100 Oximetry 11/18/21 11/18/21 11/18/21 10:32 10:34 10:39 Temperature Pulse Rate 109 H 102 H 109 H Respiratory 16 16 16 Rate Blood Pressure 188/140 154/93 167/110 O2 Sat by Pulse 100 100 100 Oximetry 11/18/21 11/18/21 10:44 10:59 Temperature Pulse Rate 109 H 97 Respiratory 16 16 Rate Blood Pressure 168/87 164/87 O2 Sat by Pulse 100 97 Oximetry Procedures - Orthopedic Joint Reduction Joint #1 Consent Obtained: verbal consent, written consent Side: right Joint Reduction Location: hip Analgesia: procedural sedation Technique Used: traction/counter-traction Post Reduction X-Ray Obtained: Yes Post Reduction X-Ray Results: reduced Splint Applied: Yes Patient Tolerated Procedure: well - Procedural Sedation Procedural Sedation Start Time: 10:26 Procedural Sedation Stop Time: 10:32 Indications: fracture/dislocation reduction ASA Class: II Mallampati Airway Score: 2 Preparation: medical support specialist applied, pulse oximeter, supplemental O2 applied IV Propofol Dose (mgs): 100 Complications: none Patient Tolerated Procedure: well Medical Decision Making - Lab Data Result diagrams: 11/18/21 09:34 11/18/21 09:34 Lab Results 11/18/21 11/18/21 11/18/21 Range/Units 09:34 09:34 09:34 WBC 4.6 (3.8-10.6) k/uL RBC 3.28 L (3.80-5.40) m/uL Hgb 10.4 L (11.4-16.0) gm/dL Hct 31.7 L (34.0-46.0) % MCV 96.7 (80.0-100.0) fL MCH 31.6 (25.0-35.0) pg MCHC 32.7 (31.0-37.0) g/dL RDW 16.3 H (11.5-15.5) % Plt Count 414 (150-450) k/uL MPV 7.0 Neutrophils % 56 % Lymphocytes % 28 % Monocytes % 8 % Eosinophils % 5 % Basophils % 1 % Neutrophils # 2.6 (1.3-7.7) k/uL Lymphocytes # 1.3 (1.0-4.8) k/uL Monocytes # 0.4 (0-1.0) k/uL Eosinophils # 0.2 (0-0.7) k/uL Basophils # 0.1 (0-0.2) k/uL Hypochromasia Slight Anisocytosis Slight PT 9.5 (9.0-12.0) sec INR 0.9 (<1.2) APTT 21.2 L (22.0-30.0) sec Sodium 121 L (137-145) mmol/L Potassium 4.5 (3.5-5.1) mmol/L Chloride 93 L (98-107) mmol/L Carbon Dioxide 19 L (22-30) mmol/L Anion Gap 9 mmol/L BUN 10 (7-17) mg/dL Creatinine 0.90 (0.52-1.04) mg/dL Est GFR (CKD-EPI)AfAm 81 (>60 ml/min/1.73 sqM) Est GFR (CKD-EPI)NonAf 70 (>60 ml/min/1.73 sqM) Glucose 115 H (74-99) mg/dL Calcium 8.8 (8.4-10.2) mg/dL Disposition Clinical Impression: Hip dislocation, right Disposition: HOME SELF-CARE Condition: Fair Instructions (If sedation given, give patient instructions): Moderate Sedation (ED), Hip Dislocation (ED) Is patient prescribed a controlled substance at d/c from ED?: No Referrals: Hilario Garcia DO [Primary Care Provider] - 1-2 days Maicol King DO [Doctor of Osteopathic Medicine] - 1-2 days
[2021-11-18] MEDS ORDERED: HYDROmorphone 1 MG/ML 1 ML SYRINGE IVP STA (09:37)
[2021-11-18 09:45] LABS: Anisocytosis Slight; Basophils # (A) 0.1 k/uL (0-0.2); Basophils % (A) 1 %; Eosinophils # (A) 0.2 k/uL (0-0.7); Eosinophils % (A) 5 %; HCT 31.7 % (34.0-46.0); HGB 10.4 gm/dL (11.4-16.0); Hypochromasia Slight; Lymphocytes # (A) 1.3 k/uL (1.0-4.8); Lymphocytes % (A) 28 %; MCH 31.6 pg (25.0-35.0); MCHC 32.7 g/dL (31.0-37.0); MCV 96.7 fL (80.0-100.0); Monocytes # (A) 0.4 k/uL (0-1.0); Monocytes % (A) 8 %; Neutrophils # (A) 2.6 k/uL (1.3-7.7); Neutrophils % (A) 56 %; Platelet Count 414 k/uL (150-450); RBC 3.28 m/uL (3.80-5.40); RDW 16.3 % (11.5-15.5); WBC 4.6 k/uL (3.8-10.6)
[2021-11-18 09:54] LABS: Calcium 8.8 mg/dL (8.4-10.2); Potassium 4.5 mmol/L (3.5-5.1)
[2021-11-18] MEDS ORDERED: PROPOFOL 10 MG/ML 20 ML VIAL IV ONE (09:55)
[2021-11-18 09:58] LABS: INR 0.9 (<1.2); Prothrombin Time 9.5 sec (9.0-12.0)
--- NOTE | 2021-11-18 10:03 | XR ---
EXAMINATION TYPE: XR Hip RT and AP Pelvis DATE OF EXAM: 11/18/2021 COMPARISON: Exam 08/27/2021 HISTORY: Pain, dislocation TECHNIQUE: A single AP view of the pelvis is obtained. Two views of the right hip are obtained. FINDINGS: There is lateral dislocation of the right hip prosthesis, bayonet apposition. Bilateral starr perior and inferior pubic rami fractures are present with callus formation suggesting healing. Left h ip prosthesis shows expected alignment. Patient is rotated. Suspect some lucency along the proximal f emoral edited diaphysis medially although findings could be due to superimposition of structures IMPRESSION: Multiple pelvic fractures are of indeterminate age. Dislocation of the proximal right hip , difficult to exclude proximal right femoral fracture.
[2021-11-18 10:20] LABS: Partial Thromboplastin Time 21.2 sec (22.0-30.0)
[2021-11-18 10:28] VITALS: RESP 16
--- NOTE | 2021-11-18 11:23 | XR ---
Limited right hip HISTORY: Pain, reduction Single frontal view of the right ribs submitted and correlated prior exam same dated time There is been interval reduction of patient's right hip prosthesis dislocation. No evident fracture w ithin the proximal right femur. Multiple fractures are noted along the rami as noted on previous exam . Bone mineralization is reduced. Heterotopic new bone formation present about the right hip, there i s soft tissue swelling suspected. IMPRESSION: Interval reduction right hip dislocation.
[2021-11-18 11:51] VITALS: BP 163/93; PULSE 101
== END 2021-11-18 12:02 | disposition home or self-care (01) ==
LOC: EC 09:09
DX: S73.004A Unspecified dislocation of right hip, initial encounter (principal); J44.9 Chronic obstructive pulmonary disease, unspecified; I10 Essential (primary) hypertension; F17.220 Nicotine dependence, chewing tobacco, uncomplicated; Z88.2 Allergy status to sulfonamides; X58.XXXA Exposure to other specified factors, initial encounter
CPT/HCPCS: 99284; 96374; 96375; 36415; 80048; 85025; 85610; 85730; 73501; 73502; 27250; J1170; J2704

== ENCOUNTER 2022-07-19 16:11 | Emergency (ER) | payer BC ==
[2022-07-19 16:18] VITALS: PULSE 107; RESP 18; TEMP 98.7
[2022-07-19] MEDS ORDERED: HYDROmorphone 0.5 MG/0.5 ML SYRINGE IVP STA (16:31)
--- NOTE | 2022-07-19 16:51 | ED ---
Fall HPI - General Chief Complaint: Fall Stated Complaint: Fall Time Seen by Provider: 07/19/22 16:15 Source: patient, EMS Mode of arrival: EMS - History of Present Illness Initial Comments: 61-year-old female with past history of hypertension, epilepsy, COPD who presents to the emergency department after she sustained a fall last night. She reports that she normally ambulates with a walker. She was not using her walker for assistance when she fell forward and hit her chin on the floor. She sustained a laceration. He also reports 2 mandibular pain with abnormal bite. Patient did fracture her left lower canine tooth. Patient was able to get up off the floor after a short period of time. States that today she started having some bleeding from her left ear. Her boyfriend recommended that she get evaluated at the emergency department as he felt her laceration needed suture repair. Patient also developed sternal pain. Pain is reproducible with palpation, movement and breathing. She denies history of cardiac disease. Nausea or vomiting. No abdominal pain. No pain in her hips or remainder of her lower extremities. The patient denies headache or visual changes. No vomiting. No other alleviating, precipitating or modifying factors - Related Data Home Medications Medication Instructions Recorded Confirmed DULoxetine HCL [Cymbalta] 60 mg PO DAILY 04/28/16 11/18/21 Hydrocodone/Acetaminophen [Stetson 1 tab PO BID 04/28/16 11/18/21 10-325] Albuterol Sulfate [Albuterol 1 - 2 puff INHALATION RT-Q4H PRN 03/25/21 11/18/21 Sulfate Hfa] Cetirizine HCl [Zyrtec] 10 mg PO DAILY 08/27/21 11/18/21 Ergocalciferol [Vitamin D2 (1250 1,250 mcg PO MO 08/27/21 11/18/21 Mcg = 50030 Iu)] Esomeprazole Magnesium [NexIUM 20 mg PO DAILY 08/27/21 11/18/21 24Hr] ondansetron HCL [Zofran] 4 mg PO Q8H PRN 08/27/21 11/18/21 Losartan Potassium [Cozaar] 100 mg PO DAILY 11/18/21 11/18/21 Metoprolol Tartrate [Lopressor] 25 mg PO HS 11/18/21 11/18/21 Previous Rx's Medication Instructions Recorded LORazepam [Ativan] 1 mg PO BID PRN #12 tab 08/30/21 Allergies Allergy/AdvReac Type Severity Reaction Status Date / Time Sulfa (Sulfonamide Allergy Unknown Anaphylaxis Verified 11/18/21 10:17 Antibiotics) Review of Systems ROS Statement: Those systems with pertinent positive or pertinent negative responses have been documented in the HPI. ROS Other: All systems not noted in ROS Statement are negative. Past Medical History Past Medical History: COPD, GERD/Reflux, Hypertension, Osteoarthritis (OA), Seizure Disorder Additional Past Medical History / Comment(s): Hx Epilepsy, no seizure in 30+ yrs. History of Any Multi-Drug Resistant Organisms: ESBL Date of last positivie culture/infection: 05/30/15 E. coli ESBL MDRO Source:: Urine Past Surgical History: Hernia Repair, Joint Replacement Additional Past Surgical History / Comment(s): Bilateral cataract surgery, left hip replacement X2, right hip replacement x2, hiatal hernia repair. Past Anesthesia/Blood Transfusion Reactions: No Reported Reaction Additional Past Anesthesia/Blood Transfusion Reaction / Comment(s): Patient states "everytime I have an IV started I get I immediately get diarrhea after." Sister slow to wake up. Past Psychological History: Anxiety, Depression Smoking Status: Current every day smoker Past Alcohol Use History: Occasional Past Drug Use History: None Reported - Past Family History Mother Family Medical History: No Reported History Father Family Medical History: Cancer Additional Family Medical History / Comment(s): lung CA General Exam Limitations: no limitations General appearance: alert, in no apparent distress Head exam: Present: normocephalic, other (Chin laceration measuring 3.5 x 1.0 cm. No active bleeding. No raccoon eyes. No link sign) Eye exam: Present: normal appearance, PERRL, EOMI. Absent: scleral icterus, conjunctival injection, periorbital swelling ENT exam: Present: mucous membranes dry, other (Copious bright red blood from the left ear canal. Cannot visualize tympanic membrane. Mandible appears displaced. Malalignment of the teeth.) Neck exam: Present: normal inspection, other (c-collar in place). Absent: tenderness, meningismus, lymphadenopathy Respiratory exam: Present: normal lung sounds bilaterally, chest wall tenderness (Sternal pressure to palpation). Absent: respiratory distress, wheezes, rales, rhonchi, stridor Cardiovascular Exam: Present: regular rate, normal rhythm, normal heart sounds. Absent: systolic murmur, diastolic murmur, rubs, gallop, clicks GI/Abdominal exam: Present: soft, normal bowel sounds. Absent: distended, t enderness, guarding, rebound, rigid Extremities exam: Present: normal inspection, full ROM, normal capillary refill. Absent: tenderness, pedal edema, joint swelling, calf tenderness Back exam: Present: normal inspection Neurological exam: Present: alert, oriented X3, CN II-XII intact Psychiatric exam: Present: normal mood, flat affect Skin exam: Present: warm, dry Course Vital Signs 07/19/22 07/19/22 16:14 18:22 Temperature 98.7 F Pulse Rate 107 H 107 H Respiratory 18 18 Rate Blood Pressure 148/98 144/86 O2 Sat by Pulse 100 100 Oximetry - Reevaluation(s) Reevaluation #1: [facility] - needs to call back 07/19/22 18:39 Reevaluation #2: Spoke with Dr. Arboleda and Dr. Ortiz who accept transfer 07/19/22 19:20 Medical Decision Making - Medical Decision Making Arrival patient is placed into room 2. Thorough history and physical exam is performed. IV access is established and laboratory studies are conducted. Patient is given a dose of Dilaudid for pain control. 12-lead EKG is obtained. Patient remains and 2 pulse ox and cardiac monitoring. Laboratory studies are reviewed and demonstrated a slight hyponatremia of 131. Creatinine is 1.3. Patient's baseline is 0.9. She is given a bolus of normal saline. Troponin is 0.407. CK 452. Alcohol not detected. CT of the brain and cervical spine demonstrates no acute intracranial process. No cervical fractures in the spine. C-collar is removed as patient has no neck pain. Facial CT demonstrates bilateral fractures of the mandibular condyles. Left is comminuted and displaced. Chest CT demonstrates acute nondisplaced fractures of the right lateral third, sixth and seventh ribs. No pneumothorax. Patient was given a dose of Ancef for possible TM rupture on the left. Tetanus is a 30 up to date. She does require second dose of pain medication. Due to her facial injuries I did recommend transfer to a facility with OMFS capabilities. Called and spoke with Dr. Arboleda who accepted transfer of the patient from a trauma standpoint. Also spoke with Dr. Ortiz who is the ED physician. COBRA forms signed. Patient transferred in stable condition. - Lab Data Result diagrams: 07/19/22 17:02 07/19/22 17:02 Lab Results 07/19/22 07/19/22 07/19/22 Range/Units 17:02 17:02 17:02 WBC 9.4 (3.8-10.6) k/uL RBC 3.77 L (3.80-5.40) m/uL Hgb 11.4 (11.4-16.0) gm/dL Hct 35.6 (34.0-46.0) % MCV 94.4 (80.0-100.0) fL MCH 30.2 (25.0-35.0) pg MCHC 32.0 (31.0-37.0) g/dL RDW 16.8 H (11.5-15.5) % Plt Count 334 (150-450) k/uL MPV 8.2 Neutrophils % 71 % Lymphocytes % 22 % Monocytes % 4 % Eosinophils % 2 % Basophils % 0 % Neutrophils # 6.7 (1.3-7.7) k/uL Lymphocytes # 2.1 (1.0-4.8) k/uL Monocytes # 0.4 (0-1.0) k/uL Eosinophils # 0.2 (0-0.7) k/uL Basophils # 0.0 (0-0.2) k/uL Hypochromasia Slight Anisocytosis Slight PT 10.0 (9.0-12.0) sec INR 0.9 (<1.2) APTT 20.1 L (22.0-30.0) sec Sodium 131 L (137-145) mmol/L Potassium 4.2 (3.5-5.1) mmol/L Chloride 100 (98-107) mmol/L Carbon Dioxide 19 L (22-30) mmol/L Anion Gap 12 mmol/L BUN 17 (7-17) mg/dL Creatinine 1.31 H (0.52-1.04) mg/dL Est GFR (CKD-EPI)AfAm 51 (>60 ml/min/1.73 sqM) Est GFR (CKD-EPI)NonAf 44 (>60 ml/min/1.73 sqM) Glucose 90 (74-99) mg/dL Calcium 8.5 (8.4-10.2) mg/dL Total Bilirubin 0.9 (0.2-1.3) mg/dL AST 67 H (14-36) U/L ALT 38 H (4-34) U/L Alkaline Phosphatase 148 H (38-126) U/L Creatine Kinase (30-135) U/L Troponin I (0.000-0.034) ng/mL Total Protein 6.0 L (6.3-8.2) g/dL Albumin 3.5 (3.5-5.0) g/dL Serum Alcohol <10 mg/dL 07/19/22 07/19/22 Range/Units 17:02 17:02 WBC (3.8-10.6) k/uL RBC (3.80-5.40) m/uL Hgb (11.4-16.0) gm/dL Hct (34.0-46.0) % MCV (80.0-100.0) fL MCH (25.0-35.0) pg MCHC (31.0-37.0) g/dL RDW (11.5-15.5) % Plt Count (150-450) k/uL MPV Neutrophils % % Lymphocytes % % Monocytes % % Eosinophils % % Basophils % % Neutrophils # (1.3-7.7) k/uL Lymphocytes # (1.0-4.8) k/uL Monocytes # (0-1.0) k/uL Eosinophils # (0-0.7) k/uL Basophils # (0-0.2) k/uL Hypochromasia Anisocytosis PT (9.0-12.0) sec INR (<1.2) APTT (22.0-30.0) sec Sodium (137-145) mmol/L Potassium (3.5-5.1) mmol/L Chloride (98-107) mmol/L Carbon Dioxide (22-30) mmol/L Anion Gap mmol/L BUN (7-17) mg/dL Creatinine (0.52-1.04) mg/dL Est GFR (CKD-EPI)AfAm (>60 ml/min/1.73 sqM) Est GFR (CKD-EPI)NonAf (>60 ml/min/1.73 sqM) Glucose (74-99) mg/dL Calcium (8.4-10.2) mg/dL Total Bilirubin (0.2-1.3) mg/dL AST (14-36) U/L ALT (4-34) U/L Alkaline Phosphatase (38-126) U/L Creatine Kinase 452 H (30-135) U/L Troponin I 0.407 H* (0.000-0.034) ng/mL Total Protein (6.3-8.2) g/dL Albumin (3.5-5.0) g/dL Serum Alcohol mg/dL - EKG Data EKG Comments: EKG demonstrates sinus tachycardia with a rate of 109. VT interval 126. QRS 67. QTC of 400. No acute ST segment elevations or depressions Disposition Clinical Impression: Rib fractures, Fall, Concussion, Facial laceration, NSTEMI (non-ST elevated myocardial infarction), Mandibular fracture, closed, Tympanic membrane perforation Disposition: OTHER INSTITUTION NOT DEFINED Condition: Serious Is patient prescribed a controlled substance at d/c from ED?: No Referrals: None,Stated [Primary Care Provider] - 1-2 days Time of Disposition: 19:40 - Out of Hospital Transfer - Req. Specs Out of Hospital Transfer - Requested Specifics: Other Emergency Center ([facility])
[2022-07-19 17:13] LABS: Anisocytosis Slight; Basophils % (A) 0 %; Eosinophils # (A) 0.2 k/uL (0-0.7); Eosinophils % (A) 2 %; HCT 35.6 % (34.0-46.0); HGB 11.4 gm/dL (11.4-16.0); Hypochromasia Slight; Lymphocytes # (A) 2.1 k/uL (1.0-4.8); Lymphocytes % (A) 22 %; MCH 30.2 pg (25.0-35.0); MCV 94.4 fL (80.0-100.0); Mean Platelet Volume 8.2; Monocytes # (A) 0.4 k/uL (0-1.0); Monocytes % (A) 4 %; Neutrophils # (A) 6.7 k/uL (1.3-7.7); Neutrophils % (A) 71 %; Platelet Count 334 k/uL (150-450); RBC 3.77 m/uL (3.80-5.40); RDW 16.8 % (11.5-15.5); WBC 9.4 k/uL (3.8-10.6)
[2022-07-19 17:24] LABS: ALT 38 U/L (4-34); AST 67 U/L (14-36); African American GFR (CKD) 51 (>60 ml/min/1.73 sqM); Albumin 3.5 g/dL (3.5-5.0); Alcohol <10 mg/dL; Alkaline Phosphatase 148 U/L (38-126); Anion Gap 12 mmol/L; Blood Urea Nitrogen 17 mg/dL (7-17); Calcium 8.5 mg/dL (8.4-10.2); Carbon Dioxide 19 mmol/L (22-30); Chloride 100 mmol/L (98-107); Glucose 90 mg/dL (74-99); Non-African American GFR(CKD) 44 (>60 ml/min/1.73 sqM); Potassium 4.2 mmol/L (3.5-5.1); Sodium 131 mmol/L (137-145); Total Bilirubin 0.9 mg/dL (0.2-1.3)
[2022-07-19 17:28] LABS: INR 0.9 (<1.2)
[2022-07-19 17:29] LABS: Partial Thromboplastin Time 20.1 sec (22.0-30.0)
--- NOTE | 2022-07-19 18:05 | CT ---
EXAMINATION TYPE: CT brain jazmine cage con DATE OF EXAM: 07/19/2022 COMPARISON: 01/12/2019 CT brain HISTORY: trauma, fall, rib pain, blood from left ear, jaw pain, CT DLP: 1140.8 mGycm Automated exposure control for dose reduction was used. Images obtained of the brain and cervical spine with no contrast. there is cerebral cortical atrophy. There is no mass effect or midline shift. No sign of intracranial hemorrhage. The calvarium is intact. Skull base is intact. There is normal aeration of the mastoid s inuses. Occipital bone is intact. The cervical vertebra have normal alignment. There is narrowing at C5-6 and C6-7 disc spaces with spu rring of the endplates. Facet joints are intact. No compression fracture. Sella turcica is normal. IMPRESSION: Cerebral atrophy. There is evidence for some mild chronic small vessel ischemia. No acute intracrania l abnormality. No change. Spondylotic changes in the lower cervical spine. No fracture seen.
--- NOTE | 2022-07-19 18:16 | CT ---
EXAMINATION TYPE: CT facial bones wo con DATE OF EXAM: 07/19/2022 COMPARISON: None HISTORY: trauma, fall, rib pain, blood from left ear, jaw pain, CT DLP: 1140.8 mGycm Automated exposure control for dose reduction was used. Images obtained from the bottom of the mandible to the top of the frontal sinuses without contrast. There is bilateral fractures at the mandibular condyles. No significant displacement on the right yandel e. There is significant displacement on the left side and dislocation of the condyle out of the mine bular fossa. The zygomatic arches are intact. Nasal bone is intact. Orbital margins are intact. No evidence of orb ital blowout fracture. No retro-orbital mass. The mastoid air cells appear normal. Temporal bones are intact. IMPRESSION: There is severely comminuted and displaced fracture dislocation of the left mandibular condyle. There is right mandibular condyle fracture with minimal displacement.
[2022-07-19 18:22] VITALS: BP 144/86
[2022-07-19] MEDS ORDERED: HYDROmorphone 1 MG/ML 1 ML SYRINGE IVP STA (18:23)
--- NOTE | 2022-07-19 18:31 | CT ---
EXAMINATION TYPE: CT chest wo con DATE OF EXAM: 07/19/2022 COMPARISON: 10/25/2020 HISTORY: trauma, fall, rib pain, blood from left ear, jaw pain, CT DLP: 383.4 mGycm Automated exposure control for dose reduction was used. Images obtained from the thoracic inlet to the diaphragm without contrast. The lungs are clear of consolidation. No evidence of a pulmonary mass. There is minimal subsegmental atelectasis right lower lobe. Heart size is normal. No pericardial effusion. No pleural effusion. There are no hilar masses. No mediastinal adenopathy. Thoracic aorta appears intact. Ascending aorta measures 3.2 cm. The thoracic spine is intact. Sternum is intact. There is acute nondisplaced fracture right lateral s eventh rib. There is possible nondisplaced fracture right third rib. Shoulder joints appear intact. T here is likely fracture also of the right sixth rib.. IMPRESSION: Right-sided acute rib fractures. No pneumothorax. Mild subsegmental atelectasis right lung base. No p leural fluid. Normal heart.
[2022-07-19] MEDS ORDERED: LIDOCAINE 1% INJ 10MG/ML (20 ML MDV) SQ ONE (18:58)
[2022-07-19] MEDS ORDERED: SODIUM CHLORIDE 0.9% 1,000 ML IV ONE (19:36)
== END 2022-07-19 20:05 | disposition other institution (70) ==
LOC: EC 16:11
DX: S22.39XA Fracture of one rib, unspecified side, initial encounter for closed fracture (principal); S06.0X0A Concussion without loss of consciousness, initial encounter; S02.609A Fracture of mandible, unspecified, initial encounter for closed fracture; I21.4 Non-ST elevation (NSTEMI) myocardial infarction; H72.92 Unspecified perforation of tympanic membrane, left ear; J44.9 Chronic obstructive pulmonary disease, unspecified; K21.9 Gastro-esophageal reflux disease without esophagitis; M19.90 Unspecified osteoarthritis, unspecified site; F41.9 Anxiety disorder, unspecified; F32.A Depression, unspecified; F17.200 Nicotine dependence, unspecified, uncomplicated; Z88.2 Allergy status to sulfonamides; Z79.51 Long term (current) use of inhaled steroids; Z79.899 Other long term (current) drug therapy
CPT/HCPCS: 99285; 96365; 36415; 93005; 80053; 82550; 84484; 85025; 85610; 85730; 80320; 72125; 70486; 70450; 71250; 96375; 96376; J0690; J2001; J1170 ×2

== ENCOUNTER 2022-07-29 11:43 | Emergency (ER) | payer BC ==
[2022-07-29 11:53] VITALS: TEMP 97.4
[2022-07-29] MEDS ORDERED: MORPHINE SULFATE 4 MG/ML SYRINGE IVP STA ×2 (12:19→16:07)
[2022-07-29] MEDS ORDERED: ONDANSETRON 4 MG/2 ML VIAL IVP STA (12:19)
--- NOTE | 2022-07-29 12:55 | ED ---
Chest Pain HPI - General Source: patient, RN notes reviewed Mode of arrival: wheelchair Limitations: no limitations <Maicol Awad - Last Filed: 07/29/22 12:53> <Haroldo Norman - Last Filed: 07/29/22 23:35> - General Chief Complaint: Chest Pain Stated Complaint: rib pain Time Seen by Provider: 07/29/22 11:57 - History of Present Illness Initial Comments: This a 61-year-old female presents emergency Department with chief complaint of chest pain. Patient states that she did have a fall recently was seen here and transferred to [facility]. Patient states she had her jaw wired shut. Patient did have notable rib fractures. Patient states she did not have much pain but now she has pain that started last 24 hours. She states it's in her chest and back. Patient denies any prior cardiac disease she does admit that she is on medications for hypertension but has not taken them because she cannot take her pills she was supposed be given liquids but has not received them. (Maicol Awad) - Related Data Home Medications Medication Instructions Recorded Confirmed DULoxetine HCL [Cymbalta] 60 mg PO DAILY 04/28/16 07/29/22 Hydrocodone/Acetaminophen [Camby 1 tab PO BID 04/28/16 07/29/22 10-325] Esomeprazole Magnesium [NexIUM 20 mg PO DAILY 08/27/21 07/29/22 24Hr] ondansetron HCL [Zofran] 4 mg PO DAILY PRN 08/27/21 07/29/22 Losartan Potassium [Cozaar] 100 mg PO DAILY 11/18/21 07/29/22 Metoprolol Tartrate [Lopressor] 25 mg PO HS 11/18/21 07/29/22 Chlorhexidine Gluconate [Periogard] 15 ml PO BID 07/29/22 07/29/22 Previous Rx's Medication Instructions Recorded Lidocaine 5% Patch [Lidoderm 5% 1 patch TOPICAL DAILY PRN 7 Days 07/29/22 Patch] #7 patch Allergies Allergy/AdvReac Type Severity Reaction Status Date / Time Sulfa (Sulfonamide Allergy Unknown Anaphylaxis Verified 07/29/22 15:20 Antibiotics) Review of Systems ROS Other: All systems not noted in ROS Statement are negative. <Maicol Awad - Last Filed: 10/11/22 12:53> ROS Other: All systems not noted in ROS Statement are negative. <Haroldo Norman - Last Filed: 07/29/22 23:35> ROS Statement: Those systems with pertinent positive or pertinent negative responses have been documented in the HPI. EKG Findings - EKG Comments: EKG Findings:: EKG performed at 12:07 sinus rhythm with rate of 81 IA 132 QRS 63 QT/QTC 380/417 <Maicol Awad - Last Filed: 07/29/22 12:53> Past Medical History Past Medical History: COPD, GERD/Reflux, Hypertension, Osteoarthritis (OA), Seizure Disorder Additional Past Medical History / Comment(s): Hx Epilepsy, no seizure in 30+ yrs. fracrured ribs fracure mandible History of Any Multi-Drug Resistant Organisms: ESBL Date of last positivie culture/infection: 05/30/15 E. coli ESBL MDRO Source:: Urine Past Surgical History: Hernia Repair, Joint Replacement Additional Past Surgical History / Comment(s): Bilateral cataract surgery, left hip replacement X2, right hip replacement x2, hiatal hernia repair. Past Anesthesia/Blood Transfusion Reactions: No Reported Reaction Additional Past Anesthesia/Blood Transfusion Reaction / Comment(s): Patient states "everytime I have an IV started I get I immediately get diarrhea after." Sister slow to wake up. Past Psychological History: Anxiety, Depression Smoking Status: Current every day smoker Past Alcohol Use History: Occasional Past Drug Use History: None Reported - Past Family History Mother Family Medical History: No Reported History Father Family Medical History: Cancer Additional Family Medical History / Comment(s): lung CA <Maicol Awad - Last Filed: 07/29/22 12:53> General Exam Limitations: no limitations General appearance: alert, in no apparent distress Head exam: Present: atraumatic, normocephalic, normal inspection Eye exam: Present: normal appearance, PERRL, EOMI. Absent: scleral icterus, conjunctival injection, periorbital swelling ENT exam: Present: mucous membranes moist. Absent: normal exam, normal oropharynx (Patient's mandible is wired) Neck exam: Present: full ROM. Absent: normal inspection (Ecchymosis noted of the neck, mandibular region), tenderness, meningismus, lymphadenopathy Respiratory exam: Present: normal lung sounds bilaterally, chest wall tenderness. Absent: respiratory distress, wheezes, rales, rhonchi, stridor Cardiovascular Exam: Present: regular rate, normal rhythm, normal heart sounds. Absent: systolic murmur, diastolic murmur, rubs, gallop, clicks Extremities exam: Present: normal inspection, full ROM, normal capillary refill. Absent: tenderness, pedal edema, joint swelling, calf tenderness Back exam: Present: full ROM. Absent: tenderness Neurological exam: Present: alert Skin exam: Present: warm, dry, intact, normal color. 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 Presents complaining of right-sided chest pain. She is status post fall with multiple right-sided rib fractures as well as jaw fracture requiring surgical fixation wired shut. She states that since discharge she is been having chest pain that radiates around the right side of her chest, seems to be right midclavicular line, radiating around the side posteriorly. Worse with palpation. Worse with deep inspirations. Patient states she has no history of cardiac disease. No history of stents. Was concerned regarding the chest pain considering her heart and wanted to be evaluated. States it is been more or less constant since last . It is currently Thursday. Patient has chest wall pain. Patient was initially seen by the mid-level provider. He noted the pain started within the last 24 hours. When I asked the patient rega rding this, she states that it is been bothering her more over the last 24 hours but she is actually had the pain since last , has been worse over the last 1-2 days. She states she cannot take her oral antihypertensive pills due to the swelling improving. She has no other acute complaints at this time. Workup initially showed an EKG with no signs of acute ischemia. Chest x-ray redemonstrated the right-sided rib fractures. They are anterior and at the site of her chest pain.. Laboratory studies were remarkable for an undetectable troponin. D-dimer was elevated to 2.09 which is why they ordered a CT PE. CT PE returned and revealed no signs of pulmonary embolism. Patient does have small bilateral pleural effusions. I updated the patient results of her imaging and labs. Vital signs are within normal limits at this time. States her pain is improved with morphine. I did offer the patient observation admission for further monitoring of her troponin and cardiac monitoring. However due to her negative workup as well as multiple days of symptoms, patient's heart score is low at 3. She elected to go home at this time. I believe this is reasonable. Strict return precautions were discussed. Chest pain appears to be chest wall pain is likely related to her rib fractures and injuries. She'll be seen and discharged with an incentive spirometer as well as lidocaine patches. She has pain medications at home. She'll follow-up with her PCP in the next few days. She was in agreement this plan. I will provide the patient with a prescription for lidocaine patches. I instructed the patient to follow up with their PCP in the next 1-3 days. I explained that the patient should return to the emergency department if they experience any worsening symptoms. Strict return precautions were discussed with the patient. The patient expressed understanding of these instructions. I answered all questions that the patient had. The patient was discharged home in good condition with their prescriptions and follow up information. (Haroldo Norman) Disposition <Maicol Awad - Last Filed: 07/29/22 12:53> Is patient prescribed a controlled substance at d/c from ED?: No Time of Disposition: 18:00 <Haroldo Norman - Last Filed: 07/29/22 23:35> Clinical Impression: Chest wall pain, Rib fractures Disposition: HOME SELF-CARE Condition: Good Instructions (If sedation given, give patient instructions): Chest Pain (ED), How to Use an Incentive Spirometer (ED) Prescriptions: Lidocaine 5% Patch [Lidoderm 5% Patch] 1 patch TOPICAL DAILY PRN 7 Days #7 patch PRN Reason: Pain Referrals: None,Stated [Primary Care Provider] - 1-2 days
[2022-07-29] MEDS: ASPIRIN 81 MG PO STA ×2 (13:41→13:43)
--- NOTE | 2022-07-29 14:20 | XR ---
EXAMINATION TYPE: XR chest 2V DATE OF EXAM: 07/29/2022 COMPARISON: 10/25/2020 TECHNIQUE: PA and lateral views submitted. HISTORY: Pain FINDINGS: Diffuse hyperinflation with biapical pleural thickening. Diffuse osteopenia. Anterior mid to lower ri b cage acute to subacute fractures again noted with no sizable pneumothorax. Heart size normal. Ather osclerotic change aorta. Hypertrophic and degenerative changes spine. Surgical clips in the abdomen. IMPRESSION: 1. COPD with acute to subacute anterior right-sided rib fractures but no sizable pneumothorax.
[2022-07-29 14:32] LABS: Anisocytosis Slight; Basophils # (A) 0.1 k/uL (0-0.2); Basophils % (A) 1 %; Eosinophils # (A) 0.2 k/uL (0-0.7); Eosinophils % (A) 2 %; HCT 34.8 % (34.0-46.0); HGB 11.1 gm/dL (11.4-16.0); Hypochromasia Marked; Lymphocytes # (A) 2.3 k/uL (1.0-4.8); Lymphocytes % (A) 22 %; MCH 31.3 pg (25.0-35.0); MCHC 31.9 g/dL (31.0-37.0); MCV 98.2 fL (80.0-100.0); Macrocytosis Slight; Monocytes # (A) 0.7 k/uL (0-1.0); Monocytes % (A) 7 %; Neutrophils # (A) 6.8 k/uL (1.3-7.7); Neutrophils % (A) 66 %; Platelet Count 648 k/uL (150-450); RBC 3.55 m/uL (3.80-5.40); RDW 17.9 % (11.5-15.5); WBC 10.2 k/uL (3.8-10.6)
[2022-07-29 14:42] LABS: INR 0.9 (<1.2)
[2022-07-29 14:43] LABS: Albumin 3.6 g/dL (3.5-5.0); Partial Thromboplastin Time 25.1 sec (22.0-30.0); Total Protein 6.5 g/dL (6.3-8.2)
[2022-07-29 14:44] LABS: Calcium 8.8 mg/dL (8.4-10.2); Magnesium 2.1 mg/dL (1.6-2.3); Total Bilirubin 0.3 mg/dL (0.2-1.3)
[2022-07-29 16:06] VITALS: RESP 16
--- NOTE | 2022-07-29 17:28 | CT ---
EXAMINATION TYPE: CT chest angio for PE DATE OF EXAM: 07/29/2022 COMPARISON: 11/11/2016 HISTORY: CP, SOB, recent rib fracture CT DLP: 167.9 mGycm Automated exposure control for dose reduction was used. CONTRAST: Performed with IV Contrast, patient injected with 100 mL of Isovue 370. Images obtained from the thoracic inlet to the diaphragm with the IV contrast. There are 3-D post pro cessed images. There is right pleural effusion. There is small left pleural effusion. There is right basilar pulmona ry infiltrate and atelectasis. No mediastinal adenopathy. There are no hilar masses. Ascending aorta measures 3.4 cm. No dissection. No evidence of filling defect in the pulmonary arteries. The thoracic spine is intact. Sternum is int act. No focal bone destruction. Shoulder joints are intact. IMPRESSION: There are bilateral pleural effusions and basilar mild linear infiltrate and atelectasis which is mos tly new compared to old exam. No evidence of pulmonary embolism. Mild ectasia of the ascending aorta measuring 3.4 cm and increased from 3.1 cm on old exam.
[2022-07-29] MEDS ORDERED: LIDOCAINE 5% PATCH TOPICAL STA (18:00)
[2022-07-29 18:45] VITALS: BP 151/79; PULSE 98
== END 2022-07-29 18:37 | disposition home or self-care (01) ==
LOC: EC 11:43
DX: S22.31XA Fracture of one rib, right side, initial encounter for closed fracture (principal); J44.9 Chronic obstructive pulmonary disease, unspecified; Z88.2 Allergy status to sulfonamides; I10 Essential (primary) hypertension; K21.9 Gastro-esophageal reflux disease without esophagitis; F17.200 Nicotine dependence, unspecified, uncomplicated
CPT/HCPCS: 99285; 96374; 96375; 96376; 36415; 93005; 85379; 80053; 83735; 84484; 85025; 85610; 85730; 71046; 71275; J2270; J2405; Q9967; 96361

== ENCOUNTER 2022-10-24 09:51 | Inpatient (IN) | payer BC, MEDICARE ==
[2022-10-24] MEDS ORDERED: SODIUM CHLORIDE 0.9% 1,000 ML IV STA (10:27)
[2022-10-24] MEDS ORDERED: ONDANSETRON 4 MG/2 ML VIAL IVP STA (10:27)
[2022-10-24] MEDS ORDERED: HYDROmorphone 0.5 MG/0.5 ML SYRINGE IVP STA ×2 (10:27→15:21)
[2022-10-24 11:11] LABS: Prothrombin Time 10.2 sec (9.0-12.0)
[2022-10-24 11:20] LABS: Albumin 3.3 g/dL (3.5-5.0); Calcium 8.6 mg/dL (8.4-10.2); Potassium 2.9 mmol/L (3.5-5.1); Total Bilirubin 1.2 mg/dL (0.2-1.3); Total Protein 6.2 g/dL (6.3-8.2)
[2022-10-24 11:23] LABS: Anisocytosis Slight; Basophils % (A) 0 %; Eosinophils % (A) 0 %; HCT 37.1 % (34.0-46.0); HGB 12.9 gm/dL (11.4-16.0); Lymphocytes % (A) 14 %; MCH 33.9 pg (25.0-35.0); MCHC 34.9 g/dL (31.0-37.0); MCV 97.1 fL (80.0-100.0); Macrocytosis Slight; Mean Platelet Volume 10.5; Monocytes # (A) 0.4 k/uL (0-1.0); Monocytes % (A) 5 %; Neutrophils # (A) 5.3 k/uL (1.3-7.7); Neutrophils % (A) 78 %; Platelet Count 236 k/uL (150-450); Poikilocytosis Slight; RBC 3.82 m/uL (3.80-5.40); RDW 17.7 % (11.5-15.5); WBC 6.8 k/uL (3.8-10.6)
--- NOTE | 2022-10-24 11:36 | XR ---
EXAMINATION TYPE: XR chest 2V DATE OF EXAM: 10/24/2022 11:25 AM COMPARISON: Chest radiographs from 07/29/2022 TECHNIQUE: XR chest 2V Frontal and lateral views of the chest. CLINICAL INDICATION:Female, 61 years old with history of Weakness; FINDINGS: Lungs/Pleura: There is flattening of the diaphragm with increased lucency of the lungs. No evidence o f pneumothorax, pleural effusion or focal consolidation. Pulmonary vascularity: Unremarkable. Heart/mediastinum: Cardiomediastinal silhouette is stable. Musculoskeletal: No acute osseous pathology. Diffuse osteopenia. Remote right-sided rib fractures. IMPRESSION: 1. No acute cardiopulmonary disease process. 2. COPD changes.
[2022-10-24 13:17] LABS: Amorphous Sediment,Urine Rare /hpf; Appearance,Urine Clear (Clear); Bilirubin,Urine 1+ (Negative); Blood,Urine Large (Negative); Color,Urine Yellow; Glucose,Urine (UA) Negative (Negative); Ketones,Urine 1+ (Negative); Leukocyte Esterase,Urine Negative (Negative); Mucus,Urine Rare /hpf; Nitrite,Urine Negative (Negative); PH, Urine 6.5 (5.0-8.0); Protein,Urine 1+ (Negative); RBC,Urine 7 /hpf (0-5); Squamous Epithelial Cell,Urine 1 /hpf (0-4); WBC,Urine 6 /hpf (0-5)
--- NOTE | 2022-10-24 13:21 | ED ---
Weakness HPI - General Chief complaint: Weakness Stated complaint: Weakness Time Seen by Provider: 10/24/22 10:18 Source: patient, RN notes reviewed Mode of arrival: ambulatory Limitations: no limitations - History of Present Illness Initial comments: 61-year-old female presents emergency department via EMS with chief complaint of generalized weakness. She's not felt well last few days. Patient states that of last night she's had multiple fractures she recently had her jaw wired shut and this was reviewed removed. She had a large amount weight loss. Patient states over the last 2-3 days she's had increased nausea decreased oral intake, shortness breath and some intermittent chest discomfort. Patient found to be mildly hypoxic. Patient is a smoker denies history of COPD. Patient states that she felt like her heart was racing she denies any localized abdominal pain denies reported fever. - Related Data Home Medications Medication Instructions Recorded Confirmed DULoxetine HCL [Cymbalta] 60 mg PO DAILY 04/28/16 10/24/22 Hydrocodone/Acetaminophen [[place] 1 tab PO QID 04/28/16 10/24/22 10-325] Esomeprazole Magnesium [NexIUM 20 mg PO DAILY 08/27/21 10/24/22 24Hr] Losartan Potassium [Cozaar] 100 mg PO DAILY 11/18/21 10/24/22 Metoprolol Tartrate [Lopressor] 25 mg PO HS 11/18/21 10/24/22 Allergies Allergy/AdvReac Type Severity Reaction Status Date / Time Sulfa (Sulfonamide Allergy Unknown Anaphylaxis Verified 10/24/22 12:43 Antibiotics) Review of Systems ROS Statement: Those systems with pertinent positive or pertinent negative responses have been documented in the HPI. ROS Other: All systems not noted in ROS Statement are negative. Past Medical History Past Medical History: COPD, GERD/Reflux, Hypertension, Osteoarthritis (OA), Seizure Disorder Additional Past Medical History / Comment(s): Hx Epilepsy, no seizure in 30+ yrs. fracrured ribs fracure mandible History of Any Multi-Drug Resistant Organisms: ESBL Date of last positivie culture/infection: 05/30/15 E. coli ESBL MDRO Source:: Urine Past Surgical History: Hernia Repair, Joint Replacement Additional Past Surgical History / Comment(s): Bilateral cataract surgery, left hip replacement X2, right hip replacement x2, hiatal hernia repair. Past Anesthesia/Blood Transfusion Reactions: No Reported Reaction Additional Past Anesthesia/Blood Transfusion Reaction / Comment(s): Patient states "everytime I have an IV started I get I immediately get diarrhea after." Sister slow to wake up. Past Psychological History: Anxiety, Depression Smoking Status: Current every day smoker Past Alcohol Use History: Occasional Past Drug Use History: None Reported - Past Family History Mother Family Medical History: No Reported History Father Family Medical History: Cancer Additional Family Medical History / Comment(s): lung CA General Exam Limitations: no limitations Course Vital Signs 10/24/22 10/24/22 10/24/22 10:13 10:26 11:11 Temperature 98.8 F Pulse Rate 59 L 147 H Respiratory 18 18 Rate Blood Pressure 94/76 110/95 O2 Sat by Pulse 88 L 99 99 Oximetry 10/24/22 14:44 Temperature 97.4 F L Pulse Rate 117 H Respiratory 16 Rate Blood Pressure 131/94 O2 Sat by Pulse 100 Oximetry EKG Findings - EKG Comments: EKG Findings:: EKG performed at 10:22 sinus tachycardia with short WA rate of 129 WA rate of 112 QRS 67 QT/QTC 321/397 - EKG Results: EKG: interpreted by JC Medical Decision Making - Medical Decision Making Was pt. sent in by a medical professional or institution (, PA, THERAPY TECHNICIAN, urgent care, hospital, or penitentiary...) When possible be specific @ -[No] Did you speak to anyone other than the patient for history (EMS, parent, family, police, friend...)? What history was obtained from this source @ -[No] Did you review nursing and triage notes (agree or disagree)? Why? @ -[I reviewed and agree with nursing and triage notes] Were old charts reviewed (outside hosp., previous admission, EMS record, old EKG, old radiological studies, urgent care reports/EKG's, penitentiary records)? Report findings @ -[No old charts were reviewed] Differential Diagnosis (chest pain, altered mental status, abdominal pain women, abdominal pain men, vaginal bleeding, weakness, fever, dyspnea, syncope, head ache, dizziness, GI bleed, back pain, seizure, CVA, palpatations, mental health)? @ -Differential Chest Pain: Stable Angina, Unstable Angina, STEMI, NSTEMI Aortic Dissection, Pneumothorax, Musculoskeletal, Esophageal Spasm GERD, Cholecystitis, Pancreatitis, Zoster, this is not meant to be an all-inclusive list. EKG interpreted by me (3pts min.). @ -[As above] X-rays interpreted by me (1pt min.). @ -Chest x-ray no acute process. CT interpreted by me (1pt min.). @ -CT of the chest PE study no acute pulmonary embolism, no significant lung findings U/S interpreted by me (1pt. min.). @ -[None done] What testing was considered but not performed or refused? (CT, X-rays, U/S, labs)? Why? @ -[None] What meds were considered but not given or refused? Why? @ -[None] Did you discuss the management of the patient with other professionals (professionals i.e. , PA, THERAPY TECHNICIAN, lab, RT, psych nurse, certified social workers in health care, cnc laser operator, teacher, special forces warrant officer, showcase trimmer)? Give summary @ -Internal medicine - admitting, further ordering lab testing Was smoking cessation discussed for >3mins.? @ -I discussed smoking cessation for greater than 3 minutes. The risk of smoking were discussed with the patient including but not limited to risks of cancer, stroke, coronary artery disease and COPD. Also discussed with patient were multiple methods of quitting smoking. Lastly we discussed the financial cost of smoking. Was critical care preformed (if so, how long)? @ -[No] Were there social determinants of health that impacted care today? How? (Homelessness, low income, unemployed, alcoholism, drug addiction, bowie sportation, low edu. Level, literacy, decrease access to med. care, nursing home, rehab)? @ -[No] Was there de-escalation of care discussed even if they declined (Discuss DNR or withdrawal of care, Hospice)? DNR status @ -[No] What co-morbidities impacted this encounter? (DM, HTN, Smoking, COPD, CAD, Cancer, CVA, ARF, Chemo, Hep., AIDS, mental health diagnosis, sleep apnea, morbid obesity)? @ -Smoking, COPD Was patient admitted / discharged? Hospital course, mention meds given and route, prescriptions, significant lab abnormalities, going to OR and other pertinent info. @ -Admitted 61-year-old present for chest pain shortness breath weakness nausea. Patient found to be significant tachycardic size 140s. Patient was given fluid bolus heart rate has improved. Patient does have moderate hypokalemia potassium 2.9 replacement was ordered, patient did complain of some chest pain initial troponin 0.034. Patient will be admitted for cardiology evaluation, test replaced, IV fluid hydration Undiagnosed new problem with uncertain prognosis? @ -[No] Drug Therapy requiring intensive monitoring for toxicity (Heparin, Nitro, Insulin, Cardizem)? @ -[No] Were any procedures done? @ -[No] Diagnosis/symptom? @ -Chest pain Acute, or Chronic, or Acute on Chronic? @ -acute Uncomplicated (without systemic symptoms) or Complicated (systemic symptoms)? @ -, Located Side effects of treatment? @ -[No] Exacerbation, Progression, or Severe Exacerbation? @ -[No] Poses a threat to life or bodily function? How? (Chest pain, [place], [place], pneumonia, PE, COPD, DKA, ARF, appy, cholecystitis, CVA, Diverticulitis, Homicidal, Suicidal, threat to staff... and all critical care pts) @ -yes Diagnosis/symptom? @ -Hypokalemia Acute, or Chronic, or Acute on Chronic? @ -acute Uncomplicated (without systemic symptoms) or Complicated (systemic symptoms)? @ -uncomplicated Side effects of treatment? @ -[none] Exacerbation, Progression, or Severe Exacerbation] @ -[no] Poses a threat to life or bodily function? @ -yes Diagnosis/symptom? @ -dehydration Acute, or Chronic, or Acute on Chronic? @ -acute Uncomplicated (without systemic symptoms) or Complicated (systemic symptoms)? @ -uncomplicated Side effects of treatment? @ -[none] Exacerbation, Progression, or Severe Exacerbation] @ -[no] Poses a threat to life or bodily function? @ -[no] - Lab Data Result diagrams: 10/24/22 10:49 10/24/22 10:49 Lab Results 10/24/22 10/24/22 10/24/22 Range/Units 10:49 10:49 10:49 WBC 6.8 (3.8-10.6) k/uL RBC 3.82 (3.80-5.40) m/uL Hgb 12.9 (11.4-16.0) gm/dL Hct 37.1 (34.0-46.0) % MCV 97.1 (80.0-100.0) fL MCH 33.9 (25.0-35.0) pg MCHC 34.9 (31.0-37.0) g/dL RDW 17.7 H (11.5-15.5) % Plt Count 236 (150-450) k/uL MPV 10.5 Neutrophils % 78 % Lymphocytes % 14 % Monocytes % 5 % Eosinophils % 0 % Basophils % 0 % Neutrophils # 5.3 (1.3-7.7) k/uL Lymphocytes # 1.0 (1.0-4.8) k/uL Monocytes # 0.4 (0-1.0) k/uL Eosinophils # 0.0 (0-0.7) k/uL Basophils # 0.0 (0-0.2) k/uL Poikilocytosis Slight Anisocytosis Slight Macrocytosis Slight PT 10.2 (9.0-12.0) sec INR 1.0 (<1.2) APTT 23.0 (22.0-30.0) sec D-Dimer (<0.60) mg/L FEU Sodium 131 L (137-145) mmol/L Potassium 2.9 L (3.5-5.1) mmol/L Chloride 96 L (98-107) mmol/L Carbon Dioxide 23 (22-30) mmol/L Anion Gap 12 mmol/L BUN 13 (7-17) mg/dL Creatinine 0.88 (0.52-1.04) mg/dL Est GFR (CKD-EPI)AfAm 83 (>60 ml/min/1.73 sqM) Est GFR (CKD-EPI)NonAf 72 (>60 ml/min/1.73 sqM) Glucose 142 H (74-99) mg/dL Plasma Lactic Acid Joey (0.7-2.0) mmol/L Calcium 8.6 (8.4-10.2) mg/dL Magnesium 2.0 (1.6-2.3) mg/dL Total Bilirubin 1.2 (0.2-1.3) mg/dL AST 203 H (14-36) U/L ALT 77 H (4-34) U/L Alkaline Phosphatase 254 H (38-126) U/L Troponin I (0.000-0.034) ng/mL NT-Pro-B Natriuret Pep pg/mL Total Protein 6.2 L (6.3-8.2) g/dL Albumin 3.3 L (3.5-5.0) g/dL Urine Color Urine Appearance (Clear) Urine pH (5.0-8.0) Ur Specific [place] (1.001-1.035) Urine Protein (Negative) Urine Glucose (UA) (Negative) Urine Ketones (Negative) Urine Blood (Negative) Urine Nitrite (Negative) Urine Bilirubin (Negative) Urine Urobilinogen (<2.0) mg/dL Ur Leukocyte Esterase (Negative) Urine RBC (0-5) /hpf Urine WBC (0-5) /hpf Ur Squamous Epith Cells (0-4) /hpf Amorphous Sediment (None) /hpf Urine Mucus (None) /hpf 10/24/22 10/24/22 10/24/22 Range/Units 10:49 10:49 10:49 WBC (3.8-10.6) k/uL RBC (3.80-5.40) m/uL Hgb (11.4-16.0) gm/dL Hct (34.0-46.0) % MCV (80.0-100.0) fL MCH (25.0-35.0) pg MCHC (31.0-37.0) g/dL RDW (11.5-15.5) % Plt Count (150-450) k/uL MPV Neutrophils % % Lymphocytes % % Monocytes % % Eosinophils % % Basophils % % Neutrophils # (1.3-7.7) k/uL Lymphocytes # (1.0-4.8) k/uL Monocytes # (0-1.0) k/uL Eosinophils # (0-0.7) k/uL Basophils # (0-0.2) k/uL Poikilocytosis Anisocytosis Macrocytosis PT (9.0-12.0) sec INR (<1.2) APTT (22.0-30.0) sec D-Dimer (<0.60) mg/L FEU Sodium (137-145) mmol/L Potassium (3.5-5.1) mmol/L Chloride (98-107) mmol/L Carbon Dioxide (22-30) mmol/L Anion Gap mmol/L BUN (7-17) mg/dL Creatinine (0.52-1.04) mg/dL Est GFR (CKD-EPI)AfAm (>60 ml/min/1.73 sqM) Est GFR (CKD-EPI)NonAf (>60 ml/min/1.73 sqM) Glucose (74-99) mg/dL Plasma Lactic Acid Joey 1.9 (0.7-2.0) mmol/L Calcium (8.4-10.2) mg/dL Magnesium (1.6-2.3) mg/dL Total Bilirubin (0.2-1.3) mg/dL AST (14-36) U/L ALT (4-34) U/L Alkaline Phosphatase (38-126) U/L Troponin I 0.034 (0.000-0.034) ng/mL NT-Pro-B Natriuret Pep 28835 pg/mL Total Protein (6.3-8.2) g/dL Albumin (3.5-5.0) g/dL Urine Color Urine Appearance (Clear) Urine pH (5.0-8.0) Ur Specific [place] (1.001-1.035) Urine Protein (Negative) Urine Glucose (UA) (Negative) Urine Ketones (Negative) Urine Blood (Negative) Urine Nitrite (Negative) Urine Bilirubin (Negative) Urine Urobilinogen (<2.0) mg/dL Ur Leukocyte Esterase (Negative) Urine RBC (0-5) /hpf Urine WBC (0-5) /hpf Ur Squamous Epith Cells (0-4) /hpf Amorphous Sediment (None) /hpf Urine Mucus (None) /hpf 10/24/22 10/24/22 Range/Units 10:49 12:25 WBC (3.8-10.6) k/uL RBC (3.80-5.40) m/uL Hgb (11.4-16.0) gm/dL Hct (34.0-46.0) % MCV (80.0-100.0) fL MCH (25.0-35.0) pg MCHC (31.0-37.0) g/dL RDW (11.5-15.5) % Plt Count (150-450) k/uL MPV Neutrophils % % Lymphocytes % % Monocytes % % Eosinophils % % Basophils % % Neutrophils # (1.3-7.7) k/uL Lymphocytes # (1.0-4.8) k/uL Monocytes # (0-1.0) k/uL Eosinophils # (0-0.7) k/uL Basophils # (0-0.2) k/uL Poikilocytosis Anisocytosis Macrocytosis PT (9.0-12.0) sec INR (<1.2) APTT (22.0-30.0) sec D-Dimer 1.25 H (<0.60) mg/L FEU Sodium (137-145) mmol/L Potassium (3.5-5.1) mmol/L Chloride (98-107) mmol/L Carbon Dioxide (22-30) mmol/L Anion Gap mmol/L BUN (7-17) mg/dL Creatinine (0.52-1.04) mg/dL Est GFR (CKD-EPI)AfAm (>60 ml/min/1.73 sqM) Est GFR (CKD-EPI)NonAf (>60 ml/min/1.73 sqM) Glucose (74-99) mg/dL Plasma Lactic Acid Joey (0.7-2.0) mmol/L Calcium (8.4-10.2) mg/dL Magnesium (1.6-2.3) mg/dL Total Bilirubin (0.2-1.3) mg/dL AST (14-36) U/L ALT (4-34) U/L Alkaline Phosphatase (38-126) U/L Troponin I (0.000-0.034) ng/mL NT-Pro-B Natriuret Pep pg/mL Total Protein (6.3-8.2) g/dL Albumin (3.5-5.0) g/dL Urine Color Yellow Urine Appearance Clear (Clear) Urine pH 6.5 (5.0-8.0) Ur Specific [place] 1.010 (1.001-1.035) Urine Protein 1+ H (Negative) Urine Glucose (UA) Negative (Negative) Urine Ketones 1+ H (Negative) Urine Blood Large H (Negative) Urine Nitrite Negative (Negative) Urine Bilirubin 1+ H (Negative) Urine Urobilinogen 2.0 (<2.0) mg/dL Ur Leukocyte Esterase Negative (Negative) Urine RBC 7 H (0-5) /hpf Urine WBC 6 H (0-5) /hpf Ur Squamous Epith Cells 1 (0-4) /hpf Amorphous Sediment Rare H (None) /hpf Urine Mucus Rare H (None) /hpf Disposition Clinical Impression: Hypokalemia, Chest pain, Dehydration, Dyspnea Disposition: ADMITTED IP TO THIS HOSP Condition: Fair Referrals: None,Stated [Primary Care Provider] - 1-2 days Time of Disposition: 15:05
--- NOTE | 2022-10-24 14:53 | CT ---
CT CHEST FOR PULMONARY EMBOLISM. EXAMINATION TYPE: CT chest angio for PE DATE OF EXAM: 10/24/2022 INDICATION: SOB, Hx COPD CT DLP: 162.9 mGycm, Automated exposure control for dose reduction was used. CONTRAST: Patient injected with 100 mL of Isovue 370. COMPARISON: 07/29/2022 TECHNIQUE: CT of the chest is performed on a spiral scan at 2 mm thick sections. Study is performed with intravenous contrast timed for evaluation for pulmonary embolism. This will limit additional po rtions of the evaluation. 3-D MIP images reconstructed by the technologist are reviewed on the compu ter in the coronal and sagittal planes. FINDINGS: No persistent filling defects are evident to suggest an acute pulmonary embolism. No mediastinal or hilar adenopathy enlarged by CT criteria is evident. The ascending aorta diameter at the level of the main pulmonary artery is 3.1 cm. The main pulmonary artery diameter at the bifur cation is 2.1 cm. Lung windows are clear. Note is made of a nondisplaced right rib fractures, series 501 image 122, image 104, image 99, image 88, image 67, image 46, image 17. More complete healing of the anterior lateral right rib fracture up per lung field is present, Series 501 image 36. This has some interval healing Limited CT section through the upper abdomen are unremarkable. IMPRESSIONS: 1. No acute pulmonary embolism. 2. Multiple old right rib fractures
[2022-10-24] MEDS ORDERED: POTASSIUM BICARBONATE/CIT AC 20 MEQ TABLET.EFF PO ONE (14:57)
[2022-10-24] MEDS ORDERED: ASPIRIN 81 MG PO STA (15:05)
[2022-10-24] MEDS ORDERED: NITROGLYCERIN SL TABS 0.4 MG TAB SUBLINGUAL PRN (15:05)
[2022-10-24] MEDS: SODIUM CHLORIDE 0.9% 1,000 ML IV SCH (16:02)
[2022-10-24] MEDS ORDERED: POTASSIUM CHLORIDE ER 20 MEQ TAB.ER PO STA ×2 (17:39→17:47)
[2022-10-24] MEDS ORDERED: IPRATROPIUM-ALBUTEROL 3 ML NEB INHALATION PRN (17:47)
[2022-10-24] MEDS ORDERED: METOCLOPRAMIDE 5 MG/ML 2 ML VIAL IVP PRN (18:06)
--- NOTE | 2022-10-24 18:12 | P.HPIM ---
History of Present Illness H&P Date: 10/24/22 This is a 61-year-old female who presents to [facility] with generalized weakness and weight loss. Patient states that she has felt unwell since . Ever since Thursday she's had increased nausea vomiting and back pain. She admits that she's had recurrent falls and had recently her jaw wired due to a fracture. Patient has had multiple fractures due to her recurrent falls. This has since been removed. However, patient complains of decreased oral intake .Patient states that since she's had her jaw wired she has lost 16 pounds over the past 6 weeks. Patient denies chest pain or shortness of breath. Patient denies fevers chills diarrhea or constipation. When evaluated in the emergency department patient was mildly hypoxic at 88%. Patient does admit to smoking cigarettes daily. While awaiting in the ER patient had sudden onset tachycardia which has since resolved. Patient states this always happens on and off. Past medical history includes hypertension, hyperlipidemia, COPD, GERD, osteoarthritis, anxiety/depression and seizure disorder. Review of Systems A 14 point review of systems was assessed patient was only positive for those discussed in HPI Past Medical History Past Medical History: COPD, GERD/Reflux, Hypertension, Osteoarthritis (OA), Seizure Disorder Additional Past Medical History / Comment(s): Hx Epilepsy, no seizure in 30+ yrs. fracrured ribs fracure mandible History of Any Multi-Drug Resistant Organisms: ESBL Date of last positivie culture/infection: 05/30/15 E. coli ESBL MDRO Source:: Urine Past Surgical History: Hernia Repair, Joint Replacement Additional Past Surgical History / Comment(s): Bilateral cataract surgery, left hip replacement X2, right hip replacement x2, hiatal hernia repair. Past Anesthesia/Blood Transfusion Reactions: No Reported Reaction Additional Past Anesthesia/Blood Transfusion Reaction / Comment(s): Patient states "everytime I have an IV started I get I immediately get diarrhea after." Sister slow to wake up. Past Psychological History: Anxiety, Depression Smoking Status: Current every day smoker Past Alcohol Use History: Occasional Past Drug Use History: None Reported - Past Family History Mother Family Medical History: No Reported History Father Family Medical History: Cancer Additional Family Medical History / Comment(s): lung CA Medications and Allergies Home Medications Medication Instructions Recorded Confirmed Type DULoxetine HCL [Cymbalta] 60 mg PO DAILY 07/11/16 01/06/23 History Hydrocodone/Acetaminophen [[place] 1 tab PO QID 04/28/16 10/24/22 History 10-325] Esomeprazole Magnesium [NexIUM 20 mg PO DAILY 08/27/21 10/24/22 History 24Hr] Losartan Potassium [Cozaar] 100 mg PO DAILY 11/18/21 10/24/22 History Metoprolol Tartrate [Lopressor] 25 mg PO HS 11/18/21 10/24/22 History Allergies Allergy/AdvReac Type Severity Reaction Status Date / Time Sulfa (Sulfonamide Allergy Unknown Anaphylaxis Verified 10/24/22 12:43 Antibiotics) Physical Exam Osteopathic Statement: *. No significant issues noted on an osteopathic structural exam other than those noted in the History and Physical/Consult. Vitals: Vital Signs Temp Pulse Pulse Resp BP BP Pulse Ox 10/24/22 17:05 97.8 F 109 H 16 118/84 100 10/24/22 17:00 109 H 10/24/22 14:44 97.4 F L 117 H 16 131/94 100 10/24/22 11:11 147 H 18 110/95 99 10/24/22 10:26 99 10/24/22 10:13 98.8 F 59 L 18 94/76 88 L Intake and Output 10/24/22 10/24/22 10/24/22 06:59 14:59 22:59 Other: Weight 37.648 kg General: [non toxic], [no distress], [appears older than stated dimas] Derm: [warm], [dry] Head: [atraumatic], [normocephalic], [symmetric] Eyes: [EOMI], [no lid lag], [anicteric sclera] Mouth: [no lip lesion], [mucus membranes moist] Cardiovascular: [S1S2 reg], [no murmur], [positive posterior tibial pulse bilateral], Lungs: [CTA bilateral], [no rhonchi, no rales] , [no accessory muscle use] Abdominal: [soft], [epigastric tender to palpation], [no guarding], [no appreciable organomegaly] Ext: [no gross muscle atrophy], [no edema], [no contractures] Neuro: [ CN II-XI grossly intact], [no focal neuro deficits] Psych: [Alert], [oriented], [appropriate affect] Results CBC & Chem 7: 10/24/22 10:49 10/24/22 10:49 Labs: Abnormal Lab Results - Last 24 Hours (Table) 10/24/22 10/24/22 10/24/22 Range/Units 10:49 10:49 10:49 RDW 17.7 H (11.5-15.5) % D-Dimer 1.25 H (<0.60) mg/L FEU Sodium 131 L (137-145) mmol/L Potassium 2.9 L (3.5-5.1) mmol/L Chloride 96 L (98-107) mmol/L Glucose 142 H (74-99) mg/dL AST 203 H (14-36) U/L ALT 77 H (4-34) U/L Alkaline Phosphatase 254 H (38-126) U/L Total Protein 6.2 L (6.3-8.2) g/dL Albumin 3.3 L (3.5-5.0) g/dL Urine Protein (Negative) Urine Ketones (Negative) Urine Blood (Negative) Urine Bilirubin (Negative) Urine RBC (0-5) /hpf Urine WBC (0-5) /hpf Amorphous Sediment (None) /hpf Urine Mucus (None) /hpf 10/24/22 Range/Units 12:25 RDW (11.5-15.5) % D-Dimer (<0.60) mg/L FEU Sodium (137-145) mmol/L Potassium (3.5-5.1) mmol/L Chloride (98-107) mmol/L Glucose (74-99) mg/dL AST (14-36) U/L ALT (4-34) U/L Alkaline Phosphatase (38-126) U/L Total Protein (6.3-8.2) g/dL Albumin (3.5-5.0) g/dL Urine Protein 1+ H (Negative) Urine Ketones 1+ H (Negative) Urine Blood Large H (Negative) Urine Bilirubin 1+ H (Negative) Urine RBC 7 H (0-5) /hpf Urine WBC 6 H (0-5) /hpf Amorphous Sediment Rare H (None) /hpf Urine Mucus Rare H (None) /hpf Thrombosis Risk Factor Assmnt - DVT/VTE Prophylaxis DVT/VTE Prophylaxis: Mechanical Prophylaxis ordered Assessment and Plan Assessment: Assessment and plan 1. Nausea/vomiting and abdominal pain etiology unclear Check amylase lipase and ultrasound abdomen IV fluids Nothing by mouth Consult GI 2. Hypokalemia and hyponatremia likely secondary to above Replacement therapy provided Monitor BMP Magnesium level normal 3. Sinus tachycardia likely due to dehydration IV fluid Resume beta peg Cardiology consult Echo ordered 4. History of hypertension BP is currently on the lower end of normal Is continue losartan Restart metoprolol with with parameters 5. Weight loss with failure to thrive Likely secondary to recent jaw surgery Rule out abdominal etiology Ultrasound abdomen ordered GI consulted 6. History of anxiety depression Restart fluoxetine 7. History of GERD Restart PPI 8. GI DVT prophylaxis 9. A.m. labs Disposition: Home with home care versus rehab Anticipated length of stay greater than 2 midnight Patient is a full code Greater than 45 minutes spent coordinating care documenting counseling patient Time with Patient: Greater than 30
[2022-10-24] MEDS: METOPROLOL SUCCINATE (ER) 25 MG TAB.ER.24H PO SCH (18:19)
[2022-10-24] MEDS: PANTOPRAZOLE 40 MG TABLET PO SCH (18:20)
[2022-10-24] MEDS: HYDROcodone/APAP 10-325MG 1 EACH TAB PO SCH ×2 (18:20→22:05)
[2022-10-24] MEDS: DULoxetine HCL 60 MG CAPSULE.DR PO SCH (18:20)
[2022-10-24 19:10] LABS: African American GFR (CKD) 86 (>60 ml/min/1.73 sqM); Amylase 62 U/L (30-110); Anion Gap 6 mmol/L; Blood Urea Nitrogen 13 mg/dL (7-17); Calcium 8.3 mg/dL (8.4-10.2); Carbon Dioxide 25 mmol/L (22-30); Chloride 100 mmol/L (98-107); Glucose 149 mg/dL (74-99); Lipase 333 U/L (23-300); Non-African American GFR(CKD) 75 (>60 ml/min/1.73 sqM); Sodium 131 mmol/L (137-145)
[2022-10-25 00:12] LABS: African American GFR (CKD) 83 (>60 ml/min/1.73 sqM); Anion Gap 4 mmol/L; Blood Urea Nitrogen 12 mg/dL (7-17); Carbon Dioxide 25 mmol/L (22-30); Chloride 101 mmol/L (98-107); Glucose 133 mg/dL (74-99); Potassium 3.4 mmol/L (3.5-5.1); Sodium 130 mmol/L (137-145)
[2022-10-25 00:13] LABS: Calcium 7.9 mg/dL (8.4-10.2); Non-African American GFR(CKD) 72 (>60 ml/min/1.73 sqM)
[2022-10-25] MEDS: HYDROcodone/APAP 10-325MG 1 EACH TAB PO PRN ×3 (00:55→20:51)
[2022-10-25] MEDS: SODIUM CHLORIDE 0.9% 1,000 ML IV SCH ×2 (05:25→17:23)
[2022-10-25 06:02] LABS: Anisocytosis Slight; Basophils % (A) 1 %; Eosinophils # (A) 0.1 k/uL (0-0.7); Eosinophils % (A) 1 %; HCT 29.4 % (34.0-46.0); Hypochromasia Slight; Lymphocytes # (A) 1.9 k/uL (1.0-4.8); Lymphocytes % (A) 33 %; MCH 33.3 pg (25.0-35.0); MCHC 33.2 g/dL (31.0-37.0); MCV 100.2 fL (80.0-100.0); Macrocytosis Slight; Mean Platelet Volume 10.2; Monocytes # (A) 0.3 k/uL (0-1.0); Monocytes % (A) 5 %; Neutrophils # (A) 3.3 k/uL (1.3-7.7); Neutrophils % (A) 58 %; Platelet Count 201 k/uL (150-450); Poikilocytosis Slight; RBC 2.93 m/uL (3.80-5.40); RDW 17.8 % (11.5-15.5); WBC 5.7 k/uL (3.8-10.6)
[2022-10-25 06:03] LABS: HGB 9.8 gm/dL (11.4-16.0)
[2022-10-25 06:27] LABS: ALT 60 U/L (4-34); AST 126 U/L (14-36); African American GFR (CKD) 83 (>60 ml/min/1.73 sqM); Albumin 2.3 g/dL (3.5-5.0); Albumin/Globulin Ratio 0.9; Alkaline Phosphatase 166 U/L (38-126); Anion Gap 3 mmol/L; Blood Urea Nitrogen 12 mg/dL (7-17); Calcium 7.8 mg/dL (8.4-10.2); Carbon Dioxide 22 mmol/L (22-30); Chloride 105 mmol/L (98-107); Globulin 2.5 g/dL; Glucose 88 mg/dL (74-99); Non-African American GFR(CKD) 72 (>60 ml/min/1.73 sqM); Potassium 3.4 mmol/L (3.5-5.1); Sodium 130 mmol/L (137-145); Total Bilirubin 0.5 mg/dL (0.2-1.3); Total Protein 4.8 g/dL (6.3-8.2)
--- NOTE | 2022-10-25 07:49 | US ---
EXAMINATION TYPE: US abdomen complete DATE OF EXAM: 10/25/2022 COMPARISON: CT January 12, 2019 CLINICAL HISTORY: nausea. generalized pain. Small body habitus. TECHNIQUE: Multiple sonographic images of the abdomen are obtained. FINDINGS: EXAM MEASUREMENTS: Liver Length: 14.7 cm Gallbladder Wall: 0.2 cm CBD: 0.3 cm Spleen: 7.3 cm Right Kidney: 8.3 x 3.1 x 4.0 cm Left Kidney: 8.2 x 3.4 x 3.2 cm CAREER DEVELOPMENT COUNSELOR NOTES: Limited due to bowel gas and small body habitus Pancreas: Not well seen Liver: Appears coarse Gallbladder: wnl Evidence for sonographic Obrien's sign: neg CBD: wnl Spleen: Not well visualized, unable to see transverse Right Kidney: No hydronephrosis or masses seen Left Kidney: No hydronephrosis or masses seen, limited due to bowel gas Upper IVC: wnl Abd Aorta: Distal obscured by bowel gas. No AAA visualized in portions seen. The visualized liver is heterogeneous. Evaluation for focal masses suboptimal due to the heterogeneit y. No adjacent ascites. The intrahepatic portion of the IVC and visualized proximal or mid abdominal aorta are within normal limits. There is no evidence of cholelithiasis. Common bile duct is unremar kable. The visualized portions of the pancreas are unremarkable. The spleen is unremarkable. Kidne ys are symmetric and free of hydronephrosis. No renal lesions are seen. IMPRESSION: Suboptimal study. No acute findings are evident on images saved.
[2022-10-25] MEDS ORDERED: POTASSIUM CHLORIDE ER 20 MEQ TAB.ER PO STA (08:14)
[2022-10-25 08:26] LABS: Anisocytosis Slight; Basophils % (A) 0 %; Eosinophils # (A) 0.1 k/uL (0-0.7); Eosinophils % (A) 2 %; HCT 28.3 % (34.0-46.0); HGB 9.5 gm/dL (11.4-16.0); Hypochromasia Slight; Lymphocytes # (A) 1.6 k/uL (1.0-4.8); Lymphocytes % (A) 32 %; MCH 33.3 pg (25.0-35.0); MCHC 33.7 g/dL (31.0-37.0); Macrocytosis Slight; Mean Platelet Volume 9.9; Monocytes # (A) 0.2 k/uL (0-1.0); Monocytes % (A) 4 %; Neutrophils % (A) 59 %; Platelet Count 198 k/uL (150-450); Poikilocytosis Slight; RBC 2.86 m/uL (3.80-5.40); RDW 17.9 % (11.5-15.5); WBC 5.1 k/uL (3.8-10.6)
[2022-10-25] MEDS ORDERED: ASPIRIN 325 MG TAB PO SCH (09:00)
[2022-10-25 09:17] LABS: LDL Cholesterol,Calculated 103.8 mg/dL (0.0-131.0)
[2022-10-25] MEDS: DULoxetine HCL 60 MG CAPSULE.DR PO SCH (10:14)
[2022-10-25] MEDS: PANTOPRAZOLE 40 MG TABLET PO SCH (10:14)
[2022-10-25] MEDS: HYDROcodone/APAP 10-325MG 1 EACH TAB PO SCH ×4 (10:15→20:53)
[2022-10-25] MEDS: METOPROLOL SUCCINATE (ER) 25 MG TAB.ER.24H PO SCH (10:16)
[2022-10-25 12:32] LABS: % Iron Saturation 57.47 (12.00-45.00)
--- NOTE | 2022-10-25 13:14 | P.PN ---
Subjective Progress Note Date: 10/25/22 Principal diagnosis: Patient seen and examined at bedside. Patient denies chest pain, shortness breath, nausea, vomiting, fever or chills. Patient is resting comfortably. Patient states that her abdominal pain is improved. Objective - Vital Signs Vital signs: Vital Signs Temp 96.1 F L 10/25/22 07:00 Pulse 78 10/25/22 09:14 Resp 19 10/25/22 07:00 BP 105/69 10/25/22 09:14 Pulse Ox 100 10/25/22 09:24 FiO2 Intake & Output 10/24/22 10/25/22 10/25/22 18:59 06:59 18:59 Intake Total 118 Balance 118 Weight 37.648 kg Intake: Oral 118 Other: # Voids 4 - Exam General: [non toxic], [no distress], [appears at stated age] Derm: [warm], [dry] Head: [atraumatic], [normocephalic], [symmetric] Eyes: [EOMI], [no lid lag], [anicteric sclera] Mouth: [no lip lesion], [mucus membranes moist] Cardiovascular: [S1S2 reg], [no murmur], [positive posterior tibial pulse bilateral], Lungs: [CTA bilateral], [no rhonchi, no rales] , [no accessory muscle use] Abdominal: [soft], [ nontender to palpation], [no guarding], [no appreciable organomegaly] Ext: [no gross muscle atrophy], [no edema], [no contractures] Neuro: [ CN II-XI grossly intact], [no focal neuro deficits] Psych: [Alert], [oriented], [appropriate affect] - Labs CBC & Chem 7: 10/25/22 08:11 10/25/22 05:26 Labs: Abnormal Lab Results - Last 24 Hours (Table) 10/24/22 10/24/22 10/24/22 Range/Units 10:49 12:25 18:29 RBC (3.80-5.40) m/uL Hgb (11.4-16.0) gm/dL Hct (34.0-46.0) % MCV (80.0-100.0) fL RDW (11.5-15.5) % D-Dimer 1.25 H (<0.60) mg/L FEU Sodium 131 L (137-145) mmol/L Potassium 3.0 L (3.5-5.1) mmol/L Glucose 149 H (74-99) mg/dL Calcium 8.3 L (8.4-10.2) mg/dL TIBC (228-460) ug/dL % Saturation (12.00-45.00) Transferrin (204.0-354.0) mg/dL AST (14-36) U/L ALT (4-34) U/L Alkaline Phosphatase (38-126) U/L Total Protein (6.3-8.2) g/dL Albumin (3.5-5.0) g/dL HDL Cholesterol (40.00-60.00) mg/dL Lipase 333 H (23-300) U/L Folate (4.40-31.00) ng/mL Urine Protein 1+ H (Negative) Urine Ketones 1+ H (Negative) Urine Blood Large H (Negative) Urine Bilirubin 1+ H (Negative) Urine RBC 7 H (0-5) /hpf Urine WBC 6 H (0-5) /hpf Amorphous Sediment Rare H (None) /hpf Urine Mucus Rare H (None) /hpf 10/24/22 10/25/22 10/25/22 Range/Units 23:03 05:26 05:26 RBC 2.93 L (3.80-5.40) m/uL Hgb 9.8 L D (11.4-16.0) gm/dL Hct 29.4 L (34.0-46.0) % MCV 100.2 H (80.0-100.0) fL RDW 17.8 H (11.5-15.5) % D-Dimer (<0.60) mg/L FEU Sodium 130 L (137-145) mmol/L Potassium 3.4 L (3.5-5.1) mmol/L Glucose 133 H (74-99) mg/dL Calcium 7.9 L (8.4-10.2) mg/dL TIBC (228-460) ug/dL % Saturation (12.00-45.00) Transferrin (204.0-354.0) mg/dL AST (14-36) U/L ALT (4-34) U/L Alkaline Phosphatase (38-126) U/L Total Protein (6.3-8.2) g/dL Albumin (3.5-5.0) g/dL HDL Cholesterol 65.40 H (40.00-60.00) mg/dL Lipase (23-300) U/L Folate (4.40-31.00) ng/mL Urine Protein (Negative) Urine Ketones (Negative) Urine Blood (Negative) Urine Bilirubin (Negative) Urine RBC (0-5) /hpf Urine WBC (0-5) /hpf Amorphous Sediment (None) /hpf Urine Mucus (None) /hpf 10/25/22 10/25/22 10/25/22 Range/Units 05:26 05:26 05:26 RBC (3.80-5.40) m/uL Hgb (11.4-16.0) gm/dL Hct (34.0-46.0) % MCV (80.0-100.0) fL RDW (11.5-15.5) % D-Dimer (<0.60) mg/L FEU Sodium 130 L (137-145) mmol/L Potassium 3.4 L (3.5-5.1) mmol/L Glucose (74-99) mg/dL Calcium 7.8 L (8.4-10.2) mg/dL TIBC 151 L (228-460) ug/dL % Saturation 57.47 H (12.00-45.00) Transferrin 108.0 L (204.0-354.0) mg/dL AST 126 H (14-36) U/L ALT 60 H (4-34) U/L Alkaline Phosphatase 166 H (38-126) U/L Total Protein 4.8 L (6.3-8.2) g/dL Albumin 2.3 L (3.5-5.0) g/dL HDL Cholesterol (40.00-60.00) mg/dL Lipase (23-300) U/L Folate <2.00 L (4.40-31.00) ng/mL Urine Protein (Negative) Urine Ketones (Negative) Urine Blood (Negative) Urine Bilirubin (Negative) Urine RBC (0-5) /hpf Urine WBC (0-5) /hpf Amorphous Sediment (None) /hpf Urine Mucus (None) /hpf 10/25/22 Range/Units 08:11 RBC 2.86 L (3.80-5.40) m/uL Hgb 9.5 L (11.4-16.0) gm/dL Hct 28.3 L (34.0-46.0) % MCV (80.0-100.0) fL RDW 17.9 H (11.5-15.5) % D-Dimer (<0.60) mg/L FEU Sodium (137-145) mmol/L Potassium (3.5-5.1) mmol/L Glucose (74-99) mg/dL Calcium (8.4-10.2) mg/dL TIBC (228-460) ug/dL % Saturation (12.00-45.00) Transferrin (204.0-354.0) mg/dL AST (14-36) U/L ALT (4-34) U/L Alkaline Phosphatase (38-126) U/L Total Protein (6.3-8.2) g/dL Albumin (3.5-5.0) g/dL HDL Cholesterol (40.00-60.00) mg/dL Lipase (23-300) U/L Folate (4.40-31.00) ng/mL Urine Protein (Negative) Urine Ketones (Negative) Urine Blood (Negative) Urine Bilirubin (Negative) Urine RBC (0-5) /hpf Urine WBC (0-5) /hpf Amorphous Sediment (None) /hpf Urine Mucus (None) /hpf Assessment and Plan Assessment: Assessment and plan 1. Nausea/vomiting and abdominal pain etiology unclear Lipase slightly elevated Ultrasound abdomen insignificant Repeat lipase level CT of abdomen ordered IV fluids Advance diet as tolerated 2. Hypokalemia and hyponatremia likely secondary to above improving Replacement therapy provided Monitor BMP 3. Sinus tachycardia likely due to dehydration IV fluid Cardiology following Echo ordered 4. History of hypertension BP is currently on the lower end of normal Patient has not been receiving any antihypertensives due to low blood pressure 5. Weight loss with failure to thrive Likely secondary to recent jaw surgery Rule out abdominal etiology Ultrasound abdomen ordered GI consulted 6. History of anxiety depression Restart fluoxetine 7. History of GERD Restart PPI 8. GI DVT prophylaxis 9. A.m. labs Disposition: Home with home care versus rehab Anticipated length of stay greater than 2 midnight Patient is a full code Greater than 45 minutes spent coordinating care documenting counseling patient
[2022-10-25] MEDS: FOLIC ACID 1 MG TAB PO SCH (13:42)
--- NOTE | 2022-10-25 15:25 | P.CRDCN ---
History of Present Illness Consult date: 10/25/22 Consult reason: chest pain History of present illness: This is Jaison Ardon NP, I'm dictating on behalf of Dr. Peterson's H&P and A&P The patient was interviewed and examined. HPI: Patient is a pleasant 61-year-old female who initially presented to the hospital with multiple complaints, including nausea, dyspnea, chest pain, abdominal pain, and weakness. Patient reports that she's had nausea, vomiting, midsternal chest pain, and weakness for the last few days. This has not gotten better and this is why she presented to the hospital for evaluation. Patient was found to be dehydrated, with sinus tachycardia on EKG. Patient was also f ound to have multiple electrolyte abnormalities as well as liver and pancreas enzyme elevations. We were consulted for the complaint of chest discomfort and elevated heart rate. Patient has a past history significant for hypertension, GERD, COPD, and seizures. This morning the patient reports that she's feeling okay today. She does report occasional midsternal chest discomfort that appears to radiate downwards towards her belly. Patient does report that she sometimes feels her heart is fluttering in her chest as well. Patient does report that this is all relative to a recent fall where she broke her jaw and her jaw wired shut for proximally 6 weeks. She states that she lost a significant amount of weight during that time, and does not feel that she was able to adequately hydrate or eat. ROS: [No fever, chills, or rigors] [no cough, phlegm, or expectoration] [no nausea, vomiting, or diarrhea] [no hematuria, dysuria] [no musculoskelatal complaints] [no strokes or seizures] [no skin lesions] EXAMINATION: GENERAL: Well-appearing, well-nourished and in no acute distress. NECK: Supple without JVD or thyromegaly. LUNGS: Breath sounds clear to auscultation bilaterally. Respiration equal and unlabored. No wheezes, rales or rhonchi. HEART: Regular rate and rhythm without murmurs, rubs or gallops. S1 and S2 heard. EXTREMITIES: Normal range of motion, no edema. No clubbing or cyanosis. Peripheral pulses intact and strong. REVIEW OF LABS, ECG & MEDICAL DATA: LABS: White count 5.7, hemoglobin 9.8, platelet 201, sodium 1:30, potassium 3.4, B1 12, creatinine 0.87, calcium 7.8, AST 126, AOT 60, alkaline phosphatase 166, troponin 0.029, 0.028, total protein 4.8, albumin 2.3, triglycerides 134, cholesterol 196, LDL 103, HDL 65.4, lipase 333, folate less than 2, TSH 2.14 EKG: EKG dated 10/24/2022, atrial tachycardia with multifocal P waves IMAGING: Chest x-ray dated 10/24/2022 demonstrates no acute cardiopulmonary disease process, and COPD changes. CT angiogram of the chest dated 10/24/2022 demonstrates no acute pulmonary embolism, multiple old right rib fractures. Dominant ultrasound dated 10/25/2022 demonstrates suboptimal study, no acute findings are evident on images saved. VITALS: Temp 96.1, pulse 85, respirations 19, blood pressure 108/70, O2 saturation 100% on 3 L nasal cannula IMPRESSION: 1. Dehydration 2. GERD 3. Weight loss 4. Hypertension PLAN: Check orthostatic vital signs. If positive, likely secondary to dehydration. Ensure adequate fluid intake. Decrease losartan to 50 mg daily at discharge, if blood pressures remain low, discontinue at discharge. The etiology of the patient's chest pain and tachycardia is not cardiac in nature. It is likely secondary to dehydration and the weight loss. Recommend workup for weight loss secondary to elevated liver panel as well as lipase. No further recommendations from a cardiology standpoint at this time. Thank you for the consult and allowing us to participate in the care of this patient. If further recommendations are needed please do not hesitate to reconsult us. Past Medical History Past Medical History: COPD, GERD/Reflux, Hypertension, Osteoarthritis (OA), Seizure Disorder Additional Past Medical History / Comment(s): Hx Epilepsy, no seizure in 30+ yrs. fracrured ribs fracure mandible History of Any Multi-Drug Resistant Organisms: ESBL Date of last positivie culture/infection: 05/30/15 E. coli ESBL MDRO Source:: Urine Past Surgical History: Hernia Repair, Joint Replacement Additional Past Surgical History / Comment(s): Bilateral cataract surgery, left hip replacement X2, right hip replacement x2, hiatal hernia repair. Past Anesthesia/Blood Transfusion Reactions: No Reported Reaction Additional Past Anesthesia/Blood Transfusion Reaction / Comment(s): Patient states "everytime I have an IV started I get I immediately get diarrhea after." Sister slow to wake up. Past Psychological History: Anxiety, Depression Smoking Status: Current every day smoker Past Alcohol Use History: Occasional Additional Past Alcohol Use History / Comment(s): Started smoking at age 16, currently smokes 1 PPD. Normally has 2-4 alcoholic drinks daily, had one drink last on 09/10/20, states not having any more prior to surgery. Past Drug Use History: None Reported - Past Family History Mother Family Medical History: No Reported History Father Family Medical History: Cancer Additional Family Medical History / Comment(s): lung CA Medications and Allergies Home Medications Medication Instructions Recorded Confirmed Type DULoxetine HCL [Cymbalta] 60 mg PO DAILY 04/28/16 10/24/22 History Hydrocodone/Acetaminophen [[place] 1 tab PO QID 04/28/16 10/24/22 History 10-325] Esomeprazole Magnesium [NexIUM 20 mg PO DAILY 08/27/21 10/24/22 History 24Hr] Losartan Potassium [Cozaar] 100 mg PO DAILY 11/18/21 10/24/22 History Metoprolol Tartrate [Lopressor] 25 mg PO HS 11/18/21 10/24/22 History Allergies Allergy/AdvReac Type Severity Reaction Status Date / Time Sulfa (Sulfonamide Allergy Unknown Anaphylaxis Verified 10/24/22 12:43 Antibiotics) Physical Exam Vitals: Vital Signs Temp Pulse Pulse Pulse Pulse Resp BP 10/25/22 14:06 96.8 F L 59 L 18 10/25/22 09:24 10/25/22 09:14 92 89 78 88/64 10/25/22 07:00 96.1 F L 85 19 10/25/22 01:19 97.6 F 86 19 10/24/22 18:54 97.9 F 110 H 18 10/24/22 17:05 97.8 F 109 H 16 10/24/22 17:00 109 H BP BP BP BP Pulse Ox 10/25/22 14:06 111/75 94 L 10/25/22 09:24 100 10/25/22 09:14 80/57 105/69 10/25/22 07:00 108/70 100 10/25/22 01:19 106/76 100 10/24/22 18:54 114/81 100 10/24/22 17:05 118/84 100 10/24/22 17:00 Intake and Output 10/25/22 10/25/22 10/25/22 06:59 14:59 22:59 Other: # Voids 4 1 Results 10/25/22 08:11 10/25/22 05:26 Cardiac Enzymes 10/24/22 10/24/22 10/25/22 Range/Units 15:46 18:29 05:26 AST 126 H (14-36) U/L Troponin I 0.029 0.028 (0.000-0.034) ng/mL Lipids 10/25/22 Range/Units 05:26 Triglycerides 134.00 (0.00-149.00) mg/dL Cholesterol 196.00 (0.00-200.00) mg/dL HDL Cholesterol 65.40 H (40.00-60.00) mg/dL Cholesterol/HDL Ratio 3.00 Ratio CBC 10/25/22 10/25/22 Range/Units 05:26 08:11 WBC 5.7 5.1 (3.8-10.6) k/uL RBC 2.93 L 2.86 L (3.80-5.40) m/uL Hgb 9.8 L D 9.5 L (11.4-16.0) gm/dL Hct 29.4 L 28.3 L (34.0-46.0) % Plt Count 201 198 (150-450) k/uL Comprehensive Metabolic Panel 10/24/22 10/24/22 10/25/22 Range/Units 18:29 23:03 05:26 Sodium 131 L 130 L 130 L (137-145) mmol/L Potassium 3.0 L 3.4 L 3.4 L (3.5-5.1) mmol/L Chloride 100 101 105 (98-107) mmol/L Carbon Dioxide 25 25 22 (22-30) mmol/L BUN 13 12 12 (7-17) mg/dL Creatinine 0.85 0.87 0.87 (0.52-1.04) mg/dL Glucose 149 H 133 H 88 (74-99) mg/dL Calcium 8.3 L 7.9 L 7.8 L (8.4-10.2) mg/dL AST 126 H (14-36) U/L ALT 60 H (4-34) U/L Alkaline Phosphatase 166 H (38-126) U/L Total Protein 4.8 L (6.3-8.2) g/dL Albumin 2.3 L (3.5-5.0) g/dL Current Medications Generic Name Dose Route Start Last Admin Trade Name Freq PRN Reason Stop Dose Admin Hydrocodone Bitart/Acetaminophen 1 each 10/24/22 15:21 10/25/22 07:00 Hydrocodone/Apap 10-325mg 1 Each Tab PO 1 each Q6HR PRN Administration Breakthrough Pain Hydrocodone Bitart/Acetaminophen 1 each 10/24/22 18:00 10/25/22 13:41 Hydrocodone/Apap 10-325mg 1 Each Tab PO 1 each QID BLAZE Administration Albuterol/Ipratropium 3 ml 10/24/22 17:47 Ipratropium-Albuterol 3 Ml Neb INHALATION RT-QID PRN Shortness Of Breath Or Wheezing Aspirin 81 mg 10/26/22 09:00 Aspirin 81 Mg PO DAILY BLAZE Calcium Carbonate 1 each 10/25/22 17:30 Calcium Carb-Vit D 500 Mg-5 Mcg Tab PO BID-W/MEALS BLAZE Duloxetine HCl 60 mg 10/24/22 17:45 10/25/22 10:14 Duloxetine Hcl 60 Mg Capsule.Dr PO 60 mg DAILY BLAZE Administration Folic Acid 1 mg 10/25/22 13:30 10/25/22 13:42 Folic Acid 1 Mg Tab PO 1 mg DAILY BLAZE Administration Sodium Chloride 1,000 mls @ 75 mls/hr 10/24/22 15:15 10/25/22 05:25 Saline 0.9% IV 75 mls/hr .[id number] BLAZE Administration Metoprolol Succinate 25 mg 10/24/22 18:00 10/25/22 10:16 Metoprolol Succinate (Er) 25 Mg Tab.Er.24h PO Not Given DAILY BLAZE Nitroglycerin 0.4 mg 10/24/22 15:05 Nitroglycerin Sl Tabs 0.4 Mg Tab SUBLINGUAL Q5M PRN Chest Pain Ondansetron HCl 4 mg 10/24/22 18:05 Ondansetron 4 Mg/2 Ml Vial IVP Q6HR PRN Nausea And Vomiting Pantoprazole Sodium 40 mg 10/24/22 17:45 10/25/22 10:14 Pantoprazole 40 Mg Tablet PO 40 mg DAILY BLAZE Administration Intake and Output 10/25/22 10/25/22 10/25/22 06:59 14:59 22:59 Other: # Voids 4 1 10/25/22 08:11 10/25/22 05:26
--- NOTE | 2022-10-25 16:58 | CT ---
EXAMINATION TYPE: CT abdomen pelvis w con DATE OF EXAM: 10/25/2022 COMPARISON: 01/12/2019 HISTORY: Abdomen pain and weakness. CT DLP: 476.9 mGycm Automated exposure control for dose reduction was used. CONTRAST: Performed with IV Contrast, patient injected with 100cc mL of Isovue 300. Images obtained from the diaphragm to the floor the pelvis with the IV contrast. There is some mild interstitial infiltrate and atelectasis at the posterior lung bases. Heart size is normal. No pericardial effusion. There are small bilateral pleural effusions. There is some fatty infiltration of the liver. Spleen is intact. No evidence of pancreatic mass. Stom ach is intact. Gallbladder appears normal. There are large bilateral fluid levels extending to the descending colon. Bladder distends smoothly w ithout contrast. Delayed images show normal renal excretion. No evidence of ascites. No free air. No sign of a bowel obstruction. There is some depression of the superior endplate of L3 vertebra 35%. Th ere is wedging of L1 vertebra 25%. There is bilateral hip prosthesis. The bony pelvis is intact. The hip joints are intact. Appendix not seen. IMPRESSION: Small pleural effusions and mild basilar pulmonary infiltrates which appear new compared to old exam normal heart. There are some large bowel fluid levels could relate to mild ileus. There are mild compression fractures of L1 and L3 which appear new compared to old exam.
[2022-10-25] MEDS: CALCIUM CARB-VIT D 500 MG-5 MCG TAB PO SCH (17:23)
[2022-10-25 17:51] VITALS: BMI 14.2
--- NOTE | 2022-10-25 18:43 | CA ---
Transthoracic Echo Report Name: Jade Oquendo Age: 61 Gender: F : 1960 Exam Date: 10/25/2022 10:19 Exam Location: [facility] Echo Ht (in): 64 Wt (lb): 83 Ordering Physician: Maicol Awad Attending/Referring Phys: Track Hoe Operator Laureen Virgen RDCS Procedure CPT: Indications: Chest Pain Cardiac Hx: Technical Quality: Fair Contrast 1: Total Dose (mL): Contrast 2: Total Dose (mL): MEASUREMENTS (Male / Female) Normal Values 2D ECHO LV Diastolic Diameter PLAX 3.2 cm 4.2 - 5.9 / 3.9 - 5.3 cm LV Systolic Diameter PLAX 1.8 cm IVS Diastolic Thickness 1.0 cm 0.6 - 1.0 / 0.6 - 0.9 cm LVPW Diastolic Thickness 0.8 cm 0.6 - 1.0 / 0.6 - 0.9 cm LV Relative Wall Thickness 0.6 DOPPLER AV Peak Velocity 119.5 cm/s AV Peak Gradient 5.7 mmHg AV Mean Velocity 79.1 cm/s AV Mean Gradient 2.9 mmHg AV Velocity Time Integral 21.4 cm LVOT Peak Velocity 137.3 cm/s LVOT Peak Gradient 7.5 mmHg MV Area PHT 4.3 cm??? Mitral E Point Velocity 65.6 cm/s Mitral A Point Velocity 86.6 cm/s Mitral E to A Ratio 0.8 MV Deceleration Time 175.0 ms MV E' Velocity 5.0 cm/s Mitral E to MV E' Ratio 13.1 TR Peak Velocity 157.4 cm/s TR Peak Gradient 9.9 mmHg Right Ventricular Systolic Press 14.9 mmHg FINDINGS Left Ventricle Normal Left ventricular size, wall thickness, systolic function with no obvious regional wall motion abnormalities. Normal Left ventricular diastolic filling pattern. Left ventricular ejection fraction is estimated at 55-60 %. Right Ventricle Normal right ventricular size and function. Right ventricular systolic pressure within normal limits. Right Atrium Normal right atrial size. Left Atrium Normal left atrial size. Mitral Valve Mild mitral regurgitation. Aortic Valve No aortic valve stenosis or regurgitation. Tricuspid Valve Mild tricuspid regurgitation. Pulmonic Valve Pulmonic valve not well visualized. Pericardium No pericardial effusion. Echo free space anterior to the right ventricle likely represents a fat pad. Aorta Normal size aortic root and proximal ascending aorta. CONCLUSIONS Normal LV systolic function Normal RV systolic function echo-free space along the free wall of the RV only Previewed by: Dr. Kam Peterson MD (Electronically Signed) Final Date: 25 October 2022 18:42
[2022-10-26] MEDS: HYDROcodone/APAP 10-325MG 1 EACH TAB PO PRN ×2 (04:55→15:45)
[2022-10-26] MEDS: CALCIUM CARB-VIT D 500 MG-5 MCG TAB PO SCH ×2 (04:56→18:23)
[2022-10-26] MEDS: SODIUM CHLORIDE 0.9% 1,000 ML IV SCH (04:57)
[2022-10-26 07:00] LABS: ALT 60 U/L (4-34); AST 107 U/L (14-36); African American GFR (CKD) 87 (>60 ml/min/1.73 sqM); Albumin 2.1 g/dL (3.5-5.0); Alkaline Phosphatase 142 U/L (38-126); Anion Gap 1 mmol/L; Blood Urea Nitrogen 10 mg/dL (7-17); Calcium 7.7 mg/dL (8.4-10.2); Carbon Dioxide 23 mmol/L (22-30); Chloride 108 mmol/L (98-107); Globulin 2.2 g/dL; Glucose 79 mg/dL (74-99); Lipase 210 U/L (23-300); Non-African American GFR(CKD) 75 (>60 ml/min/1.73 sqM); Potassium 4.1 mmol/L (3.5-5.1); Sodium 132 mmol/L (137-145); Total Bilirubin 0.2 mg/dL (0.2-1.3); Total Protein 4.3 g/dL (6.3-8.2)
[2022-10-26 07:33] LABS: Anisocytosis Slight; Basophils % (A) 0 %; Eosinophils # (A) 0.1 k/uL (0-0.7); Eosinophils % (A) 2 %; HCT 30.3 % (34.0-46.0); Hypochromasia Moderate; Lymphocytes # (A) 1.4 k/uL (1.0-4.8); Lymphocytes % (A) 28 %; MCH 34.1 pg (25.0-35.0); MCHC 33.1 g/dL (31.0-37.0); Macrocytosis Moderate; Mean Platelet Volume 10.7; Monocytes # (A) 0.2 k/uL (0-1.0); Monocytes % (A) 4 %; Neutrophils # (A) 3.1 k/uL (1.3-7.7); Neutrophils % (A) 63 %; Platelet Count 197 k/uL (150-450); Poikilocytosis Slight; RBC 2.94 m/uL (3.80-5.40); RDW 18.1 % (11.5-15.5); WBC 4.9 k/uL (3.8-10.6)
[2022-10-26] MEDS: METOPROLOL SUCCINATE (ER) 25 MG TAB.ER.24H PO SCH (08:51)
--- NOTE | 2022-10-26 09:58 | P.PN ---
Subjective Principal diagnosis: Patient seen and examined at bedside. CT abdomen and pelvis revealed ileus. Awaiting surgery recommendations. No GI research and evaluation analyst this weekend. She states that she has some mild nausea and epigastric abdominal pain. Patient denies chest pain shortness breath fever chills diarrhea or constipation. Objective - Vital Signs Vital signs: Vital Signs Temp 97.7 F 10/26/22 07:00 Pulse 91 10/26/22 07:00 Resp 18 10/26/22 07:00 BP 95/64 10/26/22 07:00 Pulse Ox 100 10/26/22 07:00 FiO2 Intake & Output 10/25/22 10/26/22 10/26/22 18:59 06:59 18:59 Intake Total 236 Balance 236 Weight 37.648 kg Intake: Oral 236 Other: # Voids 1 1 - Exam General: [non toxic], [no distress], [appears at stated age] Derm: [warm], [dry] Head: [atraumatic], [normocephalic], [symmetric] Eyes: [EOMI], [no lid lag], [anicteric sclera] Mouth: [no lip lesion], [mucus membranes moist] Cardiovascular: [S1S2 reg], [no murmur], [positive posterior tibial pulse bilateral], Lungs: [CTA bilateral], [no rhonchi, no rales] , [no accessory muscle use] Abdominal: [soft], [ tender to palpation], [no guarding], [no appreciable organomegaly] Ext: [no gross muscle atrophy], [no edema], [no contractures] Neuro: [ CN II-XI grossly intact], [no focal neuro deficits] Psych: [Alert], [oriented], [appropriate affect] - Labs CBC & Chem 7: 10/26/22 06:14 10/26/22 06:14 Labs: Abnormal Lab Results - Last 24 Hours (Table) 10/25/22 10/25/22 10/25/22 Range/Units 05:26 05:26 05:26 RBC (3.80-5.40) m/uL Hgb (11.4-16.0) gm/dL Hct (34.0-46.0) % MCV (80.0-100.0) fL RDW (11.5-15.5) % Sodium (137-145) mmol/L Chloride (98-107) mmol/L Calcium (8.4-10.2) mg/dL TIBC 151 L (228-460) ug/dL % Saturation 57.47 H (12.00-45.00) Transferrin 108.0 L (204.0-354.0) mg/dL AST (14-36) U/L ALT (4-34) U/L Alkaline Phosphatase (38-126) U/L Total Protein (6.3-8.2) g/dL Albumin (3.5-5.0) g/dL Lipase 74 H (14-63) U/L Folate <2.00 L (4.40-31.00) ng/mL 10/26/22 10/26/22 Range/Units 06:14 06:14 RBC 2.94 L (3.80-5.40) m/uL Hgb 10.0 L (11.4-16.0) gm/dL Hct 30.3 L (34.0-46.0) % MCV 103.0 H (80.0-100.0) fL RDW 18.1 H (11.5-15.5) % Sodium 132 L (137-145) mmol/L Chloride 108 H (98-107) mmol/L Calcium 7.7 L (8.4-10.2) mg/dL TIBC (228-460) ug/dL % Saturation (12.00-45.00) Transferrin (204.0-354.0) mg/dL AST 107 H (14-36) U/L ALT 60 H (4-34) U/L Alkaline Phosphatase 142 H (38-126) U/L Total Protein 4.3 L (6.3-8.2) g/dL Albumin 2.1 L (3.5-5.0) g/dL Lipase (14-63) U/L Folate (4.40-31.00) ng/mL Assessment and Plan Assessment: Assessment and plan 1. Nausea/vomiting and abdominal pain due to ileus CT abdomen and pelvis showed mild ileus Surgery consulted Ultrasound abdomen insignificant IV fluids Nothing by mouth 2. Small pleural effusions and mild basilar infiltrate is new compared to prior Likely due to fluid overload Discontinue fluids for now Patient denies chest pain or shortness of breath Patient further denies cough 3. Hypokalemia and hyponatremia likely secondary to above improving Replacement therapy provided Monitor BMP 3. Sinus tachycardia likely due to dehydration resolved Cardiology following Echo revealed LV function estimated at 55-60% 4. History of hypertension BP is currently on the lower end of normal Patient has not been receiving any antihypertensives due to low blood pressure 5. Weight loss with failure to thrive Likely secondary to recent jaw surgery CT of the abdomen shows only Ultrasound abdomen negative 6. History of anxiety depression Restart fluoxetine 7. History of GERD Restart PPI 8. GI DVT prophylaxis 9. A.m. labs Disposition: Home with home care versus rehab Anticipated length of stay greater than 2 midnight Patient is a full code Greater than 45 minutes spent coordinating care documenting counseling patient
[2022-10-26] MEDS: HYDROcodone/APAP 10-325MG 1 EACH TAB PO SCH ×4 (12:50→20:39)
[2022-10-26] MEDS: DULoxetine HCL 60 MG CAPSULE.DR PO SCH (14:10)
[2022-10-26] MEDS: ASPIRIN 81 MG PO SCH (14:10)
[2022-10-26] MEDS: FOLIC ACID 1 MG TAB PO SCH (14:11)
[2022-10-26] MEDS: PANTOPRAZOLE 40 MG TABLET PO SCH (14:11)
--- NOTE | 2022-10-26 15:05 | P.GSCN ---
History of Present Illness Consult date: 10/26/22 Reason for Consult: Abdominal pain History of present illness: 61-year-old female presents to the hospital complaining of weakness. Patient wi th decreased oral intake after recent jaw surgery. Patient states she has vague chronic abdominal pains. Describes chronic constipation. Prior to admission she apparently was having nausea and vomiting for a day or so. Last bowel movement was on Thursday. She is passing flatus. No nausea and vomiting for the last few days. CAT scan abdomen and pelvis was ordered which shows some constipation and mildly dilated bowel loops consistent with nonspecific ileus. Review of Systems The patient denies any acute changes in vision or hearing, no dysphagia or odynophagia, no chest pain or shortness of breath, no dysuria or hematuria, no headache, no runny nose, no rectal bleeding or melena, no unexplained weight loss Past Medical History Past Medical History: COPD, GERD/Reflux, Hypertension, Osteoarthritis (OA), Seizure Disorder Additional Past Medical History / Comment(s): Hx Epilepsy, no seizure in 30+ yrs. fracrured ribs fracure mandible History of Any Multi-Drug Resistant Organisms: ESBL Year Discovered:: 05/30/15 E. coli ESBL MDRO Source:: Urine Past Surgical History: Hernia Repair, Joint Replacement Additional Past Surgical History / Comment(s): Bilateral cataract surgery, left hip replacement X2, right hip replacement x2, hiatal hernia repair. Past Anesthesia/Blood Transfusion Reactions: No Reported Reaction Additional Past Anesthesia/Blood Transfusion Reaction / Comm: Patient states "everytime I have an IV started I get I immediately get diarrhea after." Sister slow to wake up. Past Psychological History: Anxiety, Depression Smoking Status: Current every day smoker Past Alcohol Use History: Occasional Additional Past Alcohol Use History / Comment(s): Started smoking at age 16, currently smokes 1 PPD. Normally has 2-4 alcoholic drinks daily, had one drink last on 09/10/20, states not having any more prior to surgery. Past Drug Use History: None Reported - Past Family History Mother Family Medical History: No Reported History Father Family Medical History: Cancer Additional Family Medical History / Comment(s): lung CA Medications and Allergies Home Medications Medication Instructions Recorded Confirmed Type DULoxetine HCL [Cymbalta] 60 mg PO DAILY 04/28/16 10/24/22 History Hydrocodone/Acetaminophen [[place] 1 tab PO QID 04/28/16 10/24/22 History 10-325] Esomeprazole Magnesium [NexIUM 20 mg PO DAILY 08/27/21 10/24/22 History 24Hr] Losartan Potassium [Cozaar] 100 mg PO DAILY 11/18/21 10/24/22 History Metoprolol Tartrate [Lopressor] 25 mg PO HS 11/18/21 10/24/22 History Allergies Allergy/AdvReac Type Severity Reaction Status Date / Time Sulfa (Sulfonamide Allergy Unknown Anaphylaxis Verified 10/24/22 12:43 Antibiotics) Surgical - Exam Vital Signs Temp Pulse Resp BP Pulse Ox 98.8 F 59 L 18 94/76 88 L 10/24/22 10:13 10/24/22 10:13 10/24/22 10:13 10/24/22 10:13 10/24/22 10:13 Physical exam: General: Well-developed, well-nourished HEENT: Normocephalic, sclerae nonicteric Abdomen: Mild diffuse tenderness, nondistended Extremities: No edema Neuro: Alert and oriented Results - Labs 10/26/22 06:14 10/26/22 06:14 Abnormal Lab Results - Last 24 Hours (Table) 10/25/22 10/26/22 10/26/22 Range/Units 05:26 06:14 06:14 RBC 2.94 L (3.80-5.40) m/uL Hgb 10.0 L (11.4-16.0) gm/dL Hct 30.3 L (34.0-46.0) % MCV 103.0 H (80.0-100.0) fL RDW 18.1 H (11.5-15.5) % Sodium 132 L (137-145) mmol/L Chloride 108 H (98-107) mmol/L Calcium 7.7 L (8.4-10.2) mg/dL AST 107 H (14-36) U/L ALT 60 H (4-34) U/L Alkaline Phosphatase 142 H (38-126) U/L Total Protein 4.3 L (6.3-8.2) g/dL Albumin 2.1 L (3.5-5.0) g/dL Lipase 74 H (14-63) U/L Diabetes panel 10/26/22 Range/Units 06:14 Sodium 132 L (137-145) mmol/L Potassium 4.1 (3.5-5.1) mmol/L Chloride 108 H (98-107) mmol/L Carbon Dioxide 23 (22-30) mmol/L BUN 10 (7-17) mg/dL Creatinine 0.84 (0.52-1.04) mg/dL Glucose 79 (74-99) mg/dL Calcium 7.7 L (8.4-10.2) mg/dL AST 107 H (14-36) U/L ALT 60 H (4-34) U/L Alkaline Phosphatase 142 H (38-126) U/L Total Protein 4.3 L (6.3-8.2) g/dL Albumin 2.1 L (3.5-5.0) g/dL Calcium panel 10/26/22 Range/Units 06:14 Calcium 7.7 L (8.4-10.2) mg/dL Albumin 2.1 L (3.5-5.0) g/dL Pituitary panel 10/26/22 Range/Units 06:14 Sodium 132 L (137-145) mmol/L Potassium 4.1 (3.5-5.1) mmol/L Chloride 108 H (98-107) mmol/L Carbon Dioxide 23 (22-30) mmol/L BUN 10 (7-17) mg/dL Creatinine 0.84 (0.52-1.04) mg/dL Glucose 79 (74-99) mg/dL Calcium 7.7 L (8.4-10.2) mg/dL Adrenal panel 10/26/22 Range/Units 06:14 Sodium 132 L (137-145) mmol/L Potassium 4.1 (3.5-5.1) mmol/L Chloride 108 H (98-107) mmol/L Carbon Dioxide 23 (22-30) mmol/L BUN 10 (7-17) mg/dL Creatinine 0.84 (0.52-1.04) mg/dL Glucose 79 (74-99) mg/dL Calcium 7.7 L (8.4-10.2) mg/dL Total Bilirubin 0.2 (0.2-1.3) mg/dL AST 107 H (14-36) U/L ALT 60 H (4-34) U/L Alkaline Phosphatase 142 H (38-126) U/L Total Protein 4.3 L (6.3-8.2) g/dL Albumin 2.1 L (3.5-5.0) g/dL Assessment and Plan (1) Abdominal pain Narrative/Plan: 61-year-old female with abdominal pain and CAT scan showing ileus. I do think the patient's constipation is contributing somewhat. Begin clear liquids. Again lactulose twice a day. We'll follow. Current Visit: Yes Status: Acute Code(s): R10.9 - UNSPECIFIED ABDOMINAL PAIN SNOMED Code(s): 67718133
[2022-10-26] MEDS: ONDANSETRON 4 MG/2 ML VIAL IVP PRN (20:37)
[2022-10-26] MEDS: LACTULOSE 20 GM/30 ML CUP PO SCH (20:38)
[2022-10-27] MEDS: HYDROcodone/APAP 10-325MG 1 EACH TAB PO PRN (02:37)
[2022-10-27] MEDS: CALCIUM CARB-VIT D 500 MG-5 MCG TAB PO SCH ×2 (05:41→17:53)
[2022-10-27 05:57] LABS: Anisocytosis Slight; Basophils % (A) 0 %; Eosinophils # (A) 0.1 k/uL (0-0.7); Eosinophils % (A) 2 %; HCT 30.8 % (34.0-46.0); Hypochromasia Moderate; Lymphocytes # (A) 1.2 k/uL (1.0-4.8); Lymphocytes % (A) 24 %; MCH 33.4 pg (25.0-35.0); MCHC 32.4 g/dL (31.0-37.0); Macrocytosis Moderate; Mean Platelet Volume 9.9; Monocytes # (A) 0.3 k/uL (0-1.0); Monocytes % (A) 6 %; Neutrophils # (A) 3.2 k/uL (1.3-7.7); Neutrophils % (A) 66 %; Platelet Count 221 k/uL (150-450); Poikilocytosis Slight; RBC 2.98 m/uL (3.80-5.40); RDW 17.6 % (11.5-15.5); WBC 4.9 k/uL (3.8-10.6)
[2022-10-27 06:20] LABS: ALT 128 U/L (4-34); AST 647 U/L (14-36); African American GFR (CKD) >90 (>60 ml/min/1.73 sqM); Albumin 2.3 g/dL (3.5-5.0); Alkaline Phosphatase 165 U/L (38-126); Anion Gap 2 mmol/L; Blood Urea Nitrogen 9 mg/dL (7-17); Calcium 7.8 mg/dL (8.4-10.2); Carbon Dioxide 22 mmol/L (22-30); Chloride 107 mmol/L (98-107); Globulin 2.3 g/dL; Glucose 85 mg/dL (74-99); Non-African American GFR(CKD) >90 (>60 ml/min/1.73 sqM); Potassium 3.8 mmol/L (3.5-5.1); Sodium 131 mmol/L (137-145); Total Bilirubin 0.6 mg/dL (0.2-1.3); Total Protein 4.6 g/dL (6.3-8.2)
[2022-10-27] MEDS: ONDANSETRON 4 MG/2 ML VIAL IVP PRN (08:40)
[2022-10-27] MEDS: HYDROcodone/APAP 10-325MG 1 EACH TAB PO SCH ×4 (08:41→20:57)
[2022-10-27] MEDS: DULoxetine HCL 60 MG CAPSULE.DR PO SCH (08:41)
[2022-10-27] MEDS: ASPIRIN 81 MG PO SCH (08:42)
[2022-10-27] MEDS: FOLIC ACID 1 MG TAB PO SCH (08:42)
[2022-10-27] MEDS: PANTOPRAZOLE 40 MG TABLET PO SCH (08:42)
[2022-10-27] MEDS: LACTULOSE 20 GM/30 ML CUP PO SCH ×2 (12:36→20:57)
--- NOTE | 2022-10-27 14:50 | P.PN ---
Subjective Progress Note Date: 10/27/22 Principal diagnosis: Patient seen and examined at bedside. Patient states that she continues to have abdominal nausea. She tried her clear liquid diet this morning and wasn't able to tolerate it. Patient denies chest pain shortness breath. Objective - Vital Signs Vital signs: Vital Signs Temp 98.0 F 10/27/22 07:00 Pulse 66 10/27/22 07:00 Resp 16 10/27/22 07:00 BP 116/80 10/27/22 07:00 Pulse Ox 100 10/27/22 07:10 FiO2 Intake & Output 10/26/22 10/27/22 10/27/22 18:59 06:59 18:59 Intake Total 200 118 Balance 200 118 Intake: Oral 200 118 Other: # Voids 1 2 # Bowel Movements 1 - Exam General: [non toxic], [no distress], [appears at stated age] Derm: [warm], [dry] Head: [atraumatic], [normocephalic], [symmetric] Eyes: [EOMI], [no lid lag], [anicteric sclera] Mouth: [no lip lesion], [mucus membranes moist] Cardiovascular: [S1S2 reg], [no murmur], [positive posterior tibial pulse bilateral], Lungs: [CTA bilateral], [no rhonchi, no rales] , [no accessory muscle use] Abdominal: [soft], [ epigastric tenderness to palpation rebound], [no guarding], [no appreciable organomegaly] Ext: [no gross muscle atrophy], [no edema], [no contractures] Neuro: [ CN II-XI grossly intact], [no focal neuro deficits] Psych: [Alert], [oriented], [appropriate affect] - Labs CBC & Chem 7: 10/27/22 05:22 10/27/22 05:22 Labs: Abnormal Lab Results - Last 24 Hours (Table) 10/27/22 10/27/22 Range/Units 05:22 05:22 RBC 2.98 L (3.80-5.40) m/uL Hgb 10.0 L (11.4-16.0) gm/dL Hct 30.8 L (34.0-46.0) % MCV 103.0 H (80.0-100.0) fL RDW 17.6 H (11.5-15.5) % Sodium 131 L (137-145) mmol/L Calcium 7.8 L (8.4-10.2) mg/dL AST 647 H (14-36) U/L ALT 128 H (4-34) U/L Alkaline Phosphatase 165 H (38-126) U/L Total Protein 4.6 L (6.3-8.2) g/dL Albumin 2.3 L (3.5-5.0) g/dL Assessment and Plan Assessment: Assessment and plan 1. Nausea/vomiting and abdominal pain Rule out gallbladder etiology with elevated liver enzymes HIDA scan will be ordered CT abdomen and pelvis showed mild ileus Surgery following recommendations appreciated Ultrasound abdomen insignificant Vital signs every 4 hours 2. Small pleural effusions and mild basilar infiltrate is new compared to prior Likely due to fluid overload Patient denies chest pain shortness breath or cough Fluids currently discontinued 3. Hypokalemia and hyponatremia likely secondary to above improving Replacement therapy provided Monitor BMP 3. Sinus tachycardia multifactorial Initially due to dehydration and now likely due to pain Morning heart rate was 66 metoprolol at 12.5 mg by mouth daily with strict parameters Blood pressure is to be checked before medication is even given Metoprolol has not been given since hospital admission due to parameters placed Cardiology following Echo revealed LV function estimated at 55-60% 4. Macrocytic anemia Hemoglobin is stable iron studies showed an elevated iron saturation With decreased TIBC and transferrin levels Iron level was normal Concern for hemochromatosis Outpatient work-up 5. History of hypertension BP is currently on the lower end of normal Patient has not been receiving any antihypertensives due to low blood pressure 5. Weight loss with failure to thrive Likely secondary to recent jaw surgery CT of the abdomen shows only Ultrasound abdomen negative 6. History of anxiety depression Restart fluoxetine 7. History of GERD Restart PPI 8. GI DVT prophylaxis 9. A.m. labs Disposition: Home with home care versus rehab Anticipated length of stay greater than 2 midnight Patient is a full code Greater than 45 minutes spent coordinating care documenting counseling patient
--- NOTE | 2022-10-27 15:23 | P.PN ---
Subjective Progress Note Date: 10/27/22 CHIEF COMPLAINT: Abdominal pain HISTORY OF PRESENT ILLNESS: Patient complains of lower abdominal pain. She did have a small soft bowel movement yesterday evening. She did report flatus. She continues to have nausea. Medicine service did order a HIDA scan and results are pending. Afebrile. WBC 4.9 Hgb 10 platelets 221 sodium is 131 potassium 3.8 creatinine 0.69 LFTs did trend upwards total bili 0.6 AST 647 ALT 128 alk phos 165 lipase 168 hepatitis panel pending PHYSICAL EXAM: VITAL SIGNS: Reviewed. GENERAL: Well-developed in no acute distress. HEENT: No sclera icterus. Extraocular movements grossly intact. Moist buccal mucosa. Head is atraumatic, normocephalic. ABDOMEN: Soft. Nondistended. Lower abdominal tenderness with palpation NEUROLOGIC: Alert and oriented. Cranial nerves II through XII grossly intact. ASSESSMENT: 1. Abdominal pain 2. Ileus 3. Constipation 4. Elevated LFTs PLAN: -Continue lactulose for constipation -Continue clear liquid diet -Follow up on HIDA scan results -Encouraged patient to increase activity level Physician Tufter Operator note has been reviewed by physician. Signing provider agrees with the documented findings, assessment, and plan of care. Objective - Vital Signs Vital signs: Vital Signs Temp 98.0 F 10/27/22 07:00 Pulse 66 10/27/22 07:00 Resp 16 10/27/22 07:00 BP 116/80 10/27/22 07:00 Pulse Ox 100 10/27/22 07:10 FiO2 Intake & Output 10/26/22 10/27/22 10/27/22 18:59 06:59 18:59 Intake Total 200 118 Balance 200 118 Intake: Oral 200 118 Other: # Voids 1 2 # Bowel Movements 1 - Labs CBC & Chem 7: 10/27/22 05:22 10/27/22 05:22 Labs: Abnormal Lab Results - Last 24 Hours (Table) 10/27/22 10/27/22 Range/Units 05:22 05:22 RBC 2.98 L (3.80-5.40) m/uL Hgb 10.0 L (11.4-16.0) gm/dL Hct 30.8 L (34.0-46.0) % MCV 103.0 H (80.0-100.0) fL RDW 17.6 H (11.5-15.5) % Sodium 131 L (137-145) mmol/L Calcium 7.8 L (8.4-10.2) mg/dL AST 647 H (14-36) U/L ALT 128 H (4-34) U/L Alkaline Phosphatase 165 H (38-126) U/L Total Protein 4.6 L (6.3-8.2) g/dL Albumin 2.3 L (3.5-5.0) g/dL
--- NOTE | 2022-10-27 15:37 | NM ---
EXAMINATION TYPE: NM hepatobiliary w CCK DATE OF EXAM: 10/27/2022 COMPARISON: CT abdomen and pelvis 2 days earlier HISTORY: Abdominal pain. Diminished appetite with nausea and vomiting. TECHNIQUE: After the intravenous administration of 3.9 mCi Tc 99m Mebrofenin hepatobiliary scintigrap hy is performed. Immediate images post injection. FINDINGS: There is satisfactory initial accumulation of tracer by the liver. The gallbladder is visualized wit hin 30 minutes. The small bowel activity is noted within 30 minutes. At one hour CCK was administer ed, patient was injected with 0.8 mcg of Kinevac, and gallbladder ejection fraction is calculated at 2 %, not diminished from the normal range. Therefore there is no scintigraphic evidence of cystic or common bile duct obstruction to suggest acute cholecystitis or gallbladder hypokinesia. IMPRESSION: Ejection fraction is 82%, some concern this abnormal or a hyperkinetic response.
[2022-10-27 19:05] LABS: Hepatitis A Antibody IgM Nonreactive (Nonreactive); Hepatitis B Core IgM Nonreactive (Nonreactive); Hepatitis B Surface Antigen Nonreactive (Nonreactive); Hepatitis C IgG Antibody Nonreactive (Nonreactive)
[2022-10-28] MEDS: HYDROcodone/APAP 10-325MG 1 EACH TAB PO PRN (03:13)
[2022-10-28 06:51] LABS: ALT 185 U/L (4-34); African American GFR (CKD) >90 (>60 ml/min/1.73 sqM); Albumin 2.2 g/dL (3.5-5.0); Alkaline Phosphatase 167 U/L (38-126); Anion Gap 0 mmol/L; Blood Urea Nitrogen 8 mg/dL (7-17); Calcium 7.8 mg/dL (8.4-10.2); Carbon Dioxide 25 mmol/L (22-30); Chloride 104 mmol/L (98-107); Globulin 2.3 g/dL; Glucose 82 mg/dL (74-99); Lipase 163 U/L (23-300); Non-African American GFR(CKD) >90 (>60 ml/min/1.73 sqM); Potassium 3.8 mmol/L (3.5-5.1); Sodium 129 mmol/L (137-145); Total Bilirubin 0.4 mg/dL (0.2-1.3); Total Protein 4.5 g/dL (6.3-8.2)
[2022-10-28 07:27] LABS: AST 908 U/L (14-36)
[2022-10-28 07:42] LABS: Anisocytosis Slight; Basophils % (A) 0 %; Eosinophils # (A) 0.1 k/uL (0-0.7); Eosinophils % (A) 2 %; HGB 9.2 gm/dL (11.4-16.0); Hypochromasia Slight; Lymphocytes % (A) 24 %; MCH 32.3 pg (25.0-35.0); MCHC 31.7 g/dL (31.0-37.0); MCV 101.7 fL (80.0-100.0); Macrocytosis Moderate; Mean Platelet Volume 10.5; Monocytes # (A) 0.3 k/uL (0-1.0); Monocytes % (A) 7 %; Neutrophils # (A) 2.7 k/uL (1.3-7.7); Neutrophils % (A) 65 %; Platelet Count 237 k/uL (150-450); Poikilocytosis Slight; RBC 2.85 m/uL (3.80-5.40); RDW 18.3 % (11.5-15.5); WBC 4.2 k/uL (3.8-10.6)
[2022-10-28] MEDS: METOPROLOL SUCCINATE (ER) 25 MG TAB.ER.24H PO SCH (09:00)
[2022-10-28] MEDS: FOLIC ACID 1 MG TAB PO SCH (09:00)
[2022-10-28] MEDS: LACTULOSE 20 GM/30 ML CUP PO SCH ×2 (09:00→20:14)
[2022-10-28] MEDS: PANTOPRAZOLE 40 MG TABLET PO SCH (09:01)
[2022-10-28] MEDS: CALCIUM CARB-VIT D 500 MG-5 MCG TAB PO SCH ×2 (09:01→18:22)
[2022-10-28] MEDS: DULoxetine HCL 60 MG CAPSULE.DR PO SCH (09:01)
[2022-10-28] MEDS: ASPIRIN 81 MG PO SCH (09:01)
[2022-10-28] MEDS: HYDROcodone/APAP 10-325MG 1 EACH TAB PO SCH ×4 (09:01→21:20)
[2022-10-28] MEDS: SODIUM CHLORIDE 0.9% 1,000 ML IV SCH ×2 (10:40→18:23)
--- NOTE | 2022-10-28 12:23 | P.CONS ---
History of Present Illness - Chief Complaint Weakness - History of Present Illness I had the opportunity to see patient for inpatient rehab consultation today. Patient admitted to [facility] October 24 with weakness in a few days' duration or perhaps as long as Vandana with associated nausea and emesis. Patient has history of fall and multiple fractures. Seen by cardiology who is known to them. Seen by Dr. iniguez for chronic abdominal pain. Diagnostic tests chest x- ray consistent with COPD. CTA of chest demonstrates multiple rib fractures. Abdominal ultrasound done. CT of abdomen and pelvis demonstrates compressions of L1 and 3 as well as interstitial infiltrates with effusions. Hepatobiliary [place] shows ejection fraction 82%. PT and OT prescribed. Previous functional history as elicited from patient: 61-year-old left-handed white female who is single lives in trailer home with her boyfriend. Patient on disability. Boyfriend does the driving but otherwise share cooking and laundry, when patient is able. Otherwise independent with sitdown shower and gait with roller walker around the house. Review of Systems Review of systems: ENT: Denies sneezes or discharge. Eyes: Denies discharge or photophobia. Cardiac: Denies chest pain or palpitation. Pulmonary: Denies cough or shortness of breath. Breast: Denies discharge or lumps. Gastrointestinal: Denies nausea, emesis, constipation, diarrhea. Genitourinary: Denies discharge or frequency. Musculoskeletal: History of multiple fractures and in fact is on chronic pain management with myself. Neurologic: Generalized weakness. Endocrine: Denies shakes or sweats. Oncology: Denies cancers. Dermatologic: Denies rash, itching, pruritus. ALLERGY/immunology: Denies sneezes, rashes. Past Medical History Past Medical History: COPD, GERD/Reflux, Hypertension, Osteoarthritis (OA), Seizure Disorder Additional Past Medical History / Comment(s): Hx Epilepsy, no seizure in 30+ yrs. fracrured ribs fracure mandible History of Any Multi-Drug Resistant Organisms: ESBL Year Discovered:: 05/30/15 E. coli ESBL MDRO Source:: Urine Past Surgical History: Hernia Repair, Joint Replacement Additional Past Surgical History / Comment(s): Bilateral cataract surgery, left hip replacement X2, right hip replacement x2, hiatal hernia repair. Past Anesthesia/Blood Transfusion Reactions: No Reported Reaction Additional Past Anesthesia/Blood Transfusion Reaction / Comm: Patient states "everytime I have an IV started I get I immediately get diarrhea after." Sister slow to wake up. Past Psychological History: Anxiety, Depression Smoking Status: Current every day smoker Past Alcohol Use History: Occasional Additional Past Alcohol Use History / Comment(s): Started smoking at age 16, currently smokes 1 PPD. Normally has 2-4 alcoholic drinks daily, had one drink last on 09/10/20, states not having any more prior to surgery. Past Drug Use History: None Reported - Past Family History Mother Family Medical History: No Reported History Father Family Medical History: Cancer Additional Family Medical History / Comment(s): lung CA Medications and Allergies Home Medications Medication Instructions Recorded Confirmed Type DULoxetine HCL [Cymbalta] 60 mg PO DAILY 04/28/16 10/24/22 History Hydrocodone/Acetaminophen [[place] 1 tab PO QID 04/28/16 10/24/22 History 10-325] Esomeprazole Magnesium [NexIUM 20 mg PO DAILY 08/27/21 10/24/22 History 24Hr] Losartan Potassium [Cozaar] 100 mg PO DAILY 11/18/21 10/24/22 History Metoprolol Tartrate [Lopressor] 25 mg PO HS 11/18/21 10/24/22 History Allergies Allergy/AdvReac Type Severity Reaction Status Date / Time Sulfa (Sulfonamide Allergy Unknown Anaphylaxis Verified 10/24/22 12:43 Antibiotics) Physical Exam Vitals: Vital Signs Temp Pulse Resp BP BP Pulse Ox 10/28/22 08:28 97.5 F L 65 16 121/73 100 10/28/22 02:55 98.1 F 96 17 105/72 100 10/27/22 20:15 97.9 F 106 H 17 97/58 100 10/27/22 14:34 98.1 F 103 H 18 96/65 99 Intake and Output 10/27/22 10/28/22 10/28/22 22:59 06:59 14:59 Other: # Voids 1 2 Skin: Good color, texture, turgor. General: Jorge Alberto build and comfortable appearance. Head: Normocephalic, atraumatic. Eyes: Symmetric. Pupils equal round. Ears: Symmetric. Hearing within normal limits. Mouth: Clear. Neck: Supple. Carotid without bruit. Cardiac: Regular rate and rhythm. Lungs: Clear anteriorly and posteriorly. Abdomen: Soft active nontender. Extremities: Normal tone. Thin limbs. Neurological: Mental status: Alert, cooperative, pleasant. Cranial nerves: Symmetric facial tone and trapezius. Motor: Normal strength and isolation all 4 limbs. Sensation: Intact throughout. DTRs: Symmetric and equal throughout. Mobility: Sits and stands without assistance or verbal cueing or loss of balance including from toilet to add with roller walker level. Results CBC & Chem 7: 10/28/22 05:47 10/28/22 05:47 Labs: Abnormal Lab Results - Last 24 Hours (Table) 10/28/22 10/28/22 10/28/22 Range/Units 05:47 05:47 05:47 RBC 2.85 L (3.80-5.40) m/uL Hgb 9.2 L (11.4-16.0) gm/dL Hct 29.0 L (34.0-46.0) % MCV 101.7 H (80.0-100.0) fL RDW 18.3 H (11.5-15.5) % Sodium 129 L (137-145) mmol/L Calcium 7.8 L (8.4-10.2) mg/dL AST 908 H (14-36) U/L ALT 185 H (4-34) U/L Alkaline Phosphatase 167 H (38-126) U/L CK-MB (CK-2) 10.9 H (0.0-2.4) ng/mL Total Protein 4.5 L (6.3-8.2) g/dL Albumin 2.2 L (3.5-5.0) g/dL Assessment and Plan (1) Abdominal pain Current Visit: Yes Status: Acute Code(s): R10.9 - UNSPECIFIED ABDOMINAL PAIN SNOMED Code(s): 70068041 (2) Ileus Current Visit: Yes Status: Acute Code(s): K56.7 - ILEUS, UNSPECIFIED SNOMED Code(s): 328141840 (3) Ascites Current Visit: No Status: Acute Code(s): R18.8 - OTHER ASCITES SNOMED Code(s): 400661120 (4) COPD exacerbation Current Visit: No Status: Acute Code(s): J44.1 - CHRONIC OBSTRUCTIVE PULMONARY DISEASE W (ACUTE) EXACERBATION SNOMED Code(s): 337182626 Plan: Comments and plan: At this time PT and OT are prescribed. Follow therapies with yourself. Patient however demonstrated independence in room at roller walker level and most likely will not meet insurance criteria for IP R. Could consider support services including PT and OT at home upon discharge.
--- NOTE | 2022-10-28 13:15 | CDI ---
Documentation Clarification Form Date: 10/28/2022 1:03:58 PM From: Carlota Cormier CCS, CCDS Admit Date: 10/27/2022 11:04:00 AM Patient Name: Jade Oquendo Visit Number: [id number] Discharge Date: ATTENTION: The Clinical Documentation Specialists (CDI) and [facility] Coding Staff appreciate your assistance in clarifying documentation. Please respond to the clarification below the line at the bottom and electronically sign. The CDI & [facility] Coding staff will review the response and follow-up if needed. Please note: Queries are made part of the Legal Health Record. If you have any questions, please contact the author of this message via ITS. Dr. Vinny Adams: There is documentation of COPD Exacerbation in the 10/28 Rehab Pattern Assembler's Consult. Additional clarification is requested. History/Risk Factors per the 10/26 H/P: COPD, Hypertension, GERD, Osteoarthritis, Rib fractures, Recent jaw fracture, Bilateral Hip Replacements, Seizure Disorder, Anxiety, Depression, Smoker, Clinical Indicators: Presented to the ED on 10/24 via EMS with Weakness, Weight loss, Nausea, SOB, Intermittent Chest Discomfort. Admit with Hypokalemia, Chest Pain, Dehydration, Dyspnea 10/24 VS: T 98.8, P 59, 147, 117; R 18, BP 94/76, 110/95; PO 88 RA, 99 2Lnc, BMI: 14.2 10/24 LAB: D Dimer 1.25; Na 131, K 2.9, Chloride 96, Glucose 142, AST 203, ALT 77, Alkaline Phos 254, BNP 17478, Total Prot 6.2, Albumin 3.3, Lipase 333. 10/24 CXR: No acute cardiopulmonary process, COPD changes. Old rib fractures. 10/24 CT Chest: No PE. Treatment 10/24: Telemetry, O2 2Lnc, IV Dilaudid 0.5 mg x1, IV Zofran 4 mg x1, IV Na Chl 1,000 mls @ 999 mls/hr q1H, po K Bicarb 40 meq x1, Nitro sl, IV Na Chl 1,000 mls @ 75 mls/hr q13H, INH Duoneb 3 ml QID/prn. Can you please clarify the following: [ ] COPD with Acute Exacerbation, present on admission [x] COPD without Acute Exacerbation [ ] Other Respiratory Condition [ ] Other, please specify: [ ] Unable to determine (Template Last Revised: December 2020) MTDD
--- NOTE | 2022-10-28 15:43 | P.PN ---
Subjective Progress Note Date: 10/28/22 CHIEF COMPLAINT: Abdominal pain HISTORY OF PRESENT ILLNESS: Patient complains of lower abdominal pain and back pain. She did have a small soft bowel movement yesterday. She is having flatus. She does have intermittent nausea. She reports history of alcohol use stopped a year ago. HIDA ejection fraction 82% some consider this abnormal or hyperkinetic response. Patient has no right upper quadrant abdominal pain. Afebrile. WBC 4.2 a she be 9.2 platelets 237 sodium is 129 potassium 3.8 creatinine 0.71 total bilirubin 0.4 AST 908 AST 195 ALT 167 hepatitis panel is negative. There is no GI service available this week. PHYSICAL EXAM: VITAL SIGNS: Reviewed. GENERAL: Well-developed in no acute distress. HEENT: No sclera icterus. Extraocular movements grossly intact. Moist buccal mucosa. Head is atraumatic, normocephalic. ABDOMEN: Soft. Nondistended. Lower abdominal tenderness with palpation. No right upper quadrant tenderness NEUROLOGIC: Alert and oriented. Cranial nerves II through XII grossly intact. ASSESSMENT: 1. Abdominal pain 2. Ileus 3. Constipation 4. Elevated LFTs PLAN: -Continue lactulose for constipation -Advance diet to full liquids -Encouraged patient to increase activity level -Continue supportive care Physician Plate And Frame Filter Operator note has been reviewed by physician. Signing provider agrees with the documented findings, assessment, and plan of care. I have personally seen and examined the patient, reviewed the TAX ACCOUNTANT /PAs history, exam and MDM and agree with the assessment and plan as written. Based on total visit time, I have performed more than 50% of the visit. As above: Patient says her pain is improved. She has moved her bowels. Still having some heartburn issues. Liver enzymes are increased further today. HIDA scan appears normal. Advance diet as tolerated at this point. We'll follow Objective - Vital Signs Vital signs: Vital Signs Temp 97.5 F L 10/28/22 08:28 Pulse 65 10/28/22 08:28 Resp 16 10/28/22 08:28 BP 121/73 10/28/22 08:28 Pulse Ox 100 10/28/22 08:28 FiO2 Intake & Output 10/27/22 10/28/22 10/28/22 18:59 06:59 18:59 Intake Total 118 Balance 118 Intake: Oral 118 Other: # Voids 1 2 - Labs CBC & Chem 7: 10/28/22 05:47 10/28/22 05:47 Labs: Abnormal Lab Results - Last 24 Hours (Table) 10/28/22 10/28/22 10/28/22 Range/Units 05:47 05:47 05:47 RBC 2.85 L (3.80-5.40) m/uL Hgb 9.2 L (11.4-16.0) gm/dL Hct 29.0 L (34.0-46.0) % MCV 101.7 H (80.0-100.0) fL RDW 18.3 H (11.5-15.5) % Sodium 129 L (137-145) mmol/L Calcium 7.8 L (8.4-10.2) mg/dL AST 908 H (14-36) U/L ALT 185 H (4-34) U/L Alkaline Phosphatase 167 H (38-126) U/L Creatine Kinase (30-135) U/L CK-MB (CK-2) 10.9 H (0.0-2.4) ng/mL Total Protein 4.5 L (6.3-8.2) g/dL Albumin 2.2 L (3.5-5.0) g/dL 10/28/22 Range/Units 13:09 RBC (3.80-5.40) m/uL Hgb (11.4-16.0) gm/dL Hct (34.0-46.0) % MCV (80.0-100.0) fL RDW (11.5-15.5) % Sodium (137-145) mmol/L Calcium (8.4-10.2) mg/dL AST (14-36) U/L ALT (4-34) U/L Alkaline Phosphatase (38-126) U/L Creatine Kinase 285 H (30-135) U/L CK-MB (CK-2) (0.0-2.4) ng/mL Total Protein (6.3-8.2) g/dL Albumin (3.5-5.0) g/dL
--- NOTE | 2022-10-28 19:46 | P.PN ---
Subjective Progress Note Date: 10/28/22 Hospital course: Patient is a very pleasant 61-year-old female with a past medical history of hypertension, COPD, osteoarthritis, and seizure disorder. She presented to the hospital on 10/24/22 with a chief complaint of generalized weakness and weight loss. Physical exam: Patient seen and fully evaluated at bedside this morning. Vital signs reviewed and stable. General: Nontoxic, no distress and appears older than stated age. Cachectic. Derm: Skin warm and dry, normal coloration for ethnicity. Head: Atraumatic, normocephalic and symmetric. Eyes: EOMs intact, no lid lag, and anicteric sclera Mouth: no lip lesions, mucus membranes moist Cardiovascular: regular rate and rhythm with normal S1S2, systolic murmur, positive posterior tibial pulses bilaterally, and cap refill < 2 seconds. Lungs: Respirations even, regular, and unlabored on room air. Lungs CTA bilaterally, no rhonchi, no rales, no wheezing, and no accessory muscle usage. Abdominal: soft, nontender to palpation, no guarding, no appreciable organomegaly Ext: ROM intact. No gross muscle atrophy, no edema, no contractures Neuro: Speech clear, face symmetrical and CN II-XII grossly intact with no noted focal neuro deficits Psych: Alert and oriented to person, place, time, and situation. Appropriate and pleasant affect. Assessment and Plan of Care: Acute hepatitis Acute transaminitis Nausea/vomiting and abdominal pain -HIDA scan negative -CT abdomen and pelvis showed mild ileus -Surgery following recommendations appreciated -Ultrasound abdomen insignificant -Vital signs every 4 hours -We'll obtain a CK and CK-MB -Herpes simplex and Westley-Davis -Avoid hepatotoxic medications. Cymbalta was discontinued and patient started on IV fluid hydration -We will obtain an ultrasound liver duplex. Small pleural effusions and mild basilar infiltrate is new compared to prior Likely due to fluid overload Patient denies chest pain shortness breath or cough Fluids currently discontinued Hypokalemia and hyponatremia likely secondary to above improving Replacement therapy provided Monitor BMP Sinus tachycardia multifactorial Initially due to dehydration and now likely due to pain Morning heart rate was 66 metoprolol at 12.5 mg by mouth daily with strict parameters Blood pressure is to be checked before medication is even given Metoprolol has not been given since hospital admission due to parameters placed Cardiology following Echo revealed LV function estimated at 55-60% Mild compression fractures L1 and L2 Multiple old right rib fractures -Patient will require outpatient workup for osteoporosis and further evaluation of multiple fractures Macrocytic anemia Hemoglobin is stable -iron studies showed an elevated iron saturation -With decreased TIBC and transferrin levels -Iron level was normal -Concern for hemochromatosis -Outpatient work-up History of hypertension BP is currently on the lower end of normal Patient has not been receiving any antihypertensives due to low blood pressure Weight loss with failure to thrive Likely secondary to recent jaw surgery CT of the abdomen shows only Ultrasound abdomen negative History of anxiety depression Restart fluoxetine History of GERD Restart PPI Disposition: Home with home care versus rehab Anticipated length of stay greater than 2 midnight Patient is a full code Greater than 45 minutes spent coordinating care documenting counseling patient CODE STATUS: Full code DVT prophylaxis: Heparin Discussed with: Patient and RN Anticipated discharge date: Clinical course to determine Anticipated discharge place: Home A total of 39 minutes was spent on the care of this complex patient more than 50% of the time was spent in counseling and care coordination. Wilmer Carcamo NP rendered care for this patient independently, reviewed the findings and plan as documented in the note above. I did not physically speak with or examine the patient on this date. Objective - Vital Signs Vital signs: Vital Signs Temp 97.5 F L 10/28/22 08:28 Pulse 65 10/28/22 08:28 Resp 16 10/28/22 08:28 BP 121/73 10/28/22 08:28 Pulse Ox 100 10/28/22 08:28 FiO2 Intake & Output 10/27/22 10/28/22 10/28/22 18:59 06:59 18:59 Intake Total 118 Balance 118 Intake: Oral 118 Other: # Voids 1 2 - Labs CBC & Chem 7: 10/29/22 06:07 10/29/22 06:09 Labs: Abnormal Lab Results - Last 24 Hours (Table) 10/28/22 10/28/22 Range/Units 05:47 05:47 RBC 2.85 L (3.80-5.40) m/uL Hgb 9.2 L (11.4-16.0) gm/dL Hct 29.0 L (34.0-46.0) % MCV 101.7 H (80.0-100.0) fL RDW 18.3 H (11.5-15.5) % Sodium 129 L (137-145) mmol/L Calcium 7.8 L (8.4-10.2) mg/dL AST 908 H (14-36) U/L ALT 185 H (4-34) U/L Alkaline Phosphatase 167 H (38-126) U/L Total Protein 4.5 L (6.3-8.2) g/dL Albumin 2.2 L (3.5-5.0) g/dL
[2022-10-28] MEDS: HEPARIN SODIUM,PORCINE/PF 5,000 UNIT/0.5 ML SYRINGE SQ SCH ×2 (21:20→22:40)
[2022-10-29] MEDS: SODIUM CHLORIDE 0.9% 1,000 ML IV SCH ×3 (02:44→17:36)
[2022-10-29 06:36] LABS: Herpes simplex I and/or II IgM 0.55 INDEX (<=0.90); Herpes simplex IgG I Ab 0.08 (< or = 0.90); Herpes simplex IgG II Ab 2.82 (< or = 0.90)
--- NOTE | 2022-10-29 08:37 | US ---
EXAMINATION TYPE: US portal vein DATE OF EXAM: 10/29/2022 COMPARISON: NONE CLINICAL HISTORY: r/o portal vein thrombosis. EXAM MEASUREMENTS: Liver Length: 17.4cm Gallbladder Wall: 0.4 cm CBD: 0.3cm Right Kidney: 9.2 x 4.1 x 4.2cm ANATOMY: Pancreas: partially obscured by overlying bowel portions visualized wnl Liver: attenuating, upper limites of normal in size Color flow patency within the portal vein: yes Portal Vein Flow: hepatopedal Gallbladder: slightly thickened somewhat edematous wall Evidence for sonographic Obrien's sign: no CBD: wnl Right Kidney: lobular contour, heterogeneous Ascites noted? no IMPRESSION: 1. Gallbladder is prominent in size with a thickened wall measuring 4 mm correlate for cholecystitis. No definite gallstones. 2. Portal vein demonstrates hepatopedal flow. No evidence of portal vein thrombosis.
[2022-10-29 08:46] LABS: Anisocytosis Slight; HCT 28.5 % (34.0-46.0); Hypochromasia Slight; MCH 32.8 pg (25.0-35.0); MCHC 31.6 g/dL (31.0-37.0); Macrocytosis Moderate; Mean Platelet Volume 11.2; Platelet Count 247 k/uL (150-450); Poikilocytosis Slight; RBC 2.74 m/uL (3.80-5.40); RDW 18.8 % (11.5-15.5); WBC 4.2 k/uL (3.8-10.6)
[2022-10-29 08:54] LABS: ALT 138 U/L (4-34); AST 245 U/L (14-36); African American GFR (CKD) >90 (>60 ml/min/1.73 sqM); Albumin/Globulin Ratio 0.9; Alkaline Phosphatase 181 U/L (38-126); Blood Urea Nitrogen 6 mg/dL (7-17); Calcium 7.4 mg/dL (8.4-10.2); Carbon Dioxide 21 mmol/L (22-30); Globulin 2.2 g/dL; Glucose 80 mg/dL (74-99); Magnesium 1.3 mg/dL (1.6-2.3); Non-African American GFR(CKD) >90 (>60 ml/min/1.73 sqM); Potassium 3.5 mmol/L (3.5-5.1); Sodium 133 mmol/L (137-145); Total Bilirubin 0.3 mg/dL (0.2-1.3); Total Protein 4.2 g/dL (6.3-8.2)
--- NOTE | 2022-10-29 08:54 | CDI ---
Documentation Clarification Form Date: 10/29/2022 8:44:23 AM From: Carlota Cormier, CCS, CCDS Admit Date: 10/27/2022 11:04:00 AM Patient Name: Jade Oquendo Visit Number: [id number] Discharge Date: ATTENTION: The Clinical Documentation Specialists (CDI) and [facility] Coding Staff appreciate your assistance in clarifying documentation. Please respond to the clarification below the line at the bottom and electronically sign. The CDI & [facility] Coding staff will review the response and follow-up if needed. Please note: Queries are made part of the Legal Health Record. If you have any questions, please contact the author of this message via ITS. Dr. Vinny Adams: Weight loss with Failure to thrive likely secondary to recent jaw surgery (mouth was wired, now removed). Bed Scale BMI: 14.2. Based on this information and the findings below, is there an additional diagnosis that is clinically appropriate for this patient? History/Risk Factors per the 10/24 H/P: Recurrent falls, recently had jaw wired due to a fracture, Multiple fractures due to falls, Smoker, COPD, Hypertension, Hyperlipidemia, Osteoarthritis, Anxiety, Depression and Seizure disorder. Clinical Indicators: Presented to the ED 10/24 with Generalized weakness. Large amount of weight loss, increased nausea, decreased appetite, SOB & some intermittent chest discomfort. Mildly Hypoxic. Admit with Hypokalemia, Chest Pain, Dehydration, Dyspnea Dietitian Consulted 10/25: Appetite Fair - Poor for 1 month. Nutritional Intake Poor consumed 0-25%, Difficulty Chewing. Weight 37.648 kg, Height 5 ft 4 in BMI: 14.2 Underweight Calculated [place] 54.5 kg: % IBW: 69% Supplement: Ensure BID. LAB 10/24: Total Protein 6.2, Albumin 3.3. Treatment 10/25: Monitor PO intake, weight changes, oral supplement. Is there an additional diagnosis that is clinically appropriate for this patient? [ ] Mild Protein-Calorie Malnutrition [x] Moderate Protein-Calorie Malnutrition [ ] Severe Protein-Calorie Malnutrition [ ] Other condition, please specify [ ] Unable to Determine (Template Last Revised: December 2020) MTDD
[2022-10-29 08:55] LABS: Anion Gap 0 mmol/L; Chloride 112 mmol/L (98-107)
[2022-10-29] MEDS: ASPIRIN 81 MG PO SCH (09:19)
[2022-10-29] MEDS: METOPROLOL SUCCINATE (ER) 25 MG TAB.ER.24H PO SCH (09:19)
[2022-10-29] MEDS: HYDROcodone/APAP 10-325MG 1 EACH TAB PO SCH ×3 (09:19→18:57)
[2022-10-29] MEDS: FOLIC ACID 1 MG TAB PO SCH (09:19)
[2022-10-29] MEDS: HEPARIN SODIUM,PORCINE/PF 5,000 UNIT/0.5 ML SYRINGE SQ SCH ×2 (09:19→17:36)
[2022-10-29] MEDS: CALCIUM CARB-VIT D 500 MG-5 MCG TAB PO SCH ×2 (09:19→17:36)
[2022-10-29] MEDS: PANTOPRAZOLE 40 MG TABLET PO SCH (09:19)
[2022-10-29 09:49] LABS: Eosinophils # (M) 0.04 k/uL (0-0.7); Lymphocytes # (M) 0.84 k/uL (1.0-4.8); Monocytes # (M) 0.63 k/uL (0-1.0); Neutrophils # (M) 2.69 k/uL (1.3-7.7); Neutrophils % (M) 64 %; Nucleated Red Blood Cells 0 /100 WBC (0-0); Total Cells Counted 100
[2022-10-29 09:51] LABS: Target Cells Present
[2022-10-29] MEDS: LACTULOSE 20 GM/30 ML CUP PO SCH ×2 (12:58→20:57)
--- NOTE | 2022-10-29 14:19 | P.PN ---
Subjective Progress Note Date: 10/29/22 CHIEF COMPLAINT: Abdominal pain HISTORY OF PRESENT ILLNESS: Patient complains of lower abdominal pain and back pain. Patient reports that her pain is better than yesterday. The nausea has decreased. She is having bowel movements but they're small and soft. Breakfast was her first full liquid meal. Ultrasound of portal vein shows gallbladder is prominent in size with thickened wall measuring 4 mm correlate for cholecystitis. No definite gallstones. Portal vein shows no evidence of portal vein thrombosis. Patient reports her pain is mostly in the left lower quadrant and lower mid. LFTs are being worked up by medicine service. No GI service coverage. WBC is 4.2 hgb 9 plt 247 sodium 133 potassium 3.5 creatinine 0.69 total bilirubin 0.3 AST trending down from 908-45 ALT is down to 138 alk phos 181 PHYSICAL EXAM: VITAL SIGNS: Reviewed. GENERAL: Well-developed in no acute distress. HEENT: No sclera icterus. Extraocular movements grossly intact. Moist buccal mucosa. Head is atraumatic, normocephalic. ABDOMEN: Soft. Nondistended. No right upper quadrant tenderness. Tenderness left lower quadrant and lower mid abdomen NEUROLOGIC: Alert and oriented. Cranial nerves II through XII grossly intact. ASSESSMENT: 1. Abdominal pain 2. Ileus 3. Constipation 4. Elevated LFTs PLAN: -Continue lactulose for constipation -Continue full liquid diet -Encouraged patient to increase activity level -Continue supportive care Physician Pmp Project Manager note has been reviewed by physician. Signing provider agrees with the documented findings, assessment, and plan of care. Objective - Vital Signs Vital signs: Vital Signs Temp 97.8 F 10/29/22 13:55 Pulse 94 10/29/22 13:55 Resp 16 10/29/22 13:55 BP 97/61 10/29/22 13:55 Pulse Ox 100 10/29/22 13:55 FiO2 Intake & Output 10/28/22 10/29/22 10/29/22 18:59 06:59 18:59 Intake Total 500 Balance 500 Intake: Oral 500 Other: Voiding Method Toilet # Voids 3 # Bowel Movements 2 - Labs CBC & Chem 7: 10/29/22 06:07 10/29/22 06:09 Labs: Abnormal Lab Results - Last 24 Hours (Table) 10/26/22 10/29/22 10/29/22 Range/Units 06:14 06:07 06:07 RBC (3.80-5.40) m/uL Hgb (11.4-16.0) gm/dL Hct (34.0-46.0) % MCV (80.0-100.0) fL RDW (11.5-15.5) % Lymphocytes # (Manual) (1.0-4.8) k/uL Sodium (137-145) mmol/L Chloride (98-107) mmol/L Carbon Dioxide (22-30) mmol/L BUN (7-17) mg/dL Calcium (8.4-10.2) mg/dL Magnesium (1.6-2.3) mg/dL GGT 215 H (0-38) U/L AST (14-36) U/L ALT (4-34) U/L Alkaline Phosphatase (38-126) U/L Total Protein (6.3-8.2) g/dL Albumin (3.5-5.0) g/dL IgG 672.0 L (700.0-1600.0) mg/dL HSV II IgG 2.82 H (< or = 0.90) 10/29/22 10/29/22 Range/Units 06:07 06:09 RBC 2.74 L (3.80-5.40) m/uL Hgb 9.0 L (11.4-16.0) gm/dL Hct 28.5 L (34.0-46.0) % MCV 104.0 H (80.0-100.0) fL RDW 18.8 H (11.5-15.5) % Lymphocytes # (Manual) 0.84 L (1.0-4.8) k/uL Sodium 133 L (137-145) mmol/L Chloride 112 H (98-107) mmol/L Carbon Dioxide 21 L (22-30) mmol/L BUN 6 L (7-17) mg/dL Calcium 7.4 L (8.4-10.2) mg/dL Magnesium 1.3 L (1.6-2.3) mg/dL GGT (0-38) U/L AST 245 H (14-36) U/L ALT 138 H (4-34) U/L Alkaline Phosphatase 181 H (38-126) U/L Total Protein 4.2 L (6.3-8.2) g/dL Albumin 2.0 L (3.5-5.0) g/dL IgG (700.0-1600.0) mg/dL HSV II IgG (< or = 0.90)
--- NOTE | 2022-10-29 15:28 | P.PN ---
Subjective Progress Note Date: 10/29/22 Hospital course: Patient is a very pleasant 61-year-old female with a past medical history of hypertension, COPD, osteoarthritis, and seizure disorder. She presented to the hospital on 10/24/22 with a chief complaint of generalized weakness and weight loss accompanied by nausea, vomiting, abdominal pain, and back pain. Patient was found to have acute transaminitis and underwent abdominal workup which was negative for acute findings showing concerns of ileus. General surgery following recommending supportive care. Transaminitis worsening throughout hospitalization with AST elevating to 908, ALT 185, and alkaline phosphatase of 167. Hepatitis panel completed negative. 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 CK elevated at 285 and CK-MB elevated at 10.9. Patient was started on IV fluid hydration and hepatotoxic medication, Cymbalta was discontinued. Since initi ation of IV fluid hydration and discontinuation of Cymbalta liver enzymes improving with AST 245, ALP 138, and alkaline phosphatase of 181. We will plan to continue IV fluid hydration and recommend total discontinuation of Cymbalta. Imaging: Chest x-ray negative for acute cardiopulmonary process revealing mild COPD changes. CTA chest negative for PE revealing multiple old right rib fractures. EKG showing sinus tachycardia at 129 bpm with frequent PACs Echocardiogram completed revealing preserved EF of 55-60% with no reported valvular or structural abnormalities. CT abdomen and pelvis showing small pleural effusions and mild eyes R pulmonary infiltrates, large bowel fluid levels likely relating to mild ileus, and mild compression fractures of L1 and L3. HIDA scan showing an ejection fraction of 82% with some concern of abnormal or hyperkinetic response. Portal vein ultrasound showing no evidence of portal vein thrombosis and reporting gallbladder is prominent in size with a thickened wall measuring 4 mm correlating for cholecystitis. Physical exam: Patient seen and fully evaluated at bedside this morning. Patient and patient's sister at bedside updated on all lab findings and current plan of care and all questions answered at this time. Vital signs reviewed and stable. General: Nontoxic, no distress and appears older than stated age. Cachectic. Derm: Skin warm and dry, normal coloration for ethnicity. Head: Atraumatic, normocephalic and symmetric. Eyes: EOMs intact, no lid lag, and anicteric sclera Mouth: no lip lesions, mucus membranes moist Cardiovascular: regular rate and rhythm with normal S1S2, systolic murmur, positive posterior tibial pulses bilaterally, and cap refill < 2 seconds. Lungs: Respirations even, regular, and unlabored on room air. Lungs CTA bilate rally, no rhonchi, no rales, no wheezing, and no accessory muscle usage. Abdominal: soft, nontender to palpation, no guarding, no appreciable organomegaly Ext: ROM intact. No gross muscle atrophy, no edema, no contractures. Neuro: Speech clear, face symmetrical and CN II-XII grossly intact with no noted focal neuro deficits Psych: Alert and oriented to person, place, time, and situation. Appropriate and pleasant affect. Assessment and Plan of Care: Acute hepatocellular injury Acute transaminitis consistent with hepatocellular pattern injury Nausea/vomiting and abdominal pain -HIDA scan negative -CT abdomen and pelvis showed mild ileus -Surgery following recommendations appreciated -Ultrasound abdomen insignificant -Ultrasound duplex of liver ruled out portal vein thrombosis showing gallbladder prominent in size with thickened wall measuring 4 mm, possible cholecystitis. -Vital signs every 4 hours -Avoid hepatotoxic medications. Cymbalta was discontinued and patient started on IV fluid hydration -Liver duplex ruled out portal vein thrombosis. Small pleural effusions and mild basilar infiltrate is new compared to prior. -Patient denies chest pain shortness breath or cough Hypokalemia, resolved Hyponatremia, improving -Continue with gentle IV fluid hydration and Monitor BMP Sinus tachycardia multifactorial Initially due to dehydration, resolved -Morning heart rate was 89 -Metoprolol at 12.5 mg by mouth daily with strict parameters -Blood pressure is to be checked before medication is even given -Metoprolol has not been given since hospital admission due to parameters placed -Cardiology following -Echo revealed LV function estimated at 55-60% Mild compression fractures L1 and L2 Multiple old right rib fractures History of recent jaw fracture -Patient will require outpatient workup for osteoporosis and further evaluation of multiple fractures Macrocytic anemia Hemoglobin is stable -iron studies showed an elevated iron saturation -With decreased TIBC and transferrin levels -Iron level was normal -Concern for hemochromatosis -Outpatient work-up History of hypertension BP is currently on the lower end of normal Patient has not been receiving any antihypertensives due to low blood pressure Weight loss with failure to thrive Likely secondary to recent jaw surgery CT of the abdomen shows only Ultrasound abdomen negative History of GERD -Restart PPI CODE STATUS: Full code DVT prophylaxis: Heparin Discussed with: Patient, patient's sister and RN Anticipated discharge date: Clinical course to determine Anticipated discharge place: Home A total of 38 minutes was spent on the care of this complex patient more than 50% of the time was spent in counseling and care coordination. I reviewed the documentation as provided by the KIERAN above, who is the original author of this note. I agree with the documented assessment and plan, with the following changes: none Objective - Vital Signs Vital signs: Vital Signs Temp 97.9 F 10/29/22 07:14 Pulse 89 10/29/22 07:14 Resp 18 10/29/22 07:14 BP 117/77 10/29/22 07:14 Pulse Ox 100 10/29/22 07:14 FiO2 Intake & Output 10/28/22 10/29/22 10/29/22 18:59 06:59 18:59 Intake Total 500 Balance 500 Intake: Oral 500 Other: Voiding Method Toilet # Voids 3 # Bowel Movements 2 - Labs CBC & Chem 7: 10/29/22 06:07 10/29/22 06:09 Labs: Abnormal Lab Results - Last 24 Hours (Table) 10/26/22 10/28/22 10/28/22 Range/Units 06:14 05:47 13:09 Creatine Kinase 285 H (30-135) U/L CK-MB (CK-2) 10.9 H (0.0-2.4) ng/mL HSV II IgG 2.82 H (< or = 0.90)
[2022-10-30] MEDS: HEPARIN SODIUM,PORCINE/PF 5,000 UNIT/0.5 ML SYRINGE SQ SCH ×4 (00:17→21:41)
[2022-10-30] MEDS: SODIUM CHLORIDE 0.9% 1,000 ML IV SCH ×3 (00:17→17:15)
[2022-10-30] MEDS: HYDROcodone/APAP 10-325MG 1 EACH TAB PO SCH ×5 (00:17→21:40)
[2022-10-30] MEDS: HYDROcodone/APAP 10-325MG 1 EACH TAB PO PRN ×2 (01:16→06:44)
[2022-10-30 05:17] LABS: EBV-EA (IgG) >8.0 AI; EBV-EBNA(IgG) >8.0 AI; EBV-VCA (IgG) >8.0 AI; EBV-VCA (IgM) <0.2 AI
[2022-10-30] MEDS: CALCIUM CARB-VIT D 500 MG-5 MCG TAB PO SCH ×2 (06:44→17:29)
[2022-10-30] MEDS: PANTOPRAZOLE 40 MG TABLET PO SCH (10:01)
[2022-10-30] MEDS: ASPIRIN 81 MG PO SCH (10:01)
[2022-10-30] MEDS: METOPROLOL SUCCINATE (ER) 25 MG TAB.ER.24H PO SCH (10:02)
[2022-10-30] MEDS: FOLIC ACID 1 MG TAB PO SCH (10:02)
[2022-10-30] MEDS: LACTULOSE 20 GM/30 ML CUP PO SCH ×2 (10:02→21:39)
[2022-10-30 10:38] LABS: HCT 25.7 % (37.2-46.3); HGB 8.4 g/dL (12.0-15.0); MCH 32.6 pg (27.0-32.0); MCHC 32.7 g/dL (32.0-37.0); MCV 99.6 fL (80.0-97.0); Mean Platelet Volume 11.4 fL (9.5-12.2); NRBC Per 100 WBC 0.3 /100 WBCS (0.0-0.0); Platelet Count 254 X 10*3/uL (140-440); RBC 2.58 X 10*6/uL (4.10-5.20); RDW 19.3 % (11.5-14.5); WBC 7.79 X 10*3/uL (4.50-10.00)
[2022-10-30 11:05] LABS: ALT 108 U/L (8-44); AST 134 U/L (13-35); African American GFR (CKD) 108.4 (60.0-200.0); Albumin 2.4 g/dL (3.8-4.9); Albumin/Globulin Ratio 1.33 (1.60-3.17); Alkaline Phosphatase 212 U/L (41-126); BUN/Creat Ratio 7.86 Ratio (12.00-20.00); Blood Urea Nitrogen 5.5 mg/dL (9.0-27.0); Calcium 7.3 mg/dL (8.7-10.3); Carbon Dioxide 16.8 mmol/L (20.0-27.5); Chloride 109 mmol/L (96-109); Globulin 1.8 g/dL (1.6-3.3); Glucose 77 mg/dL (70-110); Non-African American GFR(CKD) 93.5 (60.0-200.0); Potassium 3.4 mmol/L (3.5-5.5); Sodium 134 mmol/L (135-145); Total Bilirubin <0.15 mg/dL (0.30-1.20); Total Protein 4.2 g/dL (6.2-8.2)
[2022-10-30 11:06] LABS: Magnesium 1.1 mg/dL (1.5-2.4)
[2022-10-30] MEDS ORDERED: POTASSIUM CHLORIDE ER 20 MEQ TAB.ER PO STA (11:59)
[2022-10-30] MEDS ORDERED: predniSONE 20 MG TAB PO STA (12:04)
--- NOTE | 2022-10-30 12:04 | P.PN ---
Subjective Progress Note Date: 10/30/22 Hospital course: Patient is a very pleasant 61-year-old female with a past medical history of hypertension, COPD, osteoarthritis, and seizure disorder. She presented to the hospital on 10/24/22 with a chief complaint of generalized weakness and weight loss accompanied by nausea, vomiting, abdominal pain, and back pain. Patient was found to have acute transaminitis and underwent abdominal workup which was negative for acute findings showing concerns of ileus. General surgery following recommending supportive care. Transaminitis worsening throughout hospitalization with AST elevating to 908, ALT 185, and alkaline phosphatase of 167. Hepatitis panel completed negative. 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 CK elevated at 285 and CK-MB elevated at 10.9. Patient was started on IV fluid hydration and hepatotoxic medication, Cymbalta was discontinued. TONIA screen was positive with an elevated anti-smooth muscle antibody confirming suspicions of autoimmune hepatitis, patient started on prednisone 40 mg daily. Discussed case with [facility] and [facility] both recommending outpatient follow-up with integration aide/sales service promoter stating no need for transfer at this time. Imaging: Chest x-ray negative for acute cardiopulmonary process revealing mild COPD changes. CTA chest negative for PE revealing multiple old right rib fractures. EKG showing sinus tachycardia at 129 bpm with frequent PACs Echocardiogram completed revealing preserved EF of 55-60% with no reported valvular or structural abnormalities. CT abdomen and pelvis showing small pleural effusions and mild eyes R pulmonary infiltrates, large bowel fluid levels likely relating to mild ileus, and mild compression fractures of L1 and L3. HIDA scan showing an ejection fraction of 82% with some concern of abnormal or hyperkinetic response. Portal vein ultrasound showing no evidence of portal vein thrombosis and reporting gallbladder is prominent in size with a thickened wall measuring 4 mm correlating for cholecystitis. Physical exam: Patient seen and fully evaluated at bedside this morning. Patient reports feeling slightly better this morning. She continues to have tenderness upon palpation in right upper and epigastric region but states nausea has improved and she is tolerating oral intake with a low fiber diet. Morning labs reviewed. Patient having improvement in liver function with AST of 134, ALT of 108, and alkaline phosphatase of 212. TONIA screen was positive with an elevated anti- smooth muscle antibody confirming suspicions of autoimmune hepatitis, patient started on prednisone 40 mg daily. Discussed case with [facility] and [facility] both recommending outpatient follow-up with integration aide/sales service promoter stating no need for transfer at this time. Had long discussion with patient regarding diagnosis of autoimmune hepatitis. Patient verbalized understanding that she will be discharged home on an extended prednisone taper and will need to follow-up with gastroenteritis. Vital signs reviewed and stable. General: Nontoxic, no distress and appears older than stated age. Cachectic. Derm: Skin warm and dry, normal coloration for ethnicity. Head: Atraumatic, normocephalic and symmetric. Eyes: EOMs intact, no lid lag, and anicteric sclera Mouth: no lip lesions, mucus membranes moist Cardiovascular: regular rate and rhythm with normal S1S2, systolic murmur, positive posterior tibial pulses bilaterally, and cap refill < 2 seconds. Lungs: Respirations even, regular, and unlabored on room air. Lungs CTA bilaterally, no rhonchi, no rales, no wheezing, and no accessory muscle usage. Abdominal: soft, tenderness to palpation right upper quadrant and epigastric region, no appreciable organomegaly Ext: ROM intact. No gross muscle atrophy, no edema, no contractures. Neuro: Speech clear, face symmetrical and CN II-XII grossly intact with no noted focal neuro deficits Psych: Alert and oriented to person, place, time, and situation. Appropriate and pleasant affect. Assessment and Plan of Care: Autoimmune hepatitis Acute hepatocellular injury Acute transaminitis consistent with hepatocellular pattern injury Nausea/vomiting and abdominal pain -Avoid hepatotoxic medications. Cymbalta was discontinued and patient was initially provided with IV fluid hydration -Portal vein thrombosis and acute cholecystitis have both been ruled out, please see imaging results above along with general surgery notes. -TONIA screen was positive with an elevated anti-smooth muscle antibody confirming suspicions of autoimmune hepatitis, patient started on prednisone 40 mg daily. Discussed case with [facility] transfer center and [facility] both recommending outpatient follow-up with integration aide/sales service promoter stating no need for transfer at this time. -Transaminitis is improving with AST of 134, ALT of 108, and alkaline phosphatase of 212. Hemoglobin 8.4 this morning. Bilirubin normal is low at 0.20. Small pleural effusions and mild basilar infiltrate is new compared to prior. -Patient denies chest pain shortness breath or cough, no further workup or treatment needed at this time. Ileus -Gen. surgery following -Patient received IV fluid hydration Hypokalemia, resolved Hyponatremia, improving -Patient received IV fluid hydration. Hyponatremia nearly resolved with sodium 134 this morning. Sinus tachycardia multifactorial Initially due to dehydration, resolved -Morning heart rate was 89 -Metoprolol at 12.5 mg by mouth daily with strict parameters -Blood pressure is to be checked before medication is even given -Metoprolol has not been given since hospital admission due to parameters placed -Cardiology following -Echo revealed LV function estimated at 55-60% Mild compression fractures L1 and L2 Multiple old right rib fractures History of recent jaw fracture -Patient will require outpatient workup for osteoporosis and further evaluation of multiple fractures Macrocytic anemia Hemoglobin is stable -iron studies showed an elevated iron saturation -With decreased TIBC and transferrin levels -Iron level was normal -Concern for hemochromatosis -Outpatient work-up History of hypertension BP is currently on the lower end of normal Patient has not been receiving any antihypertensives due to low blood pressure, but has been started back on metoprolol 12.5 mg daily. Weight loss with failure to thrive Likely secondary to recent jaw surgery CT of the abdomen shows only Ultrasound abdomen negative History of GERD -Restart PPI CODE STATUS: Full code DVT prophylaxis: Heparin Discussed with: Patient, patient's sister and RN Anticipated discharge date: Clinical course to determine Anticipated discharge place: Home A total of 36 minutes was spent on the care of this complex patient more than 50% of the time was spent in counseling and care coordination. I reviewed the documentation as provided by the KIERAN above, who is the original author of this note. I agree with the documented assessment and plan, with the following changes: none Objective - Vital Signs Vital signs: Vital Signs Temp 97.5 F L 10/30/22 08:15 Pulse 85 10/30/22 08:15 Resp 16 10/30/22 08:15 BP 121/81 10/30/22 08:15 Pulse Ox 97 10/30/22 08:15 FiO2 Intake & Output 10/29/22 10/30/22 10/30/22 18:59 06:59 18:59 Intake Total 120 Balance 120 Intake: Oral 120 Other: Voiding Method Toilet # Voids 3 2 - Labs CBC & Chem 7: 10/31/22 08:45 10/31/22 08:45 Labs: Abnormal Lab Results - Last 24 Hours (Table) 10/26/22 10/29/22 10/29/22 Range/Units 06:14 06:07 06:07 Lymphocytes # (Manual) (1.0-4.8) k/uL GGT 215 H (0-38) U/L IgG (700.0-1600.0) mg/dL TONIA Screen POSITIVE A (NEGATIVE) EBV Capsid Ag IgG Intrp POSITIVE A (NEGATIVE) EBV EA IgG Ab Interp POSITIVE A (NEGATIVE) EBV Nuc Ag IgG Interp POSITIVE A (NEGATIVE) 10/29/22 10/29/22 Range/Units 06:07 06:07 Lymphocytes # (Manual) 0.84 L (1.0-4.8) k/uL GGT (0-38) U/L IgG 672.0 L (700.0-1600.0) mg/dL TONIA Screen (NEGATIVE) EBV Capsid Ag IgG Intrp (NEGATIVE) EBV EA IgG Ab Interp (NEGATIVE) EBV Nuc Ag IgG Interp (NEGATIVE)
[2022-10-30] MEDS: MAGNESIUM SULFATE-D5W PMX 1 GM in DEXTROSE/WATER 1 100ML.BAG IVPB SCH ×4 (12:48→17:12)
[2022-10-30 14:31] LABS: Reticulocyte % 2.9 % (0.10-1.80)
[2022-10-30 14:32] LABS: INR 0.9 (<1.2); Prothrombin Time 9.8 sec (9.0-12.0)
--- NOTE | 2022-10-30 15:19 | P.PN ---
Subjective Progress Note Date: 10/30/22 CHIEF COMPLAINT: Abdominal pain HISTORY OF PRESENT ILLNESS: Patient reports feeling better today. She reports a decrease in her abdominal pain. She did have a bowel movement yesterday. She denies any nausea or vomiting. She did tolerate chopped diet. Afebrile. WBC is 7.79 Hgb 8.4 sodium 134 potassium 3.4 LFTs trending downwards. TONIA positive PHYSICAL EXAM: VITAL SIGNS: Reviewed. GENERAL: Well-developed in no acute distress. HEENT: No sclera icterus. Extraocular movements grossly intact. Moist buccal mucosa. Head is atraumatic, normocephalic. ABDOMEN: Soft. Nondistended. No right upper quadrant tenderness. Tenderness left lower quadrant and lower mid abdomen NEUROLOGIC: Alert and oriented. Cranial nerves II through XII grossly intact. ASSESSMENT: 1. Abdominal pain 2. Ileus 3. Constipation 4. Elevated LFTs PLAN: -Continue chopped diet -Continue lactulose for constipation -Encouraged patient to increase activity level -Continue supportive care Physician Counter Supply Worker note has been reviewed by physician. Signing provider agrees with the documented findings, assessment, and plan of care. I have personally seen and examined the patient, reviewed the DESIZING MACHINE OPERATOR /PAs history, e xam and MDM and agree with the assessment and plan as written. Based on total visit time, I have performed more than 50% of the visit. As above: Patient doing better today. Tolerating regular diet at this time. No significant pain currently. Abdominal exam is benign. No further surgery workup planned. Continue diet. We'll sign off. Please call if needed Objective - Vital Signs Vital signs: Vital Signs Temp 97.9 F 10/30/22 13:00 Pulse 66 10/30/22 13:00 Resp 16 10/30/22 13:00 BP 115/86 10/30/22 13:00 Pulse Ox 97 10/30/22 13:00 FiO2 Intake & Output 10/29/22 10/30/22 10/30/22 18:59 06:59 18:59 Intake Total 210 Balance 210 Weight 37.648 kg Intake: Oral 210 Other: Voiding Method Toilet # Voids 3 2 - Labs CBC & Chem 7: 10/30/22 06:36 10/30/22 06:36 Labs: Abnormal Lab Results - Last 24 Hours (Table) 10/26/22 10/29/22 10/29/22 Range/Units 06:14 06:07 06:07 RBC (4.10-5.20) X 10*6/uL Hgb (12.0-15.0) g/dL Hct (37.2-46.3) % MCV (80.0-97.0) fL MCH (27.0-32.0) pg RDW (11.5-14.5) % Absolute Nucleated RBC (0.00-0.00) X 10*3/uL NRBC/100 WBC Diff (0.0-0.0) /100 WBCS Retic Count (0.10-1.80) % Sodium (135-145) mmol/L Potassium (3.5-5.5) mmol/L Carbon Dioxide (20.0-27.5) mmol/L Anion Gap (10.00-18.00) mmol/L BUN (9.0-27.0) mg/dL BUN/Creatinine Ratio (12.00-20.00) Ratio Calcium (8.7-10.3) mg/dL Magnesium (1.5-2.4) mg/dL Total Bilirubin (0.30-1.20) mg/dL AST (13-35) U/L ALT (8-44) U/L Alkaline Phosphatase (41-126) U/L Total Protein (6.2-8.2) g/dL Albumin (3.8-4.9) g/dL Albumin/Globulin Ratio (1.60-3.17) g/dL TONIA Screen POSITIVE A (NEGATIVE) Anti-Smooth Muscle Ab 29 H (<20) UNITS EBV Capsid Ag IgG Intrp POSITIVE A (NEGATIVE) EBV EA IgG Ab Interp POSITIVE A (NEGATIVE) EBV Nuc Ag IgG Interp POSITIVE A (NEGATIVE) 10/30/22 10/30/22 10/30/22 Range/Units 06:36 06:36 06:36 RBC 2.58 L (4.10-5.20) X 10*6/uL Hgb 8.4 L (12.0-15.0) g/dL Hct 25.7 L (37.2-46.3) % MCV 99.6 H (80.0-97.0) fL MCH 32.6 H (27.0-32.0) pg RDW 19.3 H (11.5-14.5) % Absolute Nucleated RBC 0.02 H (0.00-0.00) X 10*3/uL NRBC/100 WBC Diff 0.3 H (0.0-0.0) /100 WBCS Retic Count 2.90 H (0.10-1.80) % Sodium 134 L (135-145) mmol/L Potassium 3.4 L (3.5-5.5) mmol/L Carbon Dioxide 16.8 L (20.0-27.5) mmol/L Anion Gap 8.20 L (10.00-18.00) mmol/L BUN 5.5 L (9.0-27.0) mg/dL BUN/Creatinine Ratio 7.86 L (12.00-20.00) Ratio Calcium 7.3 L (8.7-10.3) mg/dL Magnesium 1.1 L (1.5-2.4) mg/dL Total Bilirubin <0.15 L (0.30-1.20) mg/dL AST 134 H (13-35) U/L ALT 108 H (8-44) U/L Alkaline Phosphatase 212 H (41-126) U/L Total Protein 4.2 L (6.2-8.2) g/dL Albumin 2.4 L (3.8-4.9) g/dL Albumin/Globulin Ratio 1.33 L (1.60-3.17) g/dL TONIA Screen (NEGATIVE) Anti-Smooth Muscle Ab (<20) UNITS EBV Capsid Ag IgG Intrp (NEGATIVE) EBV EA IgG Ab Interp (NEGATIVE) EBV Nuc Ag IgG Interp (NEGATIVE)
[2022-10-30 16:17] LABS: Bilirubin, Conjugated <0.20 mg/dL (0.20-0.40)
[2022-10-30 17:00] LABS: LDH 357 U/L (120-246)
[2022-10-31 03:30] VITALS: RESP 17; TEMP 97.4
[2022-10-31] MEDS: HYDROcodone/APAP 10-325MG 1 EACH TAB PO PRN (04:16)
[2022-10-31 08:18] VITALS: BP 112/73; PULSE 83
[2022-10-31] MEDS: LACTULOSE 20 GM/30 ML CUP PO SCH (08:56)
[2022-10-31] MEDS: HEPARIN SODIUM,PORCINE/PF 5,000 UNIT/0.5 ML SYRINGE SQ SCH (08:58)
[2022-10-31] MEDS: ASPIRIN 81 MG PO SCH (08:58)
[2022-10-31] MEDS: PANTOPRAZOLE 40 MG TABLET PO SCH (08:58)
[2022-10-31] MEDS: FOLIC ACID 1 MG TAB PO SCH (08:58)
[2022-10-31] MEDS: CALCIUM CARB-VIT D 500 MG-5 MCG TAB PO SCH (08:58)
[2022-10-31] MEDS: METOPROLOL SUCCINATE (ER) 25 MG TAB.ER.24H PO SCH (08:58)
[2022-10-31] MEDS: HYDROcodone/APAP 10-325MG 1 EACH TAB PO SCH ×2 (08:59→13:59)
[2022-10-31 09:28] LABS: Anisocytosis Slight; HCT 33.4 % (34.0-46.0); HGB 10.7 gm/dL (11.4-16.0); Hypochromasia Slight; MCH 32.5 pg (25.0-35.0); MCV 101.5 fL (80.0-100.0); Macrocytosis Moderate; Mean Platelet Volume 10.4; Platelet Count 196 k/uL (150-450); Poikilocytosis Slight; RBC 3.29 m/uL (3.80-5.40); RDW 18.7 % (11.5-15.5)
[2022-10-31 09:35] LABS: ALT 100 U/L (4-34); African American GFR (CKD) >90 (>60 ml/min/1.73 sqM); Albumin 2.6 g/dL (3.5-5.0); Anion Gap 7 mmol/L; Blood Urea Nitrogen 6 mg/dL (7-17); Calcium 7.5 mg/dL (8.4-10.2); Carbon Dioxide 17 mmol/L (22-30); Chloride 106 mmol/L (98-107); Globulin 2.7 g/dL; Glucose 119 mg/dL (74-99); Non-African American GFR(CKD) >90 (>60 ml/min/1.73 sqM); Sodium 130 mmol/L (137-145); Total Bilirubin 0.5 mg/dL (0.2-1.3); Total Protein 5.3 g/dL (6.3-8.2)
[2022-10-31 09:40] LABS: AST 102 U/L (14-36); Alkaline Phosphatase 248 U/L (38-126); Potassium 4.3 mmol/L (3.5-5.1)
[2022-10-31 09:41] LABS: Magnesium 2.3 mg/dL (1.6-2.3)
--- NOTE | 2022-10-31 11:15 | CDI ---
Documentation Clarification Form Date: 10/31/2022 10:47:23 AM From: Carlota Cormier CCS, CCDS Admit Date: 10/27/2022 11:04:00 AM Patient Name: Jade Oquendo Visit Number: [id number] Discharge Date: ATTENTION: The Clinical Documentation Specialists (CDI) and [facility] Coding Staff appreciate your assistance in clarifying documentation. Please respond to the clarification below the line at the bottom and electronically sign. The CDI & [facility] Coding staff will review the response and follow-up if needed. Please note: Queries are made part of the Legal Health Record. If you have any questions, please contact the author of this message via ITS. Dr. Vinny Adams: Acute Hepatocellular Injury is documented, and patient is noted to have Acute transaminitis and Autoimmune Hepatitis. Please further clarify the Acute Hepatocellular Injury diagnosis. History/Risk Factors per the 10/24 H/P: COPD, GERD, Hypertension, Osteoarthritis, Seizure Disorder, Epilepsy, ESBL E Coli in urine, Multiple fractures: jaw, ribs; Anxiety, Depression, Smoker. Clinical Indicators: Presented to the ED on 10/24 via EMS with Generalized Weakness. Recent multiple fractures and recently had her jaw wired (since removed), large amount of weight loss, increased nausea, decreased appetite, Abdominal pain, SOB & some intermittent chest discomfort, mildly hypoxic, patient is a smoker & denies history of COPD. Admit with Hypokalemia, Chest pain, Dehydration and Dyspnea to Observation Status. 10/24 VS: T 98.8, P 59, R 18, BP 94/76, PO 88 RA - 98 2Lnc, BMI: 14.2 10/24 LAB: D Dimer 1.25; Na 131, K 2.9, Chloride 96, glucose 142, AST 203, ALT 77, Alkaline Phos 254, total protein 6.2, Albumin 3.3, Lipase 333. 10/25 CT US Abdomen: No Acute findings. 10/25 CT Abdomen/Pelvis: Large bowel fluid levels could relate to mild Ileus. 10/26 Surgery Consult for Abdominal Pain, Chronic Constipation, Nausea & Vomiting. Assessment: Abdominal pain, CT showing Ileus. 10/27 Admit as Inpatient with Nausea/Vomiting and Abdominal Pain to rule out Gallbladder Etiology with Elevated Liver Enzymes. Hypokalemia, Hyponatremia and Failure to thrive with weight loss documented in the 10/24 H/P. 10/27 Serology: Hepatitis A, Bs, B Core, C: Nonreactive. 10/29 Immunology: IgG 672.0, TONIA Screen Positive A, Anti-Smooth Muscle Ab 29. Treatment 10/27: Oral Nutrition supplement. 10/30: PO K-Dur 40 meq x1, IV Mag Sulfate/Dextrose 100 mls @ 100 mls/hr q1H, po Prednisone 40 mg x1 10/30 Case discussed with [facility]: recommend outpatient follow-up with Tile Grinder/materials planning manager, no immediate transfer. Please clarify the relationship, if any, which is clinically appropriate for this patient: [x] Acute Liver Failure, from Autoimmune hepatitis [ ] Other explanation of clinical findings (please specify) [ ] Unable to determine (no explanation for clinical findings) (Template Last Revised: December 2020) MTDD
[2022-10-31] MEDS ORDERED: predniSONE 20 MG TAB PO STA (12:32)
--- NOTE | 2022-10-31 13:31 | P.DS ---
Providers Date of admission: 10/27/22 11:04 Expected date of discharge: 10/31/22 Attending physician: Jazmin Melendez MD Consults: 10/24/22 15:05 Consult Physician Urgent Consulting Provider: Mehul Jang Consult Reason/Comments: chest pain, tachycardia Do you want consulting provider notified?: Yes 10/24/22 18:04 Consult Physician Routine Consulting Provider: Eliza Woodson Consult Reason/Comments: abdominal pain Do you want consulting provider notified?: Yes 10/26/22 07:30 Consult Physician Routine Consulting Provider: Ed Romero Consult Reason/Comments: ileus Do you want consulting provider notified?: Yes 10/28/22 10:42 Consult Physician Routine Consulting Provider: Justin Pham Consult Reason/Comments: rehab Do you want consulting provider notified?: Yes Primary care physician: Stated None Hospital Course: Discharge Diagnosis: 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 Liver enzymes elevated progressively and peaked with AST of 908, ALT of 185, and alkaline phosphatase of 167. TONIA screen was positive with an elevated anti-smooth muscle antibody confirming suspicions of autoimmune hepatitis, patient started on prednisone 40 mg daily and has had progressive improvement in liver function. Patient is being discharged home on extended prednisone taper and to follow-up with radial arm saw operator next week in the office and appointment was scheduled prior to discharge. Patient instructed to avoid hepatotoxic medications. Liver enzymes on day of discharge AST 102, ALT 100, and alkaline phosphatase of 248. Small pleural effusions and mild basilar infiltrate is new compared to prior. Patient denied chest pain, shortness breath or cough, no further workup or treatment needed at this time. Ileus, resolved Hypomagnesemia, resolved Hypokalemia, resolved Hyponatremia, stable with sodium of 130 upon discharge. Sinus tachycardia multifactorial, patient evaluated by cardiology and to continue metoprolol 12.5 mg daily. Echo revealed normal preserved EF of 55-60% Mild compression fractures L1 and L2, patient to follow up outpatient with orthospine surgery. Multiple old right rib fractures, Recommend outpatient workup for osteoporosis and further evaluation of multiple fractures History of recent jaw fracture, Patient will require outpatient workup for osteoporosis and further evaluation of multiple fractures Macrocytic anemia. Hemoglobin is stable 10.7 on day of discharge. Patient to continue folic acid. Hospital Course: Patient is a very pleasant 61-year-old female with a past medical history of hypertension, COPD, osteoarthritis, and seizure disorder. She presented to the hospital on 10/24/22 with a chief complaint of generalized weakness and weight loss accompanied by nausea, vomiting, abdominal pain, and back pain. Patient was found to have acute transaminitis and underwent abdominal workup which was negative for acute findings showing concerns of ileus. General surgery following recommending supportive care. Transaminitis worsening throughout hospitalization with AST elevating to 908, ALT 185, and alkaline phosphatase of 167. Hepatitis panel completed negative. 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 CK elevated at 285 and CK-MB elevated at 10.9. Patient was started on IV fluid hydration and hepatotoxic medication, Cymbalta was discontinued. TONIA screen was positive with an elevated anti-smooth muscle antibody confirming suspicions of autoimmune hepatitis, patient started on prednisone 40 mg daily. Discussed case with [facility] transfer center and [facility] transfer center both recommending outpatient follow-up with radial arm saw operator/side panel hanger stating no need for transfer at this time. Patient had progressive improvement in liver function and after discussion with radial arm saw operator she is being discharged home on extended prednisone taper and to follow-up with gas troenterologist next week in the office and appointment was scheduled prior to discharge. Patient instructed to avoid hepatotoxic medications. Liver enzymes on day of discharge AST 102, ALT 100, and alkaline phosphatase of 248. Patient also instructed she will need to follow up outpatient with orthospine surgery after she has completed treatment for acute autoimmune hepatitis. Imaging: Chest x-ray negative for acute cardiopulmonary process revealing mild COPD changes. CTA chest negative for PE revealing multiple old right rib fractures. EKG showing sinus tachycardia at 129 bpm with frequent PACs Echocardiogram completed revealing preserved EF of 55-60% with no reported valvular or structural abnormalities. CT abdomen and pelvis showing small pleural effusions and mild eyes R pulmonary infiltrates, large bowel fluid levels likely relating to mild ileus, and mild compression fractures of L1 and L3. HIDA scan showing an ejection fraction of 82% with some concern of abnormal or hyperkinetic response. Portal vein ultrasound showing no evidence of portal vein thrombosis and reporting gallbladder is prominent in size with a thickened wall measuring 4 mm correlating for cholecystitis. Physical exam: Patient seen and fully evaluated at bedside this morning. Discussed improvement in liver enzymes and plan of care with both patient and her sister at bedside. patient reports significant improvement in abdominal discomfort. Reports still having mild pain to right upper quadrant with deep palpation otherwise reports nearly resolved. She denies any episodes of nausea or vomiting has been tolerating oral intake. all discharge instructions reviewed with patient and her sister and all questions answered. Patient is medically stable for discharge and will need to follow-up outpatient with PCP, gastroenterology, cardiology, and orthospine surgery. Vital signs reviewed and stable. General: Nontoxic, no distress and appears older than stated age. Cachectic. Derm: Skin warm and dry, normal coloration for ethnicity. Head: Atraumatic, normocephalic and symmetric. Eyes: EOMs intact, no lid lag, and anicteric sclera Mouth: no lip lesions, mucus membranes moist Cardiovascular: regular rate and rhythm with normal S1S2, systolic murmur, positive posterior tibial pulses bilaterally, and cap refill < 2 seconds. Lungs: Respirations even, regular, and unlabored on room air. Lungs CTA bilaterally, no rhonchi, no rales, no wheezing, and no accessory muscle usage. Abdominal: soft, tenderness to palpation right upper quadrant and epigastric region, no appreciable organomegaly Ext: ROM intact. No gross muscle atrophy, no edema, no contractures. Neuro: Speech clear, face symmetrical and CN II-XII grossly intact with no noted focal neuro deficits Psych: Alert and oriented to person, place, time, and situation. Appropriate and pleasant affect. A total of 39 minutes of time were spent preparing this complex discharge summary. Pt was discharged on 10/31/22. I reviewed the documentation as provided by the KIERAN above, who is the original author of this note. I agree with the documented assessment and plan, with the following changes: none Patient Condition at Discharge: Stable Plan - Discharge Summary Discharge Rx Participant: No New Discharge Prescriptions: New HYDROcodone/APAP 10-325MG [[place] 10-325] 1 each PO QID PRN #20 tab PRN Reason: Pain Folic Acid 1 mg PO DAILY 30 Days #30 tab predniSONE See Taper PO DIRECTED 26 Days #62 tab Changed Metoprolol Tartrate [Lopressor] 12.5 mg PO DAILY #0 Discontinued DULoxetine HCL [Cymbalta] 60 mg PO DAILY Hydrocodone/Acetaminophen [[place] 10-325] 1 tab PO QID Esomeprazole Magnesium [NexIUM 24Hr] 20 mg PO DAILY Losartan Potassium [Cozaar] 100 mg PO DAILY Discharge Medication List Folic Acid 1 mg PO DAILY 30 Days #30 tab 10/31/22 [Rx] HYDROcodone/APAP 10-325MG [[place] 10-325] 1 each PO QID PRN #20 tab 10/31/22 [Rx] Metoprolol Tartrate [Lopressor] 12.5 mg PO DAILY #0 10/31/22 [Rx] predniSONE See Taper PO DIRECTED 26 Days #62 tab 10/31/22 [Rx] Follow up Appointment(s)/Referral(s): Yohannes Rudolph DO [STAFF PHYSICIAN] - 2 Weeks Jakob Welch MD [REFERRING] - 11/03/22 2:00 pm (2:30 appointment arrive at 2:00 for paper work.) Eliza Woodson MD [STAFF PHYSICIAN] - 11/04/22 3:30 pm Raimundo Pastor DO [Doctor of Osteopathic Medicine] - 11/13/22 9:30 am Patient Instructions/Handouts: Chest Pain (DC), Hypokalemia (DC) Activity/Diet/Wound Care/Special Instructions: Activity: As tolerated. Take breaks as needed. Diet: Heart healthy and carb consistent diet. Avoid salts, or foods with hidden salts such as canned or boxed foods and frozen dinners. Extra salt makes your heart work harder and traps the fluid in your body for longer. Special Instructions: Take all of your medications as directed and remember to keep all of your doctor's appointments and follow-up as needed. your appointments to establish care with a primary care provider, Dr. Welch and with your radial arm saw operator, Dr. Woodson have been scheduled for you, it is very important to keep these appointments. Once you have been cleared by your radial arm saw operator, you will need to schedule an appointment with orthopedic surgery for further evaluation of L1 and L2 compression fractures as we discussed. It is also highly recommended that you undergo further evaluation for osteoporosis secondary to history of multiple fractures. As discussed with you by professor of social workYue...Home health care services cannot be set up until you have been seen by your primary care doctor and they are able to sign and manage home care and outpatient physical therapy. Thank you for allowing us to participate in your care, it was truly a pleasure having you for our patient!!! Don't forget to stop and get that BIG MAC on your way home!!! Discharge Disposition: HOME SELF-CARE
== END 2022-10-31 15:40 | disposition home or self-care (01) | DRG 388 ==
LOC: EC 09:51 → 6NMEDSUR 15:05 → OBSVTOIN 10-27 11:04
PROVIDERS: ADMIT Family Medicine; ATTEND Family Medicine
DX: K56.7 Ileus, unspecified (principal); K72.00 Acute and subacute hepatic failure without coma; E44.0 Moderate protein-calorie malnutrition; E87.1 Hypo-osmolality and hyponatremia; J90 Pleural effusion, not elsewhere classified; Z68.1 Body mass index [BMI] 19.9 or less, adult; M48.56XA Collapsed vertebra, not elsewhere classified, lumbar region, initial encounter for fracture; R18.8 Other ascites; K75.4 Autoimmune hepatitis; J44.9 Chronic obstructive pulmonary disease, unspecified; G40.909 Epilepsy, unspecified, not intractable, without status epilepticus; E87.6 Hypokalemia; R00.0 Tachycardia, unspecified; I95.9 Hypotension, unspecified; E87.70 Fluid overload, unspecified; R62.7 Adult failure to thrive; E53.8 Deficiency of other specified B group vitamins; R74.8 Abnormal levels of other serum enzymes; D53.9 Nutritional anemia, unspecified; K21.9 Gastro-esophageal reflux disease without esophagitis; I10 Essential (primary) hypertension; M19.90 Unspecified osteoarthritis, unspecified site; F32.A Depression, unspecified; F41.9 Anxiety disorder, unspecified; F17.210 Nicotine dependence, cigarettes, uncomplicated; R29.6 Repeated falls; Z96.643 Presence of artificial hip joint, bilateral; E78.5 Hyperlipidemia, unspecified; E83.42 Hypomagnesemia; E86.0 Dehydration; G89.29 Other chronic pain; K22.4 Dyskinesia of esophagus; R74.01 Elevation of levels of liver transaminase levels; I49.3 Ventricular premature depolarization; Z88.2 Allergy status to sulfonamides; Z79.899 Other long term (current) drug therapy; Z87.440 Personal history of urinary (tract) infections; Z87.81 Personal history of (healed) traumatic fracture; K59.00 Constipation, unspecified; I08.1 Rheumatic disorders of both mitral and tricuspid valves; Z96.642 Presence of left artificial hip joint; Z98.42 Cataract extraction status, left eye; Z98.41 Cataract extraction status, right eye; Z87.19 Personal history of other diseases of the digestive system; Z80.1 Family history of malignant neoplasm of trachea, bronchus and lung
CPT/HCPCS: 36415; 71046; 71275; 74177; 76700; 78227; 80048; 80053; 80061; 80074; 81001; 82150; 82248; 82550; 82553; 82607; 82746; 82784; 82977; 83010; 83036; 83516; 83540; 83550; 83605; 83615; 83690; 83735; 83880; 84443; 84484; 85025; 85027; 85045; 85379; 85610; 85730; 86038; 86039; 86376; 86663; 86664; 86665; 86694; 86695; 86696; 93005; 93306; 93976; 94760; 96361; 96374; 96375; 96376; 99285

== ENCOUNTER → 2022-11-10 | Outpatient (CLI) | payer BC, MEDICARE ==
[2022-11-10 14:34] LABS: HCT 29.6 % (37.2-46.3); HGB 9.3 g/dL (12.0-15.0); MCH 32.9 pg (27.0-32.0); MCHC 31.4 g/dL (32.0-37.0); MCV 104.6 fL (80.0-97.0); Mean Platelet Volume 10.8 fL (9.5-12.2); NRBC Per 100 WBC 0 /100 WBCS (0.0-0.0); Platelet Count 488 X 10*3/uL (140-440); RBC 2.83 X 10*6/uL (4.10-5.20); RDW 19.8 % (11.5-14.5); WBC 11.16 X 10*3/uL (4.50-10.00)
[2022-11-10 15:24] LABS: Basophils # (A) 0.07 X 10*3/uL (0.00-0.10); Basophils % (A) 0.6 %; Eosinophils # (A) 0.21 X 10*3/uL (0.04-0.35); Eosinophils % (A) 1.9 %; Immature Grans, Automated 0.4 %; Lymphocytes # (A) 4.06 X 10*3/uL (0.90-5.00); Lymphocytes % (A) 36.4 %; Monocytes # (A) 0.93 X 10*3/uL (0.20-1.00); Monocytes % (A) 8.3 %; Neutrophils # (A) 5.84 X 10*3/uL (1.80-7.70); Neutrophils % (A) 52.4 %; Target Cells 2+
[2022-11-10 17:14] LABS: ALT 32 U/L (8-44); AST 22 U/L (13-35); African American GFR (CKD) 79.2 (60.0-200.0); Albumin 3.2 g/dL (3.8-4.9); Albumin/Globulin Ratio 1.47 (1.60-3.17); Alkaline Phosphatase 174 U/L (41-126); BUN/Creat Ratio 11.69 Ratio (12.00-20.00); Blood Urea Nitrogen 10.6 mg/dL (9.0-27.0); Calcium 8.7 mg/dL (8.7-10.3); Carbon Dioxide 26.2 mmol/L (20.0-27.5); Chloride 100 mmol/L (96-109); Globulin 2.1 g/dL (1.6-3.3); Glucose 92 mg/dL (70-110); Non-African American GFR(CKD) 68.4 (60.0-200.0); Sodium 135 mmol/L (135-145); Total Bilirubin <0.15 mg/dL (0.30-1.20); Total Protein 5.3 g/dL (6.2-8.2)
== END | disposition home or self-care (01) ==
LOC: LABWHC1 07:50
PROVIDERS: ATTEND Internal Medicine Gastroenterology
DX: R74.01 Elevation of levels of liver transaminase levels (principal)
CPT/HCPCS: 36415; 80053; 85025

== ENCOUNTER → 2022-11-19 | Outpatient (CLI) | payer BC, MEDICARE ==
[2022-11-19 14:27] LABS: HCT 27.9 % (37.2-46.3); HGB 8.7 g/dL (12.0-15.0); MCH 32.8 pg (27.0-32.0); MCHC 31.2 g/dL (32.0-37.0); MCV 105.3 fL (80.0-97.0); Mean Platelet Volume 10.7 fL (9.5-12.2); NRBC Per 100 WBC 0 /100 WBCS (0.0-0.0); Platelet Count 457 X 10*3/uL (140-440); RBC 2.65 X 10*6/uL (4.10-5.20); RDW 19.5 % (11.5-14.5); WBC 8.16 X 10*3/uL (4.50-10.00)
[2022-11-19 15:17] LABS: ALT 20 U/L (8-44); AST 33 U/L (13-35); African American GFR (CKD) 66.4 (60.0-200.0); Albumin 3.1 g/dL (3.8-4.9); Albumin/Globulin Ratio 1.34 (1.60-3.17); Alkaline Phosphatase 177 U/L (41-126); BUN/Creat Ratio 9.81 Ratio (12.00-20.00); Blood Urea Nitrogen 10.3 mg/dL (9.0-27.0); Chloride 106 mmol/L (96-109); Globulin 2.3 g/dL (1.6-3.3); Glucose 83 mg/dL (70-110); Non-African American GFR(CKD) 57.3 (60.0-200.0); Potassium 4.5 mmol/L (3.5-5.5); Sodium 137 mmol/L (135-145); Total Bilirubin <0.15 mg/dL (0.30-1.20); Total Protein 5.4 g/dL (6.2-8.2)
[2022-11-19 16:21] LABS: Basophils # (A) 0.05 X 10*3/uL (0.00-0.10); Basophils % (A) 0.6 %; Eosinophils # (A) 0.33 X 10*3/uL (0.04-0.35); Immature Grans, Automated 0.4 %; Lymphocytes # (A) 2.85 X 10*3/uL (0.90-5.00); Lymphocytes % (A) 34.9 %; Monocytes # (A) 0.53 X 10*3/uL (0.20-1.00); Monocytes % (A) 6.5 %; Neutrophils # (A) 4.37 X 10*3/uL (1.80-7.70); Neutrophils % (A) 53.6 %
== END | disposition home or self-care (01) ==
LOC: LABWHC1 09:49
PROVIDERS: ATTEND Internal Medicine Gastroenterology
DX: R74.01 Elevation of levels of liver transaminase levels (principal); Z53.9 Procedure and treatment not carried out, unspecified reason
CPT/HCPCS: 36415; 80053; 85025

== ENCOUNTER → 2022-11-20 | Outpatient (CLI) | payer MEDICARE, BC ==
--- NOTE | 2022-11-20 09:55 | BD ---
EXAMINATION TYPE: Axial Bone Density DATE OF EXAM: 11/20/2022 COMPARISON: NONE CLINICAL HISTORY: 61 years year old Female. ICD-10 CODE: K75.4 AUTOIMMUNE HEPATITIS TREATED W/STEROI DS Height: 63 Weight: 100.4 FRAX RISK QUESTIONS: Alcohol (3 or more units per day): NO Family History (Parent hip fracture): NO Glucocorticoids (More than 3mos): NO (Ex: prednisone, prednisolone, methylprednisolone, dexamethasone, and hydrocortisone). History of Fracture in Adulthood: LSPINE, MANDIBLE, PELVIS, SACRUM/COCCYX, ANKLE BILATERAL, BILATERAL FEET, TIB FIB Secondary Osteoporosis: 1. Type 1 Diabetes: NO 2. Hyperthyroidism: NO 3. Menopause before 45: YES 4. Malnutrition: YES 5. Chronic liver disease: NO Rheumatoid Arthritis: NO Current Tobacco Use: YES RISK FACTORS HISTORY OF: Hip Fracture (Right/Left): NO Spine Fracture: YES L1 AND L3 When: OCT 2022 History of Wrist Fracture: RT WRIST When: Surgery to Spine/Hip(right/left)/Wrist (right/left): BILATERAL HIP REPLACEMENT 2009 AND 2019 Family History of Osteoporosis: NO Active: NO Diet low in dairy products/other sources of calcium: NO Postmenopausal woman: NO Take estrogen and/or progesterone medications: NO Lost more than 2 inches in height since high school: NO Frequent falls: YES Poor Health: YES Hyperparathyroidism: NO Adrenal Insufficiency: NO MEDICATIONS: Prednisone or other steroids: PREDNISONE DOSE PACKS (ABOUT 3 PACKS YEARLY) FOR AUTOIMMUNE Thyroid Medications: NO Osteoporosis Medications: NO Additional Medications: DEPRESSION MEDS, BP MEDS, FOLIC ACID, NEXUM, NORCO, VIT EXAM MEASUREMENTS: Bone mineral density about the L Wrist (g/cm2): -9.0 T Score values are as follows: -----Dist. R+U: -8.6 -----Prox. R+U: -5.4 -----Radius total: -7.9 BASELINE FOREARM STUDY FRAX%s: NOT DONE BECAUSE OF BILATERAL HIP REPLACEMENTS IMPRESSION: Osteoporosis (T Score less than -2.5). There is increased fracture risk and therapy is usually indicated based on age. Re-Screen 1-2 years. NOTE: T-SCORE=SD OF THE YOUNG ADULT MEAN.
== END | disposition home or self-care (01) ==
LOC: RADBDWWP 08:47
PROVIDERS: ATTEND Family Medicine
DX: M81.0 Age-related osteoporosis without current pathological fracture (principal); K75.4 Autoimmune hepatitis; E46 Unspecified protein-calorie malnutrition; Z78.0 Asymptomatic menopausal state; Z96.643 Presence of artificial hip joint, bilateral
CPT/HCPCS: 77080

== ENCOUNTER 2023-01-23 07:23 | Day surgery (SDC) | payer MEDICARE, BC ==
[~2023-01-23 07:23] MED LIST changes: -ACETAMINOPHEN TAB 500 MG TAB PO PRN; -DEXAMETHASONE SOD PHOSPHATE 4 MG/ML 1 ML VIAL IV ONE; -GABAPENTIN 300 MG CAP PO PRN; -HYDROcodone/APAP 7.5-325MG 1 EACH TAB PO PRN; -HYDROmorphone 0.2 MG/1 ML SYRINGE IVP PRN; -HYDROmorphone 0.5 MG/0.5 ML SYRINGE IVP PRN; -HYDROmorphone 1 MG/ML 1 ML SYRINGE IVP PRN; +LACTATED RINGERS 1,000 ML IV SCH; -LIDOCAINE 1% (10MG/ML) FOR IV START INTRADERMA PRN; -MAGNESIUM HYDROXIDE 2,400 MG/10 ML CUP PO PRN; -MELOXICAM 7.5 MG TAB PO PRN; -MIDAZOLAM 2 MG/2 ML VIAL IV PRN; -NALOXONE 0.4 MG/ML 1 ML VIAL IV PRN; -ONDANSETRON 4 MG/2 ML VIAL IVP ONE; -ONDANSETRON 4 MG/2 ML VIAL IVP PRN; -ROPIVACAINE 246.25 MG, EPINEPHrine 0.5 MG, KETOROLAC 30 MG, cloNIDine HCL/PF 80 MCG, WA... MISCELLANE PRN; -TRANEXAMIC ACID 1,000 MG in SODIUM CHLORIDE 0.9% 100 ML IVPB PRN; -diazePAM 5 MG TAB PO PRN; -hydrOXYzine pamoate 25 MG CAP PO PRN
[2023-01-23] MEDS ORDERED: ONDANSETRON 4 MG/2 ML VIAL ONE (08:02)
[2023-01-23] MEDS ORDERED: PROPOFOL 10 MG/ML 20 ML VIAL IV ONE (08:02)
[2023-01-23 08:04] VITALS: TEMP 97
--- NOTE | 2023-01-23 08:30 | P.PCN ---
Date of Procedure: 01/23/23 Procedure(s) Performed: Brief history: Patient is a pleasant 63-year-old white female scheduled for an elective upper endoscopy as well as colonoscopy as a part of evaluation of long-standing history of GERD and screening for colon cancer. She is presently on Nexium 40 mg daily and has occasional heartburn. Procedure performed: Esophagogastroduodenoscopy with biopsy Colonoscopy Preoperative diagnosis: Long-standing history of GERD Screening for colon cancer Anesthesia: MAC Procedure: After informed consent was obtained from the patient was brought into the endoscopy unit and IV sedation was administered by anesthesia under continuous monitoring. Initially upper endoscopy was done. The Olympus GF 160 video endoscope was inserted inserted into the mouth and esophagus intubated without any difficulty and was gradually advanced into the stomach and duodenum and carefully examined. The bulb and second part of the duodenum appeared normal. The scope was then withdrawn into the stomach adequately insufflated with air and upon careful examination the antrum and diffuse antral gastritis and biopsies were done from this area. The body, cardia and fundus appeared normal. The scope was then withdrawn into the esophagus. The GE junction was located at 36 cm to the incisors. It appeared regular with circumferential erythema consistent with LA grade a reflux esophagitis. Rest of the esophagus appeared normal. Patient tolerated the procedure well. At this time the patient continued to remain sedation. Initial digital rectal examination was normal. Olympus CF 160 video colonoscope was then inserted into the rectum and gradually advanced to the cecum without any difficulty. Careful examination was performed as the scope was gradually being withdrawn. The prep was excellent. The cecum, ascending colon, transverse colon, descending colon, appeared normal. In the sigmoid colon there was a 3 mm polyp that was removed by cold biopsy. Rest of the sigmoid colon and rectum appeared normal. Retroflexion was performed in the rectum and no lesions were noted. Patient tolerated the procedure well. Impression: 1. Upper endoscopy revealed diffuse antral gastritis, small hiatal hernia and LA grade a reflux esophagitis 2. Colonoscopy revealed 3 mm sigmoid colon polyp status post cold biopsy and the rest of the colon appeared normal Recommendations: Findings of this examination were discussed with the patient as well as a family. She was advised to follow with the biopsy results. If the biopsy result she can have a repeat colonoscopy in 5 years. In the meantime she will continue with Nexium 40 mg daily and follow antireflux measures
[2023-01-23 08:43] VITALS: RESP 16
[2023-01-23 09:08] VITALS: BP 136/72; PULSE 105
== END 2023-01-23 09:18 | disposition home or self-care (01) ==
LOC: ORWHC2ENDO 07:23
PROVIDERS: ATTEND Internal Medicine Gastroenterology
DX: Z12.11 Encounter for screening for malignant neoplasm of colon (principal); K63.5 Polyp of colon; K21.00 Gastro-esophageal reflux disease with esophagitis, without bleeding; K29.50 Unspecified chronic gastritis without bleeding; K44.9 Diaphragmatic hernia without obstruction or gangrene; I10 Essential (primary) hypertension; F17.200 Nicotine dependence, unspecified, uncomplicated; F39 Unspecified mood [affective] disorder; Z88.2 Allergy status to sulfonamides; Z79.891 Long term (current) use of opiate analgesic; Z79.811 Long term (current) use of aromatase inhibitors; Z79.899 Other long term (current) drug therapy
CPT/HCPCS: 88305; 45380; 43239; J2405; J2704

== ENCOUNTER 2023-03-23 18:43 | Inpatient (IN) | payer MEDICARE, BC ==
[2023-03-23] MEDS ORDERED: SODIUM CHLORIDE 0.9% 1,000 ML IV STA (19:28)
[2023-03-23] MEDS ORDERED: HYDROcodone/APAP 7.5-325MG 1 EACH TAB PO ONE (19:29)
[2023-03-23 19:30] LABS: ALT 45 U/L (4-34); AST 96 U/L (14-36); African American GFR (CKD) 84 (>60 ml/min/1.73 sqM); Alkaline Phosphatase 113 U/L (38-126); Anion Gap 20 mmol/L; Blood Urea Nitrogen 15 mg/dL (7-17); Calcium 9.1 mg/dL (8.4-10.2); Carbon Dioxide 12 mmol/L (22-30); Chloride 100 mmol/L (98-107); Glucose 91 mg/dL (74-99); Non-African American GFR(CKD) 73 (>60 ml/min/1.73 sqM); Potassium 3.8 mmol/L (3.5-5.1); Sodium 132 mmol/L (137-145); Total Bilirubin 0.8 mg/dL (0.2-1.3); Total Protein 6.6 g/dL (6.3-8.2)
[2023-03-23 19:45] LABS: Partial Thromboplastin Time 21.6 sec (22.0-30.0); Prothrombin Time 10.4 sec (9.0-12.0)
--- NOTE | 2023-03-23 20:00 | XR ---
EXAMINATION TYPE: XR chest 2V DATE OF EXAM: 03/23/2023 7:46 PM COMPARISON: Chest radiographs from 10/24/2022 TECHNIQUE: XR chest 2V Frontal and lateral views of the chest. CLINICAL INDICATION:Female, 62 years old with history of weakness; FINDINGS: Lungs/Pleura: There is flattening of the diaphragm with increased lucency of the lungs. No evidence o f pneumothorax, pleural effusion or focal consolidation. Pulmonary vascularity: Unremarkable. Heart/mediastinum: Cardiomediastinal silhouette is unremarkable. Musculoskeletal: No acute osseous pathology. IMPRESSION: 1. No acute cardiopulmonary disease process. 2. COPD changes.
[2023-03-23 20:27] LABS: Anisocytosis Slight; Basophils % (A) 0 %; Eosinophils % (A) 1 %; HCT 33.5 % (34.0-46.0); HGB 10.6 gm/dL (11.4-16.0); Hypochromasia Moderate; Lymphocytes # (A) 0.8 k/uL (1.0-4.8); Lymphocytes % (A) 23 %; MCH 35.7 pg (25.0-35.0); MCHC 31.6 g/dL (31.0-37.0); MCV 112.8 fL (80.0-100.0); Macrocytosis Marked; Monocytes # (A) 0.3 k/uL (0-1.0); Monocytes % (A) 7 %; Neutrophils # (A) 2.5 k/uL (1.3-7.7); Neutrophils % (A) 68 %; Platelet Count 207 k/uL (150-450); RBC 2.97 m/uL (3.80-5.40); RDW 18.4 % (11.5-15.5); WBC 3.6 k/uL (3.8-10.6)
--- NOTE | 2023-03-23 20:44 | ED ---
General Adult HPI - General Chief complaint: Weakness Stated complaint: weakness Time Seen by Provider: 03/23/23 19:11 Source: patient, EMS Mode of arrival: EMS Limitations: no limitations - History of Present Illness Initial comments: Patient is 62-year-old female who presents to the emergency department for weakness. Patient has had weakness and decreased appetite for the past 2 weeks. She has had nausea without vomiting. She denies abdominal pain. She has had some intermittent diarrhea which is somewhat chronic for her. She denies recent antibiotic use, C. diff history. Denies blood in stool. She denies fever, chills, night sweats. According to sister patient has lost 10 pounds in the past 4 days. Sister is concerned patient looks ill. She denies chest pain and shortness of breath. Denies cough and other upper respiratory symptoms. Patient does have history of COPD and seizure. She smokes one pack of cigarettes daily. She also uses alcohol daily typically 1-2 shots of vodka. - Related Data Home Medications Medication Instructions Recorded Confirmed DULoxetine HCL [Cymbalta] 60 mg PO BID 01/20/23 03/23/23 HYDROcodone/APAP 10-325MG [[place] 1 tab PO QID 03/23/23 03/23/23 10-325] Hydrocortisone Cream 1 applic TOPICAL DAILY 03/23/23 03/23/23 [Hydrocortisone 1% Cream] Metoprolol Succinate (ER) [Toprol 25 mg PO BID 03/23/23 03/23/23 Xl] oxyBUTYnin chloride [oxyBUTYnin 5 mg PO HS 03/23/23 03/23/23 chloride ER] Allergies Allergy/AdvReac Type Severity Reaction Status Date / Time Sulfa (Sulfonamide Allergy Unknown Anaphylaxis Verified 03/23/23 21:34 Antibiotics) Review of Systems ROS Statement: Those systems with pertinent positive or pertinent negative responses have been documented in the HPI. ROS Other: All systems not noted in ROS Statement are negative. Past Medical History Past Medical History: COPD, GERD/Reflux, Hypertension, Osteoarthritis (OA), Seizure Disorder Additional Past Medical History / Comment(s): LIVER DISEASE? Hx Epilepsy, no seizure in 30+ yrs. Fracrured ribs fracure mandible. "BROKEN BACK". BROKEN PELVIS (FALL). OSTEOPOROSIS. History of Any Multi-Drug Resistant Organisms: ESBL Date of last positivie culture/infection: 05/30/15 E. coli ESBL MDRO Source:: Urine Past Surgical History: Hernia Repair, Joint Replacement Additional Past Surgical History / Comment(s): Bilateral cataract surgery, left hip replacement X2, right hip replacement x2, hiatal hernia repair. Past Anesthesia/Blood Transfusion Reactions: No Reported Reaction Additional Past Anesthesia/Blood Transfusion Reaction / Comment(s): Patient states "everytime I have an IV started I get I immediately get diarrhea after." Sister slow to wake up. Past Psychological History: Anxiety, Depression Smoking Status: Current every day smoker Past Alcohol Use History: Occasional Past Drug Use History: None Reported - Past Family History Mother Family Medical History: No Reported History Father Family Medical History: Cancer Additional Family Medical History / Comment(s): lung CA General Exam Limitations: no limitations General appearance: alert, in no apparent distress, cachectic Head exam: Present: atraumatic, normocephalic, normal inspection ENT exam: Present: normal oropharynx, mucous membranes dry Neck exam: Present: normal inspection, full ROM. Absent: tenderness, meningismus, lymphadenopathy Respiratory exam: Present: normal lung sounds bilaterally. Absent: respiratory distress, wheezes, rales, rhonchi, stridor Cardiovascular Exam: Present: regular rate, normal rhythm, normal heart sounds. Absent: systolic murmur, diastolic murmur, rubs, gallop, clicks GI/Abdominal exam: Present: soft, normal bowel sounds. Absent: distended, tenderness, guarding, rebound, rigid Extremities exam: Present: normal inspection, full ROM, normal capillary refill. Absent: tenderness Neurological exam: Present: alert, oriented X3, CN II-XII intact Psychiatric exam: Present: normal affect, normal mood Skin exam: Present: warm, dry, intact, normal color. Absent: rash Course Vital Signs 03/23/23 03/23/23 03/23/23 18:44 18:54 20:00 Temperature 97.0 F L Pulse Rate 75 Respiratory 18 18 Rate Blood Pressure 132/78 O2 Sat by Pulse 97 Oximetry 03/23/23 22:29 Temperature Pulse Rate 76 Respiratory 18 Rate Blood Pressure 136/70 O2 Sat by Pulse 93 L Oximetry Medical Decision Making - Medical Decision Making EKG taken at 19:21, interpreted by me Sinus rhythm, nonspecific T-wave abnormality Ventricular rate 88, SD interval 134, QRS duration 69, QTC 391 Was pt. sent in by a medical professional or institution ([facility]OCK[facility] Banda, TIPPLE OPERATOR, urgent care, hospital, or detention...) When possible be specific @ -[No] Did you speak to anyone other than the patient for history (EMS, parent, family, police, friend...)? What history was obtained from this source @ -yes, sister, who reported weight loss Did you review nursing and triage notes (agree or disagree)? Why? @ -[I reviewed and agree with nursing and triage notes] Were old charts reviewed (outside hosp., previous admission, EMS record, old EKG, old radiological studies, urgent care reports/EKG's, detention records)? Report findings @ -[No old charts were reviewed] Differential Diagnosis (chest pain, altered mental status, abdominal pain women, abdominal pain men, vaginal bleeding, weakness, fever, dyspnea, syncope, headache, dizziness, GI bleed, back pain, seizure, CVA, palpatations, mental health)? @ -Differential Weakness: Hypoglycemia, shock, sepsis, hyponatremia, anemia, infection, NV, ETOH, adverse medicine reaction, overdose, stroke, this is not meant to be an all-inclusive list. EKG interpreted by me (3pts min.). @ -[As above] X-rays interpreted by me (1pt min.). @Chest x-ray shows COPD changes without evidence of acute process CT interpreted by me (1pt min.). @ -[None done] U/S interpreted by me (1pt. min.). @ -[None done] What testing was considered but not performed or refused? (CT, X-rays, U/S, labs)? Why? @ -[None] What meds were considered but not given or refused? Why? @ -[None] Did you discuss the management of the patient with other professionals (professionals i.e. ROCK[facility] Banda, TIPPLE OPERATOR, lab, RT, psych nurse, social services specialist, apartment assistant manager, teacher, associate loan officer, egg caser)? Give summary @ -[No] Was smoking cessation discussed for >3mins.? @ -[No] Was critical care preformed (if so, how long)? @ -[No] Were there social determinants of health that impacted care today? How? (Homelessness, low income, unemployed, alcoholism, drug addiction, transportation, low edu. Level, literacy, decrease access to med. care, intermediate, rehab)? @ -[No] Was there de-escalation of care discussed even if they declined (Discuss DNR or withdrawal of care, Hospice)? DNR status @ -[No] What co-morbidities impacted this encounter? (DM, HTN, Smoking, COPD, CAD, Cancer, CVA, ARF, Chemo, Hep., AIDS, mental health diagnosis, sleep apnea, morbid obesity)? @ -[None] Was patient admitted / discharged? Hospital course, mention meds given and route, prescriptions, significant lab abnormalities, going to OR and other pertinent info. @ -Patient presenting for weakness. Patient appears dry and cachectic. Laboratory studies obtained. There is leukopenia at 3.6. Lymphocytes are low at 0.8. There is macrocytic anemia, hemoglobin at 10.6, I suspect secondary to alcoholism. There is mild hyponatremia at 132 which was treated with a saline bolus. There is acidosis, CO2 of 12, anion gap of 20, etiology unclear currently. Urinalysis is questionable for infection we will await for culture as patient does not have dysuria, urinary frequency/urgency. COVID-19, RSV, influenza and not detected. Chest x-ray interpreted by myself/radiology showing COPD changes without acute process. Results discussed with patient and sister. I did recommend admission for weakness, failure to thrive patient agreed. Case discussed with Dr. Santos who accepts admission. Undiagnosed new problem with uncertain prognosis? @ -[No] Drug Therapy requiring intensive monitoring for toxicity (Heparin, Nitro, Insulin, Cardizem)? @ -[No] Were any procedures done? @ -[No] Diagnosis/symptom? @ -weakness, failure to thrive Acute, or Chronic, or Acute on Chronic? @ -acute Uncomplicated (without systemic symptoms) or Complicated (systemic symptoms)? @ -uncomplicated Side effects of treatment? @ -[No] Exacerbation, Progression, or Severe Exacerbation? @ -[No] Poses a threat to life or bodily function? How? (Chest pain, USA, NV, pneumonia, PE, COPD, DKA, ARF, appy, cholecystitis, CVA, Diverticulitis, Homicidal, Suicidal, threat to staff... and all critical care pts) @ -[No] Dr. Norman is my attending. - Lab Data Result diagrams: 03/23/23 19:05 03/23/23 19:05 Lab Results 03/23/23 03/23/23 03/23/23 Range/Units 19:05 19:05 19:05 WBC 3.6 L (3.8-10.6) k/uL RBC 2.97 L (3.80-5.40) m/uL Hgb 10.6 L (11.4-16.0) gm/dL Hct 33.5 L (34.0-46.0) % MCV 112.8 H (80.0-100.0) fL MCH 35.7 H (25.0-35.0) pg MCHC 31.6 (31.0-37.0) g/dL RDW 18.4 H (11.5-15.5) % Plt Count 207 (150-450) k/uL MPV 10.0 Neutrophils % 68 % Lymphocytes % 23 % Monocytes % 7 % Eosinophils % 1 % Basophils % 0 % Neutrophils # 2.5 (1.3-7.7) k/uL Lymphocytes # 0.8 L (1.0-4.8) k/uL Monocytes # 0.3 (0-1.0) k/uL Eosinophils # 0.0 (0-0.7) k/uL Basophils # 0.0 (0-0.2) k/uL Manual Slide Review Performed Hypochromasia Moderate Poikilocytosis (manual Present Anisocytosis Slight Macrocytosis Marked A PT 10.4 (9.0-12.0) sec INR 1.0 (<1.2) APTT 21.6 L (22.0-30.0) sec VBG pH (7.31-7.41) VBG pCO2 (37-51) mmHg VBG HCO3 (24-28) mmol/L Sodium 132 L (137-145) mmol/L Potassium 3.8 (3.5-5.1) mmol/L Chloride 100 (98-107) mmol/L Carbon Dioxide 12 L (22-30) mmol/L Anion Gap 20 mmol/L BUN 15 (7-17) mg/dL Creatinine 0.86 (0.52-1.04) mg/dL Est GFR (CKD-EPI)AfAm 84 (>60 ml/min/1.73 sqM) Est GFR (CKD-EPI)NonAf 73 (>60 ml/min/1.73 sqM) Glucose 91 (74-99) mg/dL Plasma Lactic Acid Joey (0.7-2.0) mmol/L Calcium 9.1 (8.4-10.2) mg/dL Magnesium (1.6-2.3) mg/dL Total Bilirubin 0.8 (0.2-1.3) mg/dL AST 96 H (14-36) U/L ALT 45 H (4-34) U/L Alkaline Phosphatase 113 (38-126) U/L Troponin I (0.000-0.034) ng/mL Total Protein 6.6 (6.3-8.2) g/dL Albumin 4.0 (3.5-5.0) g/dL Urine Color Urine Appearance (Clear) Urine pH (5.0-8.0) Ur Specific [place] (1.001-1.035) Urine Protein (Negative) Urine Glucose (UA) (Negative) Urine Ketones (Negative) Urine Blood (Negative) Urine Nitrite (Negative) Urine Bilirubin (Negative) Urine Urobilinogen (<2.0) mg/dL Ur Leukocyte Esterase (Negative) Urine RBC (0-5) /hpf Urine WBC (0-5) /hpf Ur Squamous Epith Cells (0-4) /hpf Urine Bacteria (None) /hpf Hyaline Casts (0-2) /lpf Urine Mucus (None) /hpf Serum Alcohol mg/dL Influenza Type A (PCR) (Not Detectd) Influenza Type B (PCR) (Not Detectd) RSV (PCR) (Not Detectd) SARS-CoV-2 (PCR) (Not Detectd) 03/23/23 03/23/23 03/23/23 Range/Units 19:05 19:05 19:36 WBC (3.8-10.6) k/uL RBC (3.80-5.40) m/uL Hgb (11.4-16.0) gm/dL Hct (34.0-46.0) % MCV (80.0-100.0) fL MCH (25.0-35.0) pg MCHC (31.0-37.0) g/dL RDW (11.5-15.5) % Plt Count (150-450) k/uL MPV Neutrophils % % Lymphocytes % % Monocytes % % Eosinophils % % Basophils % % Neutrophils # (1.3-7.7) k/uL Lymphocytes # (1.0-4.8) k/uL Monocytes # (0-1.0) k/uL Eosinophils # (0-0.7) k/uL Basophils # (0-0.2) k/uL Manual Slide Review Hypochromasia Poikilocytosis (manual Anisocytosis Macrocytosis PT (9.0-12.0) sec INR (<1.2) APTT (22.0-30.0) sec VBG pH (7.31-7.41) VBG pCO2 (37-51) mmHg VBG HCO3 (24-28) mmol/L Sodium (137-145) mmol/L Potassium (3.5-5.1) mmol/L Chloride (98-107) mmol/L Carbon Dioxide (22-30) mmol/L Anion Gap mmol/L BUN (7-17) mg/dL Creatinine (0.52-1.04) mg/dL Est GFR (CKD-EPI)AfAm (>60 ml/min/1.73 sqM) Est GFR (CKD-EPI)NonAf (>60 ml/min/1.73 sqM) Glucose (74-99) mg/dL Plasma Lactic Acid Joey 1.1 (0.7-2.0) mmol/L Calcium (8.4-10.2) mg/dL Magnesium 2.2 (1.6-2.3) mg/dL Total Bilirubin (0.2-1.3) mg/dL AST (14-36) U/L ALT (4-34) U/L Alkaline Phosphatase (38-126) U/L Troponin I <0.012 (0.000-0.034) ng/mL Total Protein (6.3-8.2) g/dL Albumin (3.5-5.0) g/dL Urine Color Urine Appearance (Clear) Urine pH (5.0-8.0) Ur Specific [place] (1.001-1.035) Urine Protein (Negative) Urine Glucose (UA) (Negative) Urine Ketones (Negative) Urine Blood (Negative) Urine Nitrite (Negative) Urine Bilirubin (Negative) Urine Urobilinogen (<2.0) mg/dL Ur Leukocyte Esterase (Negative) Urine RBC (0-5) /hpf Urine WBC (0-5) /hpf Ur Squamous Epith Cells (0-4) /hpf Urine Bacteria (None) /hpf Hyaline Casts (0-2) /lpf Urine Mucus (None) /hpf Serum Alcohol mg/dL Influenza Type A (PCR) (Not Detectd) Influenza Type B (PCR) (Not Detectd) RSV (PCR) (Not Detectd) SARS-CoV-2 (PCR) (Not Detectd) 03/23/23 03/23/23 03/23/23 Range/Units 19:49 20:54 21:57 WBC (3.8-10.6) k/uL RBC (3.80-5.40) m/uL Hgb (11.4-16.0) gm/dL Hct (34.0-46.0) % MCV (80.0-100.0) fL MCH (25.0-35.0) pg MCHC (31.0-37.0) g/dL RDW (11.5-15.5) % Plt Count (150-450) k/uL MPV Neutrophils % % Lymphocytes % % Monocytes % % Eosinophils % % Basophils % % Neutrophils # (1.3-7.7) k/uL Lymphocytes # (1.0-4.8) k/uL Monocytes # (0-1.0) k/uL Eosinophils # (0-0.7) k/uL Basophils # (0-0.2) k/uL Manual Slide Review Hypochromasia Poikilocytosis (manual Anisocytosis Macrocytosis PT (9.0-12.0) sec INR (<1.2) APTT (22.0-30.0) sec VBG pH (7.31-7.41) VBG pCO2 (37-51) mmHg VBG HCO3 (24-28) mmol/L Sodium (137-145) mmol/L Potassium (3.5-5.1) mmol/L Chloride (98-107) mmol/L Carbon Dioxide (22-30) mmol/L Anion Gap mmol/L BUN (7-17) mg/dL Creatinine (0.52-1.04) mg/dL Est GFR (CKD-EPI)AfAm (>60 ml/min/1.73 sqM) Est GFR (CKD-EPI)NonAf (>60 ml/min/1.73 sqM) Glucose (74-99) mg/dL Plasma Lactic Acid Joey (0.7-2.0) mmol/L Calcium (8.4-10.2) mg/dL Magnesium (1.6-2.3) mg/dL Total Bilirubin (0.2-1.3) mg/dL AST (14-36) U/L ALT (4-34) U/L Alkaline Phosphatase (38-126) U/L Troponin I (0.000-0.034) ng/mL Total Protein (6.3-8.2) g/dL Albumin (3.5-5.0) g/dL Urine Color Yellow Urine Appearance Clear (Clear) Urine pH 6.5 (5.0-8.0) Ur Specific [place] 1.015 (1.001-1.035) Urine Protein 1+ H (Negative) Urine Glucose (UA) Negative (Negative) Urine Ketones 2+ H (Negative) Urine Blood Small H (Negative) Urine Nitrite Negative (Negative) Urine Bilirubin 1+ H (Negative) Urine Urobilinogen 4.0 (<2.0) mg/dL Ur Leukocyte Esterase Moderate H (Negative) Urine RBC 2 (0-5) /hpf Urine WBC 2 (0-5) /hpf Ur Squamous Epith Cells 1 (0-4) /hpf Urine Bacteria Occasional H (None) /hpf Hyaline Casts 7 H (0-2) /lpf Urine Mucus Rare H (None) /hpf Serum Alcohol <10 mg/dL Influenza Type A (PCR) Not Detected (Not Detectd) Influenza Type B (PCR) Not Detected (Not Detectd) RSV (PCR) Not Detected (Not Detectd) SARS-CoV-2 (PCR) Not Detected (Not Detectd) 03/23/23 Range/Units 22:00 WBC (3.8-10.6) k/uL RBC (3.80-5.40) m/uL Hgb (11.4-16.0) gm/dL Hct (34.0-46.0) % MCV (80.0-100.0) fL MCH (25.0-35.0) pg MCHC (31.0-37.0) g/dL RDW (11.5-15.5) % Plt Count (150-450) k/uL MPV Neutrophils % % Lymphocytes % % Monocytes % % Eosinophils % % Basophils % % Neutrophils # (1.3-7.7) k/uL Lymphocytes # (1.0-4.8) k/uL Monocytes # (0-1.0) k/uL Eosinophils # (0-0.7) k/uL Basophils # (0-0.2) k/uL Manual Slide Review Hypochromasia Poikilocytosis (manual Anisocytosis Macrocytosis PT (9.0-12.0) sec INR (<1.2) APTT (22.0-30.0) sec VBG pH 7.25 L (7.31-7.41) VBG pCO2 33 L (37-51) mmHg VBG HCO3 14 L (24-28) mmol/L Sodium (137-145) mmol/L Potassium (3.5-5.1) mmol/L Chloride (98-107) mmol/L Carbon Dioxide (22-30) mmol/L Anion Gap mmol/L BUN (7-17) mg/dL Creatinine (0.52-1.04) mg/dL Est GFR (CKD-EPI)AfAm (>60 ml/min/1.73 sqM) Est GFR (CKD-EPI)NonAf (>60 ml/min/1.73 sqM) Glucose (74-99) mg/dL Plasma Lactic Acid Joey (0.7-2.0) mmol/L Calcium (8.4-10.2) mg/dL Magnesium (1.6-2.3) mg/dL Total Bilirubin (0.2-1.3) mg/dL AST (14-36) U/L ALT (4-34) U/L Alkaline Phosphatase (38-126) U/L Troponin I (0.000-0.034) ng/mL Total Protein (6.3-8.2) g/dL Albumin (3.5-5.0) g/dL Urine Color Urine Appearance (Clear) Urine pH (5.0-8.0) Ur Specific [place] (1.001-1.035) Urine Protein (Negative) Urine Glucose (UA) (Negative) Urine Ketones (Negative) Urine Blood (Negative) Urine Nitrite (Negative) Urine Bilirubin (Negative) Urine Urobilinogen (<2.0) mg/dL Ur Leukocyte Esterase (Negative) Urine RBC (0-5) /hpf Urine WBC (0-5) /hpf Ur Squamous Epith Cells (0-4) /hpf Urine Bacteria (None) /hpf Hyaline Casts (0-2) /lpf Urine Mucus (None) /hpf Serum Alcohol mg/dL Influenza Type A (PCR) (Not Detectd) Influenza Type B (PCR) (Not Detectd) RSV (PCR) (Not Detectd) SARS-CoV-2 (PCR) (Not Detectd) Disposition Clinical Impression: Failure to thrive, Weakness Disposition: ADMITTED IP TO THIS HOSP Condition: Stable Referrals: Jakob Welch MD [Primary Care Provider] - 1-2 days
[2023-03-23 20:56] LABS: Poikilocytosis (M) Present
[2023-03-23 21:08] LABS: Appearance,Urine Clear (Clear); Bacteria,Urine Occasional /hpf; Bilirubin,Urine 1+ (Negative); Blood,Urine Small (Negative); Color,Urine Yellow; Glucose,Urine (UA) Negative (Negative); Hyaline Casts,Urine 7 /lpf (0-2); Ketones,Urine 2+ (Negative); Leukocyte Esterase,Urine Moderate (Negative); Mucus,Urine Rare /hpf; Nitrite,Urine Negative (Negative); PH, Urine 6.5 (5.0-8.0); Protein,Urine 1+ (Negative); RBC,Urine 2 /hpf (0-5); Specific Gravity,Urine 1.015 (1.001-1.035); Squamous Epithelial Cell,Urine 1 /hpf (0-4); WBC,Urine 2 /hpf (0-5)
[2023-03-23] MEDS ORDERED: NALOXONE 0.4 MG/ML 1 ML VIAL IV PRN (22:04)
[2023-03-23] MEDS ORDERED: ONDANSETRON 4 MG/2 ML VIAL IVP STA (22:06)
[2023-03-23] MEDS: SODIUM CHLORIDE 0.9% 1,000 ML IV SCH (22:27)
[2023-03-23 22:28] LABS: VBG PH 7.25 (7.31-7.41)
[2023-03-23] MEDS: OXYBUTYNIN XL 5 MG TAB.ER.24 PO SCH (23:20)
[2023-03-23] MEDS: METOPROLOL SUCCINATE (ER) 25 MG TAB.ER.24H PO SCH (23:20)
[2023-03-23] MEDS: HYDROcodone/APAP 10-325MG 1 EACH TAB PO SCH (23:20)
--- NOTE | 2023-03-24 03:09 | P.HPIM ---
History of Present Illness H&P Date: 03/24/23 The patient is a 62-year-old female with a PMH of COPD, seizures, GERD, depression, hypertension who presents to the emergency room with complaints of weight loss and generalized weakness. The patient states that over the past few weeks, her oral intake has been poor which has led to 10-15 pound weight loss in the last month. She also reports a long-standing history of intermittent diarrhea which is unchanged. She denied abdominal pain or blood in stools. Patient reports that she has been feeling's too fatigued to perform her ADLs and is unable to even stand up from a chair. She denied experiencing chest discomfort, shortness of breath, fever, chills, cough. Patient also reports a history of lung nodules which had resolved on follow-up imaging as per the patient. Chest x-ray in the emergency room revealed chronic COPD changes. EKG revealed sinus rhythm at [address]/T-wave changes noted as reviewed by me. Laboratory evaluation was reviewed and was remarkable for leukopenia of 3.6, hemoglobin 10.6 (at baseline), sodium 132, CO2 12, AST 96, ALT 45. ED documentation reviewed and case discussed with ED provider. [] Review of systems: Pertinent positives and negatives as discussed in HPI, a complete review of systems was performed and all other systems are negative. Physical examination: Vital signs reviewed General: non toxic, no distress, appears older than stated age, underweight Derm: no unusual rashes/lesions, warm Head: atraumatic, normocephalic, symmetric Eyes: EOMI, no lid lag, anicteric sclera, pupils equal round reactive to light ENT: Nose and ears atraumatic Neck: No cervical lymphadenopathy, trachea midline, supple Mouth: no lip lesion, mucus membranes moist Cardiovascular: S1S2 reg, no murmur, positive dorsalis pedis pulse bilateral, no edema Lungs: CTA bilateral, no rhonchi, no rales, no accessory muscle use Abdominal: soft, nontender to palpation, no guarding Ext: muscle strength 3+ out of 5 in all 4 extremities grossly, thin extremities throughout, no contractures, Neuro: CN II-XI grossly intact, no gross focal neuro deficits Psych: Alert, oriented, appropriate affect Assessment: Failure to thrive Macrocytic anemia Leukopenia Anion gap Metabolic acidosis Hyponatremia Chronic conditions: COPD, seizures Imaging: hest x-ray in the emergency room revealed chronic COPD changes. EKG revealed sinus rhythm at [address]/T-wave changes noted as reviewed by me. Data Review: Laboratory evaluation was reviewed and was remarkable for leukopenia of 3.6, hemoglobin 10.6 (at baseline), sodium 132, CO2 12, AST 96, ALT 45. Plan: PT and dietitian consult Check B 12 and folate levels Continue with IV fluids with normal saline at 75 mL per hour Continue the remaining home medications DVT prophylaxis: Lovenox subcu The patient is admitted with an anticipated greater than 2 midnight stay for evaluation of failure to thrive CODE STATUS: Full Code Discussed with: Patient Anticipated discharge place: Home Past Medical History Past Medical History: COPD, GERD/Reflux, Hypertension, Osteoarthritis (OA), Seizure Disorder Additional Past Medical History / Comment(s): LIVER DISEASE? Hx Epilepsy, no seizure in 30+ yrs. Fracrured ribs fracure mandible. "BROKEN BACK". BROKEN PE LVIS (FALL). OSTEOPOROSIS. History of Any Multi-Drug Resistant Organisms: ESBL Date of last positivie culture/infection: 05/30/15 E. coli ESBL MDRO Source:: Urine Past Surgical History: Hernia Repair, Joint Replacement Additional Past Surgical History / Comment(s): Bilateral cataract surgery, left hip replacement X2, right hip replacement x2, hiatal hernia repair. Past Anesthesia/Blood Transfusion Reactions: No Reported Reaction Additional Past Anesthesia/Blood Transfusion Reaction / Comment(s): Patient states "everytime I have an IV started I get I immediately get diarrhea after." Sister slow to wake up. Past Psychological History: Anxiety, Depression Smoking Status: Current every day smoker Past Alcohol Use History: Occasional Past Drug Use History: None Reported - Past Family History Mother Family Medical History: No Reported History Father Family Medical History: Cancer Additional Family Medical History / Comment(s): lung CA Medications and Allergies Home Medications Medication Instructions Recorded Confirmed Type DULoxetine HCL [Cymbalta] 60 mg PO BID 01/20/23 03/23/23 History HYDROcodone/APAP 10-325MG [[place] 1 tab PO QID 03/23/23 03/23/23 History 10-325] Hydrocortisone Cream 1 applic TOPICAL DAILY 03/23/23 03/23/23 History [Hydrocortisone 1% Cream] Metoprolol Succinate (ER) [Toprol 25 mg PO BID 03/23/23 03/23/23 History Xl] oxyBUTYnin chloride [oxyBUTYnin 5 mg PO HS 03/23/23 03/23/23 History chloride ER] Allergies Allergy/AdvReac Type Severity Reaction Status Date / Time Sulfa (Sulfonamide Allergy Unknown Anaphylaxis Verified 03/23/23 21:34 Antibiotics) Physical Exam Vitals: Vital Signs Temp Pulse Resp BP Pulse Ox 03/24/23 02:52 98.2 F 81 16 134/81 98 03/23/23 23:21 83 18 130/88 100 03/23/23 22:29 76 18 136/70 93 L 03/23/23 20:00 75 18 132/78 97 03/23/23 18:54 18 03/23/23 18:44 97.0 F L Intake and Output 03/23/23 03/23/23 03/24/23 14:59 22:59 06:59 Other: Weight 38.102 kg Results CBC & Chem 7: 03/23/23 19:05 03/23/23 19:05 Labs: Abnormal Lab Results - Last 24 Hours (Table) 03/23/23 03/23/23 03/23/23 Range/Units 19:05 19:05 19:05 WBC 3.6 L (3.8-10.6) k/uL RBC 2.97 L (3.80-5.40) m/uL Hgb 10.6 L (11.4-16.0) gm/dL Hct 33.5 L (34.0-46.0) % MCV 112.8 H (80.0-100.0) fL MCH 35.7 H (25.0-35.0) pg RDW 18.4 H (11.5-15.5) % Lymphocytes # 0.8 L (1.0-4.8) k/uL Macrocytosis Marked A APTT 21.6 L (22.0-30.0) sec VBG pH (7.31-7.41) VBG pCO2 (37-51) mmHg VBG HCO3 (24-28) mmol/L Sodium 132 L (137-145) mmol/L Carbon Dioxide 12 L (22-30) mmol/L AST 96 H (14-36) U/L ALT 45 H (4-34) U/L Urine Protein (Negative) Urine Ketones (Negative) Urine Blood (Negative) Urine Bilirubin (Negative) Ur Leukocyte Esterase (Negative) Urine Bacteria (None) /hpf Hyaline Casts (0-2) /lpf Urine Mucus (None) /hpf 03/23/23 03/23/23 Range/Units 20:54 22:00 WBC (3.8-10.6) k/uL RBC (3.80-5.40) m/uL Hgb (11.4-16.0) gm/dL Hct (34.0-46.0) % MCV (80.0-100.0) fL MCH (25.0-35.0) pg RDW (11.5-15.5) % Lymphocytes # (1.0-4.8) k/uL Macrocytosis APTT (22.0-30.0) sec VBG pH 7.25 L (7.31-7.41) VBG pCO2 33 L (37-51) mmHg VBG HCO3 14 L (24-28) mmol/L Sodium (137-145) mmol/L Carbon Dioxide (22-30) mmol/L AST (14-36) U/L ALT (4-34) U/L Urine Protein 1+ H (Negative) Urine Ketones 2+ H (Negative) Urine Blood Small H (Negative) Urine Bilirubin 1+ H (Negative) Ur Leukocyte Esterase Moderate H (Negative) Urine Bacteria Occasional H (None) /hpf Hyaline Casts 7 H (0-2) /lpf Urine Mucus Rare H (None) /hpf
[2023-03-24] MEDS: HYDROcodone/APAP 10-325MG 1 EACH TAB PO SCH ×3 (09:02→20:40)
[2023-03-24] MEDS: DULoxetine HCL 60 MG CAPSULE.DR PO SCH ×2 (09:03→22:23)
[2023-03-24] MEDS: ENOXAPARIN 40 MG/0.4 ML SYRINGE SQ SCH (09:03)
[2023-03-24] MEDS: METOPROLOL SUCCINATE (ER) 25 MG TAB.ER.24H PO SCH ×2 (09:03→22:23)
[2023-03-24] MEDS: SODIUM CHLORIDE 0.9% 1,000 ML IV SCH (13:22)
[2023-03-24] MEDS ORDERED: LORazepam 1 MG TAB PO PRN ×2 (17:47)
[2023-03-24] MEDS ORDERED: LORazepam 0.5 MG TAB PO PRN (17:47)
[2023-03-24] MEDS: MORPHINE SULFATE 2 MG/ML SYRINGE IVP PRN (19:02)
[2023-03-24] MEDS: OXYBUTYNIN XL 5 MG TAB.ER.24 PO SCH (22:23)
[2023-03-25] MEDS: HYDROcodone/APAP 10-325MG 1 EACH TAB PO SCH ×5 (00:49→22:21)
[2023-03-25] MEDS: MORPHINE SULFATE 2 MG/ML SYRINGE IVP PRN ×2 (04:21→20:19)
[2023-03-25] MEDS: SODIUM CHLORIDE 0.9% 1,000 ML IV SCH ×2 (04:27→09:00)
[2023-03-25 07:56] LABS: Anisocytosis Slight; HCT 28.1 % (34.0-46.0); Hypochromasia Moderate; MCH 34.9 pg (25.0-35.0); MCHC 30.9 g/dL (31.0-37.0); MCV 113.2 fL (80.0-100.0); Mean Platelet Volume 9.6; Platelet Count 181 k/uL (150-450); RBC 2.48 m/uL (3.80-5.40); RDW 18.3 % (11.5-15.5); WBC 5.2 k/uL (3.8-10.6)
[2023-03-25 08:08] LABS: African American GFR (CKD) >90 (>60 ml/min/1.73 sqM); Anion Gap 7 mmol/L; Blood Urea Nitrogen 13 mg/dL (7-17); Calcium 8.5 mg/dL (8.4-10.2); Carbon Dioxide 20 mmol/L (22-30); Chloride 103 mmol/L (98-107); Glucose 87 mg/dL (74-99); HGB 8.7 gm/dL (11.4-16.0); Macrocytosis Marked; Non-African American GFR(CKD) >90 (>60 ml/min/1.73 sqM); Potassium 3.1 mmol/L (3.5-5.1); Sodium 130 mmol/L (137-145)
[2023-03-25] MEDS: DULoxetine HCL 60 MG CAPSULE.DR PO SCH ×2 (08:59→20:21)
[2023-03-25] MEDS: METOPROLOL SUCCINATE (ER) 25 MG TAB.ER.24H PO SCH ×3 (08:59→20:23)
[2023-03-25] MEDS: THIAMINE 100 MG TAB PO SCH (09:00)
[2023-03-25] MEDS: ENOXAPARIN 40 MG/0.4 ML SYRINGE SQ SCH (09:00)
--- NOTE | 2023-03-25 10:09 | P.PN ---
Subjective Progress Note Date: 03/25/23 No new complaints today. Back pain is better controlle.d working with PT/OT. Gen: awake, alert, thin cachectic elderly woman HEENT: normocephalic, atraumatic, good hearing acuity, moist mucous membranes Resp: good air exchange, breathing comfortably with no accessory muscle use CVS: good distal perfusion x 4, GI: soft, NTTP, ND : no SPT, no CVAT, carlisle catheter not present MSK: no pitting edema, no clubbing Neuro: non-focal, moving all extremities Psych: cooperative, euthymic mood Hospital Course: The patient is a 62-year-old female with a PMH of COPD, seizures, GERD, depression, hypertension who presents to the emergency room with complaints of weight loss and generalized weakness. Laboratory evaluation was reviewed and was remarkable for leukopenia of 3.6, hemoglobin 10.6 (at baseline), sodium 132, CO2 12, AST 96, ALT 45. Chest x-ray in the emergency room revealed chronic COPD changes. EKG revealed sinus rhythm at [address]/T-wave changes noted. Assessment: Failure to thrive Macrocytic anemia Leukopenia Anion gap Metabolic acidosis Hyponatremia Chronic Back Pain COPD Seizures Plan: Today, patient is afebrile, 112/70, heart rate 89, 100% on room air CBC shows anemia done 8.7 Basic metabolic panel shows hyponatremia of 130, hypokalemia of 3.1, bicarb of 20 CBC, basic metabolic panel, magnesium ordered for tomorrow Patient was started on CIWA protocol with Ativan when necessary Continue morphine 2 mg IV every 4 hours when necessary Pending pain consult Continue [place] 10/325 4 times a day Continue PT/OT, with anticipation to rehab placement Patient is full code Objective - Vital Signs Vital signs: Vital Signs Temp 97.6 F 03/25/23 08:00 Pulse 89 03/25/23 08:00 Resp 16 03/25/23 08:00 BP 112/70 03/25/23 08:00 Pulse Ox 100 03/25/23 08:00 FiO2 21 03/24/23 09:16 Intake & Output 03/24/23 03/25/23 03/25/23 18:59 06:59 18:59 Other: # Voids 1 - Labs CBC & Chem 7: 03/25/23 07:08 03/25/23 07:08 Labs: Abnormal Lab Results - Last 24 Hours (Table) 03/25/23 03/25/23 Range/Units 07:08 07:08 RBC 2.48 L (3.80-5.40) m/uL Hgb 8.7 L D (11.4-16.0) gm/dL Hct 28.1 L (34.0-46.0) % MCV 113.2 H (80.0-100.0) fL MCHC 30.9 L (31.0-37.0) g/dL RDW 18.3 H (11.5-15.5) % Macrocytosis Marked A Sodium 130 L (137-145) mmol/L Potassium 3.1 L (3.5-5.1) mmol/L Carbon Dioxide 20 L (22-30) mmol/L
[2023-03-25 15:32] VITALS: BMI 14.8
--- NOTE | 2023-03-25 15:39 | P.PAINPG ---
Objective - Vital Signs Vital signs: Vital Signs Temp 97.6 F 03/25/23 08:00 Pulse 89 03/25/23 08:00 Resp 16 03/25/23 08:00 BP 112/70 03/25/23 08:00 Pulse Ox 100 03/25/23 08:00 FiO2 21 03/24/23 09:16 Intake & Output 03/24/23 03/25/23 03/25/23 18:59 06:59 18:59 Other: # Voids 1 - Labs CBC & Chem 7: 03/25/23 07:08 03/25/23 07:08 Labs: Abnormal Lab Results - Last 24 Hours (Table) 03/25/23 03/25/23 Range/Units 07:08 07:08 RBC 2.48 L (3.80-5.40) m/uL Hgb 8.7 L D (11.4-16.0) gm/dL Hct 28.1 L (34.0-46.0) % MCV 113.2 H (80.0-100.0) fL MCHC 30.9 L (31.0-37.0) g/dL RDW 18.3 H (11.5-15.5) % Macrocytosis Marked A Sodium 130 L (137-145) mmol/L Potassium 3.1 L (3.5-5.1) mmol/L Carbon Dioxide 20 L (22-30) mmol/L PQRS Measure Charge Sheet Comment: HISTORY OF PRESENT ILLNESS: 62 yr old inpatient female as a referral from Dr Melendez presents today w severe and chronic LBP secondary to DDD, spondylosis and facet arthropathy without myelopathy for evaluation. Pt states pain level is provoked at 10/10 in intensity w lifting or standing/ walking for <2 minutes, or w sitting for <5 mi nutes. Pain is constant, localized in the mid to lower lumbar spine, sore, achy in character without shooting pain. Pain is alleviated by medications ([place], Dilaudid), PT x 6 wks which ended in February 2023 but provided no relief, heat, hot showers, use of a walker for ambulatory assistance, repositioning and rest. PMH: COPD, GERD, HTN, OA, Seizure Disorder, MDD/ Anxiety PSH: Mandible Fx, Rib Fx, Hernia Repair,L Hip Replacement x2, R Hip Replacment x2, BL Cataract, SH: Daily tobacco use, Occasional ETOH use, No illicit drug use FH: Mo- No Reported History. Fa- Lung CA All: See list Meds: See list REVIEW OF ORGAN SYSTEMS: CONSTITUTIONAL: No fevers or chills. No recent weight loss. NEUROLOGICAL: + numbness and tingling along the distal extremities. No seizure disorders or headaches. MUSCULOSKELETAL: + pain PSYCHIATRIC: Denies current depression or suicidal thoughts. Physical Examinations : Constitutional : Cooperative , not in acute distress . Neurologic : Cranial nerve II to XII intact. No focal neurological deficits. Psychiatric : alert & oriented x 3. Matching mood & appropriate affect. Judgment & insight intact. Musculoskeletal : Cervical Spine Motor strength in the deltoid and biceps: Normal right side. Normal Left side Motor strength biceps and the wrist extensors: Normal right side . Normal left side Motor strength in the triceps muscle: Normal right side. Normal left side Deep tendon reflexes: Normal at the biceps. Normal at Brachioradialis. Normal at triceps Vertebral body tenderness to deep palpation over Cervical facet loading test: positive bilaterally Spurling test: positive bilaterally Neck distraction test: positive bilaterally Amarilys sign: positive bilaterally Lumbar spine Motor strength lower extremities ,thigh and legs 5/5 Right side , 5/5 Left side Deep tendon reflexes : Normal Knee Jerk. Normal Ankle Jerk Vertebral body tenderness over Yates Test positive Lumbar facet Loading Test: positive Right / positive Left Range of motion of the lumbar spine Flexion 30 degrees, extension 10 degrees Straight Leg Raise test: Left/ Right positive at <30 degrees [place] test: positive right / positive left. Severe tenderness over the Sacroiliac joint on the Right / Left sides Gaenslen test: positive bilaterally Seated flexion test: positive bilaterally. Sacral spine : Severe tenderness over the Sacroiliac joint: right side / left side Range of motion: Flexion of the lumbar spine <60 degrees Range of motion: Extension of the lumbar spine <20 degrees Gaenslen's Test positive Jj's Test positive [place] test: positive right side / left side Thigh Thrust Test Sacral Thrust Test Imaging: CT non contrast of the lumbar spine from 08/27/21 reviewed Assessment/ Plan : Lumbar DDD Recommendation of obtaining imaging reports from Dr Pastor's office. Pt states she was recommended surgery which includes a fusion by Dr Pastor's office but she hasn't scheduled it yet due to extensive cardiology appts. Her pain is managed w [place] PO q4H prn and Dilaudid IVP Q3H prn at this time. She may follow up at our office for medication management. All questions answered. I have spent greater than 30 minutes on patient care today. Dr Cespedes was available by phone for the evaluation of this patient. The time was used to review the medical records including relevant urine studies and Prescription history (MAPs), review of the available imaging, evaluation and examination of the patient, coordination of care with the medical staff and if applicable referring physicians, as well as creation of the medical record - Pain Location Right Hip Pharmacological Interventions: PRN Medication Lower Back Pharmacological Interventions: PRN Medication PQRS Narrative: Smoking Status Current every day smoker Blood Pressure [Right Arm] 112/70 Blood Pressure 117/77 Pain Intensity [Lower Back] 8 Pain Intensity [Right Hip] 9 Pain Intensity 4 Pain Scale Used Numeric (1 - 10) Scale Used Numeric (1 - 10) Home Medications: Ambulatory Orders DULoxetine HCL [Cymbalta] 60 mg PO BID 01/20/23 HYDROcodone/APAP 10-325MG [[place] 10-325] 1 tab PO QID 03/23/23 Hydrocortisone Cream [Hydrocortisone 1% Cream] 1 applic TOPICAL DAILY 03/23/23 Metoprolol Succinate (ER) [Toprol Xl] 25 mg PO BID 03/23/23 oxyBUTYnin chloride [oxyBUTYnin chloride ER] 5 mg PO HS 03/23/23 Controlled Substance Measures - Controlled Substance Measures Is patient prescribed a controlled substance at discharge?: No
[2023-03-25] MEDS: OXYBUTYNIN XL 5 MG TAB.ER.24 PO SCH (20:47)
[2023-03-26] MEDS: MORPHINE SULFATE 2 MG/ML SYRINGE IVP PRN ×3 (04:40→16:03)
[2023-03-26] MEDS: SODIUM CHLORIDE 0.9% 1,000 ML IV SCH ×2 (05:18→20:14)
[2023-03-26 06:33] LABS: Anisocytosis Slight; HCT 25.8 % (34.0-46.0); HGB 8.3 gm/dL (11.4-16.0); Hypochromasia Marked; MCH 36.7 pg (25.0-35.0); MCHC 32.1 g/dL (31.0-37.0); MCV 114.4 fL (80.0-100.0); Macrocytosis Marked; Platelet Count 168 k/uL (150-450); RBC 2.25 m/uL (3.80-5.40); RDW 18.1 % (11.5-15.5); WBC 5.4 k/uL (3.8-10.6)
[2023-03-26 06:43] LABS: African American GFR (CKD) 89 (>60 ml/min/1.73 sqM); Anion Gap 8 mmol/L; Blood Urea Nitrogen 15 mg/dL (7-17); Calcium 8.4 mg/dL (8.4-10.2); Carbon Dioxide 20 mmol/L (22-30); Chloride 101 mmol/L (98-107); Glucose 87 mg/dL (74-99); Magnesium 1.7 mg/dL (1.6-2.3); Non-African American GFR(CKD) 77 (>60 ml/min/1.73 sqM); Potassium 3.7 mmol/L (3.5-5.1); Sodium 129 mmol/L (137-145)
[2023-03-26 06:56] LABS: Band Neutrophils % 4 %; Eosinophils # (M) 0.11 k/uL (0-0.7); Lymphocytes # (M) 1.67 k/uL (1.0-4.8); Monocytes # (M) 0.38 k/uL (0-1.0); Neutrophils % (M) 56 %; Nucleated Red Blood Cells 0 /100 WBC (0-0); Total Cells Counted 100
[2023-03-26 06:57] LABS: Polychromasia Present
[2023-03-26] MEDS: HYDROcodone/APAP 10-325MG 1 EACH TAB PO SCH ×3 (07:00→19:47)
--- NOTE | 2023-03-26 09:04 | CDI ---
Documentation Clarification Form Date: 03/26/2023 07:49:00 AM From: Vonda Chang RN, CCDS Admit Date: 03/23/2023 10:05:00 PM Patient Name: Jade Oquendo Visit Number: [id number] Discharge Date: ATTENTION: The Clinical Documentation Specialists (CDI) and [facility] Coding Staff appreciate your assistance in clarifying documentation. Please respond to the clarification below the line at the bottom and electronically sign. The CDI & [facility] Coding staff will review the response and follow-up if needed. Please note: Queries are made part of the Legal Health Record. If you have any questions, please contact the author of this message via ITS. Dr. Vinny Adams The Registered Dietitian assessment on 03/25/2023 this patient meets criteria for severe malnutrition in the context of chronic illness/injury. Based on this information and the findings below, is there an additional diagnosis that is clinically appropriate for this patient? History/Risk Factors: COPD, seizure, Intermittent diarrhea, Hypertension, Depression, current every day smoker Clinical Indicators: 62-year-old female present to ED for weakness, decrease appetite for the past 2 weeks. She has had nausea without vomiting, intermittent diarrhea which is somewhat chronic for her. She also uses alcohol daily typically 1-[address] Consult Assessment: Malnutrition, severe in the context of chronic illness Current BMI: 14.9 Insufficient energy intake: Poor intake Weight Loss: reports 10 lb. wt. 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 [ ] Mild Protein-Calorie Malnutrition [ ] Moderate Protein-Calorie Malnutrition [x] Severe Protein-Calorie Malnutrition [ ] No additional diagnosis/Not clinically significant [ ] Other condition, please specify [ ] Unable to Determine (Template Last Revised: December 2020) MTDD
[2023-03-26] MEDS: DULoxetine HCL 60 MG CAPSULE.DR PO SCH ×2 (09:15→20:14)
[2023-03-26] MEDS: ENOXAPARIN 40 MG/0.4 ML SYRINGE SQ SCH (09:15)
[2023-03-26] MEDS: THIAMINE 100 MG TAB PO SCH (09:16)
[2023-03-26] MEDS: METOPROLOL SUCCINATE (ER) 25 MG TAB.ER.24H PO SCH ×2 (09:16→20:14)
--- NOTE | 2023-03-26 13:46 | P.PN ---
Subjective Progress Note Date: 03/26/23 No new complaints today. Back pain is better controlled working with PT/OT. Adamant about wanting to go home. Gen: awake, alert, thin cachectic elderly woman HEENT: normocephalic, atraumatic, good hearing acuity, moist mucous membranes Resp: good air exchange, breathing comfortably with no accessory muscle use CVS: good distal perfusion x 4 MSK: no pitting edema, no clubbing Neuro: non-focal, moving all extremities Psych: cooperative, euthymic mood Hospital Course: The patient is a 62-year-old female with a PMH of COPD, seizures, GERD, depression, hypertension who presents to the emergency room with complaints of weight loss and generalized weakness. Laboratory evaluation was reviewed and was remarkable for leukopenia of 3.6, hemoglobin 10.6 (at baseline), sodium 132, CO2 12, AST 96, ALT 45. Chest x-ray in the emergency room revealed chronic COPD changes. EKG revealed sinus rhythm at [address]/T-wave changes noted. Assessment: Failure to thrive Macrocytic anemia Leukopenia Metabolic acidosis Hyponatremia Chronic Back Pain COPD Seizures Plan: CBC shows hemoglobin of 8.3 with MCV of 114.4. BP shows sodium 129 and bicarb of 20 Patient was started on CIWA protocol with Ativan when necessary Continue morphine 2 mg IV every 4 hours when necessary Pain management on board, continue with current regimen Continue [place] 10/325 4 times a day Continue PT/OT, she would benefit from one more day of working with PT, would like to go home Anticipate DC home tomorrow. Objective - Vital Signs Vital signs: Vital Signs Temp 98.3 F 03/26/23 11:35 Pulse 80 03/26/23 11:35 Resp 16 03/26/23 11:35 BP 112/83 03/26/23 11:35 Pulse Ox 98 03/26/23 13:08 FiO2 21 03/24/23 09:16 Intake & Output 03/25/23 03/26/23 03/26/23 18:59 06:59 18:59 Intake Total 950 Balance 950 Weight 38.102 kg Intake: Intake, IV Titration 950 Amount Sodium Chloride 0.9% 1, 950 000 ml @ 75 mls/hr IV . [id number] BLAZE Rx#:[id number] Other: # Voids 2 1 - Labs CBC & Chem 7: 03/26/23 05:23 03/26/23 05:23 Labs: Abnormal Lab Results - Last 24 Hours (Table) 03/26/23 03/26/23 Range/Units 05:23 05:23 RBC 2.25 L (3.80-5.40) m/uL Hgb 8.3 L (11.4-16.0) gm/dL Hct 25.8 L (34.0-46.0) % MCV 114.4 H (80.0-100.0) fL MCH 36.7 H (25.0-35.0) pg RDW 18.1 H (11.5-15.5) % Macrocytosis Marked A Sodium 129 L (137-145) mmol/L Carbon Dioxide 20 L (22-30) mmol/L
[2023-03-26] MEDS: OXYBUTYNIN XL 5 MG TAB.ER.24 PO SCH (20:14)
[2023-03-27] MEDS: HYDROcodone/APAP 10-325MG 1 EACH TAB PO SCH ×3 (00:09→13:13)
[2023-03-27] MEDS: MORPHINE SULFATE 2 MG/ML SYRINGE IVP PRN ×2 (02:39→10:00)
[2023-03-27] MEDS: SODIUM CHLORIDE 0.9% 1,000 ML IV SCH (05:18)
[2023-03-27 08:13] VITALS: PULSE 74; RESP 16; TEMP 98.3
[2023-03-27] MEDS: DULoxetine HCL 60 MG CAPSULE.DR PO SCH (08:32)
[2023-03-27] MEDS: THIAMINE 100 MG TAB PO SCH (08:32)
[2023-03-27] MEDS: ENOXAPARIN 40 MG/0.4 ML SYRINGE SQ SCH (08:32)
[2023-03-27] MEDS: METOPROLOL SUCCINATE (ER) 25 MG TAB.ER.24H PO SCH (08:32)
[2023-03-27 09:44] VITALS: BP 113/72
--- NOTE | 2023-03-27 16:06 | P.DS ---
Providers Date of admission: 03/23/23 22:05 Expected date of discharge: 03/27/23 Attending physician: Luis Santos MD Consults: 03/24/23 17:47 Consult Physician Routine Consulting Provider: Tavo Cespedes Consult Reason/Comments: back pain Do you want consulting provider notified?: Yes Primary care physician: Jakob Welch MD Hospital Course: The patient is a 62-year-old female with a PMH of COPD, seizures, GERD, depression, hypertension who presents to the emergency room with complaints of weight loss and generalized weakness. Laboratory evaluation was reviewed and was remarkable for leukopenia of 3.6, hemoglobin 10.6 (at baseline), sodium 132, CO2 12, AST 96, ALT 45. Chest x-ray in the emergency room revealed chronic COPD changes. EKG revealed sinus rhythm at [address]/T-wave changes noted. Pain management was consulted with regard to her back. Pain was well- controlled with morphine, [place], Flexeril and lidocaine patch. Patient was able to work with PT and OT. Patient was adamant about wanting to go home instead of rehab. She was advised to follow-up with Dr. Pastor for possible surgical intervention which she was planning on prior to admission. Pertinent studies include CXR. Gen: awake, alert, thin cachectic elderly woman HEENT: normocephalic, atraumatic, good hearing acuity, moist mucous membranes Resp: good air exchange, breathing comfortably with no accessory muscle use CVS: good distal perfusion x 4 MSK: no pitting edema, no clubbing Neuro: non-focal, moving all extremities Psych: cooperative, euthymic mood Discharge Diagnosis: Failure to thrive Macrocytic anemia Leukopenia Metabolic acidosis Hyponatremia Chronic Back Pain COPD Seizures This complex discharge took 35 minutes to complete. Patient Condition at Discharge: Stable Plan - Discharge Summary Discharge Rx Participant: No New Discharge Prescriptions: New Cyclobenzaprine [Flexeril] 10 mg PO TID PRN #90 tab PRN Reason: Pain Lidocaine 5% Patch [Lidoderm] 1 patch TOPICAL DAILY #30 patch Continue HYDROcodone/APAP 10-325MG [[place] 10-325] 1 tab PO QID DULoxetine HCL [Cymbalta] 60 mg PO BID oxyBUTYnin chloride [oxyBUTYnin chloride ER] 5 mg PO HS Metoprolol Succinate (ER) [Toprol XL] 25 mg PO BID Hydrocortisone Cream [Hydrocortisone 1% Cream] 1 applic TOPICAL DAILY Discharge Medication List DULoxetine HCL [Cymbalta] 60 mg PO BID 01/20/23 [History] HYDROcodone/APAP 10-325MG [[place] 10-325] 1 tab PO QID 03/23/23 [History] Hydrocortisone Cream [Hydrocortisone 1% Cream] 1 applic TOPICAL DAILY 03/23/23 [History] Metoprolol Succinate (ER) [Toprol XL] 25 mg PO BID 03/23/23 [History] oxyBUTYnin chloride [oxyBUTYnin chloride ER] 5 mg PO HS 03/23/23 [History] Cyclobenzaprine [Flexeril] 10 mg PO TID PRN #90 tab 03/27/23 [Rx] Lidocaine 5% Patch [Lidoderm] 1 patch TOPICAL DAILY #30 patch 03/27/23 [Rx] Follow up Appointment(s)/Referral(s): Jakob Welhc MD [Primary Care Provider] - 03/30/23 2:00 pm Patient Instructions/Handouts: Failure to Thrive (DC), Weakness (DC) Discharge/Stand Alone Forms: AA Meetings [place], Who Do I Call?, Community Resources, Outpatient Counseling, Inp Substance Abuse Facilities Discharge Disposition: HOME SELF-CARE
== END 2023-03-27 14:00 | disposition home or self-care (01) | DRG 641 ==
LOC: EC 18:43 → 5NMEDONC 22:05
PROVIDERS: ADMIT Internal Medicine; ATTEND Internal Medicine
DX: E43 Unspecified severe protein-calorie malnutrition (principal); Z68.1 Body mass index [BMI] 19.9 or less, adult; E87.1 Hypo-osmolality and hyponatremia; R64 Cachexia; E87.20 Acidosis, unspecified; D72.819 Decreased white blood cell count, unspecified; D53.9 Nutritional anemia, unspecified; F17.210 Nicotine dependence, cigarettes, uncomplicated; F32.A Depression, unspecified; F41.9 Anxiety disorder, unspecified; G40.909 Epilepsy, unspecified, not intractable, without status epilepticus; G89.29 Other chronic pain; M54.9 Dorsalgia, unspecified; I10 Essential (primary) hypertension; J44.9 Chronic obstructive pulmonary disease, unspecified; M81.0 Age-related osteoporosis without current pathological fracture; R62.7 Adult failure to thrive; Z79.899 Other long term (current) drug therapy; Z96.643 Presence of artificial hip joint, bilateral; M19.90 Unspecified osteoarthritis, unspecified site; Z88.2 Allergy status to sulfonamides; Z20.822 Contact with and (suspected) exposure to COVID-19; Z28.311 Partially vaccinated for COVID-19
CPT/HCPCS: 36415; 71046; 80048; 80053; 80320; 81001; 82607; 82747; 82803; 83605; 83735; 84443; 84484; 85025; 85027; 85610; 85730; 87636; 93005; 94760; 96361; 96374; 99285

== ENCOUNTER → 2023-04-14 | Outpatient (CLI) | payer MEDICARE, BC ==
[2023-04-14 20:16] LABS: BUN/Creat Ratio 8.09 Ratio (12.00-20.00); Blood Urea Nitrogen 8.9 mg/dL (9.0-27.0); Calcium 8.1 mg/dL (8.7-10.3); Carbon Dioxide 18.9 mmol/L (21.6-31.8); Chloride 104 mmol/L (96-109); Glucose 96 mg/dL (70-110); Potassium 4.5 mmol/L (3.5-5.5); Sodium 138 mmol/L (135-145)
[2023-04-14 22:08] LABS: HCT 28.9 % (37.2-46.3); MCH 36.3 pg (27.0-32.0); MCHC 31.1 d/dL (32.0-37.0); MCV 116.5 FL (80.0-97.0); Mean Platelet Volume 10.2 FL (9.5-12.2); NRBC Per 100 WBC 0 X 10*3/uL (0.00-0.01); Platelet Count 364 X 10*3/uL (140-440); RBC 2.48 X 10*6/uL (4.10-5.20); RDW 18.9 % (11.5-14.5)
[2023-04-14 23:16] LABS: Basophils # (A) 0.04 X 10*3/uL (0.00-0.10); Basophils % (A) 0.7 %; Eosinophils # (A) 0.18 X 10*3/uL (0.04-0.35); Eosinophils % (A) 3.3 %; Lymphocytes # (A) 2.32 X 10*3/uL (0.90-5.00); Macrocytosis (M) 3+; Monocytes % (A) 5.6 %; Neutrophils # (A) 2.55 X 10*3/uL (1.80-7.70); Neutrophils % (A) 47.2 %
== END | disposition home or self-care (01) ==
LOC: LABPAT 10:29
PROVIDERS: ATTEND Orthopaedic Surgery
DX: Z01.812 Encounter for preprocedural laboratory examination (principal); S32.010A Wedge compression fracture of first lumbar vertebra, initial encounter for closed fracture; X58.XXXA Exposure to other specified factors, initial encounter
CPT/HCPCS: 36415; 80048; 85025; 85610

== ENCOUNTER → 2023-04-17 | Outpatient (CLI) | payer MEDICARE, BC ==
--- NOTE | 2023-04-17 19:04 | CT ---
EXAMINATION TYPE: CT lumbar spine wo con DATE OF EXAM: 04/17/2023 COMPARISON: CT chest 07/19/2022 HISTORY: lower back pain, pre op CT DLP: 651 mGycm CONTRAST: None TECHNIQUE: CT of the lumbar spine is performed on a spiral scan at 3 mm thick sections. Reconstructed images are performed in the coronal and sagittal planes. FINDINGS: T12-L1: No focal disc herniation or significant disc bulge is evident. No spinal canal stenosis or neural foraminal stenosis is present. There is some mild inferior endplate change and compression def ormity of L1 with out posterior wall displacement. This finding was present on the comparison CT ches t of 07/19/2022. L1-L2: No focal disc herniation or significant disc bulge is evident. No spinal canal stenosis or n eural foraminal stenosis is present L2-L3: There is a superior endplate compression deformity of L3. There is approximately 40% loss of t he vertebral body height along the left aspect of the vertebral body. No posterior wall displacement is evident. There is some mild broad-based disc bulge with anterior thecal sac flattening. No spinal canal stenosis present. Neural foramen are patent. L3-L4: Broad-based disc bulge is present. This is greater into the far right lateral direction correl ate with radicular symptoms. Mild foraminal narrowing is present on the right. No focal disc herniati on or spinal canal stenosis is present. L4-L5: Mild disc bulges into thecal sac contact. Ligamentum flavum laxity is present. No spinal canal stenosis is evident. There is moderate bilateral foraminal narrowing. L5-S1: There may be a tiny central protrusion at L5-S1 with [id number] anterior thecal sac comp ression. No AP spinal canal stenosis is present. Moderate bilateral foraminal narrowing is present. Vertebral alignment appears normal. IMPRESSION: 1. Mild inferior endplate compression of L1 and moderate superior endplate compression of L3. The L1 fracture was present previously. The L3 fracture is indeterminate in age but has the appearance of an old fracture. 2. Foraminal narrowing through the mid to lower lumbar spine discussed above. 3. Mild central protrusion L5-S1 with mild to moderate anterior thecal sac impression. No AP spinal c anal stenosis.
== END | disposition home or self-care (01) ==
LOC: RADCTMAIN 09:42
PROVIDERS: ATTEND Orthopaedic Surgery
DX: S32.030A Wedge compression fracture of third lumbar vertebra, initial encounter for closed fracture (principal); S32.010A Wedge compression fracture of first lumbar vertebra, initial encounter for closed fracture; M48.061 Spinal stenosis, lumbar region without neurogenic claudication; M51.17 Intervertebral disc disorders with radiculopathy, lumbosacral region
CPT/HCPCS: 72131

== ENCOUNTER 2023-04-20 06:08 | Day surgery (SDC) | payer MEDICARE, BC ==
[2023-04-14 16:07] VITALS: BMI 14.8
[2023-04-20] MEDS ORDERED: LACTATED RINGERS 1,000 ML IV SCH (06:14)
[2023-04-20] MEDS ORDERED: LIDOCAINE 1% (10MG/ML) FOR IV START INTRADERMA PRN (06:14)
[2023-04-20] MEDS ORDERED: ONDANSETRON 4 MG/2 ML VIAL IVP ONE (06:14)
[2023-04-20] MEDS ORDERED: DEXAMETHASONE SOD PHOSPHATE 4 MG/ML 1 ML VIAL IV ONE (06:14)
[2023-04-20] MEDS ORDERED: HYDROmorphone 0.5 MG/0.5 ML SYRINGE IVP PRN (06:14)
[2023-04-20] MEDS ORDERED: MIDAZOLAM 2 MG/2 ML VIAL IV PRN (06:14)
--- NOTE | 2023-04-20 06:35 | P.HPOR ---
History of Present Illness H&P Date: 04/06/23 .D:Date: 04/06/23 : 01:14pm .T:Title: [facility] Date of :60 [id number]: NKDA Age: 62 year Height: 5'3" Weight: 94 lbs BMI: 16.65 kg/m2 Occupation: Disabled VAS: 8 CHIEF COMPLAINT: Re-check lumbar pain DOI: 01/30/2023 DOS: None HISTORY : Xrays New X-rays taken in office today Trauma or injury No Work-Related No Pain description Aching & increasing Location Diffuse Patient notes that their pain radiates to left upper extremity, bilateral lower extremities Activity Modification Yes Hand Dominance Left TREATMENTS COMPLETED: 6 weeks of PT completed? Month and Year of last PT date? No Physician directed home exercise completed? Patient has trialed the physician directed home exercise program for without relief of their symptoms. Medications Yes List: Hereford, Aleve, Flexeril, & Lidocaine Patches; all with minimal relief. Alternative interventions Chiropractic:No Massage therapy:No R.I.C.E: yes(heat/ice without relief) Brace: No Injections No RFA:No SUBJECTIVE: Ms. Oquendo returns to the office today for re-evaluation of her low back pain. The patient continues to experience an ache-like pain throughout the low back. The patient states that her pain has been ongoing for several months, but was exacerbated by a recent fall on 01/30/2023. The patient notes worsening pain since the incident. The patient reports experiencing several other falls as well over the last 1 year. The patient experiences radiating pain down into the bilateral lower extremities, associated with numbness and tingling. The patient notes decreased ability to stand over the last 1 month. The patient notes that her pain increases with all activity, but mostly when trying to get up out of a chair. The patient attempted to complete a course of physical therapy, but did not end up following through after her most recent fall due to severe pain. The patient states that her symptoms make it very difficult for her to complete many of her daily tasks. The patient is currently taking Aleve, Hereford, Flexeril, and utilizing Lidocaine patches without any significant or sustained relief. The patient denies trialing any other modalities at this time.Otherwise the patient denies any f/c/sob/cp, no incision concerns, no bladder or bowel retention/incontinence, no perineal numbness/tingling, and ambulates with a wheelchair. HPI: Ms. Oquendo presents to the office on 02/05/2023 for an evaluation of their lumbar pain. Patient reports a lumbar pain increased with sit to stand, prolonged standing, sitting and ambulating. In addition to their lumbar pain, they do repo rt that it radiates into the bilateral lower extremities, associated with numbness and tingling through bilateral lower extremities. Patient states they have had falls every couple months with the last fall being 01/30/23. Patient was scheduled for L1, L3 Kyphoplasty but decided not to go with the surgery and was referred to the fragility clinic instead. she also notes she attended physical therapy but fell and had no evaluation. Overall the patient has seen a progressive increase in symptoms since their onset, due to this they notes that it is increasingly difficult for Ms. Oquendo to complete many of their daily tasks. Patient is having severe sleep disturbances as well due to their ongoing pain and associated symptoms. Regarding treatments, the patient has previously trialed norco and aleve with minimal relief. Patient denies trialing any other modalities at this time. Otherwise the patient denies any f/c/sob/cp, no incision concerns, no bladder or bowel retention/incontinence, no perineal numbness/tingling, and ambulates with a wheelchair. Ms. Oquendo presents to the office on 11/13/2022 for an evaluation of their lumbar pain. Patient reports a lumbar pain increased with sit to stand, prolonged standing, sitting and ambulating. In addition to their lumbar pain, they do report that it radiates into the bilateral lower extremities, associated with numbness and tingling through bilateral lower extremities. Overall the patient has seen a progressive increase in symptoms since their onset, due to this they notes that it is increasingly difficult for Ms. Oquendo to complete many of their daily tasks. Patient is having severe sleep disturbances as well (due to their ongoing pain and associated symptoms). Regarding treatments, the patient has previously trialed norco and aleve with minimal relief. Patient denies trialing any other modalities at this time. Otherwise the patient denies any f/c/sob/cp, no incision concerns, no bladder or bowel retention/incontinence, no perineal numbness/tingling, and ambulates independently. The patients' past social, medical, family, surgical history, as well as review of systems, have been reviewed. Please refer to the Neurosurgery History and Physical form that has been scanned in to our electronic medical record system. 14 points review of systems completed and as stated in HPI, all other systems reviewed are negative. Social History: [id number]:current smoker P3 Smoking amount: 1 PPD Alcohol:rare alcohol Family History:Reviewed, see appropriate section of the chart for details. P2 Past Medical History:Reviewed, see appropriate section of the chart for det ails. [id number] Medications: Rx: Aleve 220 mg tablet Ref: 0 Rx: folic acid Ref: 0 Rx: HYDROcodone 10 mg-acetaminophen 325 mg tablet Ref: 0 Rx: metoprolol tartrate Ref: 0 PHYSICAL EXAMINATION: General:Awake, alert, appropriate for age, in no acute distress. HEENT:No unusual neck masses around region of lateral neck triangle, thyroid, supraclavicular groove Heart:Regular rate and rhythm, normal S1, S2 and no murmur/gallop. Lungs:Clear to auscultation bilaterally with no use of accessory muscles. Extremities: Skin warm and dry without acute lesions, coloration, temperature, skin intact, no tenderness or erythema Integument: Hairy patches:ABSENT Dorsal skin dimples:ABSENT Cafe au lait spots:ABSENT Surgical incisions:NONE Palpation: Please see Pain drawing on Intake sheet for further detail. Midline spinal tenderness:No E6 Cervical Tenderness: No E6 Paralumbar tenderness:Yes E6 Parathoracic tenderness:Yes E6 Buttocks tenderness:No E6 Sacroiliac Tenderness: yes Laterality: bilateral Pain with ballottement of L1, L3 POSTURAL and MUSCULO-SKELETAL EVALUATION: Coronal Balance:NEUTRAL Recumbent testing:Patient isable to lay flat on back Sagittal Balance:NEUTRAL Shoulder Profile:LEVEL Pelvic Girdle:LEVEL Neck ROM:UNRESTRICTED Lumbar ROM:RESTRICTED Shoulder ROM:Symmetrical Hip ROM:Symmetrical Knee ROM:Symmetrical Hands: Normal appearance, Symmetrical Feet: Normal appearance, Symmetrical VASCULAR STATUS: LEFT RIGHT Wrist Pulses INTACT INTACT Pedal Pulses (Dors. pedis & post.tibialis) INTACT INTACT Color NORMAL NORMAL Edema Absent Absent NEUROLOGIC EXAMINATION: Mental Status:Awake and alert, fully oriented, with normal attention, concentration and memory, and fluent, appropriate speech. Cranial Nerves: I: Olfactory not tested. II: Visual acuity normal, no visual field deficit noted with confrontation. III,IV: Normal pupillary reflexes & intact extraocular movements without nystagmus. V,: Intact symmetrical facial sensation. VII: Intact symmetrical facial motor movement VIII: Hearing intact. IX,X: Intact gag, swallow, & normal voice. XI: Sternocleidomastoid, trapezius function intact. XII: Tongue midline with normal movements. L'hermitte's Sign:Negative / absent Spurling'Sign:Absent bilaterally. Cubital percussion test:Absent bilaterally. Chavez-Tinel sign - Carpal region:Absent bilaterally. Straight Leg Raising:Absent bilaterally. Crossed straight leg raise:negative O8 MOTOR EXAM (0-5/5, N/T Muscle appearance: Symmetrical, without signs of atrophy or dystrophy UPPER EXTREMITY RIGHT LEFT Shoulder Abduction 5/5 5/5 Biceps 5/5 5/5 Triceps 5/5 5/5 Wrist Extension 5/5 5/5 Hand Intrinsic 5/5 5/5 Furnace Loader 5/5 5/5 LOWER EXTREMITY RIGHT LEFT Hip Flexion 5/5 5/5 Knee Extension 5/5 5/5 Knee Flexion 5/5 5/5 Dorsiflexion 5/5 4/5 Plantarflexion 5/5 4/5 EHL 5/5 5/5 FHL 5/5 5/5 Toe heel walk / heel-toe walk intact while maintaining satisfactory balance? yes Squatting/straightening w/o assistance to a min of 60 degree knee flexion? No Single leg stance:intact Trendelenburg sign negative bilaterally REFLEXES(0-4/2, NT)Upper E xtremityLower Extremity Right 2 2 Left 2 2 Pathological Reflexes RIGHT LEFT Chavez's Absent Absent Clonus Absent Absent Babinski Absent Absent Sensory system (0-4, N/T) Test type RU ALEXIS RL LL Joint-Position 2 2 2 2 Vibration 2 2 2 2 Pain & LT sense 2 2 2 2 Dermatomal Deficit: None None None None Gait and Functional Evaluation: Ambulatory aids: Wheelchair Romberg's test: Intact bilaterally Unsteady Gait RADIOGRAPHS: XRay taken at [facility] on 04/06/23 of the Lumbar Spine: L3 VCF with 40% compression and anterior wedging. There is progression of the fracture with more height loss since previous films. Alignment is slightly kyphotic at this level. Overall the patient has increased kyphosis due to degenerative changes in T spine. No other new fractures noted at this time. AP pelvis shows congruent level pelvis. ASSESSMENT: 1. L3 vertebral compression fracture wit 40% wedge progression 2. Low back pain 3. Decreased ability to perform activities of daily living PLAN: Based on my findings I suggest the following course of action: -I discussed treatment options with the patient, including operative and non- operative options, and they have elected to proceed with the following surgical procedure: L3 kyphoplasty with biopsy The indications, risks, benefits, and alternatives to surgery were discussed with the patient and family at length. Specifically, but not limited to the risks of infection, stiffness, recurrence of symptoms, need for revision surgery, local numbness, neurovascular injury, and blood clots were discussed. The patient's questions were answered. - I have ordered a CT scan of the lumbar spine without contrast, which the patient should complete prior to surgery. - Ambulate daily - Take medications as directed - Ice and rest for pain and swelling control. Spine Surgery Risk Review Ms. Oquendo is presenting for evaluation of low back pain. It was my pleasure to have seen and examined Ms. Oquendo. In our visit today we have had a chance to go over subjective complaints, physical examination findings and treatments including the natural course history without intervention and various interventional options. The patients imaging demonstrates: XRay taken at [facility] on 04/06/23 of the Lumbar Spine: L3 VCF with 40% compression and anterior wedging. There is progression of the fracture with more height loss since previous films. Alignment is slightly kyp hotic at this level. Overall the patient has increased kyphosis due to degenerative changes in T spine. No other new fractures noted at this time. AP pelvis shows congruent level pelvis. CT scan with contrast from 10/25/22 at [facility] of the abdomen and pelvis demonstrates: - Reviewed with the patient today. Further bondy detail of the fractures visible of L1 and L3 with anterior wedging and compression of L1 and L3. No other fractures noted. Alignment is compromised at the levels of fracture with kyphosis due to the fracture height loss. No other fractures or lesions noted. On physical exam, Ms. Oquendo demonstrates: an ache-like pain throughout the low back. The patient states that her pain has been ongoing for several months, but was exacerbated by a recent fall on 01/30/2023. The patient notes worsening pain since the incident. The patient reports experiencing several other falls as well over the last 1 year. The patient experiences radiating pain down into the bilateral lower extremities, associated with numbness and tingling. The patient notes decreased ability to stand over the last 1 month. The patient notes that her pain increases with all activity, but mostly when trying to get up out of a chair. The patient states that her symptoms make it very difficult for her to complete many of her daily tasks. I have explained to the patient that as their condition progresses it will cause further neurological deficits and eventual paralysis. Based on the patients imaging, physical exam, and the rapid progression and disabling nature of their symptoms, at this time I recommend surgery in the form of a: L3 kyphoplasty with biopsy. I discussed the risk and benefits of this procedure at length with Ms. Oquendo. The patient agreed to considered pursuing the procedure above mentioned. Prior to surgery, she should follow up with her PCP (Cardio, ID, IM etc) for clearance. Questions were invited and answered, and the patient wishes to proceed as outlined below. Currently, I am recommendin.L3 kyphoplasty with biopsy 2.Follow up with PCP for surgical clearance 3.Review of surgical risks and benefits as well as an educational packet on the proposed surgical procedure. Risks: All surgical procedures come with inherent risks, including those related to positioning, anesthesia, intraoperative findings, and postoperative complications. It is important to understand that surgery does not come with any guarantee of a successful outcome as complications and adverse events are always possible. The patient was given a handout in office today discussing the surgical procedure and risks associated with the intervention, both of which were discussed with the patient. These risks include but are not limited to the following: * Experiencing same, different or even worse symptoms in back, neck, arms, or legs compared to before surgery. Requiring further surgery or other forms of treatment presently or at some time in the future at same or other levels of the intended spine surgery. On an extreme but fortunately relatively rare basis severe complication such as blindness, stroke, heart attack, temporary and/or permanent nerve injury, paralysis, coma, or may occur, sometimes without known explanation. Surgical complications may include but are not limited to risk of infection, fluid accumulation in the surgical dissection site, including a seroma or hematoma, that requires additional surgery, wound drainage, bleeding, new numbness or weakness, vision changes/loss, spinal fluid leakage, non-healing and/or infected incision, headaches, difficulty or inability to swallow, hoarseness, hemopneumothorax, pneumothorax, impotence, retrograde ejaculation, vaginal dryness; injury to nerves, spinal cord, blood vessels, lymphatics or other vital organs (i.e., bowel injury, injury to the great vessels); heterotopic bone formation; complications related to the hardware such as screws, rods, cages including misplaced hardware, device failure, instrumentation at the wrong spine level, hardware fracture/breakage, or hardware loosening; vertebral failure of the spinal column above or below the newly placed hardware; retained surgical instrumentations or devices and the need for further surgery. * Medical risks of the planned spine surgery include but are not limited to generalized Infections to the whole body or local areas outside of the surgical site (sepsis), heart attack, bleeding, anaphylaxis, meningitis, seizure, epilepsy, hearing loss, burn suarez, laceration of the head or other areas of the body, bruising, hypersensitivity of the skin, bladder over distension; allergic reaction; shoulder injury related to positioning; fat, blood and air clots to other areas of the body like heart, lungs, brain; failure of internal organs such as lungs, kidneys, liver and excessive bleeding. If blood transfusions are necessary, note that transfusions may cause intolerance reactions such as anaphylaxis or other complex reactions. Despite best efforts, the results of spine surgery might not heal in terms of bone, soft tissues such as skin, fascia, ligaments, and joints. Additionally, in order to achieve best possible results, spine surgery may be carried out beyond the initially planned levels and involve decompression, fusion including insertion of hardware at levels other than the original intended area of surgical interest change some portions of the procedure in order to ensure the best possible outcomes. With spine surgery and spinal fusion, there are different off label uses of instrumentation (devices, implants and hardware) as well as biological substances (bone morphogenic proteins, demineralized bone matrix) as well as using extra bone from allograft sources (i.e. cadaver bone) or autograft (iliac crest bone, ribs, or the spine itself). The patient has been given information about these practices and their inherent risks and benefits. [facility] is an educational center that serves as a training facility for neurosurgical and orthopedic [employer] and Nursing students. Physician assistants are medically trained surgical providers who function in the outpatient, inpatient, and operating room setting under the direct supervision of the attending surgeon. [facility] has multiple operating rooms with single and overlapping rooms running daily. They currently function under the required guidelines as produced by the [facility] Finance Committee with regards to the overlapping rooms and will continue to comply with changes to this policy as they occur. The requirements include and are complied with as follows: (1) the critical portions of the overlapping rooms will not occur at the same time, (2) the attending physician will be physically present during the critical portions of the procedure and immediately available during the entire case, and (3) a back-up attending is designated should the primary attending not be immediately available. The patient has had a chance to review all the listed information, has been given print outs detailing this information, and has had all his/her questions answered to their satisfaction. It was my pleasure to have seen and examined Ms. Oquendo. In our visit today we have had a chance to go over my understanding of our patient's current condition, the natural course history without intervention and various interventional options. Questions were invited and answered, and the patient wishes to proceed as outlined above. I have seen and examined the patient for 25 minutes and we have spent more than 50% of the time in repeat and detailed counseling about the patient's condition, its natural course history with out and as much as can be predicted with surgery and re-review of various surgical treatment options. In conclusion, Ms. Oquendo requested we proceed with the above suggested surgery and are willing to accept risks and limitations of the suggested surgery as n ature of the disease process and our best attempts at treatment for the condition. Thank you again for allowing us to be part of your patient's care. Please don't hesitate to contact me if you have any further questions. Follow- up: Post procedure Patient Education: (Informational booklet, instructions, etc) given at today's appointment: Yes .ED:Patient Education: Y Medications Reviewed: YES In our visit today Ms. Oquendo and I have had a chance to go over my understanding of the patient's current condition, the natural course history without intervention and various interventional options. Questions were invited and answered, and the patient wishes to proceed as outlined above. I will be sure to keep you updated afterMs. Oquendo returns here for further follow-up. Thank you again for your referral. Please do not hesitate to contact me if you have any further questions. Signed and authenticated by: Raimundo Armenta [facility] [address] [place] [address] This message is confidential, intended only for the named recipient(s) and may contain information that is privileged or exempt from disclosure under applicable law. If you are not the intended recipient(s), you are notified that the dissemination, distribution or copying of this information is strictly prohibited. If you received this message in error, please notify the sender then delete this message. Patient verbalizes understanding of the information discussed. The above note was initiated by Sulma Child, physician recording assistant passenger locomotive engineer for Dr. Raimundo Pastor. This note has been reviewed by Dr. Pastor, who has made his personal changes and impressions for this document. CC: Jakob Welch MD. #Orders: Xray L Spine 2v # SIGNED BY Raimundo Pastor (GOO)04/08/2023 07:54A Past Medical History Past Medical History: COPD, GERD/Reflux, Hypertension, Musculoskeletal Disorder, Osteoarthritis (OA), Seizure Disorder, Skin Disorder Additional Past Medical History / Comment(s): Hx Epilepsy, no seizure in 30+ yrs. Hx fractured ribs/jaw. "BROKEN BACK - UNKNOWN CAUSE". BROKEN PELVIS (FALL). OSTEOPOROSIS. Feet and ankles numb at times. Dermatitis, dry skin, current bed sores on each buttock. History of Any Multi-Drug Resistant Organisms: ESBL Date of last positivie culture/infection: 05/30/15 E. coli ESBL MDRO Source:: Urine Past Surgical History: Hernia Repair, Joint Replacement Additional Past Surgical History / Comment(s): Bilateral cataract surgery, left hip replacement X2, right hip replacement X2, hiatal hernia repair, EGD, colonoscopy, reconstructive jaw surgery. Past Anesthesia/Blood Transfusion Reactions: No Reported Reaction Additional Past Anesthesia/Blood Transfusion Reaction / Comment(s): Sister slow to wake up. Past Psychological History: Anxiety, Depression Smoking Status: Current every day smoker Past Alcohol Use History: Daily Additional Past Alcohol Use History / Comment(s): Started smoking at age 16, 1 PPD, currently down to 1/2 ppd. Normally has 1-2 alcoholic drinks daily. Past Drug Use History: None Reported - Past Family History Mother Family Medical History: Deep Vein Thrombosis (DVT), Hypertension Additional Family Medical History / Comment(s): Varicose veins. Father Family Medical History: Cancer Additional Family Medical History / Comment(s): Lung cancer. Medications and Allergies Home Medications Medication Instructions Recorded Confirmed Type DULoxetine HCL [Cymbalta] 60 mg PO BID 01/20/23 04/15/23 History HYDROcodone/APAP 10-325MG [Hereford 1 tab PO QID 03/23/23 04/15/23 History 10-325] Hydrocortisone Cream 1 applic TOPICAL DAILY 03/23/23 04/15/23 History [Hydrocortisone 1% Cream] Metoprolol Succinate (ER) [Toprol 25 mg PO TID 03/23/23 04/15/23 History XL] oxyBUTYnin chloride [oxyBUTYnin 5 mg PO HS 03/23/23 04/15/23 History chloride ER] Cyclobenzaprine [Flexeril] 10 mg PO TID PRN #90 tab 03/27/23 04/15/23 Rx Lidocaine 5% Patch [Lidoderm] 1 patch TOPICAL DAILY #30 patch 03/27/23 04/15/23 Rx Esomeprazole Magnesium [NexIUM] 20 mg PO BID 04/15/23 04/15/23 History Mirtazapine 7.5 mg PO HS 04/15/23 04/15/23 History Allergies Allergy/AdvReac Type Severity Reaction Status Date / Time Sulfa (Sulfonamide Allergy Unknown Anaphylaxis Verified 04/14/23 15:43 Antibiotics) Physical Examination Osteopathic Statement: *. No significant issues noted on an osteopathic structural exam other than those noted in the History and Physical/Consult.
[2023-04-20] MEDS ORDERED: fentaNYL (PF) 50 MCG/ML 2 ML AMP ONE (07:25)
[2023-04-20] MEDS ORDERED: SUCCINYLCHOLINE CHLORIDE 200 MG/10 ML VIAL IV ONE (07:25)
[2023-04-20] MEDS ORDERED: ETOMIDATE 2 MG/ML 10 ML VIAL ONE (07:25)
[2023-04-20] MEDS ORDERED: PHENYLEPHRINE-0.9% NACL SYG 1,000 MCG/10 ML SYRINGE ONE (07:25)
[2023-04-20] MEDS ORDERED: MIDAZOLAM 2 MG/2 ML VIAL ONE (07:25)
[2023-04-20] MEDS ORDERED: LIDOCAINE 2% INJ 20 MG/ML (2 ML VIAL) ONE (07:25)
[2023-04-20] MEDS ORDERED: BUPIVACAINE (PF) 0.5% 30 ML VIAL SQ ONE (08:05)
[2023-04-20] MEDS ORDERED: IOPAMIDOL M200 10 ML VIAL MISCELLANE ONE (08:05)
[2023-04-20] MEDS ORDERED: LACTATED RINGERS 1,000 ML IV ONE (08:15)
--- NOTE | 2023-04-20 08:30 | P.OP ---
Date of Procedure: 04/20/23 Preoperative Diagnosis: L1 VCF 40% Low back pain Osteoporosis Postoperative Diagnosis: L1 VCF 40% Low back pain Osteoporosis Procedure(s) Performed: 1. L3 BIOPSY WITH KYPHOPLASTY Implants: FOSTER CEMENT Anesthesia: MAHOGANYA Surgeon: Raimundo Pastor Desulfurizer Machine #1: Amos Knott (WAS PRESENT AND ASSISTED WITH ALL ASPECTS OF THE CASE FROM POSITION TO CLOSE) Estimated Blood Loss (ml): 2 IV fluids (ml): 500 Urine output (ml): 0 Pathology: other (l3 VERTEBRAL BODY) Condition: stable Disposition: PACU Indications for Procedure: Ms. Oquendo is presenting for evaluation of low back pain. It was my pleasure to have seen and examined Ms. Oquendo. In our visit today we have had a chance to go over subjective complaints, physical examination findings and treatments including the natural course history without intervention and various interventional options. The patients imaging demonstrates: XRay taken at [facility] on 04/06/23 of the Lumbar Spine: L3 VCF with 40% compression and anterior wedging. There is progression of the fracture with more height loss since previous films. Alignment is slightly kyphotic at this level. Overall the patient has increased kyphosis due to degenerative changes in T spine. No other new fractures noted at this time. AP pelvis shows congruent level pelvis. CT scan with contrast from 10/25/22 at [facility] of the abdomen and pelvis demonstrates: - Reviewed with the patient today. Further bondy detail of the fractures visible of L1 and L3 with anterior wedging and compression of L1 and L3. No other fractures noted. Alignment is compromised at the levels of fracture with kyphosis due to the fracture height loss. No other fractures or lesions noted. On physical exam, Ms. Oquendo demonstrates: an ache-like pain throughout the low back. The patient states that her pain has been ongoing for several months, but was exacerbated by a recent fall on 01/30/2023. The patient notes worsening pain since the incident. The patient reports experiencing several other falls as well over the last 1 year. The patient experiences radiating pain down into the bilateral lower extremities, associated with numbness and tingling. The patient notes decreased ability to stand over the last 1 month. The patient notes that her pain increases with all activity, but mostly when trying to get up out of a chair. The patient states that her symptoms make it very difficult for her to complete many of her daily tasks. I have explained to the patient that as their condition progresses it will cause further neurological deficits and eventual paralysis. Based on the patients imaging, physical exam, and the rapid progression and disabling nature of their symptoms, at this time I recommend surgery in the form of a: L3 kyphoplasty with biopsy. I discussed the risk and benefits of this procedure at length with Ms. Oquendo. The patient agreed to considered pursuing the procedure above mentioned. Prior to surgery, she should follow up with her PCP (Cardio, ID, IM etc) for clearance. Questions were invited and answered, and the patient wishes to proceed as outlined below. Currently, I am recommendin.L3 kyphoplasty with biopsy Description of Procedure: L3 Kyphoplasty with biopsy The patient was seen and examined in the preoperative area. All preoperative protocols were followed. Informed consent was obtained, risks and benefits of the procedure were discussed at length. Risks including bleeding infection damage to the surrounding tissue and risk of re-operation were discussed with the patient. Risk of anesthesia up to and including was discussed with the patient. These are outlined in the risk review. They were willing to accept these risks and all the risks of surgery. The patient was given a weight-based dose of antibiotics in the form of 2 g Ancef. The patient was seen and evaluated by the anesthesia team who deemed them fit for surgery. The site was marked, the patient was willing to proceed with the procedure. The patient was transferred to the operative suite by the Department of anes thesijustine. They were then drifted off to sleep by the department anesthesia and GETA was performed. The patient tolerated this well. Once confirmation of lines and ventilation the patient was transferred to a prone Alonso table very carefully. All bony prominences including wrists, elbows, axilla, chest, hips, and thighs, and feet were padded very well. Special attention was paid to the genitalia, and these were padded accordingly. SCDs were placed on bilateral lower extremities and were connected. Arms were well padded and placed on arm boards up and out in the 90/90 position. Once in position, again we confirmed good ventilation capabilities and that lines were running appropriately. The patients Lumbar spine was then exposed. 1010s were placed outlining the incision site. Standard alcohol was used to clean the incision site and allowed to dry. C-arm was used to needle localize the pedicles at L1 and bio-grace the patient and confirm level for incision which was marked with a skin marker. Operative briefing was performed with all teams and everyone in agreement to proceed. The patient was then prepped and draped in a normal sterile fashion. Timeout was then performed, and all parties agreed with the procedure to be performed. Skin ronald was made. Jamshitdi was passed into the L1 vertebral body via the pedicle. This was done with biplane fluoroscopy. Once in good position in the body the trochar removed. Biopsy needle was passed into the body and biopsy taken. Drill was then passed and biopsy material taken from drill as well. Curette then used to reduce endplate and create more space. Balloon was then passed an inflated which showed good reduction of endplate on AP and Lateral and confirmed central placement. The cement was then placed and pt remained stable. Good fill of cement was seen without extravasation. Once good fill, the Jamshedi was removed and the wound irrigated. The skin was closed with a simple stitch and dressed with a bandaid. The patient was then transferred off the table back to their hospital bed a- traumatically. They were extubated by the department of anesthesia. They were then transferred to PACU in stable condition having tolerated the procedure with no complications.
[2023-04-20 08:37] VITALS: TEMP 96.8
--- NOTE | 2023-04-20 08:39 | FL ---
EXAMINATION TYPE: FL guidance operating room DATE OF EXAM: 04/20/2023 HISTORY: Fluoroscopy time Total dose area product (DAP) in uGy*m?, mGy*cm? (or similar): 1.0321 IMPRESSION: 1. Fluoroscopy time.
[2023-04-20] MEDS ORDERED: hydrALAZINE HCL 20 MG/ML 1 ML VIAL IVP ONE (09:00)
[2023-04-20 09:11] VITALS: RESP 20
[2023-04-20 09:25] VITALS: BP 137/75; PULSE 80
== END 2023-04-20 09:56 | disposition home or self-care (01) ==
LOC: OR 06:08
PROVIDERS: ATTEND Orthopaedic Surgery
DX: M80.88XA Other osteoporosis with current pathological fracture, vertebra(e), initial encounter for fracture (principal); M40.209 Unspecified kyphosis, site unspecified; M51.36 Other intervertebral disc degeneration, lumbar region; I10 Essential (primary) hypertension; J44.9 Chronic obstructive pulmonary disease, unspecified; F17.210 Nicotine dependence, cigarettes, uncomplicated; K21.9 Gastro-esophageal reflux disease without esophagitis; G40.909 Epilepsy, unspecified, not intractable, without status epilepticus; M19.90 Unspecified osteoarthritis, unspecified site; Z87.2 Personal history of diseases of the skin and subcutaneous tissue; F41.9 Anxiety disorder, unspecified; F32.A Depression, unspecified; F10.20 Alcohol dependence, uncomplicated; Z88.2 Allergy status to sulfonamides; Z79.899 Other long term (current) drug therapy
CPT/HCPCS: 86900; 86901; 86850; 88307; 22514; J2250; J0330; J0360; J2405; J0690; J3010; J2370; Q9966; J2001

== ENCOUNTER 2023-05-05 23:37 | Emergency (ER) | payer BC, MEDICARE ==
--- NOTE | 2023-05-05 23:48 | ED ---
General Adult HPI - General Stated complaint: Fall Time Seen by Provider: 05/05/23 23:39 - History of Present Illness Initial comments: Dictation was produced using [employer] dictation software. please excuse any grammatical, word or spelling errors. Chief Complaint: 62-year-old female with right shoulder injury History of Present Illness: 62-year-old female presents with right shoulder injury. Patient states that she was making food when she actually burned herself which caused her to fall landing on her right side. Patient complaining of right shoulder pain. EMS was called patient is brought to the ER. EMS was concerned of right shoulder dislocation to place her in the right upper extremities laying on top of c-collar. Patient has any head injury. No loss of consciousness. She did report having alcoholic beverages today. The ROS documented in this emergency department record has been reviewed and confirmed by me. Those systems with pertinent positive or negative responses have been documented in the HPI. All other systems are other negative and/or noncontributory. - Related Data Home Medications Medication Instructions Recorded Confirmed DULoxetine HCL [Cymbalta] 60 mg PO BID 01/20/23 04/20/23 HYDROcodone/APAP 10-325MG [Milam 1 tab PO QID 03/23/23 04/20/23 10-325] Hydrocortisone Cream 1 applic TOPICAL DAILY 03/23/23 04/20/23 [Hydrocortisone 1% Cream] Metoprolol Succinate (ER) [Toprol 25 mg PO TID 03/23/23 04/20/23 XL] oxyBUTYnin chloride [oxyBUTYnin 5 mg PO HS 03/23/23 04/20/23 chloride ER] Esomeprazole Magnesium [NexIUM] 20 mg PO BID 04/15/23 04/20/23 Mirtazapine 7.5 mg PO HS 04/15/23 04/20/23 Previous Rx's Medication Instructions Recorded Cyclobenzaprine [Flexeril] 10 mg PO TID PRN #90 tab 03/27/23 Lidocaine 5% Patch [Lidoderm] 1 patch TOPICAL DAILY #30 patch 03/27/23 HYDROcodone/APAP 5-325MG [Milam 1 tab PO Q6HR PRN 3 Days #12 tab 05/06/23 5-325] Allergies Allergy/AdvReac Type Severity Reaction Status Date / Time Sulfa (Sulfonamide Allergy Unknown Anaphylaxis Verified 04/20/23 06:55 Antibiotics) Review of Systems ROS Statement: Those systems with pertinent positive or pertinent negative responses have been documented in the HPI. ROS Other: All systems not noted in ROS Statement are negative. Past Medical History Past Medical History: COPD, GERD/Reflux, Hypertension, Osteoarthritis (OA), Seizure Disorder Additional Past Medical History / Comment(s): Hx Epilepsy, no seizure in 30+ yrs. Fracrured ribs fracure mandible. "BROKEN BACK". BROKEN PELVIS (FALL). OSTEOPOROSIS. History of Any Multi-Drug Resistant Organisms: ESBL Date of last positivie culture/infection: 05/30/15 E. coli ESBL MDRO Source:: Urine Past Surgical History: Hernia Repair, Joint Replacement Additional Past Surgical History / Comment(s): Bilateral cataract surgery, left hip replacement X2, right hip replacement x2, hiatal hernia repair. Past Anesthesia/Blood Transfusion Reactions: No Reported Reaction Additional Past Anesthesia/Blood Transfusion Reaction / Comment(s): Patient states "everytime I have an IV started I get I immediately get diarrhea after." Sister slow to wake up. Past Alcohol Use History: Occasional Additional Past Alcohol Use History / Comment(s): Started smoking at age 16, currently smokes 1 PPD. Normally has 1-2 alcoholic drinks daily, had one drink last on 03/20/23, states not having any more prior to surgery. General Exam - General Exam Comments Initial Comments: PHYSICAL EXAM: General Impression: Alert and oriented x3, not in acute distress HEENT: Normocephalic atraumatic, extra-ocular movements intact, pupils equal and reactive to light bilaterally, mucous membranes moist. Cardiovascular: Heart regular rate and rhythm Chest: Able to complete full sentences, no retractions, no tachypnea Abdomen: abdomen soft, non-tender, non-distended, no organomegaly Musculoskeletal: Pulses present and equal in all extremities, no peripheral edema Motor: no focal deficits noted Neurological: CN II-XII grossly intact, no focal motor or sensory deficits noted Skin: Intact with no visualized rashes Psych: Normal affect and mood Course Vital Signs 05/05/23 23:58 Temperature 98.0 F Pulse Rate 111 H Respiratory 18 Rate Blood Pressure 145/85 O2 Sat by Pulse 100 Oximetry Procedures - Orthopedic Splinting/Casting Injury #1 Side: right Upper Extremity Injury Location: long arm Medical Decision Making - Medical Decision Making Was pt. sent in by a medical professional or institution ([facility], [employer], urgent care, hospital, or custodial...) When possible be specific @ -No Did you speak to anyone other than the patient for history (EMS, parent, family, police, friend...)? What history was obtained from this source @ -No Did you review nursing and triage notes (agree or disagree)? Why? @ -I reviewed and agree with nursing and triage notes Were old charts reviewed (outside hosp., previous admission, EMS record, old EKG, old radiological studies, urgent care reports/EKG's, custodial records)? Report findings @ -No old charts were reviewed Differential Diagnosis (chest pain, altered mental status, abdominal pain women, abdominal pain men, vaginal bleeding, musculoskeletal, weakness, fever, dyspnea, syncope, headache, dizziness, GI bleed, back pain, seizure, CVA, palpatations, mental health)? @ -not applicable EKG interpreted by me (3pts min.). @ -None done X-rays interpreted by me (1pt min.). @ -Shoulder x-Justyn shows oblique fracture through the proximal humerus CT interpreted by me (1pt min.). @ -CT brain and C-spine shows no acute processes U/S interpreted by me (1pt. min.). @ -None done What testing was considered but not performed or refused? (CT, X-rays, U/S, labs)? Why? @ -None What meds were considered but not given or refused? Why? @ -None Did you discuss the management of the patient with other professionals (professionals i.e. [employer] [facility], [employer], lab, RT, psych nurse, oncology social worker, towboat engineer, teacher, medical laboratory technical officer, manager case)? Give summary @ -No Was smoking cessation discussed for >3mins.? @ -No Was critical care preformed (if so, how long)? @ -No Were there social determinants of health that impacted care today? How? (Homelessness, low income, unemployed, alcoholism, drug addiction, transportation, low edu. Level, literacy, decrease access to med. care, residential, rehab)? @ -No Was there de-escalation of care discussed even if they declined (Discuss DNR or withdrawal of care, Hospice)? DNR status @ -No What co-morbidities impacted this encounter? (DM, HTN, Smoking, COPD, CAD, Cancer, CVA, ARF, Chemo, Hep., AIDS, mental health diagnosis, sleep apnea, morbid obesity)? @ -None Was patient admitted / discharged? Hospital course, mention meds given and route, prescriptions, significant lab abnormalities, going to OR and other pertinent info. @ -62-year-old female presents after mechanical fall. Vital signs stable. CT brain is negative. Patient has humerus fracture. Placed in a coapt splint discharge and advised follow-up orthopedic surgery Undiagnosed new problem with uncertain prognosis? @ -No Drug Therapy requiring intensive monitoring for toxicity (Heparin, Nitro, Insulin, Cardizem)? @ -No Were any procedures done? @ -No Diagnosis/symptom? Acute, or Chronic, or Acute on Chronic? Uncomplicated (without systemic symptoms) or Complicated (systemic symptoms)? @ -1. Proximal humerus fracture Side effects of treatment? @ -No Exacerbation, Progression, or Severe Exacerbation? @ -No Poses a threat to life or bodily function? How? (Chest pain, [place], [place], pneumonia, PE, COPD, DKA, ARF, appy, cholecystitis, CVA, Diverticulitis, Homicidal, Suicidal, threat to staff... and all critical care pts) @ -No Disposition Clinical Impression: Humerus fracture Disposition: HOME SELF-CARE Condition: Good Instructions (If sedation given, give patient instructions): Fall Prevention for Older Adults (ED) Prescriptions: HYDROcodone/APAP 5-325MG [Milam 5-325] 1 tab PO Q6HR PRN 3 Days #12 tab PRN Reason: Severe Pain Is patient prescribed a controlled substance at d/c from ED?: Yes If prescribed controlled substance>3 days was MAPS reviewed?: Prescribed <3 Days Referrals: Jd Obrien MD [STAFF PHYSICIAN] - 1-2 days Time of Disposition: 01:06
[2023-05-06 00:01] VITALS: RESP 18; TEMP 98
[2023-05-06] MEDS ORDERED: MORPHINE SULFATE 4 MG/ML SYRINGE IV STA (00:17)
--- NOTE | 2023-05-06 00:38 | XR ---
EXAM: XR Right Shoulder Complete, 2 or More Views CLINICAL HISTORY: ITS.REASON XR Reason: fall TECHNIQUE: Two or more views of the right shoulder. COMPARISON: No relevant prior studies available. FINDINGS: Bones/joints: Oblique fracture of the proximal right humeral shaft with moderate angulation. Soft tissues: Unremarkable. IMPRESSION: Oblique fracture of the proximal right humeral shaft with moderate angulation.
--- NOTE | 2023-05-06 00:51 | CT ---
EXAM: CT Head Without Intravenous Contrast CLINICAL HISTORY: ITS.REASON CT Reason: fall TECHNIQUE: Axial computed tomography images of the head/brain without intravenous contrast. CTDI is 45.2 mGy and DLP is 1051.4 mGy-cm. This CT exam was performed using one or more of the following dose reduction techniques: automated exposure control, adjustment of the mA and/or kV according to patient size, and/or use of iterative reconstruction technique. COMPARISON: No relevant prior studies available. FINDINGS: Brain: Mild periventricular white matter changes, likely related to microangiopathy. No hemorrhage. Ventricles: Unremarkable. No ventriculomegaly. Bones/joints: Unremarkable. No acute fracture. Soft tissues: Unremarkable. Sinuses: Unremarkable as visualized. No acute sinusitis. Mastoid air cells: Unremarkable as visualized. No mastoid effusion. IMPRESSION: No acute findings in the head/brain. EXAM: CT Cervical Spine Without Intravenous Contrast CLINICAL HISTORY: ITS.REASON CT Reason: fall TECHNIQUE: Axial computed tomography images of the cervical spine without intravenous contrast. CTDI is 7.9 mGy and DLP is 193.4 mGy-cm. This CT exam was performed using one or more of the following dose reduction techniques: automated exposure control, adjustment of the mA and/or kV according to patient size, and/or use of iterative reconstruction technique. COMPARISON: No relevant prior studies available. FINDINGS: Vertebrae: Mild multilevel spondylosis of the lower cervical spine without significant bony spinal canal stenosis. Accessory C7 ribs. No acute fracture. Discs/spinal canal/neural foramina: See above. Soft tissues: Unremarkable. IMPRESSION: No acute findings in the cervical spine.
[2023-05-06 01:04] LABS: African American GFR (CKD) 80 (>60 ml/min/1.73 sqM); Anion Gap 11 mmol/L; Blood Urea Nitrogen 7 mg/dL (7-17); Calcium 8.1 mg/dL (8.4-10.2); Carbon Dioxide 14 mmol/L (22-30); Chloride 111 mmol/L (98-107); Glucose 68 mg/dL (74-99); Non-African American GFR(CKD) 69 (>60 ml/min/1.73 sqM); Potassium 3.8 mmol/L (3.5-5.1); Sodium 136 mmol/L (137-145)
[2023-05-06 01:08] LABS: Alcohol 169 mg/dL
[2023-05-06 01:14] VITALS: BP 151/91; PULSE 114
[2023-05-06 01:47] LABS: Anisocytosis Slight; HGB 8.8 gm/dL (11.4-16.0); Hypochromasia Marked; MCH 35.8 pg (25.0-35.0); MCHC 30.2 g/dL (31.0-37.0); MCV 118.3 fL (80.0-100.0); Macrocytosis Marked; Mean Platelet Volume 8.1; RBC 2.45 m/uL (3.80-5.40); RDW 17.1 % (11.5-15.5)
[2023-05-06 01:49] LABS: Platelet Count 450 k/uL (150-450)
[2023-05-06 04:14] LABS: Eosinophils # (M) 0.07 k/uL (0-0.7); Lymphocytes # (M) 2.52 k/uL (1.0-4.8); Monocytes # (M) 0.21 k/uL (0-1.0); Neutrophils % (M) 60 %; Nucleated Red Blood Cells 0 /100 WBC (0-0); Poikilocytosis (M) Present; Total Cells Counted 100
== END 2023-05-06 01:28 | disposition home or self-care (01) ==
LOC: EC 23:37
DX: S42.201A Unspecified fracture of upper end of right humerus, initial encounter for closed fracture (principal); I10 Essential (primary) hypertension; J44.9 Chronic obstructive pulmonary disease, unspecified; K21.9 Gastro-esophageal reflux disease without esophagitis; M19.90 Unspecified osteoarthritis, unspecified site; Z79.899 Other long term (current) drug therapy; Z87.891 Personal history of nicotine dependence; Z88.1 Allergy status to other antibiotic agents; Z88.2 Allergy status to sulfonamides; W18.30XA Fall on same level, unspecified, initial encounter
CPT/HCPCS: 36415; 93005; 80048; 85025; 73020; 72125; 70450; 99285; 96374; 29105; G0480; J2270; 80320

== ENCOUNTER 2023-05-14 22:23 | Emergency (ER) | payer MEDICARE ==
[2023-05-14] MEDS ORDERED: MORPHINE SULFATE 4 MG/ML SYRINGE IM STA (22:41)
--- NOTE | 2023-05-14 22:55 | ED ---
Fall HPI - General Chief Complaint: Fall Stated Complaint: neck injury Time Seen by Provider: 05/14/23 22:33 Source: patient, EMS, RN notes reviewed, old records reviewed Mode of arrival: EMS Limitations: no limitations - History of Present Illness Initial Comments: This is a 62-year-old female after fall from standing falling back at the back of her head and hit her right shoulder. Patient has positive history for recent fall with humerus fracture right humerus fracture. Patient same shoulder hurts today with back pain neck pain and severe headache. Patient denies current blood thinners no loss of consciousness. Also complaining of some hip pain and lower back pain with prior history of hip replacement. 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 Witnessed: yes, by family Place Fall Occurred: home Loss of Consciousness: none Prolonged Down Time?: no Symptoms Prior to Fall: none Location: head, neck, chest, back, buttocks Severity scale (1-10): 10 Quality: crushing, aching Context: tripped/slipped Associated Symptoms: headache, neck pain - Related Data Home Medications Medication Instructions Recorded Confirmed DULoxetine HCL [Cymbalta] 60 mg PO BID 01/20/23 04/20/23 HYDROcodone/APAP 10-325MG [Carnegie 1 tab PO QID 03/23/23 04/20/23 10-325] Hydrocortisone Cream 1 applic TOPICAL DAILY 03/23/23 04/20/23 [Hydrocortisone 1% Cream] Metoprolol Succinate (ER) [Toprol 25 mg PO TID 03/23/23 04/20/23 XL] oxyBUTYnin chloride [oxyBUTYnin 5 mg PO HS 03/23/23 04/20/23 chloride ER] Esomeprazole Magnesium [NexIUM] 20 mg PO BID 04/15/23 04/20/23 Mirtazapine 7.5 mg PO HS 04/15/23 04/20/23 Previous Rx's Medication Instructions Recorded Cyclobenzaprine [Flexeril] 10 mg PO TID PRN #90 tab 03/27/23 Lidocaine 5% Patch [Lidoderm] 1 patch TOPICAL DAILY #30 patch 03/27/23 HYDROcodone/APAP 5-325MG [Carnegie 1 tab PO Q6HR PRN 3 Days #12 tab 05/06/23 5-325] Allergies Allergy/AdvReac Type Severity Reaction Status Date / Time Sulfa (Sulfonamide Allergy Unknown Anaphylaxis Verified 04/20/23 06:55 Antibiotics) Review of Systems ROS Statement: Those systems with pertinent positive or pertinent negative responses have been documented in the HPI. ROS Other: All systems not noted in ROS Statement are negative. Past Medical History Past Medical History: COPD, GERD/Reflux, Hypertension, Osteoarthritis (OA), Seizure Disorder Additional Past Medical History / Comment(s): Hx Epilepsy, no seizure in 30+ yrs. Fracrured ribs fracure mandible. "BROKEN BACK". BROKEN PELVIS (FALL). OSTEOPOROSIS. History of Any Multi-Drug Resistant Organisms: ESBL Date of last positivie culture/infection: 05/30/15 E. coli ESBL MDRO Source:: Urine Past Surgical History: Hernia Repair, Joint Replacement Additional Past Surgical History / Comment(s): Bilateral cataract surgery, left hip replacement X2, right hip replacement x2, hiatal hernia repair. Past Anesthesia/Blood Transfusion Reactions: No Reported Reaction Additional Past Anesthesia/Blood Transfusion Reaction / Comment(s): Patient states "everytime I have an IV started I get I immediately get diarrhea after." Sister slow to wake up. Past Alcohol Use History: Occasional Additional Past Alcohol Use History / Comment(s): Started smoking at age 16, currently smokes 1 PPD. Normally has 1-2 alcoholic drinks daily, had one drink last on 03/20/23, states not having any more prior to surgery. - Past Family History Mother Family Medical History: Deep Vein Thrombosis (DVT), Hypertension Additional Family Medical History / Comment(s): Varicose veins. Father Family Medical History: Cancer Additional Family Medical History / Comment(s): Lung cancer. General Exam Limitations: no limitations General appearance: alert, in no apparent distress Head exam: Present: atraumatic, normocephalic, normal inspection Eye exam: Present: normal appearance, PERRL, EOMI. Absent: scleral icterus, conjunctival injection, periorbital swelling ENT exam: Present: normal exam, mucous membranes moist Neck exam: Present: normal inspection. Absent: tenderness, meningismus, lymphadenopathy Respiratory exam: Present: normal lung sounds bilaterally. Absent: respiratory distress, wheezes, rales, rhonchi, stridor Cardiovascular Exam: Present: regular rate, normal rhythm, normal heart sounds. Absent: systolic murmur, diastolic murmur, rubs, gallop, clicks GI/Abdominal exam: Present: soft, normal bowel sounds. Absent: distended, tenderness, guarding, rebound, rigid Extremities exam: Present: normal inspection, full ROM, normal capillary refill. Absent: tenderness, pedal edema, joint swelling, calf tenderness Back exam: Present: normal inspection Neurological exam: Present: alert, oriented X3, CN II-XII intact Psychiatric exam: Present: normal affect, normal mood Skin exam: Present: warm, dry, intact, normal color. Absent: rash Course Vital Signs 05/14/23 05/14/23 05/14/23 22:26 22:31 23:31 Temperature 97.4 F L Pulse Rate 90 97 Respiratory 16 12 Rate Blood Pressure 139/87 130/79 O2 Sat by Pulse 100 90 L Oximetry 05/15/23 05/15/23 03:00 06:00 Temperature 98.1 F Pulse Rate 70 102 H Respiratory 14 18 Rate Blood Pressure 145/86 143/92 O2 Sat by Pulse 92 L 100 Oximetry - Reevaluation(s) Reevaluation #1: 05/14/23 22:54 Medical records reviewed Reevaluation #2: 05/14/23 22:55 Patient's symptoms improving 05/15/23 06:27 Spoke with family did not feel comfortable patient is discharged as well lab values checked including ammonia Reevaluation #3: 05/14/23 22:55 Patient informed results questions answered 05/15/23 06:27 Patient informed that she cannot stay in the hospital do not have a medical condition to treat her keep her in the hospital for Reevaluation #4: 05/14/23 22:55 Was pt. sent in by a medical professional or institution (, PA, PIPEMAN, urgent care, hospital, or care home...) When possible be specific @ -no Did you speak to anyone other than the patient for history (EMS, parent, family, police, friend...)? What history was obtained from this source @ -Yes family is at bedside Did you review nursing and triage notes (agree or disagree)? Why? @ -agree Are old charts reviewed (outside hosp., previous admission, EMS record, old EKG, old radiological studies, urgent care reports/EKG's, care home records)? Report findings @ -yes Differential Diagnosis (chest pain, altered mental status, abdominal pain women, abdominal pain men, vaginal bleeding, weakness, fever, dyspnea, syncope, headache, dizziness, GI bleed, back pain, seizure, CVA, palpatations, mental health, musculoskeletal)? @ -prior EKG interpreted by me (3pts min.). @ -no X-rays interpreted by me (1pt min.). @ -yes CT interpreted by me (1pt min.). @ -yes U/S interpreted by me (1pt. min.). @ -no What testing was considered but not performed or refused? (CT, X-rays, U/S, labs)? Why? @ -none What meds were considered but not given or refused? Why? @ -none Did you discuss the management of the patient with other professionals (professionals i.e. , PA, PIPEMAN, lab, RT, psych nurse, social services technician, machine maintenance technician, teacher, chief innovation officer, transplant case manager)? Give summary @ -no Was smoking cessation discussed for >3mins.? @ -no Was critical care preformed (if so, how long)? @ -no Were there social determinants of health that impacted care today? How? (Homelessness, low income, unemployed, alcoholism, drug addiction, transportation, low edu. Level, literacy, decrease access to med. care, usp, rehab)? @ -none Was there de-escalation of care discussed even if they declined (Discuss DNR or withdrawal of care, Hospice)? DNR status @ -no What co-morbidities impacted this encounter? (DM, HTN, Smoking, COPD, CAD, Cancer, CVA, ARF, Chemo, Hep., AIDS, mental health diagnosis, sleep apnea, morbid obesity)? @ -none Was patient admitted / discharged? Hospital course, mention meds given and route, prescriptions, significant lab abnormalities, going to OR and other pertinent info. @ - 62 female after fall, patient's family wanted patient has had multiple recent falls. lab values checked and she did have outpatient lab values before falling done as well. Patient is no injury from fall also labs here are normal and within normal limits. Patient has no complaints and will be discharged home Discharge Undiagnosed new problem with uncertain prognosis? @ -no Drug Therapy requiring intensive monitoring for toxicity (Heparin, Nitro, Insulin, Cardizem)? @ -no Were any procedures done? @ -no Diagnosis/symptom? @ -Fall, weakness Acute, or Chronic, or Acute on Chronic? @ -Acute Uncomplicated (without systemic symptoms) or Complicated (systemic symptoms)? @ -Complicated Side effects of treatment? @ -no Exacerbation, Progression, or Severe Exacerbation? @ -exacerbation Poses a threat to life or bodily function? How? (Chest pain, [place], [place], pneumonia, PE, COPD, DKA, ARF, appy, cholecystitis, CVA, Diverticulitis, Homicidal, Suicidal, threat to staff... and all critical care pts) @ -no Medical Decision Making - Medical Decision Making 62 female after fall, patient's family wanted patient has had multiple recent falls. lab values checked and she did have outpatient lab values before falling done as well. Patient is no injury from fall also labs here are normal and within normal limits. Patient has no complaints and will be discharged home, patient does have right humeral fracture which is in a sling - Lab Data Result diagrams: 05/15/23 02:43 05/15/23 02:43 Lab Results 05/15/23 05/15/23 05/15/23 Range/Units 02:43 02:43 02:43 WBC 6.7 (3.8-10.6) k/uL RBC 2.37 L (3.80-5.40) m/uL Hgb 8.7 L (11.4-16.0) gm/dL Hct 27.1 L (34.0-46.0) % MCV 114.7 H (80.0-100.0) fL MCH 36.6 H (25.0-35.0) pg MCHC 31.9 (31.0-37.0) g/dL RDW 16.6 H (11.5-15.5) % Plt Count 422 (150-450) k/uL MPV 9.1 Neutrophils % 57 % Lymphocytes % 31 % Monocytes % 7 % Eosinophils % 3 % Basophils % 0 % Neutrophils # 3.8 (1.3-7.7) k/uL Lymphocytes # 2.1 (1.0-4.8) k/uL Monocytes # 0.5 (0-1.0) k/uL Eosinophils # 0.2 (0-0.7) k/uL Basophils # 0.0 (0-0.2) k/uL Hypochromasia Marked Anisocytosis Slight Macrocytosis Marked A PT 9.8 (9.0-12.0) sec INR 0.9 (<1.2) APTT 23.5 (22.0-30.0) sec Sodium (137-145) mmol/L Potassium (3.5-5.1) mmol/L Chloride (98-107) mmol/L Carbon Dioxide (22-30) mmol/L Anion Gap mmol/L BUN (7-17) mg/dL Creatinine (0.52-1.04) mg/dL Est GFR (CKD-EPI)AfAm (>60 ml/min/1.73 sqM) Est GFR (CKD-EPI)NonAf (>60 ml/min/1.73 sqM) Glucose (74-99) mg/dL Plasma Lactic Acid Joey (0.7-2.0) mmol/L Calcium (8.4-10.2) mg/dL Phosphorus (2.5-4.5) mg/dL Magnesium (1.6-2.3) mg/dL Total Bilirubin (0.2-1.3) mg/dL AST (14-36) U/L ALT (4-34) U/L Alkaline Phosphatase (38-126) U/L Ammonia (<30) umol/L Troponin I (0.000-0.034) ng/mL NT-Pro-B Natriuret Pep pg/mL Total Protein (6.3-8.2) g/dL Albumin (3.5-5.0) g/dL TSH (0.465-4.680) mIU/L Urine Color Yellow Urine Appearance Clear (Clear) Urine pH 6.5 (5.0-8.0) Ur Specific Hannaford 1.003 (1.001-1.035) Urine Protein Negative (Negative) Urine Glucose (UA) Negative (Negative) Urine Ketones Negative (Negative) Urine Blood Trace H (Negative) Urine Nitrite Negative (Negative) Urine Bilirubin Negative (Negative) Urine Urobilinogen 0.2 (<2.0) mg/dL Ur Leukocyte Esterase Negative (Negative) Urine RBC 4 (0-5) /hpf Urine WBC 2 (0-5) /hpf Ur Squamous Epith Cells 7 H (0-4) /hpf Serum Alcohol mg/dL 05/15/23 05/15/23 05/15/23 Range/Units 02:43 02:43 02:43 WBC (3.8-10.6) k/uL RBC (3.80-5.40) m/uL Hgb (11.4-16.0) gm/dL Hct (34.0-46.0) % MCV (80.0-100.0) fL MCH (25.0-35.0) pg MCHC (31.0-37.0) g/dL RDW (11.5-15.5) % Plt Count (150-450) k/uL MPV Neutrophils % % Lymphocytes % % Monocytes % % Eosinophils % % Basophils % % Neutrophils # (1.3-7.7) k/uL Lymphocytes # (1.0-4.8) k/uL Monocytes # (0-1.0) k/uL Eosinophils # (0-0.7) k/uL Basophils # (0-0.2) k/uL Hypochromasia Anisocytosis Macrocytosis PT (9.0-12.0) sec INR (<1.2) APTT (22.0-30.0) sec Sodium 134 L (137-145) mmol/L Potassium 4.2 (3.5-5.1) mmol/L Chloride 108 H (98-107) mmol/L Carbon Dioxide 19 L (22-30) mmol/L Anion Gap 7 mmol/L BUN 16 (7-17) mg/dL Creatinine 0.96 (0.52-1.04) mg/dL Est GFR (CKD-EPI)AfAm 73 (>60 ml/min/1.73 sqM) Est GFR (CKD-EPI)NonAf 64 (>60 ml/min/1.73 sqM) Glucose 99 (74-99) mg/dL Plasma Lactic Acid Joey 0.7 (0.7-2.0) mmol/L Calcium 8.2 L (8.4-10.2) mg/dL Phosphorus 4.7 H (2.5-4.5) mg/dL Magnesium 1.9 (1.6-2.3) mg/dL Total Bilirubin 0.6 (0.2-1.3) mg/dL AST 32 (14-36) U/L ALT 40 H (4-34) U/L Alkaline Phosphatase 195 H (38-126) U/L Ammonia (<30) umol/L Troponin I <0.012 (0.000-0.034) ng/mL NT-Pro-B Natriuret Pep 4280 pg/mL Total Protein 5.6 L (6.3-8.2) g/dL Albumin 2.7 L (3.5-5.0) g/dL TSH 1.930 (0.465-4.680) mIU/L Urine Color Urine Appearance (Clear) Urine pH (5.0-8.0) Ur Specific [place] (1.001-1.035) Urine Protein (Negative) Urine Glucose (UA) (Negative) Urine Ketones (Negative) Urine Blood (Negative) Urine Nitrite (Negative) Urine Bilirubin (Negative) Urine Urobilinogen (<2.0) mg/dL Ur Leukocyte Esterase (Negative) Urine RBC (0-5) /hpf Urine WBC (0-5) /hpf Ur Squamous Epith Cells (0-4) /hpf Serum Alcohol <10 mg/dL 05/15/23 Range/Units 04:47 WBC (3.8-10.6) k/uL RBC (3.80-5.40) m/uL Hgb (11.4-16.0) gm/dL Hct (34.0-46.0) % MCV (80.0-100.0) fL MCH (25.0-35.0) pg MCHC (31.0-37.0) g/dL RDW (11.5-15.5) % Plt Count (150-450) k/uL MPV Neutrophils % % Lymphocytes % % Monocytes % % Eosinophils % % Basophils % % Neutrophils # (1.3-7.7) k/uL Lymphocytes # (1.0-4.8) k/uL Monocytes # (0-1.0) k/uL Eosinophils # (0-0.7) k/uL Basophils # (0-0.2) k/uL Hypochromasia Anisocytosis Macrocytosis PT (9.0-12.0) sec INR (<1.2) APTT (22.0-30.0) sec Sodium (137-145) mmol/L Potassium (3.5-5.1) mmol/L Chloride (98-107) mmol/L Carbon Dioxide (22-30) mmol/L Anion Gap mmol/L BUN (7-17) mg/dL Creatinine (0.52-1.04) mg/dL Est GFR (CKD-EPI)AfAm (>60 ml/min/1.73 sqM) Est GFR (CKD-EPI)NonAf (>60 ml/min/1.73 sqM) Glucose (74-99) mg/dL Plasma Lactic Acid Joey (0.7-2.0) mmol/L Calcium (8.4-10.2) mg/dL Phosphorus (2.5-4.5) mg/dL Magnesium (1.6-2.3) mg/dL Total Bilirubin (0.2-1.3) mg/dL AST (14-36) U/L ALT (4-34) U/L Alkaline Phosphatase (38-126) U/L Ammonia <9 (<30) umol/L Troponin I (0.000-0.034) ng/mL NT-Pro-B Natriuret Pep pg/mL Total Protein (6.3-8.2) g/dL Albumin (3.5-5.0) g/dL TSH (0.465-4.680) mIU/L Urine Color Urine Appearance (Clear) Urine pH (5.0-8.0) Ur Specific [place] (1.001-1.035) Urine Protein (Negative) Urine Glucose (UA) (Negative) Urine Ketones (Negative) Urine Blood (Negative) Urine Nitrite (Negative) Urine Bilirubin (Negative) Urine Urobilinogen (<2.0) mg/dL Ur Leukocyte Esterase (Negative) Urine RBC (0-5) /hpf Urine WBC (0-5) /hpf Ur Squamous Epith Cells (0-4) /hpf Serum Alcohol mg/dL - Radiology Data Radiology results: report reviewed (CT brain C-spine chest and pelvis and shoulder x-ray negative for traumatic injury), image reviewed Disposition Clinical Impression: Fall, Weakness, Failure to thrive, Dehydration Narrative: Old Right Humerus Fracture Disposition: HOME SELF-CARE Condition: Fair Instructions (If sedation given, give patient instructions): Fall Prevention for Older Adults (ED) Is patient prescribed a controlled substance at d/c from ED?: No Referrals: Jakob Welch MD [Primary Care Provider] - 1-2 days Time of Disposition: 02:00
--- NOTE | 2023-05-15 00:16 | CT ---
EXAM: CT Head Without Intravenous Contrast CLINICAL HISTORY: ITS.REASON CT Reason: fall TECHNIQUE: Axial computed tomography images of the head/brain without intravenous contrast. CTDI is 45.2 mGy and DLP is 1066.5 mGy-cm. This CT exam was performed using one or more of the following dose reduction techniques: automated exposure control, adjustment of the mA and/or kV according to patient size, and/or use of iterative reconstruction technique. COMPARISON: No relevant prior studies available. FINDINGS: No acute intracranial hemorrhage. No midline shift or mass effect. The territorial bradley-white matter differentiation is maintained throughout. Age-related cerebral volume loss. Periventricular and subcortical white matter hypoattenuation, consistent with chronic microangiopathy. The visualized orbits appear grossly unremarkable. The calvarium is intact. The visualized paranasal sinuses and mastoid air cells are grossly clear. IMPRESSION: No acute intracranial hemorrhage, midline shift, or mass effect. EXAM: CT Cervical Spine Without Intravenous Contrast CLINICAL HISTORY: ITS.REASON CT Reason: fall TECHNIQUE: Axial computed tomography images of the cervical spine without intravenous contrast. CTDI is 8.3 mGy and DLP is 247.7 mGy-cm. This CT exam was performed using one or more of the following dose reduction techniques: automated exposure control, adjustment of the mA and/or kV according to patient size, and/or use of iterative reconstruction technique. COMPARISON: No relevant prior studies available. FINDINGS: The vertebral body heights are maintained. The craniocervical junction is intact. The atlanto-dens interval is maintained. The dens is intact. There is no spondylolisthesis. Multilevel cervical spondylosis and degenerative disc disease. Straightening of the cervical lordosis. The unenhanced neck soft tissues are grossly unremarkable. The visualized lung apices are grossly clear. IMPRESSION: No acute fracture or subluxation of the cervical spine.
--- NOTE | 2023-05-15 00:27 | XR ---
EXAM: XR Right Shoulder Complete, 2 or More Views CLINICAL HISTORY: ITS.REASON XR Reason: fall TECHNIQUE: Two or more views of the right shoulder. COMPARISON: No relevant prior studies available. FINDINGS: Bones/joints: Comminuted, mildly displaced fracture of the RIGHT proximal humerus surgical neck. No dislocation. Soft tissues: Unremarkable. IMPRESSION: Comminuted, mildly displaced fracture of the RIGHT proximal humerus surgical neck.
--- NOTE | 2023-05-15 00:29 | XR ---
EXAM: XR Pelvis, 1 or 2 Views CLINICAL HISTORY: ITS.REASON XR Reason: fall TECHNIQUE: Frontal view of the pelvis. COMPARISON: No relevant prior studies available. FINDINGS: Bones/joints: Bilateral hip arthroplasties. No definite pelvic bone fracture. Evaluation limited due to osseous demineralization. No dislocation. No definite periprosthetic fracture. Soft tissues: Unremarkable. IMPRESSION: 1. No definite pelvic bone fracture. Evaluation limited due to osseous demineralization. 2. Bilateral hip arthroplasties. No definite periprosthetic fracture.
--- NOTE | 2023-05-15 00:36 | XR ---
EXAM: XR Chest, 1 View CLINICAL HISTORY: ITS.REASON XR Reason: fall TECHNIQUE: Frontal view of the chest. COMPARISON: No relevant prior studies available. FINDINGS: Lungs: Unremarkable. No consolidation. Pleural space: Unremarkable. No pneumothorax. Heart: Unremarkable. No cardiomegaly. Mediastinum: Unremarkable. Bones/joints: Unremarkable. IMPRESSION: No focal infiltrate.
[2023-05-15] MEDS ORDERED: MORPHINE SULFATE 4 MG/ML SYRINGE IV STA (02:43)
[2023-05-15] MEDS ORDERED: SODIUM CHLORIDE 0.9% 1,000 ML IV STA ×2 (02:43)
[2023-05-15 03:47] VITALS: TEMP 98.1
[2023-05-15 03:59] LABS: ALT 40 U/L (4-34); AST 32 U/L (14-36); African American GFR (CKD) 73 (>60 ml/min/1.73 sqM); Albumin 2.7 g/dL (3.5-5.0); Alcohol <10 mg/dL; Alkaline Phosphatase 195 U/L (38-126); Anion Gap 7 mmol/L; Blood Urea Nitrogen 16 mg/dL (7-17); Calcium 8.2 mg/dL (8.4-10.2); Carbon Dioxide 19 mmol/L (22-30); Chloride 108 mmol/L (98-107); Glucose 99 mg/dL (74-99); Magnesium 1.9 mg/dL (1.6-2.3); Non-African American GFR(CKD) 64 (>60 ml/min/1.73 sqM); Phosphorus 4.7 mg/dL (2.5-4.5); Potassium 4.2 mmol/L (3.5-5.1); Sodium 134 mmol/L (137-145); Total Bilirubin 0.6 mg/dL (0.2-1.3); Total Protein 5.6 g/dL (6.3-8.2)
[2023-05-15 04:04] LABS: INR 0.9 (<1.2); Partial Thromboplastin Time 23.5 sec (22.0-30.0); Prothrombin Time 9.8 sec (9.0-12.0)
[2023-05-15 04:09] LABS: NT-Pro-B-Type Natriuretic Pept 4280 pg/mL
[2023-05-15 04:14] LABS: Anisocytosis Slight; Basophils % (A) 0 %; Eosinophils # (A) 0.2 k/uL (0-0.7); Eosinophils % (A) 3 %; HCT 27.1 % (34.0-46.0); HGB 8.7 gm/dL (11.4-16.0); Hypochromasia Marked; Lymphocytes # (A) 2.1 k/uL (1.0-4.8); Lymphocytes % (A) 31 %; MCH 36.6 pg (25.0-35.0); MCHC 31.9 g/dL (31.0-37.0); MCV 114.7 fL (80.0-100.0); Macrocytosis Marked; Mean Platelet Volume 9.1; Monocytes # (A) 0.5 k/uL (0-1.0); Monocytes % (A) 7 %; Neutrophils # (A) 3.8 k/uL (1.3-7.7); Neutrophils % (A) 57 %; Platelet Count 422 k/uL (150-450); RBC 2.37 m/uL (3.80-5.40); RDW 16.6 % (11.5-15.5); WBC 6.7 k/uL (3.8-10.6)
[2023-05-15] MEDS ORDERED: MORPHINE SULFATE 4 MG/ML SYRINGE IV PRN (04:47)
[2023-05-15] MEDS ORDERED: NALOXONE 0.4 MG/ML 1 ML VIAL IV PRN (04:47)
[2023-05-15] MEDS ORDERED: ONDANSETRON 4 MG/2 ML VIAL IVP PRN (04:47)
[2023-05-15] MEDS ORDERED: SODIUM CHLORIDE 0.9% 1,000 ML IV SCH (05:00)
[2023-05-15 05:41] LABS: Appearance,Urine Clear (Clear); Color,Urine Yellow; Specific Gravity,Urine 1.003 (1.001-1.035)
[2023-05-15 05:42] LABS: Bilirubin,Urine Negative (Negative); Blood,Urine Trace (Negative); Glucose,Urine (UA) Negative (Negative); Ketones,Urine Negative (Negative); Leukocyte Esterase,Urine Negative (Negative); Nitrite,Urine Negative (Negative); PH, Urine 6.5 (5.0-8.0); Protein,Urine Negative (Negative); RBC,Urine 4 /hpf (0-5); Squamous Epithelial Cell,Urine 7 /hpf (0-4); Urobilinogen,Urine 0.2 mg/dL (<2.0); WBC,Urine 2 /hpf (0-5)
[2023-05-15 06:02] VITALS: BP 143/92; PULSE 102; RESP 18
[2023-05-15] MEDS ORDERED: PANTOPRAZOLE 40 MG/10 ML VIAL IV SCH (09:00)
== END 2023-05-15 06:43 | disposition home or self-care (01) ==
LOC: EC 22:23 → 4SSUR 05-15 04:47 → UNDOADMOB 05-15 04:47 → EC 05-15 06:43
DX: S19.9XXA Unspecified injury of neck, initial encounter (principal); R62.7 Adult failure to thrive; E86.0 Dehydration; I10 Essential (primary) hypertension; J44.9 Chronic obstructive pulmonary disease, unspecified; K21.9 Gastro-esophageal reflux disease without esophagitis; M19.90 Unspecified osteoarthritis, unspecified site; Z79.899 Other long term (current) drug therapy; Z88.2 Allergy status to sulfonamides; Z87.891 Personal history of nicotine dependence; W18.30XA Fall on same level, unspecified, initial encounter
CPT/HCPCS: 36415; 83880; 80053; 82140; 83605; 83735; 84100; 84443; 84484; 85025; 85610; 85730; 81001; 72170; 73030; 71045; 72125; 70450; 99285; 96372; 96374; 96361 ×3; G0480; J2270 ×2; 80320

== ENCOUNTER → 2023-12-29 | Outpatient (CLI) | payer MEDICARE ==
[2023-12-29 11:14] LABS: HCT 38.1 % (37.2-46.3); HGB 12.4 g/dL (12.0-15.0); MCH 35.7 pg (27.0-32.0); MCHC 32.5 g/dL (32.0-37.0); MCV 109.8 FL (80.0-97.0); Mean Platelet Volume 10.8 FL (9.5-12.2); NRBC Per 100 WBC 0 X 10*3/uL (0.00-0.01); Platelet Count 231 X 10*3/uL (140-440); RBC 3.47 X 10*6/uL (4.10-5.20); RDW 14.8 % (11.5-14.5)
[2023-12-29 11:50] LABS: Basophils # (A) 0.06 X 10*3/uL (0.00-0.10); Basophils % (A) 0.8 %; Eosinophils # (A) 0.23 X 10*3/uL (0.04-0.35); Lymphocytes # (A) 3.16 X 10*3/uL (0.90-5.00); Lymphocytes % (A) 41.6 %; Macrocytosis (M) 2+; Monocytes # (A) 0.56 X 10*3/uL (0.20-1.00); Monocytes % (A) 7.4 %; Neutrophils # (A) 3.57 X 10*3/uL (1.80-7.70); Neutrophils % (A) 46.9 %; Stomatocytes 2+; Target Cells 2+
[2023-12-29 16:50] LABS: % Iron Saturation 22.68 (12.00-45.00); ALT 18 U/L (8-44); AST 54 U/L (13-35); Albumin 3.6 g/dL (3.8-4.9); Albumin/Globulin Ratio 1.09 Ratio (1.60-3.17); Alkaline Phosphatase 149 U/L (41-126); Blood Urea Nitrogen 10.6 mg/dL (9.0-27.0); Calcium 8.5 mg/dL (8.7-10.3); Carbon Dioxide 23.9 mmol/L (21.6-31.8); Chloride 106 mmol/L (96-109); Globulin 3.3 g/dL (1.6-3.3); Glucose 85 mg/dL (70-110); Iron 61 UG/DL (50-170); Potassium 4.9 mmol/L (3.5-5.5); Sodium 140 mmol/L (135-145); Total Bilirubin 0.4 mg/dL (0.3-1.2); Total Iron Binding Capacity 269 UG/DL (228-460); Total Protein 6.9 g/dL (6.2-8.2)
== END | disposition home or self-care (01) ==
LOC: LABWHC1 08:07
PROVIDERS: ATTEND Internal Medicine Gastroenterology
DX: D53.9 Nutritional anemia, unspecified (principal); R74.01 Elevation of levels of liver transaminase levels
CPT/HCPCS: 36415; 80053; 81596; 82607; 82728; 82746; 83516; 83540; 83550; 85025

== ENCOUNTER → 2024-05-26 | Outpatient (CLI) | payer MEDICARE | END | disposition home or self-care (01) | LOC: LABPRL 10:26 | PROVIDERS: ATTEND Family Medicine | DX: Z13.228 Encounter for screening for other metabolic disorders (principal); E44.0 Moderate protein-calorie malnutrition | CPT/HCPCS: 80053; 82140; 85025 ==

== ENCOUNTER → 2024-06-08 | Outpatient (CLI) | payer MEDICARE | END | disposition home or self-care (01) | LOC: LABPRL 05:50 | PROVIDERS: ATTEND Family Medicine | CPT/HCPCS: 82607; 82728; 82747; 83540; 83550 ==

== ENCOUNTER → 2024-07-15 | Outpatient (CLI) | payer MEDICARE ==
[2024-07-15 15:27] LABS: HGB 9.7 g/dL (12.0-15.0); MCHC 30.3 g/dL (32.0-37.0); MCV 105.6 FL (80.0-97.0); NRBC Per 100 WBC 0 X 10*3/uL (0.00-0.01); Platelet Count 605 X 10*3/uL (140-440); RBC 3.03 X 10*6/uL (4.10-5.20); RDW 13.6 % (11.5-14.5); WBC 6.95 X 10*3/uL (4.50-10.00)
[2024-07-15 16:10] LABS: % Iron Saturation 7.06 (12.00-45.00); ALT 10 U/L (8-44); AST 18 U/L (13-35); Albumin 3.7 g/dL (3.8-4.9); Albumin/Globulin Ratio 1.19 Ratio (1.60-3.17); Alkaline Phosphatase 124 U/L (41-126); Blood Urea Nitrogen 13.3 mg/dL (9.0-27.0); Calcium 9.6 mg/dL (8.7-10.3); Carbon Dioxide 22.3 mmol/L (21.6-31.8); Chloride 106 mmol/L (96-109); Ferritin 86.7 ng/mL (10.0-291.0); Globulin 3.1 g/dL (1.6-3.3); Glucose 107 mg/dL (70-110); Iron 23 UG/DL (50-170); Potassium 4.6 mmol/L (3.5-5.5); Sodium 141 mmol/L (135-145); Total Bilirubin <0.2 mg/dL (0.3-1.2); Total Iron Binding Capacity 326 UG/DL (228-460); Total Protein 6.8 g/dL (6.2-8.2)
[2024-07-15 16:11] LABS: Basophils # (A) 0.06 X 10*3/uL (0.00-0.10); Basophils % (A) 0.9 %; Elliptocytes 2+; Eosinophils # (A) 0.19 X 10*3/uL (0.04-0.35); Eosinophils % (A) 2.7 %; Lymphocytes # (A) 2.87 X 10*3/uL (0.90-5.00); Lymphocytes % (A) 41.3 %; Macrocytosis (M) 2+; Monocytes # (A) 0.49 X 10*3/uL (0.20-1.00); Monocytes % (A) 7.1 %; Neutrophils # (A) 3.33 X 10*3/uL (1.80-7.70); Neutrophils % (A) 47.9 %
== END | disposition home or self-care (01) ==
LOC: LABWHC1 08:19
PROVIDERS: ATTEND Family Medicine
DX: R74.8 Abnormal levels of other serum enzymes (principal)
CPT/HCPCS: 36415; 80053; 81596; 82607; 82728; 82746; 83516; 83540; 83550; 85025

== ENCOUNTER → 2024-08-30 | Outpatient (CLI) | payer MEDICARE ==
--- NOTE | 2024-08-30 16:35 | US ---
EXAMINATION TYPE: US transvaginal DATE OF EXAM: 08/30/2024 COMPARISON: CT CLINICAL INDICATION: Female, 63 years old with history of N93.9 ABNORMAL UTERINE AND VAGINAL BLEEDING ; Pt states pelvic pain and episode of vaginal bleeding- pt has poor memory TECHNIQUE: Transvaginal (TV). Transvaginal grayscale sonographic images of the pelvis were acquired. Doppler imaging: Not performed. FINDINGS: Date of LMP: Age 50 EXAM MEASUREMENTS: Uterus: 2.7 x 1.3 x 2.9 cm Endometrial Stripe: 0.5 cm Right Ovary: 1.3 x 1.2 x 0.9 cm 1. Uterus: Anteverted wnl 2. Endometrium: Upper limits for thickness- Heterogeneous with fluid vs. cystic contents within bernarda l 3. Right Ovary: wnl 4. Left Ovary: Obscured by overlying bowel gas 5. Bilateral Adnexa: wnl 6. Posterior cul-de-sac: wnl IMPRESSION: Debris within the endometrium consider further evaluation with direct visualization. [facility], , 08/30/2024 4:33 PM
== END | disposition home or self-care (01) ==
LOC: RADUSWWP 15:48
PROVIDERS: ATTEND Family Medicine
DX: N93.9 Abnormal uterine and vaginal bleeding, unspecified (principal); N85.8 Other specified noninflammatory disorders of uterus
CPT/HCPCS: 76830

== ENCOUNTER → 2024-11-09 | Outpatient (CLI) | payer MEDICARE ==
--- NOTE | 2024-11-09 15:50 | CT ---
EXAMINATION TYPE: CT brain wo con DATE OF EXAM: 11/09/2024 3:39 PM COMPARISON: 05/14/2023. CLINICAL INDICATION: Female, 63 years old with history of R41.0, Increased confusion x 1 year TECHNIQUE: Brain: Axial CT images of the brain were obtained with coronal and sagittal reformats created and rev iewed. Contrast used: None. Oral contrast used: None. CT DLP: 1029.9 mGycm, Automated exposure control for dose reduction was used. FINDINGS: Brain: Extra-axial spaces: No abnormal extra-axial fluid collections. Ventricular system: Dilatation in proportion to cerebral atrophy. Cerebral parenchyma: Atrophy changes of the brain most pronounced in the frontal lobes. Cerebral atro phy. No acute intraparenchymal hemorrhage or mass effect. The bradley-white junction is well differenti ated. Scattered hypoattenuating areas are seen within the white matter. Cerebellum: Unremarkable. Mass effect: No evidence of midline shift. Intracranial vasculature: Atherosclerotic calcifications of the intracranial vessels. Soft tissues: Normal. Calvarium/osseous structures: No depressed skull fracture. Paranasal sinuses and mastoid air cells: Mild scattered paranasal sinus disease. Visualized orbits: Orbital contents are intact. IMPRESSION: 1. Frontal lobe atrophy more so than the remainder of the brain. Correlate for frontotemporal dementi a. 2. No acute intracranial process. 3. Nonspecific white matter changes, likely secondary to chronic small vessel ischemic disease. [facility], , 11/09/2024 3:48 PM
== END | disposition home or self-care (01) ==
LOC: RADCTMAIN 14:47
PROVIDERS: ATTEND Family Medicine
DX: R41.0 Disorientation, unspecified (principal); R90.82 White matter disease, unspecified; F02.80 Dementia in other diseases classified elsewhere, unspecified severity, without behavioral disturbance, psychotic disturbance, mood disturbance, and anxiety
CPT/HCPCS: 70450

== ENCOUNTER → 2025-01-24 | Outpatient (CLI) | payer MEDICARE ==
[2025-01-24 15:20] LABS: ALT 14 U/L (8-44); AST 27 U/L (13-35); Albumin 4.5 g/dL (3.8-4.9); Albumin/Globulin Ratio 1.32 Ratio (1.60-3.17); Alkaline Phosphatase 252 U/L (41-126); BUN/Creat Ratio 8.14 Ratio (12.00-20.00); Blood Urea Nitrogen 11.4 mg/dL (9.0-27.0); Calcium 9.9 mg/dL (8.7-10.3); Carbon Dioxide 22.1 mmol/L (21.6-31.8); Chloride 97 mmol/L (96-109); Globulin 3.4 g/dL (1.6-3.3); Glucose 128 mg/dL (70-110); Potassium 5.9 mmol/L (3.5-5.5); Sodium 130 mmol/L (135-145); Total Bilirubin <0.2 mg/dL (0.3-1.2); Total Protein 7.9 g/dL (6.2-8.2)
[2025-01-24 15:28] LABS: Basophils # (A) 0.12 X 10*3/uL (0.00-0.10); Basophils % (A) 1.2 %; Eosinophils # (A) 0.41 X 10*3/uL (0.04-0.35); Eosinophils % (A) 4.1 %; HGB 13.9 g/dL (12.0-15.0); Lymphocytes # (A) 3.66 X 10*3/uL (0.90-5.00); Lymphocytes % (A) 36.2 %; MCH 29.1 pg (27.0-32.0); MCHC 31.6 g/dL (32.0-37.0); MCV 92.2 FL (80.0-97.0); Mean Platelet Volume 10.4 FL (9.5-12.2); Monocytes # (A) 0.81 X 10*3/uL (0.20-1.00); NRBC Per 100 WBC 0 X 10*3/uL (0.00-0.01); Neutrophils # (A) 5.07 X 10*3/uL (1.80-7.70); Neutrophils % (A) 50.2 %; Platelet Count 541 X 10*3/uL (140-440); RBC 4.77 X 10*6/uL (4.10-5.20); RDW 14.7 % (11.5-14.5)
== END | disposition home or self-care (01) ==
LOC: LABWHC1 12:36
PROVIDERS: ATTEND Internal Medicine Gastroenterology
DX: K70.9 Alcoholic liver disease, unspecified (principal)
CPT/HCPCS: 36415; 80053; 85025

== ENCOUNTER → 2025-01-24 | Outpatient (CLI) | payer MEDICARE ==
--- NOTE | 2025-01-24 14:26 | MR ---
EXAMINATION TYPE: MR brain wo con DATE OF EXAM: 01/24/2025 12:33 PM COMPARISON: None. CLINICAL INDICATION: Female, 64 years old with history of R26.81 UNSTEADY FEET G31.09 FRONTOTE F02.80 R41.3, Memory loss, multiple falls TECHNIQUE: Multiplanar, multiecho imaging on a 3.0 Lakisha magnet is performed through the brain. Stud y is performed within 24 hours of arrival to the hospital.Multiplanar, multiecho imaging on a 3.0 Monica la magnet is performed through the knee. IV Contrast: mL (None, if empty) FINDINGS: The craniovertebral junction is normal. The pituitary is normal. Diffusion-weighted imaging is performed. No abnormal hyperintensity is present to suggest an acute i ntracranial infarct or acute ischemic change. There are scattered patchy areas of hyperintensity on T2 and Inversion Recovery weighted sequences wh ich are non-specific but can be related to microvascular ischemic changes. Ventricles and sulci are appropriate for the patient age. IMPRESSION: 1. Nonspecific patchy white matter changes through the periventricular and deep white matter. Finding s are nonspecific but can be related to microvascular ischemic change. [facility], , 01/24/2025 2:24 PM
== END | disposition home or self-care (01) ==
LOC: RADMRIMAIN 11:24
PROVIDERS: ATTEND Psychiatry & Neurology Neurology
DX: R26.81 Unsteadiness on feet (principal); G31.09 Other frontotemporal neurocognitive disorder; F02.80 Dementia in other diseases classified elsewhere, unspecified severity, without behavioral disturbance, psychotic disturbance, mood disturbance, and anxiety; R41.3 Other amnesia; R90.82 White matter disease, unspecified; I67.82 Cerebral ischemia
CPT/HCPCS: 70551

== ENCOUNTER → 2025-01-31 | Outpatient (CLI) | payer MEDICARE | END | disposition home or self-care (01) | LOC: LABWHC1 11:23 | PROVIDERS: ATTEND Nurse Practitioner Family | DX: F44.89 Other dissociative and conversion disorders (principal) | CPT/HCPCS: 36415; 82140 ==

== ENCOUNTER 2025-02-19 15:11 | Inpatient (IN) | payer MEDICARE ==
[2025-02-19 16:52] LABS: Basophils # (A) 0.11 10*3/uL (0.00-0.10); Eosinophils # (A) 0.21 10*3/uL (0.04-0.35); HCT 39.8 % (37.2-46.3); HGB 13.2 g/dL (12.0-15.0); Lymphocytes # (A) 2.51 10*3/uL (0.90-5.00); Lymphocytes % (A) 23.6 %; MCH 29.7 pg (27.0-32.0); MCHC 33.2 g/dL (32.0-37.0); MCV 89.6 fL (80.0-97.0); Monocytes # (A) 0.96 10*3/uL (0.20-1.00); Platelet Count 411 10*3/uL (140-440); RBC 4.44 10*6/uL (4.10-5.20); RDW 15.2 % (11.5-14.5); WBC 10.63 10*3/uL (4.50-10.00)
[2025-02-19] MEDS: SODIUM CHLORIDE 0.9% 1,000 ML IV ONE ×2 (17:08→20:17)
[2025-02-19 17:41] LABS: INR 0.9 (<1.2)
--- NOTE | 2025-02-19 17:52 | XR ---
EXAMINATION TYPE: XR chest 2V DATE OF EXAM: 02/19/2025 5:47 PM COMPARISON: Chest radiographs from 05/14/2023. CLINICAL INDICATION: Female, 64 years old with history of altered mental status TECHNIQUE: XR chest 2V Frontal and lateral views of the chest. FINDINGS: Lungs/Pleura: There is flattening of the diaphragm with increased lucency of the lungs. No evidence o f pneumothorax, pleural effusion or focal consolidation. Pulmonary vascularity: Unremarkable. Heart/mediastinum: Cardiomediastinal silhouette is unremarkable. Musculoskeletal: No acute osseous pathology. IMPRESSION: 1. No acute cardiopulmonary disease process. 2. COPD changes. [facility], , 02/19/2025 5:49 PM
[2025-02-19 17:57] LABS: Appearance,Urine Clear (Clear); Bilirubin,Urine Negative (Negative); Blood,Urine Negative (Negative); Color,Urine Colorless; Glucose,Urine (UA) Negative (Negative); Ketones,Urine Negative (Negative); Leukocyte Esterase,Urine Negative (Negative); Nitrite,Urine Negative (Negative); Protein,Urine Negative (Negative); Specific Gravity,Urine 1.006 (1.001-1.035); Urobilinogen,Urine <2.0 mg/dL (<2.0)
--- NOTE | 2025-02-19 17:57 | CT ---
EXAMINATION TYPE: CT brain wo con DATE OF EXAM: 02/19/2025 5:45 PM COMPARISON: 11/09/2024.. CLINICAL INDICATION: Female, 64 years old with history of Altered mental status, AMS TECHNIQUE: Brain: Axial CT images of the brain were obtained with coronal and sagittal reformats created and rev iewed. Contrast used: None. Oral contrast used: None. CT DLP: 1140.8 mGycm, Automated exposure control for dose reduction was used. FINDINGS: Brain: Extra-axial spaces: No abnormal extra-axial fluid collections. Ventricular system: Dilatation in proportion to cerebral atrophy. Cerebral parenchyma: Cerebral atrophy. No acute intraparenchymal hemorrhage or mass effect. The bradley -white junction is well differentiated. Scattered hypoattenuating areas are seen within the white mat ter. Cerebellum: Unremarkable. Mass effect: No evidence of midline shift. Intracranial vasculature: Atherosclerotic calcifications of the intracranial vessels. Soft tissues: Normal. Calvarium/osseous structures: No depressed skull fracture. Paranasal sinuses and mastoid air cells: Mild scattered paranasal sinus disease. Visualized orbits: Orbital contents are intact. IMPRESSION: 1. No acute intracranial process. 2. Nonspecific white matter changes, likely secondary to chronic small vessel ischemic disease. [facility], , 02/19/2025 5:55 PM
[2025-02-19 18:26] LABS: Amphetamine Screen,Urine Not Detected (NotDetected); Barbiturate Screen,Urine Not Detected (NotDetected); Benzodiazepines Screen,Urine Not Detected (NotDetected); Cocaine Screen,Urine Not Detected (NotDetected); Methadone Screen, Urine Not Detected (NotDetected); Opiate Screen,Urine Not Detected (NotDetected); Oxycodone Screen, Urine Not Detected (NotDetected); Phencyclidine Screen,Urine Not Detected (NotDetected); Tricyclic Antidepressant,Urine Not Detected (NotDetected); Urn Cannabinoid Scrn Not Detected (NotDetected)
[2025-02-19 18:49] LABS: Glucose,Whole Blood 121 mg/dL (70-110)
[2025-02-19 19:30] LABS: ALT 15 U/L (4-34); AST 26 U/L (14-36); African American GFR (CKD) 49 (>60 ml/min/1.73 sqM); Albumin 4.5 g/dL (3.5-5.0); Alcohol <10 mg/dL; Alkaline Phosphatase 126 U/L (38-126); Anion Gap 10 mmol/L; Blood Urea Nitrogen 38 mg/dL (7-17); Calcium 10.1 mg/dL (8.4-10.2); Carbon Dioxide 28 mmol/L (22-30); Chloride 95 mmol/L (98-107); Glucose 111 mg/dL (74-99); Non-African American GFR(CKD) 42 (>60 ml/min/1.73 sqM); Potassium 5.7 mmol/L (3.5-5.1); Sodium 133 mmol/L (137-145); Total Bilirubin 0.3 mg/dL (0.2-1.3); Total Protein 7.6 g/dL (6.3-8.2)
[2025-02-19] MEDS ORDERED: NALOXONE 0.4 MG/ML 1 ML VIAL IV PRN (20:19)
[2025-02-19] MEDS: INSULIN REGULAR 100 UNIT/ML VIAL (IV) IV ONE (20:19)
[2025-02-19 20:20] LABS: Glucose,Whole Blood 138 mg/dL (70-110)
[2025-02-19] MEDS: DEXTROSE 50% SYRINGE 50 ML IVP ONE (20:20)
[2025-02-19] MEDS: SODIUM BICARB 8.4% 50 ML SYR (1 MEQ/ML) IV ONE (20:23)
[2025-02-19] MEDS: CALCIUM GLUCONATE IN NACL 1 GM in SALINE 1 100ML.BAG IVPB ONE (20:26)
[2025-02-19] MEDS: SODIUM ZIRCONIUM CYCLOSILICATE 10 GM PACKET PO ONE (20:31)
[2025-02-19] MEDS ORDERED: LORazepam 0.5 MG TAB PO PRN (20:47)
--- NOTE | 2025-02-19 20:52 | ED ---
General Adult HPI - General Chief complaint: Altered Mental Status Stated complaint: AMS Time Seen by Provider: 02/19/25 15:35 Source: patient, EMS, RN notes reviewed, old records reviewed Mode of arrival: EMS - History of Present Illness Initial comments: Patient is a 64-year-old female presents emergency department over concern for altered mental status. Apparently patient has been having worsening delusions, hallucinations. History of seizure disorder, hypertension. Possible history of bipolar disease however per family, never formally diagnosed. Currently at [facility] after having acute kidney injury on previous admission at another hospital. Presents for further evaluation at this time. Patient does seem to be having some auditory hallucinations. Possible visual hallucinations. She is cooperative. Has no other acute complaints. Presents for further evaluation. - Related Data Home Medications Medication Instructions Recorded Confirmed DULoxetine HCL [Cymbalta] 60 mg PO DAILY@79901/20/23 02/19/25 Metoprolol Succinate (ER) [Toprol 75 mg PO DAILY@79903/23/23 02/19/25 XL] Mirtazapine 15 mg PO HS@209904/15/23 02/19/25 Acetaminophen [Tylenol] 650 mg PO Q6H PRN 02/19/25 02/19/25 Ascorbic Acid [Vitamin C] 250 mg PO DAILY@79902/19/25 02/19/25 Donepezil [Aricept] 10 mg PO HS@209902/19/25 02/19/25 Ensure Enlive 237 ml PO TID@08,12,17 02/19/25 02/19/25 Folic Acid 1 mg PO DAILY@79902/19/25 02/19/25 LORazepam [Ativan] 0.5 mg PO Q8H PRN 02/19/25 02/19/25 Magnesium Hydroxide [Milk of 7,200 mg PO DAILY PRN 02/19/25 02/19/25 Magnesia Concentrate] Multivitamins, Thera [Multivitamin 1 tab PO DAILY@1700 02/19/25 02/19/25 (formulary)] Na Phos,M-B/Na Phos,Di-Ba [Fleet 133 ml RECTAL DAILY PRN 02/19/25 02/19/25 Adult] Pantoprazole Sodium [Protonix] 40 mg PO DAILY@79902/19/25 02/19/25 QUEtiapine [SEROquel] 12.5 mg PO HS@2100 02/19/25 02/19/25 Thiamine HCl [Vitamin B-1] 100 mg PO DAILY@0800 02/19/25 02/19/25 bisacodyL [Dulcolax] 10 mg RECTAL DAILY PRN 02/19/25 02/19/25 Allergies Allergy/AdvReac Type Severity Reaction Status Date / Time Sulfa (Sulfonamide Allergy Unknown Anaphylaxis Verified 02/19/25 19:00 Antibiotics) Review of Systems ROS Statement: Those systems with pertinent positive or pertinent negative responses have been documented in the HPI. Review of Systems: CONST: Denies fever EYES: Denies blurry vision ENT: Denies nasal congestion C/V: Denies Chest pain RESP: Denies shortness of breath GI: Denies abdominal pain : Denies dysuria SKIN: Denies rash. MSK: Denies joint pain. NEURO: Denies headache ROS Other: All systems not noted in ROS Statement are negative. Past Medical History Past Medical History: COPD, GERD/Reflux, Hypertension, Osteoarthritis (OA), Seizure Disorder Additional Past Medical History / Comment(s): Hx Epilepsy, no seizure in 30+ yrs. Fracrured ribs fracure mandible. "BROKEN BACK". BROKEN PELVIS (FALL). OSTEOPOROSIS. History of Any Multi-Drug Resistant Organisms: ESBL Date of last positivie culture/infection: 05/30/15 E. coli ESBL MDRO Source:: Urine Past Surgical History: Hernia Repair, Joint Replacement Additional Past Surgical History / Comment(s): Bilateral cataract surgery, left hip replacement X2, right hip replacement x2, hiatal hernia repair. Past Anesthesia/Blood Transfusion Reactions: No Reported Reaction Additional Past Anesthesia/Blood Transfusion Reaction / Comment(s): Patient states "everytime I have an IV started I get I immediately get diarrhea after." Sister slow to wake up. Past Psychological History: Anxiety, Bipolar, Depression Smoking Status: Current every day smoker Past Alcohol Use History: Rare Past Drug Use History: None Reported - Past Family History Mother Family Medical History: Deep Vein Thrombosis (DVT), Hypertension Additional Family Medical History / Comment(s): Varicose veins. Father Family Medical History: Cancer Additional Family Medical History / Comment(s): Lung cancer. General Exam - General Exam Comments Initial Comments: General: Appears in no acute distress. Does appear to be responding to some internal stimuli or external stimuli when you leave the room as she is talking to herself and seems to be talking to someone in the room. HEAD: Normal with no signs of head trauma. EYES: PERRLA, EOMI, conjunctiva normal, no discharge. 3 mm and equal bilaterally. ENT: Hearing grossly intact, normal oropharynx. RESPIRATORY: Clear breath sounds bilaterally. No wheezes, rales, or rhonchi. C/V: Regular rate and rhythm. S1 and S2 auscultated, no edema, peripheral pulses 2+ and intact throughout ABD: Abd is soft, nontender, nondistended EXT: Normal range of motion, no obvious deformity SKIN: No rashes or lesions observed on exposed skin. NEURO: Alert and oriented x 4. Cranial nerves II-XII intact. No focal sensory or strength deficits. GCS of 15. Course Vital Signs 02/19/25 02/19/25 15:36 19:00 Temperature 98.7 F Pulse Rate 106 H 91 Respiratory 16 16 Rate Blood Pressure 177/104 128/84 O2 Sat by Pulse 100 97 Oximetry Medical Decision Making - Medical Decision Making Was pt. sent in by a medical professional or institution (, PA, PHARMACIST TECHNICIAN, urgent care, hospital, or usp...) When possible be specific @ -No Did you speak to anyone other than the patient for history (EMS, parent, family, police, friend...)? What history was obtained from this source @ -Spoke with family who discussed patient's baseline and states that she is more agitated, acting abnormally. This is not normal for her. Did you review nursing and triage notes (agree or disagree)? Why? @ -I reviewed and agree with nursing and triage notes Were old charts reviewed (outside hosp., previous admission, EMS record, old EKG, old radiological studies, urgent care reports/EKG's, usp records)? Report findings @ -No old charts were reviewed Differential Diagnosis (chest pain, altered mental status, abdominal pain women, abdominal pain men, vaginal bleeding, weakness, fever, dyspnea, syncope, headache, dizziness, GI bleed, back pain, seizure, CVA, palpatations, mental health, musculoskeletal)? @ -Differential Altered Mental Status: Hypoglycemia, DKA, hypercapnia, ETOH, overdose, CO poisoning, trauma, myxedema coma, HTN encephalopathy, infection, encephalitis, psychosis, intercranial hemorrhage, hepatic encephalopathy, meningitis, CVA, this is not meant to be an all-inclusive list EKG interpreted by me (3pts min.). @ -As above X-rays interpreted by me (1pt min.). @ -X-ray shows no signs of acute cardiopulmonary process. CT interpreted by me (1pt min.). @ -CT brain shows no obvious acute intracranial process. U/S interpreted by me (1pt. min.). @ -None done What testing was considered but not performed or refused? (CT, X-rays, U/S, labs)? Why? @ -None What meds were considered but not given or refused? Why? @ -None Did you discuss the management of the patient with other professionals (professionals i.e. , PA, PHARMACIST TECHNICIAN, lab, RT, psych nurse, public health social worker, residential mortgage manager, teacher, crime prevention police officer, correctional case manager)? Give summary @ -Spoke with Dr. Kelly who accepted the admission. Was smoking cessation discussed for >3mins.? @ -No Was critical care preformed (if so, how long)? @ -No Were there social determinants of health that impacted care today? How? (Homelessness, low income, unemployed, alcoholism, drug addiction, transportation, low edu. Level, literacy, decrease access to med. care, care home, rehab)? @ -No Was there de-escalation of care discussed even if they declined (Discuss DNR or withdrawal of care, Hospice)? DNR status @ -No What co-morbidities impacted this encounter? (DM, HTN, Smoking, COPD, CAD, Cancer, CVA, ARF, Chemo, Hep., AIDS, mental health diagnosis, sleep apnea, morbid obesity)? @ -None Was patient admitted / discharged? Hospital course, mention meds given and route, prescriptions, significant lab abnormalities, going to OR and other pe rtinent info. @ -Patient presents with somewhat altered mentation. Increased agitation, hallucinations. Possible diagnosis history of bipolar disease however uncertain as the patient's family states there was no formal diagnosis. She is cooperative at this time. But she does appear to be hallucinating. Presents from a nursing facility. We obtain general workup. They were in agreement this plan. Labs remarkable for a hyperkalemia with some mild peaking of the T waves on EKG and therefore we will treat it with the hyperkalemia cocktail. Remainder of labs unremarkable. CT brain unremarkable. Chest x-ray unremarkable. I discussed results with the patient as well as family. Patient will be admitted for the hyperkalemia treatment and nephrology evaluation for the hyperkalemia. Spoke with Dr. Kelly who accepted the admission. Consult placed to neurology as well as psychiatry. Undiagnosed new problem with uncertain prognosis? @ -No Drug Therapy requiring intensive monitoring for toxicity (Heparin, Nitro, Insulin, Cardizem)? @ -No Were any procedures done? @ -No Diagnosis/symptom? @ -Hyperkalemia, altered mental status, agitation, hallucination Acute, or Chronic, or Acute on Chronic? @ -Acute Uncomplicated (without systemic symptoms) or Complicated (systemic symptoms)? @ -Complicated Side effects of treatment? @ -No Exacerbation, Progression, or Severe Exacerbation? @ -No Poses a threat to life or bodily function? How? (Chest pain, USA, NM, pneumonia, PE, COPD, DKA, ARF, appy, cholecystitis, CVA, Diverticulitis, Homicidal, Suicidal, threat to staff... and all critical care pts) @ -Potentially, you - Lab Data Result diagrams: 02/19/25 16:23 02/19/25 18:54 Lab Results 02/19/25 02/19/25 02/19/25 Range/Units 16:23 16:23 16:56 WBC 10.63 H (4.50-10.00) 10*3/uL RBC 4.44 (4.10-5.20) 10*6/uL Hgb 13.2 (12.0-15.0) g/dL Hct 39.8 (37.2-46.3) % MCV 89.6 (80.0-97.0) fL MCH 29.7 (27.0-32.0) pg MCHC 33.2 (32.0-37.0) g/dL Plt Count 411 (140-440) 10*3/uL MPV 10.0 (9.5-12.2) fL Immature Gran % (Auto) 0.4 % Neutrophils % 64.0 % Lymphocytes % 23.6 % Monocytes % 9.0 % Eosinophils % 2.0 % Basophils % 1.0 % Immature Gran # 0.04 (0.00-0.04) 10*3/uL Neutrophils # 6.80 (1.80-7.70) 10*3/uL Lymphocytes # 2.51 (0.90-5.00) 10*3/uL Monocytes # 0.96 (0.20-1.00) 10*3/uL Eosinophils # 0.21 (0.04-0.35) 10*3/uL Basophils # 0.11 H (0.00-0.10) 10*3/uL PT 10.0 (10.0-12.5) sec INR 0.9 (<1.2) APTT 19.0 L (22.0-30.0) sec Sodium (137-145) mmol/L Potassium (3.5-5.1) mmol/L Chloride (98-107) mmol/L Carbon Dioxide (22-30) mmol/L Anion Gap mmol/L BUN (7-17) mg/dL Creatinine (0.52-1.04) mg/dL Est GFR (CKD-EPI)AfAm (>60 ml/min/1.73 sqM) Est GFR (CKD-EPI)NonAf (>60 ml/min/1.73 sqM) Glucose (74-99) mg/dL POC Glucose (mg/dL) (70-110) mg/dL POC Glu Hay Buckler ID Calcium (8.4-10.2) mg/dL Total Bilirubin (0.2-1.3) mg/dL AST (14-36) U/L ALT (4-34) U/L Alkaline Phosphatase (38-126) U/L Ammonia 17 (<30) umol/L Total Protein (6.3-8.2) g/dL Albumin (3.5-5.0) g/dL Urine Color Urine Appearance (Clear) Urine pH (5.0-8.0) Ur Specific [place] (1.001-1.035) Urine Protein (Negative) Urine Glucose (UA) (Negative) Urine Ketones (Negative) Urine Blood (Negative) Urine Nitrite (Negative) Urine Bilirubin (Negative) Urine Urobilinogen (<2.0) mg/dL Ur Leukocyte Esterase (Negative) Urine Opiates Screen (NotDetected) Ur Oxycodone Screen (NotDetected) Urine Methadone Screen (NotDetected) Ur Barbiturates Screen (NotDetected) U Tricyclic Antidepress (NotDetected) Ur Phencyclidine Scrn (NotDetected) Ur Amphetamines Screen (NotDetected) U Methamphetamines Scrn (NotDetected) U Benzodiazepines Scrn (NotDetected) Urine Cocaine Screen (NotDetected) U Marijuana (THC) Screen (NotDetected) Serum Alcohol mg/dL 02/19/25 02/19/25 02/19/25 Range/Units 17:18 18:47 18:54 WBC (4.50-10.00) 10*3/uL RBC (4.10-5.20) 10*6/uL Hgb (12.0-15.0) g/dL Hct (37.2-46.3) % MCV (80.0-97.0) fL MCH (27.0-32.0) pg MCHC (32.0-37.0) g/dL Plt Count (140-440) 10*3/uL MPV (9.5-12.2) fL Immature Gran % (Auto) % Neutrophils % % Lymphocytes % % Monocytes % % Eosinophils % % Basophils % % Immature Gran # (0.00-0.04) 10*3/uL Neutrophils # (1.80-7.70) 10*3/uL Lymphocytes # (0.90-5.00) 10*3/uL Monocytes # (0.20-1.00) 10*3/uL Eosinophils # (0.04-0.35) 10*3/uL Basophils # (0.00-0.10) 10*3/uL PT (10.0-12.5) sec INR (<1.2) APTT (22.0-30.0) sec Sodium 133 L (137-145) mmol/L Potassium 5.7 H (3.5-5.1) mmol/L Chloride 95 L (98-107) mmol/L Carbon Dioxide 28 (22-30) mmol/L Anion Gap 10 mmol/L BUN 38 H (7-17) mg/dL Creatinine 1.33 H (0.52-1.04) mg/dL Est GFR (CKD-EPI)AfAm 49 (>60 ml/min/1.73 sqM) Est GFR (CKD-EPI)NonAf 42 (>60 ml/min/1.73 sqM) Glucose 111 H (74-99) mg/dL POC Glucose (mg/dL) 121 H (70-110) mg/dL POC Glu Hay Buckler ID Joanne Germain Calcium 10.1 (8.4-10.2) mg/dL Total Bilirubin 0.3 (0.2-1.3) mg/dL AST 26 (14-36) U/L ALT 15 (4-34) U/L Alkaline Phosphatase 126 (38-126) U/L Ammonia (<30) umol/L Total Protein 7.6 (6.3-8.2) g/dL Albumin 4.5 (3.5-5.0) g/dL Urine Color Colorless Urine Appearance Clear (Clear) Urine pH 7.0 (5.0-8.0) Ur Specific [place] 1.006 (1.001-1.035) Urine Protein Negative (Negative) Urine Glucose (UA) Negative (Negative) Urine Ketones Negative (Negative) Urine Blood Negative (Negative) Urine Nitrite Negative (Negative) Urine Bilirubin Negative (Negative) Urine Urobilinogen <2.0 (<2.0) mg/dL Ur Leukocyte Esterase Negative (Negative) Urine Opiates Screen Not Detected (NotDetected) Ur Oxycodone Screen Not Detected (NotDetected) Urine Methadone Screen Not Detected (NotDetected) Ur Barbiturates Screen Not Detected (NotDetected) U Tricyclic Antidepress Not Detected (NotDetected) Ur Phencyclidine Scrn Not Detected (NotDetected) Ur Amphetamines Screen Not Detected (NotDetected) U Methamphetamines Scrn Not Detected (NotDetected) U Benzodiazepines Scrn Not Detected (NotDetected) Urine Cocaine Screen Not Detected (NotDetected) U Marijuana (THC) Screen Not Detected (NotDetected) Serum Alcohol <10 mg/dL 02/19/25 Range/Units 20:16 WBC (4.50-10.00) 10*3/uL RBC (4.10-5.20) 10*6/uL Hgb (12.0-15.0) g/dL Hct (37.2-46.3) % MCV (80.0-97.0) fL MCH (27.0-32.0) pg MCHC (32.0-37.0) g/dL Plt Count (140-440) 10*3/uL MPV (9.5-12.2) fL Immature Gran % (Auto) % Neutrophils % % Lymphocytes % % Monocytes % % Eosinophils % % Basophils % % Immature Gran # (0.00-0.04) 10*3/uL Neutrophils # (1.80-7.70) 10*3/uL Lymphocytes # (0.90-5.00) 10*3/uL Monocytes # (0.20-1.00) 10*3/uL Eosinophils # (0.04-0.35) 10*3/uL Basophils # (0.00-0.10) 10*3/uL PT (10.0-12.5) sec INR (<1.2) APTT (22.0-30.0) sec Sodium (137-145) mmol/L Potassium (3.5-5.1) mmol/L Chloride (98-107) mmol/L Carbon Dioxide (22-30) mmol/L Anion Gap mmol/L BUN (7-17) mg/dL Creatinine (0.52-1.04) mg/dL Est GFR (CKD-EPI)AfAm (>60 ml/min/1.73 sqM) Est GFR (CKD-EPI)NonAf (>60 ml/min/1.73 sqM) Glucose (74-99) mg/dL POC Glucose (mg/dL) 138 H (70-110) mg/dL POC Glu Hay Buckler AMANDA Cross Calcium (8.4-10.2) mg/dL Total Bilirubin (0.2-1.3) mg/dL AST (14-36) U/L ALT (4-34) U/L Alkaline Phosphatase (38-126) U/L Ammonia (<30) umol/L Total Protein (6.3-8.2) g/dL Albumin (3.5-5.0) g/dL Urine Color Urine Appearance (Clear) Urine pH (5.0-8.0) Ur Specific [place] (1.001-1.035) Urine Protein (Negative) Urine Glucose (UA) (Negative) Urine Ketones (Negative) Urine Blood (Negative) Urine Nitrite (Negative) Urine Bilirubin (Negative) Urine Urobilinogen (<2.0) mg/dL Ur Leukocyte Esterase (Negative) Urine Opiates Screen (NotDetected) Ur Oxycodone Screen (NotDetected) Urine Methadone Screen (NotDetected) Ur Barbiturates Screen (NotDetected) U Tricyclic Antidepress (NotDetected) Ur Phencyclidine Scrn (NotDetected) Ur Amphetamines Screen (NotDetected) U Methamphetamines Scrn (NotDetected) U Benzodiazepines Scrn (NotDetected) Urine Cocaine Screen (NotDetected) U Marijuana (THC) Screen (NotDetected) Serum Alcohol mg/dL - EKG Data -: EKG Interpreted by Me EKG Comments: 12-lead Electrocardiogram Interpretation Note EKG was reviewed and interpreted by myself. 12-lead ECG performed at 1704 is interpreted by me as revealing normal sinus rhythm at a rate of 88 beats per minute. [place] is normal. GA interval is 127 ms, QRS duration is 61 ms, QTc is 375 ms.. There were no ST or T wave abnormalities to suggest myocardial ischemia or injury. R wave progression across the precordium was satisfactory. By my interpretation this EKG is non-diagnostic for acute ischemia. Disposition Clinical Impression: Altered mental status, Hallucination, Hyperkalemia Disposition: ADMITTED IP TO THIS HOSP Condition: Stable Time of Disposition: 20:35
[2025-02-19] MEDS: LORazepam 2 MG/ML INJ IV STA (20:54)
--- NOTE | 2025-02-19 21:16 | ED ---
Medical Decision Making - Lab Data Result diagrams: 02/19/25 16:23 02/19/25 18:54 Lab Results 02/19/25 02/19/25 02/19/25 Range/Units 16:23 16:23 16:56 WBC 10.63 H (4.50-10.00) 10*3/uL RBC 4.44 (4.10-5.20) 10*6/uL Hgb 13.2 (12.0-15.0) g/dL Hct 39.8 (37.2-46.3) % MCV 89.6 (80.0-97.0) fL MCH 29.7 (27.0-32.0) pg MCHC 33.2 (32.0-37.0) g/dL Plt Count 411 (140-440) 10*3/uL MPV 10.0 (9.5-12.2) fL Immature Gran % (Auto) 0.4 % Neutrophils % 64.0 % Lymphocytes % 23.6 % Monocytes % 9.0 % Eosinophils % 2.0 % Basophils % 1.0 % Immature Gran # 0.04 (0.00-0.04) 10*3/uL Neutrophils # 6.80 (1.80-7.70) 10*3/uL Lymphocytes # 2.51 (0.90-5.00) 10*3/uL Monocytes # 0.96 (0.20-1.00) 10*3/uL Eosinophils # 0.21 (0.04-0.35) 10*3/uL Basophils # 0.11 H (0.00-0.10) 10*3/uL PT 10.0 (10.0-12.5) sec INR 0.9 (<1.2) APTT 19.0 L (22.0-30.0) sec Sodium (137-145) mmol/L Potassium (3.5-5.1) mmol/L Chloride (98-107) mmol/L Carbon Dioxide (22-30) mmol/L Anion Gap mmol/L BUN (7-17) mg/dL Creatinine (0.52-1.04) mg/dL Est GFR (CKD-EPI)AfAm (>60 ml/min/1.73 sqM) Est GFR (CKD-EPI)NonAf (>60 ml/min/1.73 sqM) Glucose (74-99) mg/dL POC Glucose (mg/dL) (70-110) mg/dL POC Glu Photograph Enlarger ID Calcium (8.4-10.2) mg/dL Total Bilirubin (0.2-1.3) mg/dL AST (14-36) U/L ALT (4-34) U/L Alkaline Phosphatase (38-126) U/L Ammonia 17 (<30) umol/L Total Protein (6.3-8.2) g/dL Albumin (3.5-5.0) g/dL Urine Color Urine Appearance (Clear) Urine pH (5.0-8.0) Ur Specific [place] (1.001-1.035) Urine Protein (Negative) Urine Glucose (UA) (Negative) Urine Ketones (Negative) Urine Blood (Negative) Urine Nitrite (Negative) Urine Bilirubin (Negative) Urine Urobilinogen (<2.0) mg/dL Ur Leukocyte Esterase (Negative) Urine Opiates Screen (NotDetected) Ur Oxycodone Screen (NotDetected) Urine Methadone Screen (NotDetected) Ur Barbiturates Screen (NotDetected) U Tricyclic Antidepress (NotDetected) Ur Phencyclidine Scrn (NotDetected) Ur Amphetamines Screen (NotDetected) U Methamphetamines Scrn (NotDetected) U Benzodiazepines Scrn (NotDetected) Urine Cocaine Screen (NotDetected) U Marijuana (THC) Screen (NotDetected) Serum Alcohol mg/dL 02/19/25 02/19/25 02/19/25 Range/Units 17:18 18:47 18:54 WBC (4.50-10.00) 10*3/uL RBC (4.10-5.20) 10*6/uL Hgb (12.0-15.0) g/dL Hct (37.2-46.3) % MCV (80.0-97.0) fL MCH (27.0-32.0) pg MCHC (32.0-37.0) g/dL Plt Count (140-440) 10*3/uL MPV (9.5-12.2) fL Immature Gran % (Auto) % Neutrophils % % Lymphocytes % % Monocytes % % Eosinophils % % Basophils % % Immature Gran # (0.00-0.04) 10*3/uL Neutrophils # (1.80-7.70) 10*3/uL Lymphocytes # (0.90-5.00) 10*3/uL Monocytes # (0.20-1.00) 10*3/uL Eosinophils # (0.04-0.35) 10*3/uL Basophils # (0.00-0.10) 10*3/uL PT (10.0-12.5) sec INR (<1.2) APTT (22.0-30.0) sec Sodium 133 L (137-145) mmol/L Potassium 5.7 H (3.5-5.1) mmol/L Chloride 95 L (98-107) mmol/L Carbon Dioxide 28 (22-30) mmol/L Anion Gap 10 mmol/L BUN 38 H (7-17) mg/dL Creatinine 1.33 H (0.52-1.04) mg/dL Est GFR (CKD-EPI)AfAm 49 (>60 ml/min/1.73 sqM) Est GFR (CKD-EPI)NonAf 42 (>60 ml/min/1.73 sqM) Glucose 111 H (74-99) mg/dL POC Glucose (mg/dL) 121 H (70-110) mg/dL POC Glu Photograph Enlarger ID Joanne Germain Calcium 10.1 (8.4-10.2) mg/dL Total Bilirubin 0.3 (0.2-1.3) mg/dL AST 26 (14-36) U/L ALT 15 (4-34) U/L Alkaline Phosphatase 126 (38-126) U/L Ammonia (<30) umol/L Total Protein 7.6 (6.3-8.2) g/dL Albumin 4.5 (3.5-5.0) g/dL Urine Color Colorless Urine Appearance Clear (Clear) Urine pH 7.0 (5.0-8.0) Ur Specific [place] 1.006 (1.001-1.035) Urine Protein Negative (Negative) Urine Glucose (UA) Negative (Negative) Urine Ketones Negative (Negative) Urine Blood Negative (Negative) Urine Nitrite Negative (Negative) Urine Bilirubin Negative (Negative) Urine Urobilinogen <2.0 (<2.0) mg/dL Ur Leukocyte Esterase Negative (Negative) Urine Opiates Screen Not Detected (NotDetected) Ur Oxycodone Screen Not Detected (NotDetected) Urine Methadone Screen Not Detected (NotDetected) Ur Barbiturates Screen Not Detected (NotDetected) U Tricyclic Antidepress Not Detected (NotDetected) Ur Phencyclidine Scrn Not Detected (NotDetected) Ur Amphetamines Screen Not Detected (NotDetected) U Methamphetamines Scrn Not Detected (NotDetected) U Benzodiazepines Scrn Not Detected (NotDetected) Urine Cocaine Screen Not Detected (NotDetected) U Marijuana (THC) Screen Not Detected (NotDetected) Serum Alcohol <10 mg/dL 02/19/25 Range/Units 20:16 WBC (4.50-10.00) 10*3/uL RBC (4.10-5.20) 10*6/uL Hgb (12.0-15.0) g/dL Hct (37.2-46.3) % MCV (80.0-97.0) fL MCH (27.0-32.0) pg MCHC (32.0-37.0) g/dL Plt Count (140-440) 10*3/uL MPV (9.5-12.2) fL Immature Gran % (Auto) % Neutrophils % % Lymphocytes % % Monocytes % % Eosinophils % % Basophils % % Immature Gran # (0.00-0.04) 10*3/uL Neutrophils # (1.80-7.70) 10*3/uL Lymphocytes # (0.90-5.00) 10*3/uL Monocytes # (0.20-1.00) 10*3/uL Eosinophils # (0.04-0.35) 10*3/uL Basophils # (0.00-0.10) 10*3/uL PT (10.0-12.5) sec INR (<1.2) APTT (22.0-30.0) sec Sodium (137-145) mmol/L Potassium (3.5-5.1) mmol/L Chloride (98-107) mmol/L Carbon Dioxide (22-30) mmol/L Anion Gap mmol/L BUN (7-17) mg/dL Creatinine (0.52-1.04) mg/dL Est GFR (CKD-EPI)AfAm (>60 ml/min/1.73 sqM) Est GFR (CKD-EPI)NonAf (>60 ml/min/1.73 sqM) Glucose (74-99) mg/dL POC Glucose (mg/dL) 138 H (70-110) mg/dL POC Glu Photograph Enlarger AMANDA Cross Calcium (8.4-10.2) mg/dL Total Bilirubin (0.2-1.3) mg/dL AST (14-36) U/L ALT (4-34) U/L Alkaline Phosphatase (38-126) U/L Ammonia (<30) umol/L Total Protein (6.3-8.2) g/dL Albumin (3.5-5.0) g/dL Urine Color Urine Appearance (Clear) Urine pH (5.0-8.0) Ur Specific [place] (1.001-1.035) Urine Protein (Negative) Urine Glucose (UA) (Negative) Urine Ketones (Negative) Urine Blood (Negative) Urine Nitrite (Negative) Urine Bilirubin (Negative) Urine Urobilinogen (<2.0) mg/dL Ur Leukocyte Esterase (Negative) Urine Opiates Screen (NotDetected) Ur Oxycodone Screen (NotDetected) Urine Methadone Screen (NotDetected) Ur Barbiturates Screen (NotDetected) U Tricyclic Antidepress (NotDetected) Ur Phencyclidine Scrn (NotDetected) Ur Amphetamines Screen (NotDetected) U Methamphetamines Scrn (NotDetected) U Benzodiazepines Scrn (NotDetected) Urine Cocaine Screen (NotDetected) U Marijuana (THC) Screen (NotDetected) Serum Alcohol mg/dL Disposition Clinical Impression: Altered mental status, Hallucination, Hyperkalemia Disposition: ADMITTED IP TO THIS [facility] Condition: Stable Procedures - Restraint - Face to Face Restraint Occurrence 1 Patient's Immediate Situation: Endangers self safety, Endangers others' safety, Endangers staff safety, Violent behavior Patient's Reaction to the Intervention: Uncooperative Patient's Medical & Behavioral Condition: Awake, Alert, Agitated Need to Continue or Terminate Restraint or Seclusion: Continue Face to Face Eval of Restraint Date: 02/19/25 Face to Face Eval of Restraint Time: 21:15
[2025-02-19] MEDS: ZIPRASIDONE 20 MG VIAL IM STA (21:43)
[2025-02-19] MEDS: DONEPEZIL 10 MG TAB PO SCH (22:19)
[2025-02-19] MEDS: SODIUM CHLORIDE 0.9% 1,000 ML IV SCH (22:34)
--- NOTE | 2025-02-20 01:05 | P.HPIM ---
History of Present Illness H&P Date: 02/19/25 64-year-old female with COPD hypertension history of seizure disorder Patient was brought to the ER for altered mental status, family reporting hallucinations and altered behavior. No history of psych disorder however there is possibly an vague history of bipolar disorder but no formal diagnosis that the family is aware of. Patient recently had been hospitalized at a different facility then was discharged to rehab at [facility] for which she was sent in here for further evaluation due to having hallucinations While in the ED she was found to have elevated potassium and was given dextrose 50% and insulin patient suddenly became very aggressive and agitated for which ER staff had to restrain her and she was given Geodon and Ativan's . At time of my evaluation patient was deeply sedated and unable to provide any meaningful history review of systems Unable to obtain on exam Constitutional: Deeply sedated and snoring Eyes: Anicteric sclerae, moist conjunctiva, Pupils equal round reactive to light ENMT: NC/AT Neck: Supple, no masses, or JVD Lungs: Clear to auscultation Clear to percussion Normal respiratory effort, no accessory muscle use Cardiovascular: Heart regular in rate and rhythm, No murmurs, gallops, or rubs No peripheral edema Abdominal: Soft Nontender, no guarding, rebound or rigidity Abdomen moving with respiration Extremities: No digital cyanosis No clubbing Pedal pulses intact and symmetrical Radial pulses intact and symmetrical No calf tenderness Psychiatric: Deeply sedated due to aggressive behavior earlier she was given some Geodon and Ativan in the ED Neuro unable to assess Past Medical History Past Medical History: COPD, GERD/Reflux, Hypertension, Osteoarthritis (OA), Seizure Disorder Additional Past Medical History / Comment(s): Hx Epilepsy, no seizure in 30+ yrs. Fracrured ribs fracure mandible. "BROKEN BACK". BROKEN PELVIS (FALL). OSTEOPOROSIS. History of Any Multi-Drug Resistant Organisms: ESBL Date of last positivie culture/infection: 05/30/15 E. coli ESBL MDRO Source:: Urine Past Surgical History: Hernia Repair, Joint Replacement Additional Past Surgical History / Comment(s): Bilateral cataract surgery, left hip replacement X2, right hip replacement x2, hiatal hernia repair. Past Anesthesia/Blood Transfusion Reactions: No Reported Reaction Additional Past Anesthesia/Blood Transfusion Reaction / Comment(s): Patient states "everytime I have an IV started I get I immediately get diarrhea after." Sister slow to wake up. Past Psychological History: Anxiety, Bipolar, Depression Smoking Status: Current every day smoker Past Alcohol Use History: Rare Past Drug Use History: None Reported - Past Family History Mother Family Medical History: Deep Vein Thrombosis (DVT), Hypertension Additional Family Medical History / Comment(s): Varicose veins. Father Family Medical History: Cancer Additional Family Medical History / Comment(s): Lung cancer. Medications and Allergies Home Medications Medication Instructions Recorded Confirmed Type DULoxetine HCL [Cymbalta] 60 mg PO DAILY@79901/20/23 02/19/25 History Metoprolol Succinate (ER) [Toprol 75 mg PO DAILY@79903/23/23 02/19/25 History XL] Mirtazapine 15 mg PO HS@209904/15/23 02/19/25 History Acetaminophen [Tylenol] 650 mg PO Q6H PRN 02/19/25 02/19/25 History Ascorbic Acid [Vitamin C] 250 mg PO DAILY@79902/19/25 02/19/25 History Donepezil [Aricept] 10 mg PO HS@209902/19/25 02/19/25 History Ensure Enlive 237 ml PO TID@08,12,17 02/19/25 02/19/25 History Folic Acid 1 mg PO DAILY@79902/19/25 02/19/25 History LORazepam [Ativan] 0.5 mg PO Q8H PRN 02/19/25 02/19/25 History Magnesium Hydroxide [Milk of 7,200 mg PO DAILY PRN 02/19/25 02/19/25 History Magnesia Concentrate] Multivitamins, Thera [Multivitamin 1 tab PO DAILY@17002/19/25 02/19/25 History (formulary)] Na Phos,M-B/Na Phos,Di-Ba [Fleet 133 ml RECTAL DAILY PRN 02/19/25 02/19/25 History Adult] Pantoprazole Sodium [Protonix] 40 mg PO DAILY@79902/19/25 02/19/25 History QUEtiapine [SEROquel] 12.5 mg PO HS@209902/19/25 02/19/25 History Thiamine HCl [Vitamin B-1] 100 mg PO DAILY@79902/19/25 02/19/25 History bisacodyL [Dulcolax] 10 mg RECTAL DAILY PRN 02/19/25 02/19/25 History Allergies Allergy/AdvReac Type Severity Reaction Status Date / Time Sulfa (Sulfonamide Allergy Unknown Anaphylaxis Verified 02/19/25 19:00 Antibiotics) Physical Exam Vitals: Vital Signs Temp Pulse Resp BP Pulse Ox 02/19/25 19:00 91 16 128/84 97 02/19/25 15:36 98.7 F 106 H 16 177/104 100 Intake and Output 02/19/25 02/19/25 02/19/25 06:59 14:59 22:59 Other: Weight 54.431 kg Results CBC & Chem 7: 02/19/25 16:23 02/19/25 23:54 Labs: Abnormal Lab Results - Last 24 Hours (Table) 02/19/25 02/19/25 02/19/25 Range/Units 16:23 16:56 18:47 WBC 10.63 H (4.50-10.00) 10*3/uL Basophils # 0.11 H (0.00-0.10) 10*3/uL APTT 19.0 L (22.0-30.0) sec Sodium (137-145) mmol/L Potassium (3.5-5.1) mmol/L Chloride (98-107) mmol/L BUN (7-17) mg/dL Creatinine (0.52-1.04) mg/dL Glucose (74-99) mg/dL POC Glucose (mg/dL) 121 H (70-110) mg/dL 02/19/25 Range/Units 18:54 WBC (4.50-10.00) 10*3/uL Basophils # (0.00-0.10) 10*3/uL APTT (22.0-30.0) sec Sodium 133 L (137-145) mmol/L Potassium 5.7 H (3.5-5.1) mmol/L Chloride 95 L (98-107) mmol/L BUN 38 H (7-17) mg/dL Creatinine 1.33 H (0.52-1.04) mg/dL Glucose 111 H (74-99) mg/dL POC Glucose (mg/dL) (70-110) mg/dL Assessment and Plan Assessment: 64-year-old female with hypertension presented with altered mental status and aggressive behavior while in the ED she had to be restrained and given Geodon and Ativan I discussed case with ED doctor and accepted the admission for mild hyperkalemia and psych evaluation with anticipated length of stay less than 2 midnights Mild hyperkalemia Potassium level 5.7 mildly elevated EKG showing normal sinus rhythm no abnormal T waves Patient was given dextrose and insulin in the ED along with calcium gluconate Continue to monitor potassium level repeat was 4.8 Renal function otherwise overall unremarkable sodium 133 BUN 38 creatinine 1.3 Monitor urine output Urine analysis unremarkable Acute psychosis with suspected bipolar disorder Psych evaluation Patient's status post Geodon and Ativan in the ED Bedside sitter for safety Monitor vital signs Urine drug screen is negative Hypertension Continue with metoprolol History of epilepsy, last episode was over 30 years ago Continue to monitor Full code DVT prophylaxis heparin subcu 3 times daily 5000 units
[2025-02-20 08:21] LABS: Basophils # (A) 0.11 X 10*3/uL (0.00-0.10); Basophils % (A) 0.9 %; Eosinophils # (A) 0.28 X 10*3/uL (0.04-0.35); Eosinophils % (A) 2.4 %; HCT 32.2 % (37.2-46.3); Lymphocytes # (A) 2.79 X 10*3/uL (0.90-5.00); Lymphocytes % (A) 23.6 %; MCH 29.4 pg (27.0-32.0); MCHC 31.1 g/dL (32.0-37.0); MCV 94.7 FL (80.0-97.0); Mean Platelet Volume 10.6 FL (9.5-12.2); Monocytes # (A) 1.14 X 10*3/uL (0.20-1.00); Monocytes % (A) 9.6 %; NRBC Per 100 WBC 0 X 10*3/uL (0.00-0.01); Neutrophils # (A) 7.47 X 10*3/uL (1.80-7.70); Neutrophils % (A) 63.2 %; Platelet Count 476 X 10*3/uL (140-440); RDW 15.2 % (11.5-14.5); WBC 11.82 X 10*3/uL (4.50-10.00)
[2025-02-20 08:23] LABS: African American GFR (CKD) 62 (>60 ml/min/1.73 sqM); Anion Gap 7 mmol/L; Blood Urea Nitrogen 29 mg/dL (7-17); Calcium 9.1 mg/dL (8.4-10.2); Carbon Dioxide 27 mmol/L (22-30); Chloride 105 mmol/L (98-107); Glucose 91 mg/dL (74-99); Non-African American GFR(CKD) 54 (>60 ml/min/1.73 sqM); Potassium 5.7 mmol/L (3.5-5.1); Sodium 139 mmol/L (137-145)
[2025-02-20 08:33] LABS: ALT 12 U/L (8-44); AST 20 U/L (13-35); Albumin 3.6 g/dL (3.8-4.9); Albumin/Globulin Ratio 1.57 Ratio (1.60-3.17); Alkaline Phosphatase 116 U/L (41-126); BUN/Creat Ratio 26.73 Ratio (12.00-20.00); Blood Urea Nitrogen 29.4 mg/dL (9.0-27.0); Calcium 8.8 mg/dL (8.7-10.3); Carbon Dioxide 25.5 mmol/L (21.6-31.8); Chloride 104 mmol/L (96-109); Globulin 2.3 g/dL (1.6-3.3); Glucose 127 mg/dL (70-110); Potassium 4.9 mmol/L (3.5-5.5); Sodium 138 mmol/L (135-145); Total Bilirubin <0.2 mg/dL (0.3-1.2); Total Protein 5.9 g/dL (6.2-8.2)
[2025-02-20] MEDS: METOPROLOL SUCCINATE (ER) 25 MG TAB.ER.24H PO SCH (09:32)
[2025-02-20] MEDS: HEPARIN SODIUM,PORCINE 5,000 UNIT/ML 1 ML VIAL SQ SCH (09:32)
[2025-02-20] MEDS: THIAMINE 100 MG TAB PO SCH (09:33)
[2025-02-20] MEDS: DEXTROSE 50% SYRINGE 50 ML IVP ONE (10:01)
[2025-02-20] MEDS: INSULIN REGULAR 100 UNIT/ML VIAL (IV) IV ONE (10:03)
[2025-02-20] MEDS: SODIUM ZIRCONIUM CYCLOSILICATE 10 GM PACKET PO ONE (10:05)
--- NOTE | 2025-02-20 10:13 | P.PN ---
Subjective Progress Note Date: 02/20/25 Hospital Course: A 64-year-old female with medical history of COPD not on home oxygen, seizure disorder, GERD, depression, hypertension, autoimmune hepatitis, history of alcohol use disorder in the past, confabulations on thiamine, chronic anemia,. She presented to the ER on 02/19/2025 for altered mental status, worsening visual and auditory hallucinations, agitation. I obtained collateral history from her power of securities attorney Lurdes Chen. Ms. Chen reported that patient has been dealing with hallucinations for the past 2 years that have been getting considerably worse over the past 4 months. 02/19 HPI reviewed patient had an episode of agitation when she was sitting up, her eyes were rolling around, saliva was foaming, she was screaming, threatening, shaking, that episode lasted 20 minutes. I confirmed that patient was conscious during that episode, she was interacting. She then had another episode here in the hospital. Her power of securities attorney mentioned that patient has history of heavy alcohol use with last drink April 2024, and possible couple shots last November, she has been on thiamine for confabulation, following with neurologist. It also appeared to the power of securities attorney that patient had this episodes after having sugary drinks or dextrose and that could possibly be related. On arrival patient is afebrile, BP 90/50, she was placed on 2 L nasal cannula but no hypoxia documented. Her lab work revealed mild leukocytosis, hemoglobin 13.2, potassium elevated 5.7, received hyperkalemia cocktail with improvement of potassium to 4.8, creatinine 1.3, AST and ALT unremarkable, UA negative for UTI, UDS negative. CT brain showed nonspecific white matter changes likely secondary to chronic small vessel ischemic disease. Reviewed imaging from outside sources, patient had brain MRI on01/24/25 due to memory loss and multiple falls, again nonspecific patchy white matter changes throughout periventricular and deep white matter noted can be related to microvascular ischemic change. She was admitted initially as observation, and changed her status to inpatient due to persistent hyperkalemia. Patient was provided with hyperkalemia cocktail and Lokelma, awaiting for neurology, psychiatry and nephrology evaluation. 02/20: Not agitated, cooperative, alert and oriented to self, time, place. Thinks that she came from home where she lives with her girlfriend Antonia, stated that she was just feeling unwell that is why she was sent here by EMS, denied any hallucinations TSH is normal Pertinent Imaging: As above Pertinent positives and negatives as discussed above, a complete review of systems was performed and all other systems are negative. Vitals Signs Reviewed. General: [nontoxic], [no distress], [appears at stated age] Derm: [warm], [dry] Head: [atraumatic], [normocephalic], [symmetric] Eyes: [EOMI], [no lid lag], [anicteric sclera] Mouth: [no lip lesion], [mucus membranes moist] Cardiovascular: [S1S2 reg], [no murmur] Lungs: [CTA bilateral], [no rhonchi, no rales] , [no accessory muscle use] Abdominal: [soft], [ nontender to palpation], [no guarding], [no appreciable organomegaly] Ext: [no gross muscle atrophy], [no edema], [no contractures] Neuro: [ CN II-XI grossly intact], [no focal neuro deficits] Psych: [Alert], [oriented], Assessment and Plan: STEVO on CKD stage II Hyperkalemia - Nephrology consulted, appreciate recommendations -Continue NS at 75 cc/h -Potassium 5.7, IV insulin 10 units and dextrose 50 ordered, Lokelma 10 g p.o. once, repeat potassium ordered Altered mental status, etiology to be determined Suspected bipolar disorder Confabulations with history of alcohol use Microvascular ischemic disease -Neurology and psychiatry consulted, appreciate recommendations - Continue thiamine 100 mg p.o. daily - Continue Aricept 10 mg p.o. nightly - Continue Ativan 0.5 mg p.o. every 8 hours as needed - Continue sitter at bedside - Social work consulted, PT OT - TSH normal, folate and vitamin B-12 pending Essential hypertension continue home -Toprol-XL 75 mg p.o. daily History of epilepsy in childhood -Continue to monitor I have reviewed the following care consultant notes: ER note I have reviewed the results of the following tests: Brain CT, CBC, BMP I have ordered the following tests: Repeat potassium, daily BMP, TSH, B12, B9 I have discussed the care of this patient with the following independent historian: Power of securities attorney as above, RN regarding hyperkalemia I have independently interpreted the following test below: As above I have discussed the management of this patient with the following physician: DVT ppx: Heparin Code status: Full code Anticipated discharge place: TBD Anticipated discharge time: TBD Objective - Vital Signs Vital signs: Vital Signs Temp 98.6 F 02/20/25 08:06 Pulse 78 02/20/25 08:06 Resp 18 02/20/25 08:06 BP 133/82 02/20/25 08:06 Pulse Ox 100 02/20/25 08:06 FiO2 Intake & Output 02/19/25 02/20/25 02/20/25 18:59 06:59 18:59 Weight 54.431 kg 54.431 kg Other: Voiding Method Diaper Incontinent - Labs CBC & Chem 7: 02/20/25 00:19 02/20/25 07:57 Labs: Abnormal Lab Results - Last 24 Hours (Table) 02/19/25 02/19/25 02/19/25 Range/Units 16:23 16:56 18:47 WBC 10.63 H (4.50-10.00) 10*3/uL RBC (4.10-5.20) X 10*6/uL Hgb (12.0-15.0) g/dL Hct (37.2-46.3) % MCHC (32.0-37.0) g/dL RDW (11.5-14.5) % Plt Count (140-440) X 10*3/uL Monocytes # (0.20-1.00) X 10*3/uL Basophils # 0.11 H (0.00-0.10) 10*3/uL APTT 19.0 L (22.0-30.0) sec Sodium (137-145) mmol/L Potassium (3.5-5.1) mmol/L Chloride (98-107) mmol/L BUN (7-17) mg/dL Creatinine (0.52-1.04) mg/dL Est GFR (CKD-EPI) (>=60) BUN/Creatinine Ratio (12.00-20.00) Ratio Glucose (74-99) mg/dL POC Glucose (mg/dL) 121 H (70-110) mg/dL Total Bilirubin (0.3-1.2) mg/dL Total Protein (6.2-8.2) g/dL Albumin (3.8-4.9) g/dL Albumin/Globulin Ratio (1.60-3.17) Ratio 02/19/25 02/19/25 02/20/25 Range/Units 18:54 20:16 00:19 WBC 11.82 H (4.50-10.00) 10*3/uL RBC 3.40 L (4.10-5.20) X 10*6/uL Hgb 10.0 L (12.0-15.0) g/dL Hct 32.2 L (37.2-46.3) % MCHC 31.1 L (32.0-37.0) g/dL RDW 15.2 H (11.5-14.5) % Plt Count 476 H (140-440) X 10*3/uL Monocytes # 1.14 H (0.20-1.00) X 10*3/uL Basophils # 0.11 H (0.00-0.10) 10*3/uL APTT (22.0-30.0) sec Sodium 133 L (137-145) mmol/L Potassium 5.7 H (3.5-5.1) mmol/L Chloride 95 L (98-107) mmol/L BUN 38 H (7-17) mg/dL Creatinine 1.33 H (0.52-1.04) mg/dL Est GFR (CKD-EPI) (>=60) BUN/Creatinine Ratio (12.00-20.00) Ratio Glucose 111 H (74-99) mg/dL POC Glucose (mg/dL) 138 H (70-110) mg/dL Total Bilirubin (0.3-1.2) mg/dL Total Protein (6.2-8.2) g/dL Albumin (3.8-4.9) g/dL Albumin/Globulin Ratio (1.60-3.17) Ratio 02/20/25 02/20/25 Range/Units 00:19 07:57 WBC (4.50-10.00) 10*3/uL RBC (4.10-5.20) X 10*6/uL Hgb (12.0-15.0) g/dL Hct (37.2-46.3) % MCHC (32.0-37.0) g/dL RDW (11.5-14.5) % Plt Count (140-440) X 10*3/uL Monocytes # (0.20-1.00) X 10*3/uL Basophils # (0.00-0.10) 10*3/uL APTT (22.0-30.0) sec Sodium (137-145) mmol/L Potassium 5.7 H (3.5-5.1) mmol/L Chloride (98-107) mmol/L BUN 29.4 H 29 H (7-17) mg/dL Creatinine 1.09 H (0.52-1.04) mg/dL Est GFR (CKD-EPI) 56 L (>=60) BUN/Creatinine Ratio 26.73 H (12.00-20.00) Ratio Glucose 127 H (74-99) mg/dL POC Glucose (mg/dL) (70-110) mg/dL Total Bilirubin <0.2 L (0.3-1.2) mg/dL Total Protein 5.9 L (6.2-8.2) g/dL Albumin 3.6 L (3.8-4.9) g/dL Albumin/Globulin Ratio 1.57 L (1.60-3.17) Ratio
[2025-02-20 10:17] LABS: Glucose,Whole Blood 102 mg/dL (70-110)
--- NOTE | 2025-02-20 11:04 | P.NPCON ---
History of Present Illness - Reason for Consult hyperkalemia - History of Present Illness Reason for consultation: Hyperkalemia History of present illness: Patient is a 64-year-old female seen in renal consultation for hyperkalemia. Patient came to the hospital due to altered mental status. Patient believes that she was confused on test that she was brought to the hospital. Patient states she does have history of epilepsy and also bipolar disorder. Patient did receive IV fluid bolus in the ER and is currently maintained on normal saline at 75 cc an hour. Potassium was elevated 5.7 and improved to 4.9 and was back up to 5.7 this morning. I do not see any meds on her home medication list that will raise her potassium level. She denies regular use of nonsteroidals. She denies history of diabetes or coronary artery disease. She has been voiding. Denies gross hematuria or dysuria. No dizziness or falls. No syncopal episodes. CK level not elevated. Oral intake is fair. Vital signs are stable. General: No acute distress. HEENT: Head exam is unremarkable. LUNGS: No audible rhonchi or wheezes. HEART: Rate and Rhythm are regular. ABDOMEN: Nontender. EXTREMITITES: No edema. Past Medical History Past Medical History: COPD, GERD/Reflux, Hypertension, Osteoarthritis (OA), Seizure Disorder Additional Past Medical History / Comment(s): Hx Epilepsy, no seizure in 30+ yrs. Fracrured ribs fracure mandible. "BROKEN BACK". BROKEN PELVIS (FALL). OSTEOPOROSIS. History of Any Multi-Drug Resistant Organisms: ESBL Date of last positivie culture/infection: 05/30/15 E. coli ESBL MDRO Source:: Urine Past Surgical History: Hernia Repair, Joint Replacement Additional Past Surgical History / Comment(s): Bilateral cataract surgery, left hip replacement X2, right hip replacement x2, hiatal hernia repair. Past Anesthesia/Blood Transfusion Reactions: No Reported Reaction Additional Past Anesthesia/Blood Transfusion Reaction / Comment(s): Patient states "everytime I have an IV started I get I immediately get diarrhea after." Sister slow to wake up. Past Psychological History: Anxiety, Bipolar, Depression Smoking Status: Current every day smoker Past Alcohol Use History: Rare Additional Past Alcohol Use History / Comment(s): Started smoking at age 16, currently smokes 1 PPD. Normally has 1-2 alcoholic drinks daily, had one drink last on 03/20/23, states not having any more prior to surgery. Past Drug Use History: None Reported - Past Family History Mother Family Medical History: Deep Vein Thrombosis (DVT), Hypertension Additional Family Medical History / Comment(s): Varicose veins. Father Family Medical History: Cancer Additional Family Medical History / Comment(s): Lung cancer. Medications and Allergies Home Medications Medication Instructions Recorded Confirmed Type DULoxetine HCL [Cymbalta] 60 mg PO DAILY@79901/20/23 02/19/25 History Metoprolol Succinate (ER) [Toprol 75 mg PO DAILY@79903/23/23 02/19/25 History XL] Mirtazapine 15 mg PO HS@209904/15/23 02/19/25 History Acetaminophen [Tylenol] 650 mg PO Q6H PRN 02/19/25 02/19/25 History Ascorbic Acid [Vitamin C] 250 mg PO DAILY@79902/19/25 02/19/25 History Donepezil [Aricept] 10 mg PO HS@209902/19/25 02/19/25 History Ensure Enlive 237 ml PO TID@08,12,17 02/19/25 02/19/25 History Folic Acid 1 mg PO DAILY@79902/19/25 02/19/25 History LORazepam [Ativan] 0.5 mg PO Q8H PRN 02/19/25 02/19/25 History Magnesium Hydroxide [Milk of 7,200 mg PO DAILY PRN 02/19/25 02/19/25 History Magnesia Concentrate] Multivitamins, Thera [Multivitamin 1 tab PO DAILY@1700 02/19/25 02/19/25 History (formulary)] Na Phos,M-B/Na Phos,Di-Ba [Fleet 133 ml RECTAL DAILY PRN 02/19/25 02/19/25 History Adult] Pantoprazole Sodium [Protonix] 40 mg PO DAILY@79902/19/25 02/19/25 History QUEtiapine [SEROquel] 12.5 mg PO HS@209902/19/25 02/19/25 History Thiamine HCl [Vitamin B-1] 100 mg PO DAILY@0802/19/25 02/19/25 History bisacodyL [Dulcolax] 10 mg RECTAL DAILY PRN 02/19/25 02/19/25 History Allergies Allergy/AdvReac Type Severity Reaction Status Date / Time Sulfa (Sulfonamide Allergy Unknown Anaphylaxis Verified 02/19/25 19:00 Antibiotics) Physical Exam Vitals: Vital Signs Temp Pulse Pulse Resp BP BP Pulse Ox 02/20/25 08:06 98.6 F 78 18 133/82 100 02/20/25 05:57 98.4 F 87 16 142/92 95 02/20/25 04:00 81 16 96/65 97 02/20/25 02:38 67 16 138/81 98 02/19/25 23:48 92 16 93/50 98 02/19/25 22:39 95 02/19/25 22:35 101 H 18 93/51 90 L 02/19/25 22:00 107 H 18 113/65 100 02/19/25 19:00 91 16 128/84 97 02/19/25 15:36 98.7 F 106 H 16 177/104 100 Intake and Output 02/19/25 02/20/25 02/20/25 22:59 06:59 14:59 Other: Voiding Method Diaper Incontinent Weight 54.431 kg 54.431 kg Results - Lab Results Most recent lab results Calcium 9.1 mg/dL (8.4-10.2) 02/20/25 07:57 02/20/25 00:19 02/20/25 07:57 Assessment and Plan Plan: Assessment: 1. Acute kidney injury secondary to vasomotor nephropathy secondary to hypovolemia. Creatinine 1.3 on admission yesterday and is 1.09 today. Creatinine this year has been 1.4 and was near 1 in 2023. UA benign. 2. Hyperkalemia secondary to acute kidney injury. Rule out urinary retention. 3. History of epilepsy. 4. Bipolar disorder. Plan: Maintain IV fluids. Add scheduled Lokelma. Renal diet. Check bladder scan and kidney ultrasound. Continue to monitor renal function and urine output. Repeat potassium level this evening. Thank you for the consultation. I will continue to follow the patient with you during her hospital stay.
[2025-02-20 12:09] LABS: Glucose,Whole Blood 99 mg/dL (70-110)
--- NOTE | 2025-02-20 14:19 | US ---
EXAMINATION TYPE: US kidneys/renal and bladder DATE OF EXAM: 02/20/2025 COMPARISON: NONE CLINICAL INDICATION: Female, 64 years old with history of acute kidney injury TECHNIQUE: Grayscale imaging of the bilateral kidneys and urinary bladder: FINDINGS: EXAM MEASUREMENTS: Right Kidney: 9.4x3.7x2.8 cm Left Kidney: 8.4x3.5x3.0 cm Remelt Sugar Boiler notes: limited scan due to overlying bowel & rib shadow Right Kidney: There is an extrarenal pelvis. No hydronephrosis. Echogenic renal cortex suggesting chr onic medical renal disease. Left Kidney: Echogenic renal cortex. There is an upper to mid pole cortical cyst measuring 1.2 cm. No hydronephrosis. Bladder: Partially distended bladder shows no gross abnormality. Bilateral Jets seen: yes, limited IMPRESSION: No hydronephrosis. Changes of bilateral chronic medical renal disease. [facility], Workstation: [email or web address], 02/20/2025 2:17 PM
--- NOTE | 2025-02-20 14:53 | P.CNNES ---
History of Present Illness Consult date: 02/20/25 Requesting physician: Haroldo Norman Reason for Consult: ams/agitation History of Present Illness: This is a 64-year-old woman with a history of epilepsy, bipolar presents to the emergency department because of altered mental status. Patient is not a great historian but she stated that she came to the hospital because she was shaky and now feels drastically better. Regarding her epilepsy she stated that she is on Dilantin and thinks that she missed some of her medication. States that she follows up with Dr. Leyva her neurologist. She thinks that she had a seizure at home that is what brought her to the hospital but it looks like she notified considering it has been a while that she since she had a seizure and it has been since she is a child according to her sugar that was at bedside. She denies of any tongue bite, urinary incontinence or bowel incontinence recently. Denies of any headache, any focal weakness. According to the ED note patient has possible history of bipolar disease however family never formally was diagnosed for that. Seems that she has been having some auditory hallucination. She has been having worsening delusion. Also possible visual hallucination. She has history of significant alcohol use and had a toxic level in the past in 2020 as well as elevated level in April 2023. Some of the workup during this hospital visit consisted of: I reviewed the lab workup. CT of the head is reported as no acute intracranial process. Nonspecific white matter changes. I personally reviewed the CT and agree with the report. I also feel the patient has bilateral frontal atrophy seen in the prior imaging.. Review of Systems As per HPI. Past Medical History Past Medical History: COPD, GERD/Reflux, Hypertension, Osteoarthritis (OA), Seizure Disorder Additional Past Medical History / Comment(s): Hx Epilepsy, no seizure in 30+ yrs. Fracrured ribs fracure mandible. "BROKEN BACK". BROKEN PELVIS (FALL). OSTEOPOROSIS. History of Any Multi-Drug Resistant Organisms: ESBL Date of last positivie culture/infection: 05/30/15 E. coli ESBL MDRO Source:: Urine Past Surgical History: Hernia Repair, Joint Replacement Additional Past Surgical History / Comment(s): Bilateral cataract surgery, left hip replacement X2, right hip replacement x2, hiatal hernia repair. Past Anesthesia/Blood Transfusion Reactions: No Reported Reaction Additional Past Anesthesia/Blood Transfusion Reaction / Comment(s): Patient states "everytime I have an IV started I get I immediately get diarrhea after." Sister slow to wake up. Past Psychological History: Anxiety, Bipolar, Depression Smoking Status: Current every day smoker Past Alcohol Use History: Rare Additional Past Alcohol Use History / Comment(s): Started smoking at age 16, c urrently smokes 1 PPD. Normally has 1-2 alcoholic drinks daily, had one drink last on 03/20/23, states not having any more prior to surgery. Past Drug Use History: None Reported - Past Family History Mother Family Medical History: Deep Vein Thrombosis (DVT), Hypertension Additional Family Medical History / Comment(s): Varicose veins. Father Family Medical History: Cancer Additional Family Medical History / Comment(s): Lung cancer. Medications and Allergies Home Medications Medication Instructions Recorded Confirmed Type DULoxetine HCL [Cymbalta] 60 mg PO DAILY@79901/20/23 02/19/25 History Metoprolol Succinate (ER) [Toprol 75 mg PO DAILY@79903/23/23 02/19/25 History XL] Mirtazapine 15 mg PO HS@209904/15/23 02/19/25 History Acetaminophen [Tylenol] 650 mg PO Q6H PRN 02/19/25 02/19/25 History Ascorbic Acid [Vitamin C] 250 mg PO DAILY@79902/19/25 02/19/25 History Donepezil [Aricept] 10 mg PO HS@209902/19/25 02/19/25 History Ensure Enlive 237 ml PO TID@08,12,17 02/19/25 02/19/25 History Folic Acid 1 mg PO DAILY@79902/19/25 02/19/25 History LORazepam [Ativan] 0.5 mg PO Q8H PRN 02/19/25 02/19/25 History Magnesium Hydroxide [Milk of 7,200 mg PO DAILY PRN 02/19/25 02/19/25 History Magnesia Concentrate] Multivitamins, Thera [Multivitamin 1 tab PO DAILY@1700 02/19/25 02/19/25 History (formulary)] Na Phos,M-B/Na Phos,Di-Ba [Fleet 133 ml RECTAL DAILY PRN 02/19/25 02/19/25 History Adult] Pantoprazole Sodium [Protonix] 40 mg PO DAILY@0800 02/19/25 02/19/25 History QUEtiapine [SEROquel] 12.5 mg PO HS@2100 02/19/25 02/19/25 History Thiamine HCl [Vitamin B-1] 100 mg PO DAILY@0800 02/19/25 02/19/25 History bisacodyL [Dulcolax] 10 mg RECTAL DAILY PRN 02/19/25 02/19/25 History Allergies Allergy/AdvReac Type Severity Reaction Status Date / Time Sulfa (Sulfonamide Allergy Unknown Anaphylaxis Verified 02/19/25 19:00 Antibiotics) Physical Examination - Vital Signs Vital Signs: Vital Signs Temp Pulse Pulse Resp BP BP Pulse Ox 02/20/25 08:06 98.6 F 78 18 133/82 100 02/20/25 05:57 98.4 F 87 16 142/92 95 02/20/25 04:00 81 16 96/65 97 02/20/25 02:38 67 16 138/81 98 02/19/25 23:48 92 16 93/50 98 02/19/25 22:39 95 02/19/25 22:35 101 H 18 93/51 90 L 02/19/25 22:00 107 H 18 113/65 100 02/19/25 19:00 91 16 128/84 97 02/19/25 15:36 98.7 F 106 H 16 177/104 100 Intake and Output 02/19/25 02/20/25 02/20/25 22:59 06:59 14:59 Other: Voiding Method Diaper Incontinent Weight 54.431 kg 54.431 kg GENERAL: The patient is lying in bed and is not in acute distress. NEUROLOGICAL: Higher mental function: The patient is awake, alert, oriented to self, place and time. Patient is following commands. No aphasia and no neglect. Cranial nerves: The pupils are round, equal and reactive to light and accommodation. Visual castorena are full to confrontation throughout. Extraocular movement is intact no nystagmus is noted. Facial sensation is normal to touch throughout. The facial strength is normal throughout. Hearing is mildly decreased bilaterally to hand rub. Tongue is midline and moved [id number] without any difficulty. No dysarthria is noted. Shoulder shrug is normal bilaterally. Motor: The strength is somewhat limited because of her cooperation but was lifting all extremities above gravity equally. Normal tone and bulk. Cerebellum: Normal finger to nose bilaterally. Sensation: Sensation is normal to touch throughout. Reflexes (right/left): 2+ throughout. Plantars are downgoing bilaterally. Results - Laboratory Findings CBC and BMP: 02/20/25 00:19 02/20/25 12:59 Abnormal Lab Findings: Abnormal Labs 02/19/25 02/19/25 02/19/25 16:23 16:56 18:47 WBC 10.63 H RBC Hgb Hct MCHC RDW Plt Count Monocytes # Basophils # 0.11 H APTT 19.0 L Sodium Potassium Chloride BUN Creatinine Est GFR (CKD-EPI) BUN/Creatinine Ratio Glucose POC Glucose (mg/dL) 121 H Total Bilirubin Total Protein Albumin Albumin/Globulin Ratio 02/19/25 02/19/25 02/20/25 18:54 20:16 00:19 WBC 11.82 H RBC 3.40 L Hgb 10.0 L Hct 32.2 L MCHC 31.1 L RDW 15.2 H Plt Count 476 H Monocytes # 1.14 H Basophils # 0.11 H APTT Sodium 133 L Potassium 5.7 H Chloride 95 L BUN 38 H Creatinine 1.33 H Est GFR (CKD-EPI) BUN/Creatinine Ratio Glucose 111 H POC Glucose (mg/dL) 138 H Total Bilirubin Total Protein Albumin Albumin/Globulin Ratio 02/20/25 02/20/25 02/20/25 00:19 07:57 12:59 WBC RBC Hgb Hct MCHC RDW Plt Count Monocytes # Basophils # APTT Sodium Potassium 5.7 H 5.2 H Chloride BUN 29.4 H 29 H Creatinine 1.09 H Est GFR (CKD-EPI) 56 L BUN/Creatinine Ratio 26.73 H Glucose 127 H POC Glucose (mg/dL) Total Bilirubin <0.2 L Total Protein 5.9 L Albumin 3.6 L Albumin/Globulin Ratio 1.57 L Assessment and Plan Assessment: This is a 64-year-old woman with a history of epilepsy, suspected bipolar who presents the emergency department because of altered mental status, visual and auditory hallucination. Patient felt she was shaking as well but denies any urinary or bowel incontinence or tongue bite. She was a poor historian. Acute encephalopathy with hallucination which related due to her psychiatric condition versus rule out seizure Hyperkalemia History of epilepsy Suspected history of bipolar but it seems per family it was not confirmed. History of significant alcohol use Plan: I ordered a routine EEG TSH, vitamin B12 is ordered and is pending Patient is on Ativan. Patient states that she is on Dilantin for her seizures but it is not listed as her home medication. Will try to get obtain more information Seizure precautions seizure pads Psychiatry is consulted Will defer the rest of the medical management to primary and other specialist Thank you for the consultation. Time with Patient: Greater than 30
[2025-02-20] MEDS: ACETAMINOPHEN TAB 325 MG TAB PO PRN (19:53)
[2025-02-20] MEDS: SODIUM ZIRCONIUM CYCLOSILICATE 10 GM PACKET PO SCH (21:03)
[2025-02-21 08:43] LABS: BUN/Creat Ratio 21.69 Ratio (12.00-20.00); Blood Urea Nitrogen 28.2 mg/dL (9.0-27.0); Calcium 8.3 mg/dL (8.7-10.3); Carbon Dioxide 21.5 mmol/L (21.6-31.8); Chloride 103 mmol/L (96-109); Glucose 93 mg/dL (70-110); Potassium 4.6 mmol/L (3.5-5.5); Sodium 137 mmol/L (135-145)
[2025-02-21 08:46] LABS: HCT 32.2 % (37.2-46.3); HGB 10.1 g/dL (12.0-15.0); MCH 29.4 pg (27.0-32.0); MCHC 31.4 g/dL (32.0-37.0); MCV 93.6 FL (80.0-97.0); Mean Platelet Volume 10.3 FL (9.5-12.2); NRBC Per 100 WBC 0 X 10*3/uL (0.00-0.01); Platelet Count 476 X 10*3/uL (140-440); RBC 3.44 X 10*6/uL (4.10-5.20); RDW 15.5 % (11.5-14.5); WBC 9.43 X 10*3/uL (4.50-10.00)
[2025-02-21 09:53] LABS: Basophils # (A) 0.13 X 10*3/uL (0.00-0.10); Basophils % (A) 1.4 %; Eosinophils # (A) 0.43 X 10*3/uL (0.04-0.35); Eosinophils % (A) 4.6 %; Lymphocytes # (A) 4.24 X 10*3/uL (0.90-5.00); Monocytes # (A) 0.86 X 10*3/uL (0.20-1.00); Monocytes % (A) 9.1 %; Neutrophils # (A) 3.73 X 10*3/uL (1.80-7.70); Neutrophils % (A) 39.5 %
--- NOTE | 2025-02-21 10:48 | P.PN ---
Subjective Patient is seen in follow-up for acute kidney injury. Renal function fairly stable. Oral intake fair. Has been voiding. No active complaints. Vital signs are stable. General: No acute distress. HEENT: Head exam is unremarkable. LUNGS: No audible rhonchi or wheezes. HEART: Rate and Rhythm are regular. ABDOMEN: Nontender. EXTREMITITES: No edema. Objective - Vital Signs Vital signs: Vital Signs Temp 98.3 F 02/21/25 07:40 Pulse 88 02/21/25 07:40 Resp 16 02/21/25 07:40 BP 108/67 02/21/25 07:40 Pulse Ox 96 02/21/25 07:40 FiO2 Intake & Output 02/20/25 02/21/25 02/21/25 18:59 06:59 18:59 Weight 54.431 kg Other: Voiding Method Diaper Diaper Diaper Incontinent Incontinent Incontinent # Voids 2 1 # Bowel Movements 1 - Labs CBC & Chem 7: 02/21/25 02:13 02/21/25 02:13 Labs: Abnormal Lab Results - Last 24 Hours (Table) 02/20/25 02/21/25 02/21/25 Range/Units 12:59 02:13 02:13 RBC 3.44 L (4.10-5.20) X 10*6/uL Hgb 10.1 L (12.0-15.0) g/dL Hct 32.2 L (37.2-46.3) % MCHC 31.4 L (32.0-37.0) g/dL RDW 15.5 H (11.5-14.5) % Plt Count 476 H (140-440) X 10*3/uL Eosinophils # 0.43 H (0.04-0.35) X 10*3/uL Basophils # 0.13 H (0.00-0.10) X 10*3/uL Potassium 5.2 H (3.5-5.1) mmol/L Carbon Dioxide 21.5 L (21.6-31.8) mmol/L Anion Gap 12.50 H (4.00-12.00) mmol/L BUN 28.2 H (9.0-27.0) mg/dL Est GFR (CKD-EPI) 46 L (>=60) BUN/Creatinine Ratio 21.69 H (12.00-20.00) Ratio Calcium 8.3 L (8.7-10.3) mg/dL Assessment and Plan Plan: Assessment: 1. Acute kidney injury secondary to vasomotor nephropathy secondary to hypovolemia. Creatinine stable at 1.3. Creatinine this year has been 1.4 and was near 1 in 2023. UA benign. No hydronephrosis noted on imaging. Left kidney atrophic. 2. Hyperkalemia secondary to acute kidney injury. Improved. 3. History of epilepsy. 4. Bipolar disorder. Plan: Maintain IV fluids. Decrease rate to 50 cc an hour. Maintain Lokelma for another day. Renal diet. Continue to monitor renal function and urine output.
--- NOTE | 2025-02-21 11:08 | P.PN ---
Subjective Progress Note Date: 02/21/25 Hospital Course: A 64-year-old female with medical history of COPD not on home oxygen, seizure disorder, GERD, depression, hypertension, autoimmune hepatitis, history of alcohol use disorder in the past, confabulations on thiamine, chronic anemia,. She presented to the ER on 02/19/2025 for altered mental status, worsening visual and auditory hallucinations, agitation. I obtained collateral history from her power of river rat Lurdes Chen. Ms. Chen reported that patient has been dealing with hallucinations for the past 2 years that have been getting considerably worse over the past 4 months. 02/19 HPI reviewed patient had an episode of agitation when she was sitting up, her eyes were rolling around, saliva was foaming, she was screaming, threatening, shaking, that episode lasted 20 minutes. I confirmed that patient was conscious during that episode, she was interacting. She then had another episode here in the hospital. Her power of river rat mentioned that patient has history of heavy alcohol use with last drink April 2024, and possible couple shots last November, she has been on thiamine for confabulation, following with neurologist. It also appeared to the power of river rat that patient had this episodes after having sugary drinks or dextrose and that could possibly be related. On arrival patient is afebrile, BP 90/50, she was placed on 2 L nasal cannula but no hypoxia documented. Her lab work revealed mild leukocytosis, hemoglobin 13.2, potassium elevated 5.7, received hyperkalemia cocktail with improvement of potassium to 4.8, creatinine 1.3, AST and ALT unremarkable, UA negative for UTI, UDS negative. CT brain showed nonspecific white matter changes likely secondary to chronic small vessel ischemic disease. Reviewed imaging from outside sources, patient had brain MRI on01/24/25 due to memory loss and multiple falls, again nonspecific patchy white matter changes throughout periventricular and deep white matter noted can be related to microvascular ischemic change. She was admitted initially as observation, and changed her status to inpatient due to persistent hyperkalemia. Patient was provided with hyperkalemia cocktail and Lokelma, awaiting for neurology, psychiatry and nephrology evaluation. 02/20: Not agitated, cooperative, alert and oriented to self, time, place. Thinks that she came from home where she lives with her girlfriend Antonia, stated that she was just feeling unwell that is why she was sent here by EMS, denied any hallucinations TSH is normal 5/6 seen and examined at bedside, no active complaints, no acute events overnight. Potassium improved, creatinine 1.3, vitamin B12 471 and folate 783. IV fluids decreased to 50 cc/h per nephrology and she is maintained on scheduled Lokelma. Retroperitoneal ultrasound showed signs of chronic kidney disease. EEG is pending Pertinent Imaging: As above Pertinent positives and negatives as discussed above, a complete review of systems was performed and all other systems are negative. Vitals Signs Reviewed. General: [nontoxic], [no distress], [appears at stated age] Derm: [warm], [dry] Head: [atraumatic], [normocephalic], [symmetric] Eyes: [EOMI], [no lid lag], [anicteric sclera] Mouth: [no lip lesion], [mucus membranes moist] Cardiovascular: [S1S2 reg], [no murmur] Lungs: [CTA bilateral], [no rhonchi, no rales] , [no accessory muscle use] Abdominal: [soft], [ nontender to palpation], [no guarding], [no appreciable organomegaly] Ext: [no gross muscle atrophy], [no edema], [no contractures] Neuro: [ CN II-XI grossly intact], [no focal neuro deficits] Psych: [Alert], [oriented], Assessment and Plan: STEVO on CKD stage II Hyperkalemia, resolved - Nephrology consulted, appreciate recommendations -Potassium improved, creatinine 1.3, vitamin B12 471 and folate 783. IV fluids decreased to 50 cc/h per nephrology and she is maintained on scheduled Lokelma. Retroperitoneal ultrasound showed signs of chronic kidney disease Altered mental status, etiology to be determined Suspected bipolar disorder Confabulations with history of alcohol use Microvascular ischemic disease -Neurology and psychiatry consulted, appreciate recommendations - Continue thiamine 100 mg p.o. daily - Continue Aricept 10 mg p.o. nightly - Continue Ativan 0.5 mg p.o. every 8 hours as needed - Continue sitter at bedside - Social work consulted, PT OT - TSH normal, vitamin B12 471 and folate 783. - EEG is pending Patient spiked fever overnight, no signs of infection, will monitor off antibiotics, continue to monitor for fevers and leukocytosis Essential hypertension continue home -Toprol-XL 75 mg p.o. daily History of epilepsy in childhood -Continue to monitor I have reviewed the following inside sales consultant notes: Nephrology, neurology I have reviewed the results of the following tests: CBC, BMP, abdominal ultrasound I have ordered the following tests: Daily BMP to monitor kidney function and potassium I have discussed the care of this patient with the following independent pa storian: I have independently interpreted the following test below: As above I have discussed the management of this patient with the following physician: DVT ppx: Heparin Code status: Full code Anticipated discharge place: TBD Anticipated discharge time: TBD Objective - Vital Signs Vital signs: Vital Signs Temp 98.3 F 02/21/25 07:40 Pulse 88 02/21/25 07:40 Resp 16 02/21/25 07:40 BP 108/67 02/21/25 07:40 Pulse Ox 96 02/21/25 07:40 FiO2 Intake & Output 02/20/25 02/21/25 02/21/25 18:59 06:59 18:59 Weight 54.431 kg Other: Voiding Method Diaper Diaper Diaper Incontinent Incontinent Incontinent # Voids 2 1 # Bowel Movements 1 - Labs CBC & Chem 7: 02/21/25 02:13 02/21/25 02:13 Labs: Abnormal Lab Results - Last 24 Hours (Table) 02/20/25 02/21/25 02/21/25 Range/Units 12:59 02:13 02:13 RBC 3.44 L (4.10-5.20) X 10*6/uL Hgb 10.1 L (12.0-15.0) g/dL Hct 32.2 L (37.2-46.3) % MCHC 31.4 L (32.0-37.0) g/dL RDW 15.5 H (11.5-14.5) % Plt Count 476 H (140-440) X 10*3/uL Eosinophils # 0.43 H (0.04-0.35) X 10*3/uL Basophils # 0.13 H (0.00-0.10) X 10*3/uL Potassium 5.2 H (3.5-5.1) mmol/L Carbon Dioxide 21.5 L (21.6-31.8) mmol/L Anion Gap 12.50 H (4.00-12.00) mmol/L BUN 28.2 H (9.0-27.0) mg/dL Est GFR (CKD-EPI) 46 L (>=60) BUN/Creatinine Ratio 21.69 H (12.00-20.00) Ratio Calcium 8.3 L (8.7-10.3) mg/dL
--- NOTE | 2025-02-21 14:14 | P.CN ---
Psychiatric Consult - . Consult date: 02/21/25 Consult:: 02/21/25 14:04 IDENTIFYING DATA: This patient is a 64-year-old female, recently staying at [facility], on disability REASON FOR REFERRAL: Psychiatry was consulted for agitation, confabulations HISTORY OF PRESENT ILLNESS: The patient presented to the hospital with altered mental status. Patient reportedly was having worsening delusions, hallucinations at [facility] and was sent here. Potassium was elevated at 5.7, CT head revealed no acute changes, nonspecific white matter changes with cerebral atrophy and dilated ventricles. Patient seen and examined in her room with sitter at bedside. She displayed confusion, poor historian and was A&Ox2 to self and location, not place or date/year. Patient did display confabulation as she would answer a question however later on would give a different answer with poor insight into this discrepancy. Patient states that the only medication she should be on is [place], unaware of her other current active medications including Aricept or previously being on Seroquel. She states being here because of her epilepsy with a history of Dilantin. She was unaware of her most recent seizure. When told the real reason why she is here which is due to psychosis patient denied, appeared confused as to ever having psychosis. She denied at this time patient denies any suicidal or homicidal ideations, intent or plan. Patient denies any auditory, visual hallucinations and denies any paranoia or delusions. Patients admits to using no substances. Patient reportedly does have a history of heavy alcohol use. PAST PSYCHIATRIC HISTORY: Patient has no past psych history. Patient is currently prescribed Cymbalta 60 mg daily, Seroquel 12.5 mg at bedtime, Remeron 15 mg at bedtime, Aricept 10 mg at bedtime. Patient denies any previous psychiatric hospitalizations. Patient denies any psychiatric outpatient follow- up. Patient denies any history of suicide attempts in the past. PAST MEDICAL HISTORY: COPD, GERD/Reflux, Hypertension, Osteoarthritis (OA), Seizure Disorder. ALLERGIES: as per EMR. CHEMICAL DEPENDENCY HISTORY: as per HPI. FAMILY PSYCHIATRIC/SUBSTANCE USE HISTORY: Denies SOCIAL HISTORY: Patient reports living in 3 different places including her aunts, girlfriends and mother. She states having no children, is single and is on disability. MENTAL STATUS EXAM: General Appearance: Patient appears to be stated age is alert, pleasant, and cooperative. Patient appears to have fair hygiene and grooming wearing hospital gown with fair eye contact. Behavior: Patient is calmly lying in bed without any agitated behavior. Speech: Patient's speech is fluent and nonpressured. Mood/Affect: Patient reports their mood is "good", affect is congruent Suicidality/Homicidality: Patient denies having any suicidal or homicidal ideation intent or plan. Perceptions: Patient denies any visual hallucinations and denies any auditory hallucinations Though content/process: There is no evidence of any delusional thought content and thought process is linear, illogical at times. Memory and concentration: AOX2 to city and self, not location or date/year/time Judgment and insight: Poor IMPRESSIONS: Unspecified neurocognitive disorder Rule out Korsakoff syndrome Alcohol use disorder, in sustained remission PLAN: -At this time patient DOES NOT meet criteria for inpatient psychiatric admission. -Would recommend the following medication changes/additions: Ordered thiamine to be completed tomorrow morning, restart and increase Seroquel to 50 mg at bedtime for psychosis -Can discontinue 1:1 sitter at this time as patient is not currently an imminent threat to themselves -Communicated plan to patient's nurse -Will continue to follow along as needed -Please contact with any questions.
[2025-02-21] MEDS: DIVALPROEX 500 MG TABLET.DR PO SCH (15:39)
--- NOTE | 2025-02-21 17:26 | P.PN ---
Subjective Progress Note Date: 02/21/25 I am following-up with the patient and she states she is doing well and denies any further body shaking. Upon speaking with primary team, it seems patient is not on Dilantin or any antiseizure medications for a while and it is reported her last seizure was remote. Objective - Vital Signs Vital signs: Vital Signs Temp 98.5 F 02/21/25 14: Pulse 87 02/21/25 14:25 Resp 16 02/21/25 14:25 BP 125/78 02/21/25 14:25 Pulse Ox 100 02/21/25 14:25 FiO2 Intake & Output 02/20/25 02/21/25 02/21/25 18:59 06:59 18:59 Weight 54.431 kg Other: Voiding Method Diaper Diaper Diaper Incontinent Incontinent Incontinent # Voids 2 1 2 # Bowel Movements 1 1 - Exam General: Lying in bed and is not in acute distress. Neuro: Somewhat limited. Is awake, alert, oriented to self and place. Is following simple commands. No facial weakness. No dysarthria. Motor: Lifting bilateral uppers and lowers above gravity and appears symmetrical. Some of the workup during this hospital visit consisted of: I reviewed the lab workup. CT of the head is reported as no acute intracranial process. Nonspecific white matter changes. I personally reviewed the CT and agree with the report. I also feel the patient has bilateral frontal atrophy seen in the prior imaging. - Labs CBC & Chem 7: 02/21/25 02:13 02/21/25 02:13 Labs: Abnormal Lab Results - Last 24 Hours (Table) 02/21/25 02/21/25 Range/Units 02:13 02:13 RBC 3.44 L (4.10-5.20) X 10*6/uL Hgb 10.1 L (12.0-15.0) g/dL Hct 32.2 L (37.2-46.3) % MCHC 31.4 L (32.0-37.0) g/dL RDW 15.5 H (11.5-14.5) % Plt Count 476 H (140-440) X 10*3/uL Eosinophils # 0.43 H (0.04-0.35) X 10*3/uL Basophils # 0.13 H (0.00-0.10) X 10*3/uL Carbon Dioxide 21.5 L (21.6-31.8) mmol/L Anion Gap 12.50 H (4.00-12.00) mmol/L BUN 28.2 H (9.0-27.0) mg/dL Est GFR (CKD-EPI) 46 L (>=60) BUN/Creatinine Ratio 21.69 H (12.00-20.00) Ratio Calcium 8.3 L (8.7-10.3) mg/dL Assessment and Plan Assessment: This is a 64-year-old woman with a history of epilepsy, suspected bipolar who presents the emergency department because of altered mental status, visual and auditory hallucination. Patient felt she was shaking as well but denies any ur inary or bowel incontinence or tongue bite. She was a poor historian. Acute encephalopathy with hallucination which related due to her psychiatric condition versus rule out seizure. EEG preliminary is negative for seizure. Hyperkalemia History of epilepsy Suspected history of bipolar but it seems per family it was not confirmed. History of significant alcohol use Plan: I spoke with the primary team and we agreed on starting the patient on Depakote 500mg bid which helps with mood and has antiseizure benefit. Per primary team, according to her shelter she is not on Dilantin. Patient is on Ativan. Seizure precautions seizure pads Psychiatry is consulted Will defer the rest of the medical management to primary and other specialist Time with Patient: Less than 30
[2025-02-21] MEDS: QUEtiapine 25 MG TAB PO SCH (20:30)
[2025-02-22 08:29] LABS: BUN/Creat Ratio 18.64 Ratio (12.00-20.00); Blood Urea Nitrogen 20.5 mg/dL (9.0-27.0); Calcium 8.7 mg/dL (8.7-10.3); Carbon Dioxide 22.3 mmol/L (21.6-31.8); Chloride 104 mmol/L (96-109); Glucose 90 mg/dL (70-110); Potassium 4.3 mmol/L (3.5-5.5); Sodium 139 mmol/L (135-145)
[2025-02-22 08:35] LABS: HCT 32.4 % (37.2-46.3); HGB 10.2 g/dL (12.0-15.0); MCHC 31.5 g/dL (32.0-37.0); Mean Platelet Volume 10.6 FL (9.5-12.2); NRBC Per 100 WBC 0 X 10*3/uL (0.00-0.01); Platelet Count 504 X 10*3/uL (140-440); RBC 3.52 X 10*6/uL (4.10-5.20); RDW 15.3 % (11.5-14.5); WBC 9.42 X 10*3/uL (4.50-10.00)
[2025-02-22 10:02] LABS: Basophils # (M) 0.19 X 10*3/uL (0.00-0.10); Eosinophils # (M) 0.38 X 10*3/uL (0.04-0.35); Lymphocytes # (M) 5.09 X 10*3/uL (0.90-5.00); Monocytes # (M) 0.47 X 10*3/uL (0.20-1.00); Neutrophils % (M) 35 %; RBC Morphology Normal (Normal)
--- NOTE | 2025-02-22 10:21 | P.PN ---
Subjective Patient is seen in follow-up for acute kidney injury. Renal function better. Oral intake fair. Has been voiding. No active complaints. Vital signs are stable. General: No acute distress. HEENT: Head exam is unremarkable. LUNGS: No audible rhonchi or wheezes. HEART: Rate and Rhythm are regular. ABDOMEN: Nontender. EXTREMITITES: No edema. Objective - Vital Signs Vital signs: Vital Signs Temp 99.2 F 02/22/25 07:24 Pulse 82 02/22/25 07:24 Resp 16 02/22/25 07:24 BP 148/80 02/22/25 07:24 Pulse Ox 96 02/22/25 07:24 FiO2 Intake & Output 02/21/25 02/22/25 02/22/25 18:59 06:59 18:59 Intake Total 120 Balance 120 Intake: Oral 120 Other: Voiding Method Diaper Diaper Incontinent Incontinent # Voids 2 4 1 # Bowel Movements 1 1 - Labs CBC & Chem 7: 02/22/25 02:45 02/22/25 02:45 Labs: Abnormal Lab Results - Last 24 Hours (Table) 02/22/25 02/22/25 Range/Units 02:45 02:45 RBC 3.52 L (4.10-5.20) X 10*6/uL Hgb 10.2 L (12.0-15.0) g/dL Hct 32.4 L (37.2-46.3) % MCHC 31.5 L (32.0-37.0) g/dL RDW 15.3 H (11.5-14.5) % Plt Count 504 H (140-440) X 10*3/uL Lymphocytes # (Manual) 5.09 H (0.90-5.00) X 10*3/uL Eosinophils # (Manual) 0.38 H (0.04-0.35) X 10*3/uL Basophils # (Manual) 0.19 H (0.00-0.10) X 10*3/uL Anion Gap 12.70 H (4.00-12.00) mmol/L Est GFR (CKD-EPI) 56 L (>=60) Assessment and Plan Plan: Assessment: 1. Acute kidney injury secondary to vasomotor nephropathy secondary to hypovolemia. Renal function better. Creatinine 1.1. Creatinine this year has been 1.4 and was near 1 in 2023. UA benign. No hydronephrosis noted on imaging. Left kidney atrophic. 2. Hyperkalemia secondary to acute kidney injury. Improved. 3. History of epilepsy. 4. Bipolar disorder. Plan: Maintain gentle IV hydration. Lokelma discontinued. Renal diet. Continue to monitor renal function and urine output.
--- NOTE | 2025-02-22 14:56 | P.DS ---
Providers Date of admission: 02/19/25 20:22 Attending physician: Kathy Kelly MD Consults: 02/19/25 20:15 Consult Physician Routine Consulting Provider: Psychiatry - [facility] Psychiatry Consult Reason/Comments: agitation, confabulations Do you want consulting provider notified?: Yes Consult Physician Routine Consulting Provider: Maryjo Oconnell Consult Reason/Comments: AMS/agitation Do you want consulting provider notified?: Yes 02/19/25 20:18 Consult Physician Routine Consulting Provider: Selvin Lees Consult Reason/Comments: hyperkalemia Do you want consulting provider notified?: Yes Primary care physician: Jakob Welch MD Hospital Course: Discharge Diagnosis: STEVO on CKD stage II Hyperkalemia, resolved Unspecified neurocognitive disorder with hallucinations, rule out Korsakoff s yndrome History of confabulations Microvascular ischemic disease Alcohol use disorder in sustained remission Essential hypertension History of epilepsy in childhood Hospital Course: A 64-year-old female with medical history of COPD not on home oxygen, seizure disorder, GERD, depression, hypertension, autoimmune hepatitis, history of alcohol use disorder in the past, confabulations on thiamine, chronic anemia,. She presented to the ER on 02/19/2025 for altered mental status, worsening visual and auditory hallucinations, agitation. I obtained collateral history from her power of real estate attorney Lurdes Chen. Ms. Chen reported that patient has been dealing with hallucinations for the past 2 years that have been getting considerably worse over the past 4 months. 02/19 HPI reviewed patient had an episode of agitation when she was sitting up, her eyes were rolling around, saliva was foaming, she was screaming, threatening, shaking, that episode lasted 20 minutes. I confirmed that patient was conscious during that episode, she was interacting. She then had another episode here in the hospital. Her power of real estate attorney mentioned that patient has history of heavy alcohol use with last drink April 2024, and possible couple shots last November, she has been on thiamine for confabulation, following with neurologist. It also appeared to the power of real estate attorney that patient had this episodes after h aving sugary drinks or dextrose and that could possibly be related. On arrival patient is afebrile, BP 90/50, she was placed on 2 L nasal cannula but no hypoxia documented. Her lab work revealed mild leukocytosis, hemoglobin 13.2, potassium elevated 5.7, received hyperkalemia cocktail with improvement of potassium to 4.8, creatinine 1.3, AST and ALT unremarkable, UA negative for UTI, UDS negative. CT brain showed nonspecific white matter changes likely secondary to chronic small vessel ischemic disease. Reviewed imaging from outside sources, patient had brain MRI on01/24/25 due to memory loss and multiple falls, again nonspecific patchy white matter changes throughout periventricular and deep white matter noted can be related to microvascular ischemic change. She was admitted initially as observation, and changed her status to inpatient due to persistent hyperkalemia. Patient was provided with hyperkalemia cocktail and Lokelma, awaiting for neurology, psychiatry and nephrology evaluation. 02/20: Not agitated, cooperative, alert and oriented to self, time, place. Thinks that she came from home where she lives with her girlfriend Antonia, stated that she was just feeling unwell that is why she was sent here by EMS, denied any hallucinations TSH is normal 02/21 seen and examined at bedside, no active complaints, no acute events overnight. Potassium improved, creatinine 1.3, vitamin B12 471 and folate 783. IV fluids decreased to 50 cc/h per nephrology and she is maintained on scheduled Lokelma. Retroperitoneal ultrasound showed signs of chronic kidney disease 02/22: Patient was started on Depakote 500 mg for mood stabilization as well as possible seizure, psychiatry recommended Seroquel 25 mg nightly. Patient's mentation is improved, no sitter required. She can be discharged back to [facility]. Patient to repeat BMP in 3 days, follow-up with nephrology and PCP. Cleared from neurology for discharge Of note, patient had 1 isolated episode of fever with no leukocytosis, and no signs of infection, no antibiotics required during this hospitalization. Patient seen and examined at bedside. Vital signs reviewed and stable. General: [nontoxic], [no distress], [appears at stated age] Derm: [warm], [dry] Head: [atraumatic], [normocephalic], [symmetric] Eyes: [EOMI], [no lid lag], [anicteric sclera] Mouth: [no lip lesion], [mucus membranes moist] Cardiovascular: [S1S2 reg], [no murmur] Lungs: [CTA bilateral], [no rhonchi, no rales] , [no accessory muscle use] Abdominal: [soft], [ nontender to palpation], [no guarding], [no appreciable organomegaly] Ext: [no gross muscle atrophy], [no edema], [no contractures] Neuro: [ CN II-XI grossly intact], [no focal neuro deficits] Psych: [Alert], [oriented], A total of 38 minutes of time were spent preparing this complex discharge summary. Patient was discharged on 02/22/2025 Patient Condition at Discharge: Stable Plan - Discharge Summary Discharge Rx Participant: No New Discharge Prescriptions: New Divalproex [Depakote] 500 mg PO BID #60 tab QUEtiapine [SEROquel] 25 mg PO HS #30 tab Continue Mirtazapine 15 mg PO HS@2100 Pantoprazole Sodium [Protonix] 40 mg PO DAILY@0800 Folic Acid 1 mg PO DAILY@0800 Ascorbic Acid [Vitamin C] 250 mg PO DAILY@0800 Magnesium Hydroxide [Milk of Magnesia Concentrate] 7,200 mg PO DAILY PRN PRN Reason: Constipation LORazepam [Ativan] 0.5 mg PO Q8H PRN #15 tab PRN Reason: Anxiety DULoxetine HCL [Cymbalta] 60 mg PO DAILY@0800 Metoprolol Succinate (ER) [Toprol XL] 75 mg PO DAILY@0800 Na Phos,M-B/Na Phos,Di-Ba [Fleet Adult] 133 ml RECTAL DAILY PRN PRN Reason: Constipation bisacodyL [Dulcolax] 10 mg RECTAL DAILY PRN PRN Reason: Constipation Ensure Enlive 237 ml PO TID@08,12,17 Thiamine HCl [Vitamin B-1] 100 mg PO DAILY@0800 Multivitamins, Thera [Multivitamin (formulary)] 1 tab PO DAILY@1700 Donepezil [Aricept] 10 mg PO HS@2100 Acetaminophen [Tylenol] 650 mg PO Q6H PRN PRN Reason: Pain Or Fever > 100.5 Discontinued QUEtiapine [SEROquel] 12.5 mg PO HS@2100 Discharge Medication List DULoxetine HCL [Cymbalta] 60 mg PO DAILY@0800 01/20/23 [History] Metoprolol Succinate (ER) [Toprol XL] 75 mg PO DAILY@0800 03/23/23 [History] Mirtazapine 15 mg PO HS@209904/15/23 [History] Acetaminophen [Tylenol] 650 mg PO Q6H PRN 02/19/25 [History] Ascorbic Acid [Vitamin C] 250 mg PO DAILY@79902/19/25 [History] Donepezil [Aricept] 10 mg PO HS@209902/19/25 [History] Ensure Enlive 237 ml PO TID@08,12,17 02/19/25 [History] Folic Acid 1 mg PO DAILY@79902/19/25 [History] Magnesium Hydroxide [Milk of Magnesia Concentrate] 7,200 mg PO DAILY PRN 02/19/25 [History] Multivitamins, Thera [Multivitamin (formulary)] 1 tab PO DAILY@169902/19/25 [History] Na Phos,M-B/Na Phos,Di-Ba [Fleet Adult] 133 ml RECTAL DAILY PRN 02/19/25 [History] Pantoprazole Sodium [Protonix] 40 mg PO DAILY@79902/19/25 [History] Thiamine HCl [Vitamin B-1] 100 mg PO DAILY@79902/19/25 [History] bisacodyL [Dulcolax] 10 mg RECTAL DAILY PRN 02/19/25 [History] Divalproex [Depakote] 500 mg PO BID #60 tab 02/22/25 [Rx] LORazepam [Ativan] 0.5 mg PO Q8H PRN #15 tab 02/22/25 [Rx] QUEtiapine [SEROquel] 25 mg PO HS #30 tab 02/22/25 [Rx] Follow up Appointment(s)/Referral(s): Jakob Welch MD [Primary Care Provider] - 1 Week Vince Austin, [NON-STAFF] - As Needed Edward Lopes DO [STAFF PHYSICIAN] - 1 Week Ambulatory/Diagnostic Orders: Basic Metabolic Panel [LAB.AMB] Time Frame: 3 Days, Location: None Selected Activity/Diet/Wound Care/Special Instructions: Please, follow up with your PCP, security software engineer Discharge Disposition: TRANSFER TO SNF/ECF
--- NOTE | 2025-02-22 15:24 | P.PN ---
Subjective Progress Note Date: 02/22/25 I am following up with the patient and she is accompanied with her sister who states the patient is drastically better. Per her sister patient had remote history of epilepsy is controlled and states has not had any further seizures and and is not on antiseizure medication. Patient feels she is doing drastically better. Objective - Vital Signs Vital signs: Vital Signs Temp 98.4 F 02/22/25 14:01 Pulse 83 02/22/25 14:01 Resp 17 02/22/25 14:01 BP 156/82 02/22/25 14:01 Pulse Ox 100 02/22/25 14:01 FiO2 Intake & Output 02/21/25 02/22/25 02/22/25 18:59 06:59 18:59 Intake Total 120 Balance 120 Intake: Oral 120 Other: Voiding Method Diaper Diaper Diaper Incontinent Incontinent Incontinent # Voids 2 4 2 # Bowel Movements 1 1 - Exam General: Sitting up in a chair and is not in acute distress. Neuro: The patient is awake alert oriented to self place and time. Is following simple commands. No aphasia. She is more responsive today and following commands appropriately Visual castorena are full to confrontation. No facial weakness. No dysarthria Motor strength is 5 out of 5 throughout. Some of the workup during this hospital visit consisted of: I reviewed the lab workup. CT of the head is reported as no acute intracranial process. Nonspecific white matter changes. I personally reviewed the CT and agree with the report. I also feel the patient has bilateral frontal atrophy seen in the prior imaging. - Labs CBC & Chem 7: 02/22/25 02:45 02/22/25 02:45 Labs: Abnormal Lab Results - Last 24 Hours (Table) 02/22/25 02/22/25 Range/Units 02:45 02:45 RBC 3.52 L (4.10-5.20) X 10*6/uL Hgb 10.2 L (12.0-15.0) g/dL Hct 32.4 L (37.2-46.3) % MCHC 31.5 L (32.0-37.0) g/dL RDW 15.3 H (11.5-14.5) % Plt Count 504 H (140-440) X 10*3/uL Lymphocytes # (Manual) 5.09 H (0.90-5.00) X 10*3/uL Eosinophils # (Manual) 0.38 H (0.04-0.35) X 10*3/uL Basophils # (Manual) 0.19 H (0.00-0.10) X 10*3/uL Anion Gap 12.70 H (4.00-12.00) mmol/L Est GFR (CKD-EPI) 56 L (>=60) Assessment and Plan Assessment: This is a 64-year-old woman with a history of epilepsy, suspected bipolar who presents the emergency department because of altered mental status, visual and auditory hallucination. Patient felt she was shaking but per primary team she was responding during the episodes but no urinary or bowel incontinence or tongue bite. Acute encephalopathy with hallucination which related due to her psychiatric condition. EEG preliminary is negative for seizure---currently is drastically better. Hyperkalemia History of remote epilepsy and has not had seizure that is reported by her sister and is not on antiseizure medication. Suspected history of bipolar but it seems per family it was not confirmed. History of significant alcohol use Plan: Continue Depakote 500mg bid which helps with mood and has antiseizure benefit. Patient is on Ativan. Seizure precautions seizure pads Consider a prolonged EEG as an outpatient. (Patient's sister she states that the patient follows up with Dr. Parisi and there is a concern for questionable frontotemporal dementia and [facility] Recommend neuropsych evaluation but will defer the management to her outpatient neurologist. Psychiatry is consulted Will defer the rest of the medical management to primary and other specialist There is no further neurological work-up. Will sign off. Please reconsult if needed. Time with Patient: Less than 30
--- NOTE | 2025-02-22 16:37 | EEG ---
ELECTROENCEPHALOGRAM REPORT CLINICAL HISTORY: This is a 64-year-old woman with history of epilepsy and suspected bipolar, who has altered mental status. The video EEG is obtained to evaluate for seizure epileptiform activity. RELEVANT MEDICATIONS: 1. Cymbalta. 2. Seroquel. 3. Ativan p.r.n. EEG TYPE: Routine 21 channel EEG with video using the 10/20 electrode system. DESCRIPTION: Wakefulness and drowsiness are obtained. The background consists of [id number] voltage of 9 to 10 hertz activity intermixed with delta activity. At other times, diffuse delta activity intermixed with theta activity. There is no physiological stage 2 sleep architecture. There is no focal slowing. Interictal and ictal is none. ACTIVATION PROCEDURE: Photic stimulation did not evoke a posterior driving response. There is no abnormality during the photic stimulation. Hyperventilation was not performed. CLINICAL INTERPRETATION: This is an abnormal routine EEG during awake and drowsy state. The background slowing is suggestive of moderate encephalopathy. There is no focal slowing, epileptiform discharge, or seizure on the EEG. The lack of epileptiform discharges does not rule out underlying epilepsy. Clinical correlation is recommended. MMODL / IJN: [id number] / MTDD
[2025-02-23 07:47] VITALS: BP 123/75; PULSE 77; RESP 14; TEMP 97.7
[2025-02-23 08:29] LABS: HCT 32.6 % (37.2-46.3); HGB 10.7 g/dL (12.0-15.0); MCH 30.1 pg (27.0-32.0); MCHC 32.8 g/dL (32.0-37.0); MCV 91.6 FL (80.0-97.0); Mean Platelet Volume 10.7 FL (9.5-12.2); NRBC Per 100 WBC 0 X 10*3/uL (0.00-0.01); Platelet Count 478 X 10*3/uL (140-440); RBC 3.56 X 10*6/uL (4.10-5.20); RDW 15.2 % (11.5-14.5); WBC 9.35 X 10*3/uL (4.50-10.00)
[2025-02-23 09:08] LABS: BUN/Creat Ratio 10.64 Ratio (12.00-20.00); Blood Urea Nitrogen 11.7 mg/dL (9.0-27.0); Calcium 8.2 mg/dL (8.7-10.3); Carbon Dioxide 20.3 mmol/L (21.6-31.8); Chloride 104 mmol/L (96-109); Glucose 99 mg/dL (70-110); Potassium 3.6 mmol/L (3.5-5.5); Sodium 138 mmol/L (135-145)
[2025-02-23 09:17] LABS: Basophils # (M) 0 X 10*3/uL (0.00-0.10); Eosinophils # (M) 0.37 X 10*3/uL (0.04-0.35); Lymphocytes # (M) 5.14 X 10*3/uL (0.90-5.00); Monocytes # (M) 0.37 X 10*3/uL (0.20-1.00); Neutrophils # (M) 3.46 X 10*3/uL (1.80-7.70); Neutrophils % (M) 37 %
--- NOTE | 2025-02-23 10:07 | P.DS ---
Providers Date of admission: 02/19/25 20:22 Attending physician: Kathy Kelly MD Consults: 02/19/25 20:15 Consult Physician Routine Consulting Provider: Psychiatry - [facility] Psychiatry Consult Reason/Comments: agitation, confabulations Do you want consulting provider notified?: Yes Consult Physician Routine Consulting Provider: Maryjo Oconnell Consult Reason/Comments: AMS/agitation Do you want consulting provider notified?: Yes 02/19/25 20:18 Consult Physician Routine Consulting Provider: Selvin Lees Consult Reason/Comments: hyperkalemia Do you want consulting provider notified?: Yes Primary care physician: Jakob Welch MD Hospital Course: Discharge Diagnosis: STEVO on CKD stage II Hyperkalemia, resolved Unspecified neurocognitive disorder with hallucinations, rule out Korsakoff s yndrome History of confabulations Microvascular ischemic disease Alcohol use disorder in sustained remission Essential hypertension History of epilepsy in childhood Hospital Course: A 64-year-old female with medical history of COPD not on home oxygen, seizure disorder, GERD, depression, hypertension, autoimmune hepatitis, history of alcohol use disorder in the past, confabulations on thiamine, chronic anemia,. She presented to the ER on 02/19/2025 for altered mental status, worsening visual and auditory hallucinations, agitation. I obtained collateral history from her power of prosecuting attorney Lurdes Chen. Ms. Chen reported that patient has been dealing with hallucinations for the past 2 years that have been getting considerably worse over the past 4 months. 02/19 HPI reviewed patient had an episode of agitation when she was sitting up, her eyes were rolling around, saliva was foaming, she was screaming, threatening, shaking, that episode lasted 20 minutes. I confirmed that patient was conscious during that episode, she was interacting. She then had another episode here in the hospital. Her power of prosecuting attorney mentioned that patient has history of heavy alcohol use with last drink April 2024, and possible couple shots last November, she has been on thiamine for confabulation, following with neurologist. It also appeared to the power of prosecuting attorney that patient had this episodes after h aving sugary drinks or dextrose and that could possibly be related. On arrival patient is afebrile, BP 90/50, she was placed on 2 L nasal cannula but no hypoxia documented. Her lab work revealed mild leukocytosis, hemoglobin 13.2, potassium elevated 5.7, received hyperkalemia cocktail with improvement of potassium to 4.8, creatinine 1.3, AST and ALT unremarkable, UA negative for UTI, UDS negative. CT brain showed nonspecific white matter changes likely secondary to chronic small vessel ischemic disease. Reviewed imaging from outside sources, patient had brain MRI on01/24/25 due to memory loss and multiple falls, again nonspecific patchy white matter changes throughout periventricular and deep white matter noted can be related to microvascular ischemic change. She was admitted initially as observation, and changed her status to inpatient due to persistent hyperkalemia. Patient was provided with hyperkalemia cocktail and Lokelma, awaiting for neurology, psychiatry and nephrology evaluation. 02/20: Not agitated, cooperative, alert and oriented to self, time, place. Thinks that she came from home where she lives with her girlfriend Antonia, stated that she was just feeling unwell that is why she was sent here by EMS, denied any hallucinations TSH is normal 02/21 seen and examined at bedside, no active complaints, no acute events overnight. Potassium improved, creatinine 1.3, vitamin B12 471 and folate 783. IV fluids decreased to 50 cc/h per nephrology and she is maintained on scheduled Lokelma. Retroperitoneal ultrasound showed signs of chronic kidney disease 02/22: Patient was started on Depakote 500 mg for mood stabilization as well as possible seizure, psychiatry recommended Seroquel 25 mg nightly. Patient's mentation is improved, no sitter required. She can be discharged back to [facility]. Patient to repeat BMP in 3 days, follow-up with nephrology and PCP. Cleared from neurology for discharge 02/23:SNF placement denied after peer to peer, patient is stable for discharge. Of note, patient had 1 isolated episode of fever with no leukocytosis, and no signs of infection, no antibiotics required during this hospitalization. Patient seen and examined at bedside. Vital signs reviewed and stable. General: [nontoxic], [no distress], [appears at stated age] Derm: [warm], [dry] Head: [atraumatic], [normocephalic], [symmetric] Eyes: [EOMI], [no lid lag], [anicteric sclera] Mouth: [no lip lesion], [mucus membranes moist] Cardiovascular: [S1S2 reg], [no murmur] Lungs: [CTA bilateral], [no rhonchi, no rales] , [no accessory muscle use] Abdominal: [soft], [ nontender to palpation], [no guarding], [no appreciable organomegaly] Ext: [no gross muscle atrophy], [no edema], [no contractures] Neuro: [ CN II-XI grossly intact], [no focal neuro deficits] Psych: [Alert], [oriented], A total of 38 minutes of time were spent preparing this complex discharge summary. Patient was discharged on 02/23/2025 Patient Condition at Discharge: Stable Plan - Discharge Summary Discharge Rx Participant: No New Discharge Prescriptions: New Divalproex [Depakote] 500 mg PO BID #60 tab QUEtiapine [SEROquel] 25 mg PO HS #30 tab Continue Mirtazapine 15 mg PO HS@2100 Pantoprazole Sodium [Protonix] 40 mg PO DAILY@0800 Folic Acid 1 mg PO DAILY@0800 Ascorbic Acid [Vitamin C] 250 mg PO DAILY@0800 Magnesium Hydroxide [Milk of Magnesia Concentrate] 7,200 mg PO DAILY PRN PRN Reason: Constipation LORazepam [Ativan] 0.5 mg PO Q8H PRN #15 tab PRN Reason: Anxiety DULoxetine HCL [Cymbalta] 60 mg PO DAILY@0800 Metoprolol Succinate (ER) [Toprol XL] 75 mg PO DAILY@0800 Na Phos,M-B/Na Phos,Di-Ba [Fleet Adult] 133 ml RECTAL DAILY PRN PRN Reason: Constipation bisacodyL [Dulcolax] 10 mg RECTAL DAILY PRN PRN Reason: Constipation Ensure Enlive 237 ml PO TID@08,12,17 Thiamine HCl [Vitamin B-1] 100 mg PO DAILY@0800 Multivitamins, Thera [Multivitamin (formulary)] 1 tab PO DAILY@1700 Donepezil [Aricept] 10 mg PO HS@2100 Acetaminophen [Tylenol] 650 mg PO Q6H PRN PRN Reason: Pain Or Fever > 100.5 Discontinued QUEtiapine [SEROquel] 12.5 mg PO HS@2100 Discharge Medication List DULoxetine HCL [Cymbalta] 60 mg PO DAILY@0800 01/20/23 [History] Metoprolol Succinate (ER) [Toprol XL] 75 mg PO DAILY@79903/23/23 [History] Mirtazapine 15 mg PO HS@209904/15/23 [History] Acetaminophen [Tylenol] 650 mg PO Q6H PRN 02/19/25 [History] Ascorbic Acid [Vitamin C] 250 mg PO DAILY@79902/19/25 [History] Donepezil [Aricept] 10 mg PO HS@209902/19/25 [History] Ensure Enlive 237 ml PO TID@08,12,02/19/25 [History] Folic Acid 1 mg PO DAILY@79902/19/25 [History] Magnesium Hydroxide [Milk of Magnesia Concentrate] 7,200 mg PO DAILY PRN 02/19/25 [History] Multivitamins, Thera [Multivitamin (formulary)] 1 tab PO DAILY@169902/19/25 [History] Na Phos,M-B/Na Phos,Di-Ba [Fleet Adult] 133 ml RECTAL DAILY PRN 02/19/25 [History] Pantoprazole Sodium [Protonix] 40 mg PO DAILY@79902/19/25 [History] Thiamine HCl [Vitamin B-1] 100 mg PO DAILY@79902/19/25 [History] bisacodyL [Dulcolax] 10 mg RECTAL DAILY PRN 02/19/25 [History] Divalproex [Depakote] 500 mg PO BID #60 tab 02/22/25 [Rx] LORazepam [Ativan] 0.5 mg PO Q8H PRN #15 tab 02/22/25 [Rx] QUEtiapine [SEROquel] 25 mg PO HS #30 tab 02/22/25 [Rx] Follow up Appointment(s)/Referral(s): Jakob Welch MD [Primary Care Provider] - 1 Week Vince Austin [NON-STAFF] - As Needed Edward Lopes DO [STAFF PHYSICIAN] - 1 Week Ambulatory/Diagnostic Orders: Basic Metabolic Panel [LAB.AMB] Time Frame: 3 Days, Location: None Selected Activity/Diet/Wound Care/Special Instructions: Please, follow up with your PCP, doper Discharge Disposition: TRANSFER TO SNF/ECF
--- NOTE | 2025-02-23 10:30 | P.PN ---
Subjective Patient is seen in follow-up for acute kidney injury. Renal function improved from admission. Oral intake fair. Has been voiding. No active complaints. Vital signs are stable. General: No acute distress. HEENT: Head exam is unremarkable. LUNGS: No audible rhonchi or wheezes. HEART: Rate and Rhythm are regular. ABDOMEN: Nontender. EXTREMITITES: No edema. Objective - Vital Signs Vital signs: Vital Signs Temp 97.7 F 02/23/25 07:00 Pulse 77 02/23/25 07:00 Resp 14 02/23/25 07:00 BP 123/75 02/23/25 07:00 Pulse Ox 94 L 02/23/25 07:00 FiO2 Intake & Output 02/22/25 02/23/25 02/23/25 18:59 06:59 18:59 Output Total 750 Balance -750 Output: Urine 750 Other: Voiding Method Diaper Diaper Diaper Incontinent Incontinent Incontinent # Voids 1 2 # Bowel Movements 1 - Labs CBC & Chem 7: 02/23/25 05:16 02/23/25 05:16 Labs: Abnormal Lab Results - Last 24 Hours (Table) 02/23/25 02/23/25 Range/Units 05:16 05:16 RBC 3.56 L (4.10-5.20) X 10*6/uL Hgb 10.7 L (12.0-15.0) g/dL Hct 32.6 L (37.2-46.3) % RDW 15.2 H (11.5-14.5) % Plt Count 478 H (140-440) X 10*3/uL Lymphocytes # (Manual) 5.14 H (0.90-5.00) X 10*3/uL Eosinophils # (Manual) 0.37 H (0.04-0.35) X 10*3/uL Carbon Dioxide 20.3 L (21.6-31.8) mmol/L Anion Gap 13.70 H (4.00-12.00) mmol/L Est GFR (CKD-EPI) 56 L (>=60) BUN/Creatinine Ratio 10.64 L (12.00-20.00) Ratio Calcium 8.2 L (8.7-10.3) mg/dL Assessment and Plan Plan: Assessment: 1. Acute kidney injury secondary to vasomotor nephropathy secondary to hypovolemia. Renal function better. Creatinine 1.1. Creatinine this year has been 1.4 and was near 1 in 2023. UA benign. No hydronephrosis noted on imaging. Left kidney atrophic. 2. Hyperkalemia secondary to acute kidney injury. Improved. 3. History of epilepsy. 4. Bipolar disorder. Plan: Hep-Lock IV fluids. Encouraged oral intake. Continue to monitor renal function and urine output.
== END 2025-02-23 11:33 | DRG 885 ==
LOC: EC 15:11 → 6NMEDSUR 20:21 → OBSVTOIN 20:22 → 6NMEDSUR 20:48 → 4SSUR 02-20 04:18
PROVIDERS: ADMIT Internal Medicine; ATTEND Internal Medicine
PROC: 4A10X4Z Monitoring of Central Nervous Electrical Activity, External Approach (ICD-10-PCS; principal; 2025-02-20)
DX: F23 Brief psychotic disorder (principal); N17.0 Acute kidney failure with tubular necrosis; G93.49 Other encephalopathy; J44.9 Chronic obstructive pulmonary disease, unspecified; G40.909 Epilepsy, unspecified, not intractable, without status epilepticus; F10.11 Alcohol abuse, in remission; I12.9 Hypertensive chronic kidney disease with stage 1 through stage 4 chronic kidney disease, or unspecified chronic kidney disease; G31.9 Degenerative disease of nervous system, unspecified; R45.6 Violent behavior; E87.5 Hyperkalemia; F17.210 Nicotine dependence, cigarettes, uncomplicated; E86.1 Hypovolemia; F41.9 Anxiety disorder, unspecified; N18.2 Chronic kidney disease, stage 2 (mild); K21.9 Gastro-esophageal reflux disease without esophagitis; M19.90 Unspecified osteoarthritis, unspecified site; D72.829 Elevated white blood cell count, unspecified; M81.0 Age-related osteoporosis without current pathological fracture; R29.6 Repeated falls; Z79.899 Other long term (current) drug therapy; Z71.6 Tobacco abuse counseling; Z82.49 Family history of ischemic heart disease and other diseases of the circulatory system; Z96.643 Presence of artificial hip joint, bilateral; Z98.42 Cataract extraction status, left eye; Z98.41 Cataract extraction status, right eye; Z88.2 Allergy status to sulfonamides
CPT/HCPCS: 36415; 70450; 71046; 76770; 80048; 80053; 80306; 80320; 81003; 82140; 82550; 82607; 82747; 83735; 84132; 84425; 84443; 85025; 85610; 85730; 93005; 95816; 96361; 96372; 96374; 96375; 99285